=== PATIENT | female | born 1945 | race Caucasian/White ===

== ENCOUNTER 2021-02-16 11:55 | Inpatient (IN) | payer MEDICARE, BC, SELFPAY ==
[2021-02-16] VITALS (27 sets, daily range): BP systolic 100–178; BP diastolic 55–104; PULSE 55–97; RESP 12–24; TEMP 36.4–37.1; O2SAT 92–100; BMI 32.9; BMI 33.3
--- NOTE | ~2021-02-16 | CT_ITS ---
EXAMINATION: CT cervical spine wo con DATE: 02/16/2021 12:52 INDICATION: Fall with head injury TECHNIQUE: Computed tomography (CT) of the cervical spine was performed without intravenous contrast. Automated exposure control and iterative reconstruction technique were employed. The dose-length pro duct was 470.49 mGy-cm. COMPARISON: Cervical spine radiographs dated 03/01/2016 FINDINGS: Alignment is normal. Vertebral body heights are normal. No fracture. Severe disc height loss with deg enerative endplate changes at C5-C6 and C6-C7, moderate disc height loss at C4-C5 and mild disc heigh t loss at the remaining cervical levels. These (apices of lungs are clear. Small amount of atheroscle rotic calcification is at the bilateral carotid bulbs. Cervical soft tissues are otherwise unremarkab le. The following disc levels are specifically discussed: C2-C3: Disc is mildly bulging. There is moderate right and severe left uncovertebral joint osteoarthr itis. There is severe bilateral facet joint osteoarthritis. There is altered left and mild to moderat e right neural foraminal stenosis. There is no central canal stenosis. C3-C4: Disc is mildly bulging. There is right and moderate to severe left uncovertebral joint osteoar thritis. There is moderate right and severe left facet joint osteoarthritis. There is minimal right a nd moderate left neural foraminal stenosis. There is no central canal stenosis. C4-C5: Posterior disc osteophyte complex. There is severe bilateral uncovertebral joint osteoarthriti s. There is moderate right and moderate to severe left facet joint osteoarthritis. There is mild left and mild to moderate right neural foraminal stenosis. There is mild central canal stenosis. C5-C6: Posterior disc osteophyte complex. There is severe bilateral uncovertebral joint osteoarthriti s. There is mild right and mild to moderate left facet joint osteoarthritis. There is mild to moderat e bilateral neural foraminal stenosis. There is mild central canal stenosis. C6-C7: Posterior disc osteophyte complex. There is severe bilateral uncovertebral joint osteoarthriti s. There is mild right and moderate left facet joint osteoarthritis. There is mild bilateral neural f oraminal stenosis. There is mild central canal stenosis. C7-T1: The disc does not extend beyond the endplate margin. There is minimal bilateral uncovertebral joint osteoarthritis. There is mild right and mild to moderate left facet joint osteoarthritis. There is no neural foraminal stenosis. There is no central canal stenosis. IMPRESSION: 1. Severe cervical spondylosis. No acute osseous abnormality. Reviewed, dictated and finalized at location A.
--- NOTE | ~2021-02-16 | CT_ITS ---
EXAMINATION: CT pelvis wo con EXAM DATE: 02/16/2021 14:38 INDICATION: Abnormal x-ray demonstrating possible acetabular fracture. TECHNIQUE: Spiral CT pelvis wo con was performed without contrast. Axial, coronal and sagittal imag es were reviewed. The dose-length product (DLP) for this examination was 460.01 mGy-cm. The exposur e was tailored according to patient size (auto mA exposure control), and iterative reconstruction ( IR) was used as additional dose reduction technique. There is no prior study for comparison. FINDINGS: There is advanced lower lumbar facet arthropathy. There are no acute sacral, pelvic or hip fractures or dislocations identified. There is moderate bilateral hip primary osteoarthritis. There is no subcutaneous gas. The soft tissue is unremarkable. There are no radiopaque foreign bodies. N o pelvic lymphadenopathy. Hysterectomy. Moderate lumbar levoscoliosis. IMPRESSION: Moderate bilateral hip osteoarthritis. No acute fracture. Reviewed, dictated and finalized at location B.
--- NOTE | ~2021-02-16 | XR_ITS ---
EXAMINATION: XR surgery orthopedic DATE: 02/17/2021 15:26 INDICATION: ORIF left ankle fracture TECHNIQUE: 5 fluoroscopic images of the left ankle were obtained during procedure performed by Dr. Faisal egan. Radiologist was not present for the imaging or procedure. The amount of fluoroscopy time used during this procedure was 2.9 minutes. COMPARISON: 02/16/2021 FINDINGS: Interval open reduction internal fixation of the previously noted trimalleolar fracture of the left a nkle which is now in near-anatomic alignment. The medial malleolar fractures fixed with a pair of can nulated lag screws. The distal fibular fracture is fixed with a retrograde intramedullary hanane with a pair of distal interlocking screws. There is also an associated tibiofibular syndesmotic fixation wit h bunions on both the medial and lateral aspect of a pair of lucent tunnels extending through the met aphyseal regions of the distal left tibia and fibula. Syndesmotic fixation also extends through the i ntramedullary hanane. Again seen are changes of prior attempted midfoot arthrodesis which is fixed with multiple screws. Th ere are lucencies surrounding the threads of several of the screws. One of the screws extending from proximal medial to distal lateral between the medial cuneiform and the base of the second metatarsal and its associated washer which had backed out as seen on the initial images but which has been remov ed on the final image. Residual lucencies are seen at the tarsal metatarsal joint spaces suggesting p ossible failure of the prior attempted arthrodesis. IMPRESSION: 1. Trimalleolar fracture at the left ankle which appears in near-anatomic alignment post internal fix ation of the medial malleolar and distal fibular fractures as detailed above. The posterior patellar fracture remains unfixed. 2. Removal of a screw as part of internal fixation for a prior midfoot arthrodesis which had backed o ut. There are increased lucency surrounding some of the remaining screws and residual lucency along t he tarsal metatarsal joints suggesting this may remain ununited. Reviewed, dictated and finalized at location A. IMPRESSION: 1. Trimalleolar fracture at the left ankle which appears in near-anatomic align ment post internal fixation of the medial malleolar and distal fibular fracture s as detailed above. The posterior patellar fracture remains unfixed. 2. Removal of a screw as part of internal fixation for a prior midfoot arthrode sis which had backed out. There are increased lucency surrounding some of the r emaining screws and residual lucency along the tarsal metatarsal joints suggest ing this may remain ununited.
--- NOTE | ~2021-02-16 | CT_ITS ---
EXAMINATION: CTA chest PE protocol EXAM DATE: 02/16/2021 14:38 INDICATION: Pulmonary embolism. TECHNIQUE: Spiral CTA of the chest (pulmonary arteries) was performed with 100 cc Omnipaque 350 intr avenous contrast injection. Images were acquired during the pulmonary arterial phase. Coronal maxi mum intensity projection 3D-reconstructions were created by the technologist on dedicated workstation . Axial, coronal and sagittal reformatted images were reviewed. The dose-length product (DLP) for t his examination was 464.97 mGy-cm. The exposure was tailored according to patient size (auto mA exp osure control), and iterative reconstruction (ASIR) was used as additional dose reduction technique. Comparison is made to prior examination from 09/12/2017. FINDINGS: Pulmonary arteries are well opacified and without intraluminal filling defects. No thora cic aortic dissection. The lungs are clear. There are no pleural or pericardial effusions. Small amount of left lower lobe endobronchial debris. There is no mediastinal, hilar or axillary lymphade nopathy. There is no pneumothorax. There is mild cardiomegaly. There is mild coronary arterial c alcification, arterial sclerosis. Upper abdomen is unremarkable. There is moderate thoracic spondy losis without osteoblastic or osteolytic lesions identified. There are no acute fractures identified. IMPRESSION: 1. No pulmonary emboli or acute findings. 2. Mild cardiomegaly. Reviewed, dictated and finalized at location B.
--- NOTE | ~2021-02-16 | CT_ITS ---
EXAMINATION: CT brain wo con DATE: 02/16/2021 12:52 INDICATION: Head injury post fall TECHNIQUE: Computed tomography (CT) of the head was performed without intravenous contrast. Sagittal and coronal reconstructions were performed. The mA was adjusted according to patient size. Iterative reconstruction technique was employed. The dose-length product was 605.33 mGy-cm. COMPARISON: head CT dated 03/08/2015 FINDINGS: No fracture. No acute intracranial hemorrhage, acute infarction or abnormal extra axial fluid collect ion. Ventricles are normal and symmetric. Unchanged tiny falcine lipoma. Also unchanged is a chronic 4 mm cluster of dystrophic calcification in the periventricular white matter lateral to the frontal h orn of the left lateral ventricle. A prior left high parietal scalp nodule with calcification likely representing a true intraluminal cyst is no longer Olive stenosis likely been resected. Changes of ankita ateral intraocular lens replacement. The orbits and mastoid air cells are normal. Mild mucoperiosteal thickening the bilateral ethmoid sinuses. Intracranial calcified cerebral atherosclerosis is noted. Severe osteoarthritis at the bilateral temporomandibular joints. IMPRESSION: 1. No fracture or acute intracranial process. Reviewed, dictated and finalized at location A.
--- NOTE | ~2021-02-16 | XR_ITS ---
XR ankle LT min 3V, XR tibia fibula LT 2V 02/16/2021 12:30 Indication: Left ankle pain after fall Procedure: 3 views of the left ankle and 2 views left tibia/fibula Comparison: 10/29/2019 Findings: There is a trimalleolar fracture with mildly displaced oblique distal fibular diaphyseal fr acture being laterally displaced. Moderate diffuse soft tissue swelling. There is mild dorsal angulat ion of the fibular fracture. There surgical fusion of the midfoot with multiple screws. Osteopenia. Impression: 1: Trimalleolar fracture with displaced distal fibular fracture. Reviewed, dictated and finalized at location A. Impression: 1: Trimalleolar fracture with displaced distal fibular fracture. Impression: 1: Trimalleolar fracture with displaced distal fibular fracture.
--- NOTE | ~2021-02-16 | XR_ITS ---
XR femur LT min 2V 02/16/2021 12:30 Indication: Left leg pain after fall Procedure: 2 views left femur Comparison: No prior studies for comparison. Findings: There is osteoarthritis of the left hip. There is curvilinear lucency along the acetabulum. Cannot exclude nondisplaced acetabular fracture. No other fracture. No significant soft tissue abnor mality. No foreign bodies. Impression: 1: Possible acetabular fracture. Recommend correlation with CT. Reviewed, dictated and finalized at location A. Impression: 1: Possible acetabular fracture. Recommend correlation with CT.
--- NOTE | 2021-02-16 12:00 | PC.NURSE ---
Pt taken to CT and xray at this time
[2021-02-16 12:02] LABS: Glucose Point of Care 99 mg/dl (65-105)
--- NOTE | 2021-02-16 12:04 | ECG_ITS ---
Measurements Intervals [place] Rate: 63 P: 84 MA: 155 QRS: 84 QRSD: 97 T: 79 QT: 423 QTc: 433 Interpretive Statements SINUS RHYTHM BORDERLINE ST ABNORMALITY- INFERIOR LEADS BASELINE WANDER- AVL BORDERLINE ECG Electronically Signed On 02-16-2021 12:19:49 CDT by Anthony Castellano D.O.
[2021-02-16 12:22] LABS: Basophils Percent Auto 0.4 % (0.2-1.2); Eosinophils Absolute Auto 0.1 K/mm3 (0-0.3); Eosinophils Percent Auto 0.9 % (0-4.4); Hematocrit 44.6 % (37.0-47.0); Immature Granulocyte Absolute 0.04 K/mm3 (0.00-0.031); Immature Granulocyte Percent A 0.4 % (0-0.5); Lymphocytes Absolute Auto 1.17 K/mm3 (0.9-3.2); Lymphocytes Percent Auto 10.3 % (18.3-44.2); Mean Corpuscular HGB Conc 31.4 g/dl (32-36); Mean Corpuscular Hemoglobin 32.4 pg (26-34); Mean Corpuscular Volume 103.2 fl (80-100); Monocytes Absolute Auto 0.6 K/mm3 (0.1-0.6); Monocytes Percent Auto 5.1 % (2.6-8.5); Neutrophils Absolute Auto 9.5 K/mm3 (1.3-6.7); Neutrophils Percent Auto 82.9 % (45.5-73.1); Platelet Count Result 221 k/mm3 (150-375); Red Blood Count 4.32 M/mm3 (4.2-5.4); White Blood Count 11.4 K/mm3 (4.5-10.0)
[2021-02-16 12:28] LABS: Add Urine Microscopic? YES; Appearance Urine Clear (Clear); Bacteria Urine Trace /hpf; Bilirubin Urine Negative (Negative); Blood Urine Negative (Negative); Color Urine Yellow (Yellow); Glucose Urine UA Negative (Negative); Ketones Urine Negative (Negative); Leukocyte Esterase Ur Trace LEU/UL (Negative); Mucus Urine Rare /lpf; Nitrate Urine Negative (Negative); Protein Urine 1+ mg/dL (Negative); Squamous Epithelial Cell Urine Rare /hpf (Few); WBC Urine 0-3 /hpf
[2021-02-16 12:32] LABS: Anion Gap 11 mmol/L (8-16); Blood Urea Nitrogen 19 mg/dL (7-17); Calcium 9.9 mg/dL (8.4-10.2); Carbon Dioxide 27 mmol/L (22-30); Chloride 111 mmol/L (98-107); Creatine Kinase 150 U/L (30-135); Estimated Glomerular Filt Rate 54; Glucose 93 mg/dL (65-105); Potassium 3.6 mmol/L (3.4-5.0); Sodium 149 mmol/L (137-145)
[2021-02-16 12:38] LABS: INR 1.2; Prothrombin Time 16.2 Seconds (11.1-14.7)
--- NOTE | 2021-02-16 12:44 | PCRCNOTE ---
Arrived to draw the abg and pt. was in Xray and CT.
[2021-02-16] MEDS: ONDANSETRON INJ 4 MG/2 ML VIAL IV PUSH ×2 (12:58→13:38)
[2021-02-16] MEDS: MORPHINE SULFATE (*CRX) 4 MG/ML INJ IV PUSH ×4 (12:58→23:09)
[2021-02-16 13:07] LABS: Alveolar/Arterial O2 Gradient 37.8 mmHg; Base Excess ABG -0.2 mEq/l (+/-2.0); Fractional Inspired Oxygen 21 %; HCO3 ABG 25.2 mEq/l (22.0-26.0); Modified Allen's Test Pass; Oxygen Content ABG 17.4 %vol (16.0-22.0); Oxyhemoglobin 90.2 % THb (90.0-100.0); PO2 ABG 59.2 mmHg (80.0-100.0); PO2 FiO2 Ratio Arterial Blood 2.82 %; Site Drawn LEFT RADIAL; Total Hemoglobin 13.7 g/dL (12.0-18.0); pH ABG 7.376 (7.350-7.450)
[2021-02-16 13:08] LABS: Device ROOM AIR
--- NOTE | 2021-02-16 13:11 | ED.GENADULT ---
HPI - General Adult General Chief complaint: Fall Stated complaint: FALL WITH ANKLE INJURY Source: patient, EMS and RN notes reviewed Mode of arrival: EMS History of Present Illness HPI narrative: Patient 75 years old white female woke up sometime earlier today, found herself on the floor, crawled to the house door and called some people walking in the street for help, EMT arrived and brought patient to the emergency room. Patient is telling me that she was confused probably in the last 24 hours, does not recall what made her fall patient or when the fall happened. Currently complaining of headache, left leg pain below the knee. Patient on Coumadin patient. Currently patient is awake, alert and oriented x4. Related Data Allergies Allergy/AdvReac Type Severity Reaction Status Date / Time adhesive tape Allergy Intermediate REDNESS Verified 02/16/21 11:59 PMFSH Past Medical History Medical History Afib Chronic low back pain with sciatica Coagulopathy COPD (chronic obstructive pulmonary disease) Depression Diabetes Encounter for orthopedic follow-up care Ex-smoker for less than 1 year Hx of blood clots Hypothyroidism Migraine Mixed hyperlipidemia Pulmonary embolism Vitamin D deficiency Surgical History Surgical History H/O breast biopsy H/O hysterectomy with oophorectomy H/O lumpectomy Family History Family History Father Family history of chronic obstructive pulmonary disease Mother Family history of chronic obstructive pulmonary disease Family history of heart disease in male family member before age 55 Other Carcinoma of colon Cerebrovascular accident Diabetes mellitus Family history of alcoholism Family history of arthritis Family history of emphysema Family history of malignant neoplasm Family history of malignant neoplasm of breast in first degree relative Hypertension Social History Social History Smoking status: Never smoker Second hand tobacco smoke exposure: No Smoking end date: 09/03/15 Alcohol intake: never Substance use: unknown Exam Narrative: Exam Narrative: General appearance: Well-developed, well-nourished Skin: Normal color, left lower leg bruises mainly at the left ankle Head: Normocephalic, nontraumatic Eyes: Clear conjunctiva ENT: Oropharynx normal, ears normal, nose normal Neck: Supple, nontender Chest and respiratory: Airway patent, no respiratory distress, no accessory muscle use Heart: Regular rate/rhythm Abdomen: Soft, nontender, no organomegaly, quiet bowel sounds Vascular: Normal peripheral pulses, normal capillary refill. Musculoskeletal: Left ankle deformity, bruises, severely tender, severe limited range of motion Neurologic: Alert and oriented ?3, [employer] is normal as tested, no gross motor deficit Course Course Emergency Course: Stable, improving Reevaluation(s) Reevaluation #1: Patient had foot surgery by Dr. Lofton 1 year ago Consultations Consultation #1: Dr. Davis Admit to hospitalist, n.p.o. after midnight Date: 02/16/21 Time: 16:44 Vital Signs Vital signs: Vital Signs Pulse Rate 67 02/16/21 11:44 Respiratory Rate 24 H 02/16/21 11:44 Blood Pressure 159/104 H 02/16/21 11:44 Pulse Oximetry 93 02/16/21 11:44 Pulse Rate 97 02/16/21 15:21 Respiratory Rate 13 02/16/21 15:21 Blood Pressure 125/77 02/16/21 15:21 Pulse Oximetry 96 02/16/21 15:21 Medical Decision Making MDM Narrative Medical decision making narrative: Patient wor
[2021-02-16 13:34] LABS: Alanine Aminotransferase 24 U/L (4-35); Albumin Level 4.4 g/dL (3.5-5.1); Alkaline Phosphatase 61 U/L (38-126); Aspartate Amino Transferase 39 U/L (14-36); Bilirubin,Total 0.7 mg/dL (0.2-1.3)
--- NOTE | 2021-02-16 14:58 | PC.NURSE ---
Pt son called for an update. Son states that pt has had memory issues lately and has been forgetful
--- NOTE | 2021-02-16 16:21 | PC.NURSE ---
Pt apprears drowsy and holding strap of mattress pad and saying im trying to call my son This RN told her that wasn't her phone and gave her cell phone. Pt grabs the O2 monitor and attempts to pull at cord stating Im trying to unplug my phone This RN asked pt her name, where she was and why she was here.Pt responded caron Moore at the hospital because i broke my leg . This RN made Dr. Hwang aware. No new orders at this time.
[2021-02-16 16:27] LABS: Amphetamine Screen Urine Negative (Negative); Barbiturate Screen Urine Negative (Negative); Benzodiazepines Screen Urine Negative (Negative); Cannabinoid Screen Urine Negative (Negative); Cocaine Screen Urine Negative (Negative); Methadone Screen Urine Negative (Negative); Opiate Screen Urine Positive (Negative); Phencyclidine Screen Urine Negative (Negative)
--- NOTE | 2021-02-16 17:43 | ADMGEN ---
This patient, Lili Sanchez, was admitted to IMU Room 205-02. Patient/family oriented to hospital policies and general routines including ID bracelet, bed and alarms, visiting hours, pain management, procedures, bathroom and other care routines, personal items, smoking policy, room service/diet, and visiting hours. Information on how to activate the Rapid Response Team has been discussed. Patient/Family are encouraged to report perceived risks to care and to ask questions if they do not understand what they are told or what they should do.
[2021-02-16 21:57] LABS: Glucose Point of Care 135 mg/dl (65-105)
[2021-02-17] VITALS (23 sets, daily range): BP systolic 108–153; BP diastolic 43–76; PULSE 53–73; RESP 10–22; TEMP 36.2–37.7; O2SAT 91–100
--- NOTE | 2021-02-17 01:06 | PM.IMHP ---
H&P: HPI History of Present Illness Date/Time: 02/17/21 01:06 Chief Complaint: Fall Narrative: 75-year-old female with past medical history of COPD, obstructive sleep apnea, prior pulmonary embolism on chronic anticoagulation and fainting spells who presented to the ER after having a fall. In the ER the patient was noted to have some mild altered mental status. The patient initially stated that she did not know why she got up to go to the bathroom because she did not need to go. She then later stated that she did not know if she would have any urine in her bladder because she had been up peeing all night. Reviewing past medical records the there is mention of possible evidence of early cognitive impairment. The patient was alert oriented x3 at the time of my evaluation. She was adamant that she had dropped her cellphone but had to redirect her several times in tell her that she had dropped the remote for her bed. Nursing staff reported that the patient was answering orientation questions correctly but was insistent that she had called [place] on her slip cover sewer. The patient had an ABG performed in the ER which demonstrated mild hypoxemia but this did not correlate with her pulse ox. Her pulse ox was within normal limits. She did not have any evidence of hypercarbia. She has been having some mild increased shortness of breath from baseline ever since she smoked a couple of cigarettes this past weekend. She reports that her cough is productive of yellow sputum. She has not been having any fevers or chills. She has not had a COVID vaccine. She has noticed some increased wheezing from baseline. She did and denies any loss of sense of smell. She has had mild decreased sense of taste. She does not have any evidence of pneumonia on x-ray. She has not been having any fevers or chills. She has chronic urinary frequency and stress incontinence. She wears pads at home. She denies any dysuria or hematuria. She has not been having any changes in her bowel habits. She reports severe pain in her leg since the fall. The pain extends up into her knee. She had not noticed any lower extremity edema prior to her fall. She reports an abrasion to her left knee as she had to crawl from her bedroom to the front door to weight down a neighbor to receive help. She lives with her nephew but her nephew was gone to work when she fell. Review of Systems Review of Systems: Narrative: 12 systems were reviewed with pertinent positives and negatives per HPI. Except as documented in the HPI, all other systems were reviewed and are negative. [facility] Past Medical History Medical History (Updated 02/17/21 @ 08:34 by Geovanna Pop DO) Afib Anxiety Chronic anticoagulation Chronic low back pain with sciatica COPD (chronic obstructive pulmonary disease) Depression Diabetes Hx of blood clots Hypothyroidism Irritable bowel syndrome Migraine Mixed hyperlipidemia Obstructive sleep apnea Pulmonary embolism (~2006) Saddle PE Vitamin D deficiency Surgical History Surgical History H/O breast biopsy H/O hysterectomy with oophorectomy H/O lumpectomy History of appendectomy History of lumbar surgery Family History Family History Father COPD (chronic obstructive pulmonary disease) Hypertension Mother Acute myocardial infarction COPD (chronic obstructive pulmonary disease) Hypertension Sibling CHF (congestive heart failure) Brother DVT (deep venous thrombosis) 1 Sister Cerebrovascular accident Sister Asthma 1 Brother and 3 sisters Lung cancer 1 Sister Diabetes mellitus 1 Sister Breast cancer 2 sisters Hypertension Other Carcinoma of colon Family history of alcoholism Social History Social History Social History: She is
[2021-02-17] MEDS: PREGABALIN (*CRX) 50 MG CAPSULE PO ×2 (02:32→20:06)
[2021-02-17] MEDS: oxyCODONE/ACETAMINOPHEN (*CRX) 5-325 MG TABLET 1 TABLET PO (02:32)
[2021-02-17] MEDS: MORPHINE SULFATE (*CRX) 4 MG/ML INJ IV PUSH ×2 (04:19→09:20)
[2021-02-17] MEDS: LEVOTHYROXINE SODIUM 25 MCG TABLET PO (05:19)
--- NOTE | 2021-02-17 07:27 | PM.CNOR ---
Assessment and Plan Assessment and plan (1) Trimalleolar fracture of ankle, closed: Qualifiers: Encounter type: initial encounter Laterality: left Qualified Code(s): S82.852A - Displaced trimalleolar fracture of left lower leg, initial encounter for closed fracture Code(s): S82.853A - Displaced trimalleolar fracture of unspecified lower leg, initial encounter for closed fracture Status: Acute Assessment and Plan: Updated history, physical exam and radiographs reviewed with the patient. Interval changes reviewed. Discussed the condition, nature, etiology and course of natural history with the patient. Treatment options including surgical and nonoperative treatment were reviewed. Risks and benefits of each as well as alternatives reviewed. The patient's questions were answered. Conservative treatment ice, compression and elevation. Currently in splint for immobilization. Nonweightbearing left leg. Patient desires operative treatment. We discussed her syncope and mental status changes. Further workup pending per hospitalist group. She is on Coumadin for previous pulmonary embolism however has been noncompliant with regimen. Her INR is 1.2. Plan for surgery left ankle when medically stable. Operative treatment timing may also depend on the amount swelling. Discussed nonoperative and operative treatment options with the patient. Risks and benefits of each as well as alternatives were reviewed. All of the patient's questions were answered. The risks of surgery reviewed including but not limited to: Neurovascular damage, wound complication, infection, blood clot, pulmonary embolus, stroke, myocardial infarction, and anesthetic risks up to and including . Continued pain and possible dysfunction were explained. Specific risks of the procedure including later recurrence of deformity. No guarantees were offered. If hardware used, discussed risk of failure/ breakage and possible need for removal. If complications occur, the patient understands the need for further treatment, possible further surgery. Patient verbalizes understanding and wishes to proceed. PLAN:Open reduction internal fixation left ankle fracture when medically stable/ cleared for anesthesia History of Present Illness HPI Consult date: 02/17/21 Requesting physician: Fadia Hwang MD Chief complaint: syncope,left trimalleolar fracture,hypoxicrespirat Narrative: 75-year-old woman no previous to me for Lisfranc fracture dislocation left foot which was treated with open reduction internal fixation. Patient states she got up home to go to the bathroom. She tripped over the bathroom rug and fell twisting the left ankle. She was unable to bear weight. Emergency room radiographs show left ankle trimalleolar fracture. She has been admitted for care as well as evaluation and treatment for mental status changes and syncope. Review of Systems Constitutional: Constitutional: Denies fever(s) Eyes: Eyes: Denies blurry vision ENT: Reports Normal hearing present Cardiovascular: Cardiovascular: Denies chest pain and Denies dyspnea Respiratory: Respiratory: Denies dyspnea and Denies wheezing Gastrointestinal: Gastrointestinal: Denies abdominal pain Genitourinary: Genitourinary: Denies urinary urgency Musculoskeletal: Musculoskeletal: Reports as per HPI and Denies numbness Integumentary/Breasts: Skin/Breast: Denies changing lesions and Denies sores Neurologic: Reports Normal hearing present, Denies behavioral changes, Denies confusion, Denies numbness and Denies convulsions Psychiatric: Psychiatric: Denies behavioral changes, Denies confusion and Denies hallucinations Endocrine: Endocrine: Denies heat intolerance Hematologic/Lymphatic: Hematologic/Lymphatic: Denies easy bleeding Allergic/Immunologic: Allergic/Immunologic: Denies wheezing [facility] Past Medical History Medical History Afib
[2021-02-17 07:52] LABS: Glucose Point of Care 80 mg/dl (65-105)
[2021-02-17 09:05] LABS: Glucose Point of Care 90 mg/dl (65-105)
[2021-02-17] MEDS: predniSONE 20 MG TABLET 40 MG PO (09:23)
[2021-02-17] MEDS: ROSUVASTATIN 10 MG TABLET PO (09:24)
[2021-02-17] MEDS: TOPIRAMATE 25 MG TABLET PO ×2 (09:24→20:06)
[2021-02-17] MEDS: MONTELUKAST SODIUM 10 MG TABLET PO (09:24)
[2021-02-17 09:40] LABS: Hematocrit 37.5 % (37.0-47.0); Hemoglobin 11.9 g/dL (12.0-15.0); Mean Corpuscular HGB Conc 31.7 g/dl (32-36); Mean Corpuscular Hemoglobin 32.2 pg (26-34); Mean Corpuscular Volume 101.6 fl (80-100); Mean Platelet Volume 9.8 fl (7.4-10.4); Platelet Count Result 172 k/mm3 (150-375); Red Blood Count 3.69 M/mm3 (4.2-5.4); Red Cell Distribution Width 13.8 % (11.5-14.5); White Blood Count 7.3 K/mm3 (4.5-10.0)
[2021-02-17 10:02] LABS: Anion Gap 6 mmol/L (8-16); Blood Urea Nitrogen 16 mg/dL (7-17); Calcium 8.6 mg/dL (8.4-10.2); Carbon Dioxide 29 mmol/L (22-30); Chloride 106 mmol/L (98-107); Estimated CRCL calculation 46 ml/min; Estimated Glomerular Filt Rate 54; Glucose 83 mg/dL (65-105); Potassium 3.7 mmol/L (3.4-5.0); Sodium 141 mmol/L (137-145)
[2021-02-17] MEDS: DEXTROSE 5%/0.45% SOD CHL 1,000 ML 75 ML IV CONT (10:03)
--- NOTE | 2021-02-17 12:08 | WPDANESEPPF ---
Anes - Initial Pre Proc Eval Procedure: Operation Date: 02/17/21 15:00 Proposed Procedures p Open Reduction and Internal Fixation Left Ankle Fracture(Left) - Ariel Lofton MD Date/Time: 02/17/21 12:08 Surgeon: Eduar Soriano MD Pre Op Diagnosis: syncope,left trimalleolar fracture,hypoxicrespirat Patient Data Age: 75 Gender: F Height: 1.63 m Weight: 88.4 kg Last Vital Signs Temp 36.7 C 02/17/21 08:00 Pulse 65 02/17/21 10:00 Resp 18 02/17/21 08:00 BP 130/57 L 02/17/21 08:00 Pulse Ox 92 02/17/21 09:11 Allergies Allergy/AdvReac Type Severity Reaction Status Date / Time adhesive tape Allergy Intermediate REDNESS Verified 02/16/21 11:59 Home Medications Medication Instructions Recorded Confirmed Type montelukast 10 mg tablet 10 mg PO DAILY #90 tablet 12/08/20 02/16/21 Rx sertraline 100 mg tablet 100 mg PO DAILY #30 tablet 12/15/20 02/16/21 Rx oxycodone-acetaminophen 10 mg-325 1 tablet PO Q6H PRN #55 tablet 01/28/21 02/16/21 Rx mg tablet budesonide-formoterol HFA 160 2 puff INHALATION Q12H #10.2 g 02/01/21 02/16/21 Rx mcg-4.5 mcg/actuation aerosol inhaler rosuvastatin 10 mg tablet 10 mg PO DAILY #30 tablet 02/02/21 02/16/21 Rx albuterol sulfate 2 inh INHALATION BID PRN 02/16/21 02/16/21 History glimepiride 1 mg PO DAILY 02/16/21 02/16/21 History levothyroxine 25 mcg PO DAILY 02/16/21 02/16/21 History pregabalin 50 mg PO HS 02/16/21 02/16/21 History topiramate 25 mg PO BID 02/16/21 02/16/21 History warfarin 1 mg PO DAILY 02/16/21 02/16/21 History Laboratory Tests 02/16/21 02/16/21 02/16/21 12:11 12:12 12:12 WBC 11.4 K/mm3 H K/mm3 (4.5-10.0) RBC 4.32 M/mm3 M/mm3 (4.2-5.4) Hgb 14.0 g/dL g/dL (12.0-15.0) Hct 44.6 % % (37.0-47.0) MCV 103.2 fl H fl (80-100) MCH 32.4 pg pg (26-34) MCHC 31.4 g/dl L g/dl (32-36) RDW 14.0 % % (11.5-14.5) Plt Count 221 k/mm3 k/mm3 (150-375) MPV 10.0 fl fl (7.4-10.4) Immature Gran % (Auto) 0.4 % % (0-0.5) Neut % (Auto) 82.9 % H % (45.5-73.1) Lymph % (Auto) 10.3 % L % (18.3-44.2) Gibson % (Auto) 5.1 % % (2.6-8.5) Eos % (Auto) 0.9 % % (0-4.4) Baso % (Auto) 0.4 % % (0.2-1.2) Lymph # (Auto) 1.17 K/mm3 K/mm3 (0.9-3.2) Gibson # (Auto) 0.6 K/mm3 K/mm3 (0.1-0.6) Eos # (Auto) 0.1 K/mm3 K/mm3 (0-0.3) Baso # (Auto) 0.0 K/mm3 K/mm3 (0.0-0.1) Abs Immat Gran (auto) 0.04 K/mm3 H K/mm3 (0.00-0.031) Absolute Neuts (auto) 9.5 K/mm3 H K/mm3 (1.3-6.7) Absolute Nucleated RBC 0.0 K/mm3 K/mm3 (0.0-0.012) Nucleated RBC % 0.0 % % (0.0-0.2) PT INR Puncture Site ABG pH ABG pCO2 ABG pO2 ABG PO2/FiO2 Ratio ABG HCO3 ABG O2 Saturation ABG O2 Content ABG Base Excess A-a Gradient Oxyhemoglobin Total Hemoglobin O2 Delivery Device O2 Liters/Min FiO2 Sodium Cancelled Potassium Cancelled Chloride Cancelled Carbon Dioxide Cancelled Anion Gap Cancelled BUN Cancelled Creatinine Cancelled Estim Creat Clear Calc Cancelled Estimated GFR Cancelled Glucose Cancelled POC Capillary Glucose Calcium Cancelled Total Bilirubin 0.7 mg/dL mg/dL (0.2-1.3) Direct Bilirubin 0.0 mg/dL mg/dL (0-0.3) AST 39 U/L H U/L (14-36) ALT 24 U/L U/L (4-35) Alkaline Phosphatase 61 U/L U/L (38-126) Total Creatine Kinase Total Protein 8.0 g/dL g/dL (6.3-8.2) Albumin 4.4 g/dL g/dL (3.5-5.1) Ur
[2021-02-17 12:27] LABS: Glucose Point of Care 106 mg/dl (65-105)
[2021-02-17] MEDS: LACTATED RINGERS 1,000 ML 30 ML IV CONT ×2 (12:47→15:31)
--- NOTE | 2021-02-17 13:30 | WPDHPUPDATE1 ---
History and Physical Update Update Date/Time: 02/17/21 13:30 History and Physical has been reviewed, including an updated exam of the patient. There are NO changes in the patient's condition. Risks, benefits, and alternatives have been discussed and questions answered. Patient agrees to proceed with procedure.
[2021-02-17] MEDS: ceFAZolin 2 GM/D5W 50 ML 2 GM/50 ML BAG IVPB (13:34)
--- NOTE | 2021-02-17 14:17 | PM.IMPN ---
Progress Note: A&P Assessment and Plan (1) Fall: Qualifiers: Encounter type: subsequent encounter Qualified Code(s): W19.XXXD - Unspecified fall, subsequent encounter Code(s): W19.XXXA - Unspecified fall, initial encounter Status: Acute Assessment and Plan: See below (2) Acute alteration in mental status: Code(s): R41.82 - Altered mental status, unspecified Status: Acute (3) Trimalleolar fracture of ankle, closed: Qualifiers: Encounter type: initial encounter Laterality: left Qualified Code(s): S82.852A - Displaced trimalleolar fracture of left lower leg, initial encounter for closed fracture Code(s): S82.853A - Displaced trimalleolar fracture of unspecified lower leg, initial encounter for closed fracture Status: Acute (4) Patient noncompliant with anticoagulant medication: Code(s): Z91.14 - Patient's other noncompliance with medication regimen Status: Acute (5) COPD (chronic obstructive pulmonary disease): Qualifiers: COPD type: chronic bronchitis Chronic bronchitis type: unspecified Qualified Code(s): J42 - Unspecified chronic bronchitis Code(s): J44.9 - Chronic obstructive pulmonary disease, unspecified Status: Acute Additional Plan Interval history as before on admission note : Patient had a trip and fall resulting in a left trimalleolar fracture. The patient adamantly denies having syncopal event. She has no evidence of cardiac arrhythmia on telemetry or EKG. Orthopedic surgery has been consulted. The patient is requesting to be seen by Dr. Quiroga as he previously foot with prior fracture. The patient is having some active wheezing and increased shortness of breath from baseline. The patient will be placed on scheduled nebulizer treatments with albuterol and Atrovent. Will continue her home inhaled corticosteroid. She does not have an oxygen requirement. By nature of her COPD she is at moderate risk for complications in the postoperative interval. Will provide good pulmonary toilet and incentive spirometry. As the patient is afebrile on antibiotic therapy. Given her increased wheezing will provide oral prednisone for 5 days. The patient's confusion is likely due to early cognitive impairment/mild dementia. As mentioned above there was concern for cognitive decline mention and prior past medical records. The patient's confusion did seem to be worse at night fitting with likely sundowning. CT of brain was negative for any acute process. The patient's confusion could also be compounded by fact that she is on chronic narcotic pain medications. The patient's confusion would not delay surgical intervention from in my opinion. The patient's Coumadin is on hold in anticipation of surgical procedure. Will resume the anticoagulation prior to discharge. Subjective Date/time seen: 02/17/21 14:17 Interval history: 75-year-old female with past medical history of COPD, obstructive sleep apnea, prior pulmonary embolism on chronic anticoagulation and fainting spells who presented to the ER after having a fall. Some Gi upset not been eating for 3 days had a fall sustained Trimalleolar fracture of ankle. Pt describes some blurred vision no focal weakness ? due to no food hypoglycemia, stroke appears unlikely cthead is negative. PT is stable for Orthopedics surgery continue D51/2 NS Review of Systems Review of Systems: All systems reviewed & are unremarkable except as noted in HPI and below Objective Data Vital Signs Vital Signs: Vital Signs - 24 hr 02/16/21 14:39 02/16/21 14:45 02/16/21 15:07 Temperature Pulse Rate 64 63 58 L Respiratory Rate 15 14 14 Blood Pressure Pulse Oximetry 95 95 97 02/16/21 15:15 02/16/21 15:21 02/16/21 15:33 Temperature Pulse Rate 66 60 62 Respiratory Rate 19 17 16 Blood Pressure 125/77 Pulse Oximetry 95 92 02/16/21 15:45 02/16/21 15:46 02/16/21 16:00 Temperatu
[2021-02-17] MEDS: BUPIVACAINE/EPINEPHRINE 0.5% 10 ML VIAL 20 ML INFILTRATE (14:20)
[2021-02-17 15:41] LABS: Glucose Point of Care 145 mg/dl (65-105)
--- NOTE | 2021-02-17 15:44 | W.PM.PROC2 ---
Procedure Note - Detailed Date of Procedure 02/17/21 Pre-op Diagnosis syncope,left trimalleolar fracture,hypoxicrespirat Post-op Diagnosis same Procedure Performed Open reduction internal fixation left ankle trimalleolar fracture without fixation of posterior lip. Open reduction internal fixation syndesmosis disruption. Removal of hardware from left foot. Surgeon Ariel Lofton MD [employer] school psychologist assistant Anesthesia general Indications 75-year-old woman fell and sustained a left ankle trimalleolar fracture. She desires operative treatment. She sustained a Lisfranc fracture dislocation on the left foot 2 years ago. She has prominence of the hardware now with pain and desires removal of that as well. Description of Procedure What was done: After informed consent, the operative extremity was marked in the preoperative holding area. Patient received intravenous antibiotics. Patient was then taken to the operating room and underwent general anesthesia by the anesthesia team. Positioned supine on the operating room table with a soft bump under the ipsilateral hip. A time-out was performed confirming the patient, site of the surgery, operative plan. Left Lower extremity then prepped and draped in the usual sterile surgical fashion using ChloraPrep skin solution. Foot and ankle exsanguinated and a thigh tourniquet inflated to 250 mmHg. Distal fibular fracture noted to be Ragland C with disruption of the syndesmosis. Close reduction of the ankle in fractures performed. Image intensification then used to guide intramedullary pin for the distal fibula starting at the distal most aspect. Fifteen blade knife used to make skin incision. Blunt dissection to the distal tip of the fibula. A guide pin was then placed into the fibula and across the fracture site and verified with image intensification. Reaming and over drilling of the pin was performed. Pin was then removed and the fibular intramedullary nail was placed and confirmed with image intensification. Distal locking done with the locking guide using the tissue protectors. To 2.7 mm screws placed from the lateral aspect. The nail had been locked in place with the proximal deployment device. Wounds thoroughly irrigated antibiotic solution and closed with 4 nylon interrupted suture. Syndesmosis then addressed. Incision made over the posterior aspect of the distal fibula with 15 blade knife. Dissection carried down to the fibula. Drill was used to drill across the fibula cortices and into the tibia. This was verified with image intensification. The tight rope device was then placed through the fibula and tibia and tightened into position with the ankle mortise reduced. Second tight rope was placed just proximal to the 1st 1 with same technique. Good fixation of the distal fibula and the syndesmosis noted. Impression toes occasion confirm placement of the hardware. Medial side then addressed. Longitudinal incision made with a 15 blade knife over the medial malleolus fracture. Hemostasis controlled with electrocautery. Fascia incised in line with skin incision. Periosteum cleared from the medial malleolus fracture. Medial side of the joint inspected and noted to have mild amount of trauma to the chondral surface. Thorough irrigation of the ankle joint and suctioned out. Fracture reduced and provisionally pinned. Fixation achieved with 4.0 mm partially threaded cancellous screws x2 placed in cannulated screw fashion. Image intensification confirmed reduction of the fracture and placement of the hardware. Stress of the ankle performed with good stability of the ankle mortise in all directions. Posterior malleolus noted to be reduced and stable. Wounds thoroughly irrigated with antibiotic solution. Skin closed with 4 nylon interrupted suture. The previous hardware placed for the Lisfranc fracture was palpable at the dorsomedial aspect of the midfoot. Incision made with 15 blade knife and dissectio
[2021-02-17] MEDS: fentaNYL CITRATE INJ (*CRX) 100 MCG/2 ML VIAL 25 MCG IV PUSH ×2 (16:11→16:15)
--- NOTE | 2021-02-17 17:13 | SUR.PHASEI ---
[address] valdovinos that hsopitalist was ok for pt transfer to 3 med/surg, dr valdovinos also is ok with the transfer
--- NOTE | 2021-02-17 17:17 | PC.NURSE ---
This patient, Lili Sanchez, was transferred to [Sarah ] on 02/17/21 at 1522. Personal belongings sent with patient. Report given to [Siri ]. Appropriate documentation sent with patient.
[2021-02-17] MEDS: DOCUSATE SODIUM 100 MG CAPSULE PO (18:01)
[2021-02-17] MEDS: KCL 20 MEQ/D5/0.45% SOD CHL 1,000 ML 80 ML IV CONT (18:02)
--- NOTE | 2021-02-17 18:38 | PC.NURSE ---
This pt arrived to the floor, transferring from IMU 205/PACU. Pt acclimated to room 331. Pt belongings in room and in safe.
[2021-02-17] MEDS: oxyCODONE HCL (*CRX) 5 MG TAB IR PO (20:05)
[2021-02-17] MEDS: FAMOTIDINE 20 MG TABLET PO (20:06)
[2021-02-17] MEDS: SERTRALINE HCL 50 MG TABLET 100 MG PO (20:06)
[2021-02-17] MEDS: BUDESONIDE/FORMOTEROL (*SP) 160-4.5 MCG 6 GM INH 2 PUFF INHALATION (20:07)
[2021-02-17 22:21] LABS: Glucose Point of Care 329 mg/dl (65-105)
[2021-02-18] MEDS: oxyCODONE HCL (*CRX) 5 MG TAB IR PO ×4 (01:22→23:12)
[2021-02-18] MEDS: LEVOTHYROXINE SODIUM 25 MCG TABLET PO (05:16)
[2021-02-18 06:37] LABS: Basophils Percent Auto 0.2 % (0.2-1.2); Hematocrit 34.8 % (37.0-47.0); Hemoglobin 11.1 g/dL (12.0-15.0); Immature Granulocyte Absolute 0.04 K/mm3 (0.00-0.031); Immature Granulocyte Percent A 0.4 % (0-0.5); Lymphocytes Absolute Auto 0.85 K/mm3 (0.9-3.2); Lymphocytes Percent Auto 7.9 % (18.3-44.2); Mean Corpuscular HGB Conc 31.9 g/dl (32-36); Mean Corpuscular Hemoglobin 32.5 pg (26-34); Mean Corpuscular Volume 101.8 fl (80-100); Mean Platelet Volume 10.1 fl (7.4-10.4); Monocytes Percent Auto 9.2 % (2.6-8.5); Neutrophils Absolute Auto 8.9 K/mm3 (1.3-6.7); Neutrophils Percent Auto 82.3 % (45.5-73.1); Platelet Count Result 159 k/mm3 (150-375); Red Blood Count 3.42 M/mm3 (4.2-5.4); Red Cell Distribution Width 13.4 % (11.5-14.5); White Blood Count 10.8 K/mm3 (4.5-10.0)
[2021-02-18 06:54] LABS: Anion Gap 6 mmol/L (8-16); Blood Urea Nitrogen 19 mg/dL (7-17); Calcium 8.5 mg/dL (8.4-10.2); Carbon Dioxide 24 mmol/L (22-30); Chloride 108 mmol/L (98-107); Estimated CRCL calculation 42 ml/min; Estimated Glomerular Filt Rate 48; Glucose 152 mg/dL (65-105); Potassium 3.9 mmol/L (3.4-5.0); Sodium 138 mmol/L (137-145)
[2021-02-18 06:55] VITALS: BP 127/50; PULSE 65; RESP 18; TEMP 36.6; O2SAT 97
[2021-02-18 08:00] VITALS: BP 129/52; PULSE 60; RESP 16; TEMP 36.4; O2SAT 98
[2021-02-18 08:12] LABS: Glucose Point of Care 144 mg/dl (65-105)
[2021-02-18] MEDS: MONTELUKAST SODIUM 10 MG TABLET PO (08:37)
[2021-02-18] MEDS: predniSONE 20 MG TABLET 40 MG PO (08:37)
[2021-02-18] MEDS: DOCUSATE SODIUM 100 MG CAPSULE PO ×2 (08:37→17:10)
[2021-02-18] MEDS: FAMOTIDINE 20 MG TABLET PO ×2 (08:38→20:56)
[2021-02-18] MEDS: TOPIRAMATE 25 MG TABLET PO ×2 (08:38→20:56)
[2021-02-18] MEDS: BUDESONIDE/FORMOTEROL (*SP) 160-4.5 MCG 6 GM INH 2 PUFF INHALATION ×2 (08:38→20:55)
[2021-02-18] MEDS: ROSUVASTATIN 10 MG TABLET PO (08:38)
[2021-02-18] MEDS: MORPHINE SULFATE (*CRX) 4 MG/ML INJ IV PUSH ×2 (10:34→13:16)
[2021-02-18 11:08] VITALS: PULSE 64; O2SAT 96
--- NOTE | 2021-02-18 12:18 | PM.PNORT ---
Progress Note: A&P Assessment and Plan (1) Trimalleolar fracture of ankle, closed: Qualifiers: Encounter type: initial encounter Laterality: left Qualified Code(s): S82.852A - Displaced trimalleolar fracture of left lower leg, initial encounter for closed fracture Code(s): S82.853A - Displaced trimalleolar fracture of unspecified lower leg, initial encounter for closed fracture Status: Acute Assessment and Plan: POD #1: Open reduction internal fixation left ankle trimalleolar fracture without fixation of posterior lip. Open reduction internal fixation syndesmosis disruption. Removal of hardware from left foot. Patient hopeful for discharge home however, having difficulty with pain control today. Reviewed pain medication regimen with nursing staff. Also reviewed elevating extremity above level of heart. Patient with concerns about the splint feeling too tight. Good capillary refill, sensation intact. Moves toes. Warm to touch. No drainage through dressing. Reassured of need for some compression with splint for soft tissue swelling. Encouraged elevation and ice. Patient agrees with plan of care. Continue PT/OT. NWB LLE. Out of bed to chair. Continue pain control. Ice. Elevate. Incentive spirometry. SCD to the RLE. Keep splint in place. Dispo: Home pending medical clearance, PT/OT clearance and improvement in pain control. Subjective Subjective Date/Time Seen: 02/18/21 12:18 Post Op day: 1 Interval history: POD #1: Open reduction internal fixation left ankle trimalleolar fracture without fixation of posterior lip. Open reduction internal fixation syndesmosis disruption. Removal of hardware from left foot. Difficultly with pain control today. Feels the splint is tight. Tolerating PO intake well. No other concerns. Review of Systems Review of Systems: All systems reviewed & are unremarkable except as noted in HPI and below Constitutional: Constitutional: Denies chills, Denies fatigue and Denies fever(s) Cardiovascular: Cardiovascular: Denies chest pain, Reports leg edema and Denies lightheadedness Respiratory: Respiratory: Reports no additional respiratory complaints Comments: using NC O2 which she has at home as well. Gastrointestinal: Gastrointestinal: Denies nausea and Denies vomiting Genitourinary: Genitourinary: Denies dysuria Musculoskeletal: Musculoskeletal: Reports as per HPI Exam Const: General: comfortable and no acute distress Resp: Effort & Inspection: normal respiratory effort Cardio: Rate: regular rate Rhythm: regular rhythm GI: Inspection: non-distended GI Palp: Yes Soft to palpation and No Tenderness to palpation present (GI) Skin: Wounds: wounds noted (unable to assess- splint in place ) Neuro: General: No gait normal Cognition (Neuro): normal cognition Speech: normal speech Motor exam (neuro): Abnormal motor strength present (limited LLE ) Extrem: Left lower extremity: knee Details: normal to inspection; no tenderness, no swelling, no ecchymosis, no deformity and no unusual warmth, lower leg (splint in place- c/d/i ), ankle (splint in place, c/d/i ) and foot (moves toes, good capillary refill, sensation intact, warm to touch. ) Details: normal capillary refill and motor-sensory exam light-touch normal; no ecchymosis Objective Data Vital Signs Vital Signs: Vital Signs - 24 hr 02/17/21 12:44 02/17/21 12:57 02/17/21 15:35 Temperature 36.2 C L 37.1 C 37.4 C Pulse Rate 61 64 63 Respiratory Rate 18 12 Blood Pressure 153/60 H 147/44 H 136/71 Pulse Oximetry 96 91 100 02/17/21 15:50 02/17/21 16:05 02/17/21 16:20 Temperature Pulse Rate 58 L 62 59 L Respiratory Rate 11 L 10 L 10 L Blood Pressure 127/63 132/61 125/67 Pulse Oximetry 100 100 96 02/17/21 16:35 02/17/21 16:50 02/17/21 17:45 Temperature 36.4 C Pulse Rate 55 L 58 L 72 Respiratory Rate 10 L 12 16 Blood Pressure 125/62 118/54 L 142/67 H Pulse Oximetry 98 98 95 02/17/21 18:00 06
[2021-02-18 12:45] LABS: Glucose Point of Care 147 mg/dl (65-105)
--- NOTE | 2021-02-18 14:30 | PM.IMPN ---
Progress Note: A&P Assessment and Plan (1) Fall: Qualifiers: Encounter type: subsequent encounter Qualified Code(s): W19.XXXD - Unspecified fall, subsequent encounter Code(s): W19.XXXA - Unspecified fall, initial encounter Status: Acute Assessment and Plan: See below Interval history as before on admission note : Patient had a trip and fall resulting in a left trimalleolar fracture. The patient adamantly denies having syncopal event. She has no evidence of cardiac arrhythmia on telemetry or EKG. Orthopedic surgery has been consulted. The patient is requesting to be seen by Dr. Quiroga as he previously foot with prior fracture. The patient is having some active wheezing and increased shortness of breath from baseline. The patient will be placed on scheduled nebulizer treatments with albuterol and Atrovent. Will continue her home inhaled corticosteroid. She does not have an oxygen requirement. By nature of her COPD she is at moderate risk for complications in the postoperative interval. Will provide good pulmonary toilet and incentive spirometry. As the patient is afebrile on antibiotic therapy. Given her increased wheezing will provide oral prednisone for 5 days. The patient's confusion is likely due to early cognitive impairment/mild dementia. As mentioned above there was concern for cognitive decline mention and prior past medical records. The patient's confusion did seem to be worse at night fitting with likely sundowning. CT of brain was negative for any acute process. The patient's confusion could also be compounded by fact that she is on chronic narcotic pain medications. The patient's confusion would not delay surgical intervention from in my opinion. The patient's Coumadin is on hold in anticipation of surgical procedure. Will resume the anticoagulation prior to discharge. Pt started on gabapentin for left leg pain POD #1: Open reduction internal fixation left ankle trimalleolar fracture without fixation of posterior lip. Dc tomorrow. (2) Acute alteration in mental status: Code(s): R41.82 - Altered mental status, unspecified Status: Acute (3) Trimalleolar fracture of ankle, closed: Qualifiers: Encounter type: initial encounter Laterality: left Qualified Code(s): S82.852A - Displaced trimalleolar fracture of left lower leg, initial encounter for closed fracture Code(s): S82.853A - Displaced trimalleolar fracture of unspecified lower leg, initial encounter for closed fracture Status: Acute (4) Patient noncompliant with anticoagulant medication: Code(s): Z91.14 - Patient's other noncompliance with medication regimen Status: Acute (5) COPD (chronic obstructive pulmonary disease): Qualifiers: COPD type: chronic bronchitis Chronic bronchitis type: unspecified Qualified Code(s): J42 - Unspecified chronic bronchitis Code(s): J44.9 - Chronic obstructive pulmonary disease, unspecified Status: Acute Subjective Date/time seen: 02/18/21 14:30 Interval history: 75-year-old female with past medical history of COPD, obstructive sleep apnea, prior pulmonary embolism on chronic anticoagulation and fainting spells who presented to the ER after having a fall. Some Gi upset not been eating for 3 days had a fall sustained Trimalleolar fracture of ankle. POD #1: Open reduction internal fixation left ankle trimalleolar fracture without fixation of posterior lip. Pt having some pain issues in her left thigh. Continue to watch today and dc tomorrow. Review of Systems Review of Systems: All systems reviewed & are unremarkable except as noted in HPI and below Exam Narrative: Exam Narrative: Const: General: cooperative and healthy appearing; No in distress Nutritional Appearance: overweight Orientation/consciousness: oriented to person HENMT: Head: normal to inspection Resp: Effort & Inspection: no respiratory distress A
[2021-02-18 16:00] VITALS: BP 135/64; PULSE 62; RESP 18; TEMP 36.3; O2SAT 96
[2021-02-18] MEDS: GABAPENTIN 100 MG CAPSULE PO (17:10)
[2021-02-18] MEDS: oxyCODONE/ACETAMINOPHEN (*CRX) 5-325 MG TABLET 1 TABLET PO ×2 (17:12→23:12)
[2021-02-18 20:00] VITALS: O2SAT 96
[2021-02-18] MEDS: TOLNAFTATE 1% POWDER 45 GM BTL 1 APPLIC TOPICAL (20:55)
[2021-02-18] MEDS: PREGABALIN (*CRX) 50 MG CAPSULE PO (20:56)
[2021-02-18] MEDS: SERTRALINE HCL 50 MG TABLET 100 MG PO (20:56)
[2021-02-18 21:07] LABS: Glucose Point of Care 238 mg/dl (65-105)
[2021-02-18 22:00] VITALS: BP 143/52; PULSE 59; RESP 20; TEMP 37.7; O2SAT 96
[2021-02-19 05:48] VITALS: BP 152/64; PULSE 52; RESP 20; TEMP 36.6; O2SAT 97
[2021-02-19] MEDS: oxyCODONE HCL (*CRX) 5 MG TAB IR PO ×2 (06:23→20:08)
[2021-02-19] MEDS: LEVOTHYROXINE SODIUM 25 MCG TABLET PO (06:23)
[2021-02-19] MEDS: oxyCODONE/ACETAMINOPHEN (*CRX) 5-325 MG TABLET 1 TABLET PO ×2 (06:24→20:07)
[2021-02-19 07:09] LABS: Hematocrit 35.5 % (37.0-47.0); Hemoglobin 11.3 g/dL (12.0-15.0); Mean Corpuscular HGB Conc 31.8 g/dl (32-36); Mean Corpuscular Hemoglobin 32.5 pg (26-34); Mean Platelet Volume 10.4 fl (7.4-10.4); Platelet Count Result 189 k/mm3 (150-375); Red Blood Count 3.48 M/mm3 (4.2-5.4); Red Cell Distribution Width 13.5 % (11.5-14.5); White Blood Count 11.8 K/mm3 (4.5-10.0)
[2021-02-19 07:28] LABS: Anion Gap 6 mmol/L (8-16); Blood Urea Nitrogen 21 mg/dL (7-17); Carbon Dioxide 30 mmol/L (22-30); Chloride 106 mmol/L (98-107); Estimated CRCL calculation 47 ml/min; Estimated Glomerular Filt Rate 54; Glucose 109 mg/dL (65-105); Potassium 4.7 mmol/L (3.4-5.0); Sodium 142 mmol/L (137-145)
[2021-02-19 07:46] VITALS: PULSE 62; O2SAT 96
[2021-02-19] MEDS: BUDESONIDE/FORMOTEROL (*SP) 160-4.5 MCG 6 GM INH 2 PUFF INHALATION ×2 (08:34→20:07)
[2021-02-19] MEDS: DOCUSATE SODIUM 100 MG CAPSULE PO ×2 (08:35→16:47)
[2021-02-19] MEDS: MONTELUKAST SODIUM 10 MG TABLET PO (08:35)
[2021-02-19] MEDS: FAMOTIDINE 20 MG TABLET PO ×2 (08:35→20:07)
[2021-02-19] MEDS: TOPIRAMATE 25 MG TABLET PO ×2 (08:36→20:13)
[2021-02-19] MEDS: ROSUVASTATIN 10 MG TABLET PO (08:36)
[2021-02-19] MEDS: TOLNAFTATE 1% POWDER 45 GM BTL 1 APPLIC TOPICAL ×2 (08:36→20:09)
[2021-02-19] MEDS: predniSONE 20 MG TABLET 40 MG PO (08:36)
[2021-02-19] MEDS: GABAPENTIN 100 MG CAPSULE PO ×3 (08:36→16:47)
[2021-02-19 14:00] VITALS: BP 138/51; PULSE 58; RESP 16; TEMP 36.3; O2SAT 99
--- NOTE | 2021-02-19 15:29 | PM.IMPN ---
Progress Note: A&P Assessment and Plan (1) Fall: Qualifiers: Encounter type: subsequent encounter Qualified Code(s): W19.XXXD - Unspecified fall, subsequent encounter Code(s): W19.XXXA - Unspecified fall, initial encounter Status: Acute Assessment and Plan: See below Interval history as before on admission note : Patient had a trip and fall resulting in a left trimalleolar fracture. The patient adamantly denies having syncopal event. She has no evidence of cardiac arrhythmia on telemetry or EKG. Orthopedic surgery has been consulted. The patient is requesting to be seen by Dr. Quiroga as he previously foot with prior fracture. The patient is having some active wheezing and increased shortness of breath from baseline. The patient will be placed on scheduled nebulizer treatments with albuterol and Atrovent. Will continue her home inhaled corticosteroid. She does not have an oxygen requirement. By nature of her COPD she is at moderate risk for complications in the postoperative interval. Will provide good pulmonary toilet and incentive spirometry. As the patient is afebrile on antibiotic therapy. Given her increased wheezing will provide oral prednisone for 5 days. The patient's confusion is likely due to early cognitive impairment/mild dementia. As mentioned above there was concern for cognitive decline mention and prior past medical records. The patient's confusion did seem to be worse at night fitting with likely sundowning. CT of brain was negative for any acute process. The patient's confusion could also be compounded by fact that she is on chronic narcotic pain medications. The patient's confusion would not delay surgical intervention from in my opinion. The patient's Coumadin is on hold in anticipation of surgical procedure. Will resume the anticoagulation prior to discharge. Pt started on gabapentin for left leg pain POD #2: Open reduction internal fixation left ankle trimalleolar fracture without fixation of posterior lip. Ajith tommocatalina (2) Acute alteration in mental status: Code(s): R41.82 - Altered mental status, unspecified Status: Acute (3) Trimalleolar fracture of ankle, closed: Qualifiers: Encounter type: initial encounter Laterality: left Qualified Code(s): S82.852A - Displaced trimalleolar fracture of left lower leg, initial encounter for closed fracture Code(s): S82.853A - Displaced trimalleolar fracture of unspecified lower leg, initial encounter for closed fracture Status: Acute (4) Patient noncompliant with anticoagulant medication: Code(s): Z91.14 - Patient's other noncompliance with medication regimen Status: Acute (5) COPD (chronic obstructive pulmonary disease): Qualifiers: COPD type: chronic bronchitis Chronic bronchitis type: unspecified Qualified Code(s): J42 - Unspecified chronic bronchitis Code(s): J44.9 - Chronic obstructive pulmonary disease, unspecified Status: Acute Subjective Date/time seen: 02/19/21 15:30 Interval history: 75-year-old female with past medical history of COPD, obstructive sleep apnea, prior pulmonary embolism on chronic anticoagulation and fainting spells who presented to the ER after having a fall. Some Gi upset not been eating for 3 days had a fall sustained Trimalleolar fracture of ankle. POD #2: Open reduction internal fixation left ankle trimalleolar fracture without fixation of posterior lip. Pt having some pain issues in her left thigh. Continue to watch today and dc tomorrow. ? Is the splint too tight Review of Systems Review of Systems: All systems reviewed & are unremarkable except as noted in HPI and below Exam Const: General: cooperative and healthy appearing; No in distress Nutritional Appearance: overweight Orientation/consciousness: oriented to person HENMT: Head: normal to inspection Resp: Effort & Inspection: no respiratory distress Auscultati
[2021-02-19 20:00] VITALS: O2SAT 96
[2021-02-19] MEDS: PREGABALIN (*CRX) 50 MG CAPSULE PO (20:07)
[2021-02-19] MEDS: SERTRALINE HCL 50 MG TABLET 100 MG PO (20:07)
[2021-02-19 21:38] VITALS: BP 144/60; PULSE 59; RESP 18; TEMP 37.2; O2SAT 96
[2021-02-20] MEDS: oxyCODONE HCL (*CRX) 5 MG TAB IR PO (05:55)
[2021-02-20] MEDS: LEVOTHYROXINE SODIUM 25 MCG TABLET PO (05:55)
[2021-02-20] MEDS: oxyCODONE/ACETAMINOPHEN (*CRX) 5-325 MG TABLET 1 TABLET PO ×2 (05:55→11:25)
[2021-02-20 05:57] VITALS: BP 143/54; PULSE 48; RESP 20; TEMP 36.4; O2SAT 99
[2021-02-20] MEDS: BUDESONIDE/FORMOTEROL (*SP) 160-4.5 MCG 6 GM INH 2 PUFF INHALATION (08:23)
[2021-02-20] MEDS: MONTELUKAST SODIUM 10 MG TABLET PO (08:24)
[2021-02-20] MEDS: predniSONE 20 MG TABLET 40 MG PO (08:24)
[2021-02-20] MEDS: DOCUSATE SODIUM 100 MG CAPSULE PO (08:25)
[2021-02-20] MEDS: GABAPENTIN 100 MG CAPSULE PO ×2 (08:25→12:19)
[2021-02-20] MEDS: TOPIRAMATE 25 MG TABLET PO (08:25)
[2021-02-20] MEDS: ROSUVASTATIN 10 MG TABLET PO (08:25)
[2021-02-20] MEDS: FAMOTIDINE 20 MG TABLET PO (08:25)
[2021-02-20] MEDS: TOLNAFTATE 1% POWDER 45 GM BTL 1 APPLIC TOPICAL (08:25)
[2021-02-20 14:00] VITALS: BP 138/52; PULSE 62; RESP 20; TEMP 36.6; O2SAT 97
--- NOTE | 2021-02-20 14:09 | PCPTNOTE ---
Approached patient for second therapy session. Patient is half way dressed stating she is waiting for her papers to get up here. Educated patient her discharge orders are not in the system yet and we should try to get another session in before leaving. She stated that she cannot do much as they took her underwear at admission and she is naked. She also states she is in so much pain and received a pain pill about 15 min prior. Education on how therapy is going to help get her stronger. RN made aware of patient refusal.
[2021-02-20 15:54] LABS: Prothrombin Time 14.1 Seconds (11.1-14.7)
--- NOTE | 2021-02-20 16:04 | PM.DS ---
DS: Admitting Diagnosis Admitting Diagnosis Admitting Diagnosis: Fall DS: Discharge Diagnosis Discharge Diagnosis (1) Fall: Qualifiers: Encounter type: subsequent encounter Qualified Code(s): W19.XXXD - Unspecified fall, subsequent encounter Code(s): W19.XXXA - Unspecified fall, initial encounter Status: Acute Assessment and Plan: Interval history as before on admission note : Patient had a trip and fall resulting in a left trimalleolar fracture. The patient adamantly denies having syncopal event. She has no evidence of cardiac arrhythmia on telemetry or EKG. The patient's confusion is likely due to early cognitive impairment/mild dementia. As mentioned above there was concern for cognitive decline mention and prior past medical records. The patient's confusion did seem to be worse at night fitting with likely sundowning. CT of brain was negative for any acute process. The patient's confusion could also be compounded by fact that she is on chronic narcotic pain medications. Pt started on gabapentin for left leg pain POD #3: Open reduction internal fixation left ankle trimalleolar fracture without fixation of posterior lip. Dc today, restart Coumadin on discharge. (2) Acute alteration in mental status: Code(s): R41.82 - Altered mental status, unspecified Status: Resolved (3) Trimalleolar fracture of ankle, closed: Qualifiers: Encounter type: initial encounter Laterality: left Qualified Code(s): S82.852A - Displaced trimalleolar fracture of left lower leg, initial encounter for closed fracture Code(s): S82.853A - Displaced trimalleolar fracture of unspecified lower leg, initial encounter for closed fracture Status: Acute Assessment and Plan: sp surgery (4) Patient noncompliant with anticoagulant medication: Code(s): Z91.14 - Patient's other noncompliance with medication regimen Status: Acute Assessment and Plan: Advised compliance (5) COPD (chronic obstructive pulmonary disease): Qualifiers: COPD type: chronic bronchitis Chronic bronchitis type: unspecified Qualified Code(s): J42 - Unspecified chronic bronchitis Code(s): J44.9 - Chronic obstructive pulmonary disease, unspecified Status: Chronic Assessment and Plan: Chronic stable DS: Summary Hospital Course Hospital Course: Interval history as before on admission note : Patient had a trip and fall resulting in a left trimalleolar fracture. The patient adamantly denies having syncopal event. She has no evidence of cardiac arrhythmia on telemetry or EKG. The patient's confusion is likely due to early cognitive impairment/mild dementia. As mentioned above there was concern for cognitive decline mention and prior past medical records. The patient's confusion did seem to be worse at night fitting with likely sundowning. CT of brain was negative for any acute process. The patient's confusion could also be compounded by fact that she is on chronic narcotic pain medications. Pt started on gabapentin for left leg pain POD #3: Open reduction internal fixation left ankle trimalleolar fracture without fixation of posterior lip. Dc today, restart Coumadin on discharge. Time Spent with Patient Time attestation: Total time spent providing and/or coordinating discharge services:40 minutes on day of discharge Exam Narrative: Exam Narrative: Const: General: cooperative and healthy appearing; No in distress Nutritional Appearance: overweight Orientation/consciousness: oriented to person HENMT: Head: normal to inspection Resp: Effort & Inspection: no respiratory distress Auscultation: no rhonchi and no wheezes Cardio: Rate: regular rate Rhythm: regular rhythm GI: Inspection: normal to inspection Auscultation: normal bowel sounds Neuro: General: oriented to person Extrem: General: no calf tenderness (with gloria wrap and splint ) and othe
== END 2021-02-20 15:54 | disposition home health service (06) | DRG 494 ==
LOC: ANHED 15:42 → ANHIMU 17:08 → ANH3MEDSUR 02-17 17:23
PROVIDERS: Internal Medicine; Orthopaedic Surgery; Admitting Provider Internal Medicine; Emergency Provider Emergency Medicine; PCP Family Medicine; Visit Provider Family Medicine
PROC: 0QSH04Z Reposition Left Tibia with Internal Fixation Device, Open Approach (ICD-10-PCS; principal; 2021-02-17 15:00)
DX: S82.852A Displaced trimalleolar fracture of left lower leg, initial encounter for closed fracture (principal); J44.9 Chronic obstructive pulmonary disease, unspecified; E78.5 Hyperlipidemia, unspecified; Z86.711 Personal history of pulmonary embolism; W19.XXXA Unspecified fall, initial encounter; Z91.14 Patient's other noncompliance with medication regimen; E11.9 Type 2 diabetes mellitus without complications; F03.90 Unspecified dementia, unspecified severity, without behavioral disturbance, psychotic disturbance, mood disturbance, and anxiety; Z87.81 Personal history of (healed) traumatic fracture
CPT/HCPCS: 36415; 36600; 51701; 70450; 71275; 72125; 72192; 73552; 73590; 73610; 80048; 80076; 80307; 81001; 82550; 82805; 82948; 85025; 85027; 85610; 93005; 94640; 96361; 96365; 96367; 96374; 96375; 96376; 97110; 97116; 97161; 97165; 97530; 97535; 99285; A9270; C1713; C1769; G0378; J0690; J1100; J2270; J2405; J2704; J3010; J3480; J7120; J7512; Q9967

== ENCOUNTER 2021-06-15 22:40 | Inpatient (IN) | payer MEDICARE, BC, SELFPAY ==
--- NOTE | ~2021-06-15 | US_ITS ---
EXAMINATION: US venous doppler [facility] EXAM DATE: 06/16/2021 14:04 INDICATION: pain,edema, hx PE Leg Pain, Edema. Hx Pe. Recent Sx Lt Lower Leg. TECHNIQUE: Multiple grayscale, color flow and Doppler images of the lower extremity deep venous syste ms bilaterally were obtained and reviewed. Comparison is made to prior examination from 10/11/17. FINDINGS: RIGHT SIDE Common femoral: -------- Normal. Profunda femoral: ------- Normal. Femoral: Normal. Popliteal: Normal. Posterior tibial: --------- Normal. Peroneal: Normal. Gastrocnemius: Not visualized. Soleus: Not visualized. Greater saphenous: ----- Normal. Lesser saphenous: ------ Not visualized. LEFT SIDE Common femoral: -------- Normal. Profunda femoral: ------- Normal. Femoral: Normal. Popliteal: Normal. Posterior tibial: --------- Normal. Peroneal: Normal. Gastrocnemius: Not visualized. Soleus: Not visualized. Greater saphenous: ----- Normal. Lesser saphenous: ------Nonocclusive thrombus versus echogenic web from prior thrombus.. IMPRESSION: 1. No evidence of lower extremity deep venous thrombosis bilaterally. 2. Left lesser saphenous thrombus or chronic web, scarring. Reviewed, dictated and finalized at location A.
--- NOTE | ~2021-06-15 | XR_ITS ---
EXAMINATION: XR chest 2V DATE: 06/15/2021 23:17 INDICATION: Chronic obstructive pulmonary disease. TECHNIQUE: Frontal and lateral views of the chest were obtained. COMPARISON: Chest 2 views 09/11/2017, chest CT 02/16/2021 FINDINGS: There is mild scarring at the lung apices. No pleural effusion or pneumothorax. The heart s ize is normal. IMPRESSION: 1. Mild scarring at the lung apices. Reviewed, dictated and finalized at location A.
--- NOTE | ~2021-06-15 | CT_ITS ---
EXAMINATION: CT brain [facility] EXAM DATE: 06/16/2021 11:48 INDICATION: Altered mental status. TECHNIQUE: Spiral CT of the head was performed without contrast. Axial, coronal and sagittal images were reviewed. The dose-length product (DLP) for this examination was 605.33 mGy-cm. The exposure w as tailored according to patient size, and iterative reconstruction (ASIR) was used as additional dos e reduction technique. Comparison is made to prior examination from 02/16/2021. FINDINGS: There is no acute intraparenchymal hemorrhage. No evidence of intraparenchymal brain mass lesion. No evidence of acute infarction. Please note that initial head CT has limited sensitivity f or small or acute infarctions. There is mild periventricular and subcortical hypodensity, nonspecifi c but probably related to small vessel ischemic disease. There is mild prominence of the sulci and ventricles related to cerebral atrophy. There is intracranial carotid arteriosclerosis. There are no extra-axial collections. There is no mass effect or midline shift. The orbits are unremarkable. Soft tissue is unremarkable. The visualized sinuses and mastoid air cells are well aerated. IMPRESSION: 1. No acute intracranial findings. 2. Chronic age related findings. Reviewed, dictated and finalized at location A.
--- NOTE | ~2021-06-15 | XR_ITS ---
XR chest 1V portable DATE: 06/17/2021 09:24 INDICATION: Cough. Covid. TECHNIQUE: Portable upright AP chest on 06/22/2021 at 0916 hours COMPARISON: 06/15/2021 2 view chest FINDINGS: Normal heart size. No hilar or mediastinal enlargement. No pulmonary infiltrate or consolid ation, pleural effusion or pulmonary vascular congestion or pneumothorax. Diffuse osteopenia. There is dextroscoliosis and degenerative change of the thoracic spine. IMPRESSION: No active cardiopulmonary disease Reviewed, dictated and finalized at location A.
[2021-06-15 22:47] VITALS: BP 133/73; PULSE 82; RESP 16; TEMP 37.1; O2SAT 93
[2021-06-16] VITALS (19 sets, daily range): BP systolic 129–158; BP diastolic 50–93; PULSE 62–91; RESP 16–25; TEMP 35.8–36.4; O2SAT 91–95; BMI 30.9
--- NOTE | 2021-06-16 00:08 | ECG_ITS ---
Measurements Intervals [place] Rate: 78 P: 79 MA: 151 QRS: 80 QRSD: 95 T: 59 QT: 374 QTc: 427 Interpretive Statements SINUS RHYTHM BORDERLINE ST-T WAVE ABNORMALITY- INFERIOR LEADS BASELINE ARTIFACT- I, II, III, AVR, AVL, AVF BORDERLINE ECG Electronically Signed On 06-16-2021 8:32:06 CDT by Anthony Castellano D.O.
[2021-06-16] MEDS: ALBUTEROL SULFATE NEB 2.5 MG/0.5 ML INH 5 MG INHALATION ×3 (02:06→21:13)
[2021-06-16] MEDS: IPRATROPIUM BR 0.02% INH SOLN 0.5 MG/2.5 ML VIAL INHALATION ×3 (02:06→21:14)
[2021-06-16 02:23] LABS: Alveolar/Arterial O2 Gradient 28.7 mmHg; Fractional Inspired Oxygen 21 %; HCO3 ABG 23.6 mEq/l (22.0-26.0); Modified Allen's Test Pass; Oxygen Content ABG 23.3 %vol (16.0-22.0); Oxygen Saturation ABG 94.9 % (95.0-100.0); Oxyhemoglobin 93.4 % THb (90.0-100.0); PCO2 ABG 39.3 mmHg (35.0-45.0); PO2 FiO2 Ratio Arterial Blood 3.52 %; Site Drawn LEFT RADIAL; Total Hemoglobin 17.8 g/dL (12.0-18.0); pH ABG 7.397 (7.350-7.450)
[2021-06-16 02:27] LABS: Basophils Absolute Auto 0.1 K/mm3 (0.0-0.1); Basophils Percent Auto 0.4 % (0.2-1.2); Eosinophils Absolute Auto 0.2 K/mm3 (0-0.3); Eosinophils Percent Auto 1.5 % (0-4.4); Hematocrit 40.6 % (37.0-47.0); Hemoglobin 12.9 g/dL (12.0-15.0); Immature Granulocyte Absolute 0.07 K/mm3 (0.00-0.031); Immature Granulocyte Percent A 0.6 % (0-0.5); Lymphocytes Absolute Auto 1.54 K/mm3 (0.9-3.2); Lymphocytes Percent Auto 12.5 % (18.3-44.2); Mean Corpuscular HGB Conc 31.8 g/dl (32-36); Mean Corpuscular Hemoglobin 31.5 pg (26-34); Mean Platelet Volume 9.5 fl (7.4-10.4); Monocytes Absolute Auto 0.8 K/mm3 (0.1-0.6); Monocytes Percent Auto 6.2 % (2.6-8.5); Neutrophils Absolute Auto 9.7 K/mm3 (1.3-6.7); Neutrophils Percent Auto 78.8 % (45.5-73.1); Platelet Count Result 221 k/mm3 (150-375); Red Cell Distribution Width 14.9 % (11.5-14.5); White Blood Count 12.3 K/mm3 (4.5-10.0)
--- NOTE | 2021-06-16 02:36 | ED.GENADULT ---
HPI - General Adult General Chief complaint: Shortness of Breath/Dyspnea Stated complaint: SOB Time Seen by Provider: 06/16/21 01:43 History of Present Illness HPI narrative: Patient 75-year-old female presents the emergency department with chief complaint of shortness of breath. Patient reports that she has history of COPD and reports that over the last several days she has been having some increasing shortness of breath and has had episodes whenever she went to [place] to hop picker her medicines that she got short of breath and fell asleep in her vehicle. The patient states that she has been wheezing more also reports she has been coughing and having a yellowish-white sputum. Patient reports she has not been vaccinated for COVID-19 reports that she does not want to be intubated and does not want to be placed on BiPAP. Related Data Home Medications Medication Instructions Recorded Confirmed pregabalin 50 mg PO HS 02/16/21 05/24/21 Adult Probiotic 1 cap PO DAILY PRN 05/17/21 05/24/21 tolnaftate 1 applic TOPICAL Q12HR PRN 05/17/21 05/24/21 zinc gluconate [Zinc-50] 50 mg PO DAILY 05/17/21 05/24/21 Allergies Allergy/AdvReac Type Severity Reaction Status Date / Time adhesive tape Allergy Intermediate REDNESS Verified 05/24/21 11:01 Review of Systems Review of Systems: A 10 system review of systems was completed on the patient and is negative except for what is stated in the HPI. Nursing and ancillary documentation was reviewed. PMFSH Past Medical History Medical History Afib Anxiety Chronic anticoagulation Chronic low back pain with sciatica COPD (chronic obstructive pulmonary disease) Depression Diabetes Hx of blood clots Hypothyroidism Irritable bowel syndrome Migraine Mixed hyperlipidemia Obstructive sleep apnea Pulmonary embolism (~2006) [place]addle PE Vitamin D deficiency Surgical History Surgical History H/O breast biopsy H/O hysterectomy with oophorectomy H/O lumpectomy History of appendectomy History of lumbar surgery Family History Family History Father COPD (chronic obstructive pulmonary disease) Hypertension Mother Acute myocardial infarction COPD (chronic obstructive pulmonary disease) Hypertension Sibling CHF (congestive heart failure) Brother DVT (deep venous thrombosis) 1 Sister Cerebrovascular accident Sister Asthma 1 Brother and 3 sisters Lung cancer 1 Sister Diabetes mellitus 1 Sister Breast cancer 2 sisters Hypertension Other Carcinoma of colon Family history of alcoholism Social History Social History Social History: She is and lives alone. She has 2 children. Her nephew lives with her. She has a small dog. 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 she smoked 2 packs of cigarettes per day for 60 years but quit smoking in 2019. She denies any alcohol or illicit substance use. Smoking packs per day: 1 Smoking cigarettes per day: 20.0 Years smoked: 55 Smoking pack-years: 55.00 Tobacco type: cigarettes Second hand tobacco smoke exposure: No Smoking end date: 09/03/15 Alcohol intake: never Substance use: never Substance use type: does not use Gender identity (if verbalized by the patient): Female Spiritual care concerns: No Exam Narrative: GENERAL: Well-appearing, well-nourished, and in no acute distress. HEAD: Normocephalic, atraumatic. EYES: PERRLA and EOMI. ENT: Nares clear, no rhinorrhea or epistaxis. Mucous membranes moist. NECK: Supple. CHEST: Scattered wheezes bilaterally. No respiratory distress. HEART: Regular rate and rhythm. No murmur heard. Normal peripheral pulses. ABDOMEN: Soft, nontender, nondistended, normal active bowel maisha
[2021-06-16 02:39] LABS: Alanine Aminotransferase 120 U/L (4-35); Albumin Level 4.1 g/dL (3.5-5.1); Alkaline Phosphatase 95 U/L (38-126); Anion Gap 10 mmol/L (8-16); Aspartate Amino Transferase 182 U/L (14-36); Bilirubin,Total 0.7 mg/dL (0.2-1.3); Blood Urea Nitrogen 20 mg/dL (7-17); Calcium 9.3 mg/dL (8.4-10.2); Carbon Dioxide 28 mmol/L (22-30); Chloride 104 mmol/L (98-107); Estimated CRCL calculation 40 ml/min; Estimated Glomerular Filt Rate 48; Glucose 78 mg/dL (65-110); Potassium 3.5 mmol/L (3.4-5.0); Sodium 142 mmol/L (137-145)
[2021-06-16] MEDS: methylPREDNISolone SOD SUCC 125 MG VIAL IV PUSH (02:45)
[2021-06-16 02:47] LABS: NT Pro B Type Natriuretic Pept 99 pg/mL (5-100)
[2021-06-16 02:51] LABS: Troponin I < 0.012 ng/mL (0.000-0.034)
--- NOTE | 2021-06-16 03:56 | ECG_ITS ---
Measurements Intervals [place] Rate: 75 P: 70 ID: 158 QRS: 73 QRSD: 111 T: 65 QT: 408 QTc: 456 Interpretive Statements SINUS RHYTHM ATRIAL PREMATURE COMPLEX POSSIBLE LEFT ATRIAL ENLARGEMENT BASELINE ARTIFACT- II, V1, V3-V6 BORDERLINE ECG Electronically Signed On 06-16-2021 6:35:38 CDT by Anthony Castellano D.O.
--- NOTE | 2021-06-16 04:11 | PC.NURSE ---
Ambulated pt per ERP VRBO. O2 saturation dropped to 84% before exiting room, ERP aware.
[2021-06-16 06:25] LABS: Troponin I < 0.012 ng/mL (0.000-0.034)
--- NOTE | 2021-06-16 06:53 | PC.NURSE ---
This patient, Lili Sanchez, was admitted to 3 [facility] Surg Room [id number]. Patient/family oriented to hospital policies and general routines including ID bracelet, bed and alarms, visiting hours, pain management, procedures, bathroom and other care routines, personal items, smoking policy, room service/diet, and visiting hours. Information on how to activate the Rapid Response Team has been discussed. Patient/Family are encouraged to report perceived risks to care and to ask questions if they do not understand what they are told or what they should do.
--- NOTE | 2021-06-16 09:00 | PM.IMHP ---
H&P: HPI History of Present Illness Date/Time: 06/16/21 09:00 Pt is a 75 yo female w/ extensive medical history including HTN, HLD, paroxysmal Afib, PE on warfarin, DM II, hypothyroid, anxiety, depression, chronic back pain, and neuropathy, who presented to the ED with cheif complaint of increasing sob x 1 week. Pt states over the past 1 week she has had increasingly worse sob with associated productive cough with yellow/green sputum and spec of blood. She has home oxygen and wears 2L prn, but states she only uses it sometimes and further states I should use it more. She is prescribed symbicort BID and an albuterol rescue inhaler, but also reports non compliance with her symbicort because she doesn't like the taste. She does however admit she has been using both inhalers more often over the past week. Pt has not seen a pressure washer since 2006. She also notes nasal congestion, rhinorrhea, body aches, extreme fatigue, sore throat, and headaches. She is not vaccinated for COVID 19. Pt further notes that she has had several episodes over the past week that she has fallen asleep in her car and her motorized wheel chair unexpectedly. She does not think she passed out but does not know for sure. She did not fall during any of these episodes and denies any preceding symptoms including dizziness, cp, sob, diaphoresis. She does reports numbness/tingling in bilateral lower extremities, but states this is baseline secondary to her neuropathy. She denies focal motor weakness. Does also notes intermittent BLE, worse on the R over the past week with associated pain. Also reports blurry vision and occasional diplopia, but also reports this has been constant x3 months and thinks she needs a new prescription for her eyeglasses. Pt states while in the ED last night she developed two episodes of chest pain both lasting several minutes at a time. She describes the pain as an achey feeling that got progressively worse and prevented her from taking a deep breath. She states the first episode in the ED someone gave her a shot which resolved the pain, however on chart review I do not see any medications given other than a breathing treatment and solumedrol. She reports that the second episode of pain resolved on it's own. She has no chest pain today. Pt also reports feeling more confused over the past week. Reports a hx of dementia but states it is very mild and she only has slight forgetfulness at baseline. She is A/Ox4 currently and does not feel confused. She states she has been having memory problems and notes that her neighbors came over one time to check on her and she was unable to answer their questions. She denies hx of prior episodes. ED note states patient does not want to be put on Bipap or intubated. On my interview patient would like to remain a full code at this time. <Suzanna Stringer PA-C - Last Filed: 06/16/21 13:20> Chief Complaint: SOB <Suzanna Stringer PA-C - Last Filed: 06/16/21 13:20> Review of Systems Review of Systems: General: Denies fevers or chills, + bodyaches and fatigue Eyes: + vision changes ENT: + nasal congestion, + sore throat Respiratory: + cough, +shortness of breath Cardiovascular: + chest pain, no palpitations, + lower extremity edema Gastrointestinal: Denies abdominal pain, nausea, vomiting, or diarrhea Genitourinary: Denies dysuria, +urinary frequency Musculoskeletal: + back pain Neurological: + headache, + paraesthesias, no motor weakness Integumentary: Denies rash or other skin lesions Endocrine: +polydipsia Psychiatric: Denies SI/HI <Suzanna Stringer PA-C - Last Filed: 06/16/21 13:20> [facility] Past Medical History Medical History: Medical History (Updated 06/16/21 @ 13:09 by Suzanna Stringer PA-C) Afib Anxiety Chronic anticoagulation Chronic low back pain with sciatica COPD (chronic obstructive pulmonary disease) Depression Diabetes History of pulmonary
[2021-06-16] MEDS: methylPREDNISolone SOD SUCC 125 MG VIAL 60 MG IV PUSH ×2 (11:08→20:37)
[2021-06-16 11:15] LABS: INR 2.3; Partial Thromboplastin Time 39.6 SECONDS (22.3-36.8); Prothrombin Time 25.1 Seconds (11.1-14.7)
[2021-06-16 11:17] LABS: Hemoglobin A1C 5.4 % (<5.7)
[2021-06-16 12:05] LABS: Glucose Point of Care 350 mg/dl (65-105)
[2021-06-16] MEDS: INSULIN ASPART (*BKC) 100 UNITS/ML SUB-Q ×2 (12:05→17:17)
[2021-06-16 12:45] LABS: Hepatitis B Surface Antigen Negative (Negative)
[2021-06-16 12:51] LABS: HAV RESULT Negative (Negative); Hepatitis B Core IgM Result Negative (Negative)
[2021-06-16 13:03] LABS: Hepatitis C Virus Antibody Negative (Negative)
[2021-06-16] MEDS: GLIMEPIRIDE 1 MG TABLET PO (14:13)
[2021-06-16] MEDS: ZINC SULFATE 220 MG CAPSULE PO (14:13)
[2021-06-16] MEDS: MONTELUKAST SODIUM 10 MG TABLET PO (14:13)
[2021-06-16] MEDS: OXYBUTYNIN CHLORIDE 5 MG TABLET PO (14:14)
[2021-06-16] MEDS: DULoxetine HCL 30 MG CAPSULE.DR PO (14:14)
[2021-06-16 14:33] LABS: Hematocrit 39.1 % (37.0-47.0); Hemoglobin 12.7 g/dL (12.0-15.0); Mean Corpuscular HGB Conc 32.5 g/dl (32-36); Mean Corpuscular Hemoglobin 31.8 pg (26-34); Mean Platelet Volume 10.2 fl (7.4-10.4); Platelet Count Result 233 k/mm3 (150-375); Red Blood Count 3.99 M/mm3 (4.2-5.4); Red Cell Distribution Width 14.7 % (11.5-14.5); White Blood Count 10.8 K/mm3 (4.5-10.0)
[2021-06-16 15:07] LABS: Alanine Aminotransferase 95 U/L (4-35); Albumin Level 3.5 g/dL (3.5-5.1); Alkaline Phosphatase 104 U/L (38-126); Anion Gap 13 mmol/L (8-16); Aspartate Amino Transferase 125 U/L (14-36); Bilirubin,Total 0.6 mg/dL (0.2-1.3); Blood Urea Nitrogen 21 mg/dL (7-17); Calcium 9.5 mg/dL (8.4-10.2); Carbon Dioxide 20 mmol/L (22-30); Chloride 107 mmol/L (98-107); Estimated CRCL calculation 57 ml/min; Estimated Glomerular Filt Rate > 60; Glucose 334 mg/dL (65-110); Potassium 4.9 mmol/L (3.4-5.0); Sodium 140 mmol/L (137-145)
[2021-06-16 15:37] LABS: Thyroid Stimulating Hormone Reflex 0.305 uIU/mL (0.465-4.68)
[2021-06-16 15:43] LABS: Band Neutrophils Percent 4 % (0-6); Lymphocytes Absolute Manual 0.54 K/mm3 (1.1-4.5); Monocytes Percent Manual 1 % (3-9); Neutrophils Absolute Manual 10.15 K/mm3 (1.7-7.2); Neutrophils Percent Manual 90 % (46-73); Platelet Estimate Adequate (Adequate); Total Cells Counted 100
[2021-06-16 15:44] LABS: Anisocytosis 1+ (NORMAL)
[2021-06-16 16:15] LABS: Glucose Point of Care 218 mg/dl (65-105)
[2021-06-16] MEDS: TOPIRAMATE 25 MG TABLET PO (17:18)
[2021-06-16] MEDS: WARFARIN (*PBKC) 1 MG TABLET PO (17:19)
[2021-06-16 17:58] LABS: Add Urine Microscopic? YES; Appearance Urine Clear (Clear); Bacteria Urine Trace /hpf; Bilirubin Urine Negative (Negative); Blood Urine Negative (Negative); Color Urine Yellow (Yellow); Glucose Urine UA 3+ mg/dL (Negative); Ketones Urine 1+ mg/dL (Negative); Leukocyte Esterase Ur Negative LEU/UL (Negative); Nitrate Urine Negative (Negative); Protein Urine Negative (Negative); RBC Urine 0-2 /hpf (0-2); Specific Grav Ur 1.017 (1.001-1.035); Squamous Epithelial Cell Urine Rare /hpf (Few); Urobilinogen Urine Negative mg/dL (<2.0); WBC Urine 0-3 /hpf
[2021-06-16 18:09] LABS: SARS-CoV-2 RNA PCR Positive
[2021-06-16] MEDS: SERTRALINE HCL 50 MG TABLET 100 MG PO (20:37)
[2021-06-16] MEDS: ARIPiprazole 5 MG TABLET PO (20:37)
[2021-06-16 21:25] LABS: Glucose Point of Care 294 mg/dl (65-105)
[2021-06-17] VITALS (11 sets, daily range): BP systolic 123–147; BP diastolic 55–65; PULSE 57–79; RESP 16–20; TEMP 36.1–36.2; O2SAT 93–98
[2021-06-17] MEDS: LEVOTHYROXINE SODIUM 25 MCG TABLET PO (06:19)
[2021-06-17 07:13] LABS: Basophils Percent Auto 0.2 % (0.2-1.2); Eosinophils Percent Auto 0.2 % (0-4.4); Hematocrit 38.5 % (37.0-47.0); Hemoglobin 12.8 g/dL (12.0-15.0); Immature Granulocyte Absolute 0.19 K/mm3 (0.00-0.031); Immature Granulocyte Percent A 1.1 % (0-0.5); Lymphocytes Absolute Auto 1.21 K/mm3 (0.9-3.2); Lymphocytes Percent Auto 7.1 % (18.3-44.2); Mean Corpuscular HGB Conc 33.2 g/dl (32-36); Mean Corpuscular Hemoglobin 31.8 pg (26-34); Mean Corpuscular Volume 95.8 fl (80-100); Monocytes Absolute Auto 0.5 K/mm3 (0.1-0.6); Monocytes Percent Auto 2.6 % (2.6-8.5); Neutrophils Absolute Auto 15.1 K/mm3 (1.3-6.7); Neutrophils Percent Auto 88.8 % (45.5-73.1); Platelet Count Result 247 k/mm3 (150-375); Red Blood Count 4.02 M/mm3 (4.2-5.4); Red Cell Distribution Width 14.2 % (11.5-14.5)
[2021-06-17 07:37] LABS: Alanine Aminotransferase 89 U/L (4-35); Albumin Level 3.6 g/dL (3.5-5.1); Alkaline Phosphatase 96 U/L (38-126); Anion Gap 11 mmol/L (8-16); Aspartate Amino Transferase 85 U/L (14-36); Bilirubin,Total 0.4 mg/dL (0.2-1.3); Blood Urea Nitrogen 20 mg/dL (7-17); Calcium 9.1 mg/dL (8.4-10.2); Carbon Dioxide 24 mmol/L (22-30); Chloride 106 mmol/L (98-107); Estimated CRCL calculation 51 ml/min; Estimated Glomerular Filt Rate > 60; Glucose 179 mg/dL (65-110); INR 2.1; Potassium 3.6 mmol/L (3.4-5.0); Prothrombin Time 23.1 Seconds (11.1-14.7); Sodium 141 mmol/L (137-145)
[2021-06-17 08:26] LABS: Glucose Point of Care 150 mg/dl (65-105)
[2021-06-17] MEDS: TOPIRAMATE 25 MG TABLET PO (08:43)
[2021-06-17] MEDS: MONTELUKAST SODIUM 10 MG TABLET PO (08:43)
[2021-06-17] MEDS: GLIMEPIRIDE 1 MG TABLET PO (08:43)
[2021-06-17] MEDS: DULoxetine HCL 30 MG CAPSULE.DR PO (08:43)
[2021-06-17] MEDS: ZINC SULFATE 220 MG CAPSULE PO (08:43)
[2021-06-17] MEDS: OXYBUTYNIN CHLORIDE 5 MG TABLET PO (08:43)
[2021-06-17] MEDS: methylPREDNISolone SOD SUCC 125 MG VIAL 60 MG IV PUSH (08:44)
[2021-06-17] MEDS: ALBUTEROL SULFATE NEB 2.5 MG/0.5 ML INH 5 MG INHALATION ×2 (08:52→15:26)
[2021-06-17] MEDS: IPRATROPIUM BR 0.02% INH SOLN 0.5 MG/2.5 ML VIAL INHALATION ×2 (08:52→15:26)
[2021-06-17] MEDS: DOXYCYCLINE HYCLATE 100 MG TABLET PO (12:12)
[2021-06-17 12:24] LABS: Glucose Point of Care 281 mg/dl (65-105)
[2021-06-17] MEDS: INSULIN ASPART (*BKC) 100 UNITS/ML SUB-Q (12:26)
--- NOTE | 2021-06-17 14:17 | PM.DS ---
DS: Admitting Diagnosis Discharge Date 06/17/21 Admitting Diagnosis Shortness of breath DS: Discharge Diagnosis Discharge Diagnosis (1) Acute exacerbation of chronic obstructive pulmonary disease: Code(s): J44.1 - Chronic obstructive pulmonary disease with (acute) exacerbation Status: Acute Assessment and Plan: Presents for evaluation of increasing SOB and productive cough x 1 week. Admitted for COPD exacerbation. ABG 7.40/39/74 on RA. Has home oxygen and wears 2L prn with exertion and continuous at night. Sounds like she is non compliant with this and she was encouraged to continue O2 as prescribed. We started Solu-Medrol and neb treatments. We continued her symbicort. She did have elevated WBC to 12K but improved before cliimbing to 17K but felt related to the steroids. CXR clear but had productive cough so she was treated for bronchitis. She does have COVID so suspect viral trigger for the COPD exacerbation. She is up ambulating in the room. She feels ready for discharge. Still some SOB with exertion but SpO2 91% with exertion. Okay for discharge. Discussed at length with the patient's son. All questions were answered. No answer at sister's phone so left message with sister. (2) COVID: Code(s): U07.1 - COVID-19 Status: Acute Assessment and Plan: Ana is unvaccinated. She is COVID positive. CXR on admission (06/15) was clear. Repeat CXR (06/17) remains clear. Due to her shifting story, it is unclear when she became symptomatic. Symptoms may have started 2-3 weeks ago. She remained on room air here. She was 91% with ambulation but we are treating her for COPD exacerbation. She was advised to get a pulse oximeter to measure SpO2. She has O2 at home and uses O2 at night. Encouraged her to continue to use O2 at night as prescribed (3) Confusion: Code(s): R41.0 - Disorientation, unspecified Status: Acute Assessment and Plan: Patient initially reports intermittent confusion over the past week with episodes of extreme fatigue. She reports memory problems over the past 1 week but later states that she was diagnosed with 'dementia' 1 year ago. She is on zinc which can cause copper deficincy and memory problems. She is also on Topamax which is known to cause cognitive dysfunction. Lastly, she has a normal A1c and is on Amaryl. She could be having hypoglycemic episodes as well. She now has COVID which also can cause confusion. She is more awake, alert and oriented. Suspect patient has acute on chronic confusion with Acute metabolic encephalopathy and chronic confusion from possibly dementia. Will stop zinc. Stop Amaryl after steroids completed. She also has narcotics listed and would stop these since she is having significant fatigue. She may not be using the O2 at night which may be contributing to her confusion. (4) Chest pain: Code(s): R07.9 - Chest pain, unspecified Status: Acute Assessment and Plan: Patient had 2 episodes of chest pain while in ED lasting several minutes at a time. Paiin was atypical. Serial troponin negative. EKG showing no ischemia changes. BNP WNL. CXR showing no vascular congestion. Suspect pain secondary to COPD exacerbation. No recurrence. No ASA since not felt to be cardiac in nature and she is on Coumadin already. (5) Elevated LFTs: Code(s): R79.89 - Other specified abnormal findings of blood chemistry Status: Acute Assessment and Plan: LFTs normal in the past. AST 182 and ALT 120 on admission. [place] related to COVID. Statin held. Repeat LFTs improving. Repeat levels as outpatient (6) Diabetes: Code(s): E11.9 - Type 2 diabetes mellitus without complications Status: Chronic Assessment and Plan: A1c 5.6 in April The patient's blood glucose was monitored with AccuCheks covering with sliding scale. Hypoglycemia protocol was available as needed. We continued her Amaryl due to the elevat
== END 2021-06-17 16:18 | disposition home health service (06) | DRG 178 ==
LOC: ANHED 06-16 04:50 → ANH3MEDSUR 06-16 06:49
PROVIDERS: Emergency Medicine; Internal Medicine; Admitting Provider Internal Medicine; Emergency Provider Emergency Medicine; PCP Family Medicine; Visit Provider Physician Assistant
DX: U07.1 COVID-19 (principal); J44.1 Chronic obstructive pulmonary disease with (acute) exacerbation; J96.10 Chronic respiratory failure, unspecified whether with hypoxia or hypercapnia; Z99.81 Dependence on supplemental oxygen; R41.0 Disorientation, unspecified; R07.9 Chest pain, unspecified; R79.89 Other specified abnormal findings of blood chemistry; I48.0 Paroxysmal atrial fibrillation; E11.40 Type 2 diabetes mellitus with diabetic neuropathy, unspecified; E78.2 Mixed hyperlipidemia; E03.9 Hypothyroidism, unspecified; F41.8 Other specified anxiety disorders; M79.604 Pain in right leg; M54.40 Lumbago with sciatica, unspecified side; G89.29 Other chronic pain; Z23 Encounter for immunization; Z79.01 Long term (current) use of anticoagulants; Z79.899 Other long term (current) drug therapy; Z86.711 Personal history of pulmonary embolism; Z87.891 Personal history of nicotine dependence
CPT/HCPCS: 36415; 36600; 70450; 71045; 71046; 80053; 80074; 81001; 82805; 82948; 83036; 83735; 83880; 84100; 84439; 84443; 84480; 84484; 85025; 85610; 85730; 90471; 90653; 93005; 93970; 94640; 96374; 99285; A9270; C9803; G0008; J1815; J2930; U0003; U0005

== ENCOUNTER 2021-11-22 07:57 | Observation (INO) | payer BC, SELFPAY ==
[2021-11-22] VITALS (29 sets, daily range): BP systolic 127–178; BP diastolic 55–133; PULSE 59–81; RESP 13–20; TEMP 36.2–36.4; O2SAT 96–100; BMI 37.7
--- NOTE | ~2021-11-22 | US_ITS ---
EXAMINATION: US renal BI DATE: 11/22/2021 16:30 INDICATION: Acute kidney injury TECHNIQUE: Multiple grayscale and Doppler ultrasound images of the kidneys were obtained. COMPARISON: None. FINDINGS: The right kidney measures 8.8 x 4.3 x 3.8 cm. The left kidney measures 9.3 x 4.2 x 3.8 cm. The kidneys demonstrate normal parenchymal echogenicity. There is no hydronephrosis. The bladder is d ecompressed by Kirby catheter. IMPRESSION: 1. Normal kidneys without hydronephrosis. Reviewed, dictated and finalized at location B.
--- NOTE | ~2021-11-22 | CT_ITS ---
EXAMINATION: CT cervical spine wo con DATE: 11/22/2021 09:09 INDICATION: Status post fall. Neck pain. TECHNIQUE: Computed tomography (CT) of the cervical spine was performed without intravenous contrast. The dose-length product was 450 mGy-cm. Automated exposure control and iterative reconstruction tech nique were employed. COMPARISON: None FINDINGS: Straightening of cervical lordosis. There is advanced degenerative disc disease and endplat e hypertrophy at C2-3 to C6-7. There is multilevel uncinate and facet degenerative change. Lung apice s are normal. There is carotid atherosclerosis. There is no acute fracture or traumatic malalignment. The craniovertebral junction is normal. No evidence for perched facet. IMPRESSION: 1. No acute abnormality of the cervical spine. 2: Severe cervical spondylosis. Reviewed, dictated and finalized at location A.
--- NOTE | ~2021-11-22 | MR_ITS ---
EXAMINATION: MR brain/brain stem wo con DATE: 11/22/2021 14:23 INDICATION: Altered mental status TECHNIQUE: Magnetic resonance imaging (MRI) of the brain and brainstem was performed without intraven ous contrast. Sequences included sagittal and axial T1-weighted SE, axial diffusion-weighted FS SE, a xial T2*-weighted GRE, axial T2-weighted FLAIR, and axial T2-weighted FSE. Apparent diffusion coeffic ient (ADC) maps were created. COMPARISON: Head CT dated 11/22/2021 and brain MR dated 04/09/2013 FINDINGS: Small midline anterior frontal scalp contusion. There are no areas of restricted diffusion to suggest acute infarction. No intracranial hemorrhage or abnormal intracranial mass lesion. There are scatter ed areas of nonspecific increased T2-weighted signal intensity in the cerebral white matter, predomin antly involving the deep and periventricular white matter which is within normal limits for age and l ikely sequela of chronic small vessel ischemic disease. Chronic tiny T1 hyperintense posterior falcin e lipoma. There are no intraparenchymal signal abnormalities seen on the other pulse sequences. The v entricles are symmetric and normal in size. There are no abnormal extra-axial fluid collections. Flow voids are seen in the cerebral arteries on the T2-weighted sequences consistent with their expected patency. Changes of bilateral intraocular lens replacement. Visualized orbits and soft tissues are u nremarkable. IMPRESSION: 1. Normal aging brain. No acute intracranial process. Reviewed, dictated and finalized at location A.
--- NOTE | ~2021-11-22 | XR_ITS ---
XR chest 1V portable 11/22/2021 09:24 Indication: Hypoxia Procedure: AP portable chest Comparison: Comparison to multiple prior studies sequentially, with oldest reviewed study dated 02/2015. Findings: Heart size is normal. There is mild interstitial edema. No focal pneumonia, pleural effusio n or pneumothorax. No acute osseous abnormality. Impression: 1: Mild interstitial edema. Reviewed, dictated and finalized at location A. Impression: 1: Mild interstitial edema.
--- NOTE | ~2021-11-22 | CT_ITS ---
EXAMINATION: CT brain wo con DATE: 11/22/2021 09:09 INDICATION: Hematoma to forehead post fall. Altered mental status. TECHNIQUE: Computed tomography (CT) of the head was performed without intravenous contrast. Sagittal and coronal reconstructions were performed. The mA was adjusted according to patient size. Iterative reconstruction technique was employed. The dose-length product was 681.00 mGy-cm. COMPARISON: head CT dated 06/16/2021 FINDINGS: Small scalp contusion at the midline of the forehead. No fracture. No acute intracranial hemorrhage, acute infarction or abnormal extra axial fluid collection. Ventricles are normal and symmetric.Unchan ged tiny falcine lipoma. Also unchanged is a chronic 4 mm cluster of dystrophic calcification in the periventricular white matter lateral to the f rontal horn of the left lateral ventricle. No other mass/mass effect. Changes of bilateral intraocula r lens replacement. The orbits, paranasal sinuses and mastoid air cells are normal. IMPRESSION: 1. No fracture or acute intracranial process. Reviewed, dictated and finalized at location A.
--- NOTE | 2021-11-22 08:01 | ECG_ITS ---
Measurements Intervals [place] Rate: 81 P: 82 ND: 150 QRS: 88 QRSD: 101 T: 72 QT: 395 QTc: 461 Interpretive Statements SINUS RHYTHM POSSIBLE LEFT ATRIAL ENLARGEMENT [-0.1mV P WAVE IN V1/V2] NONSPECIFIC ST ABNORMALITY ABNORMAL ECG COMPARED TO ECG 06/16/2021 04:01:39 NO SIGNIFICANT CHANGES Electronically Signed On 11-22-2021 11:20:16 CDT by Andrew Wood M.D.
[2021-11-22 08:13] LABS: Glucose Point of Care 110 mg/dl (65-105)
--- NOTE | 2021-11-22 08:15 | ED.AMS ---
HPI - Altered Mental Status General Chief Complaint: Altered Mental Status Stated Complaint: Altered after fall Time Seen by Provider: 11/22/21 08:01 Source: EMS History of Present Illness HPI narrative: Patient presents with altered mental status. Family found the patient next to her bed holding her dog baseline hematoma on her forehead she was confused oriented only to herself and she is normally oriented x4. Family called EMS. EMS transfer the patient to the ER. Patient is able to verbalize to EMS that she went up to get a drink in the middle the night is unsure as to what happened next. Patient verbalizes to me that her legs hurt the range of her communication is unintelligible Related Data Home Medications Medication Instructions Recorded Confirmed albuterol sulfate 2 inh INHALATION QID PRN 06/16/21 11/22/21 budesonide-formoterol 2 inh INHALATION BID 11/22/21 11/22/21 duloxetine 60 mg PO DAILY 11/22/21 11/22/21 topiramate 25 mg PO BID 11/22/21 11/22/21 Allergies Allergy/AdvReac Type Severity Reaction Status Date / Time adhesive tape Allergy Intermediate REDNESS Verified 11/22/21 11:18 Review of Systems Review of Systems: ROS unobtainable: Yes unobtainable due to mental status PMFSH Past Medical History Medical History (Updated 11/22/21 @ 13:36 by Justa Ruiz PA-C) Anxiety Chronic anticoagulation Chronic low back pain with sciatica Chronic obstructive pulmonary disease Chronic respiratory failure with hypoxia, on home oxygen therapy Depression Fibromyalgia History of pulmonary embolism (2006) Hypothyroidism Migraine Mixed hyperlipidemia Paroxysmal atrial fibrillation Type 2 diabetes mellitus Vitamin D deficiency Surgical History Surgical History (Updated 11/22/21 @ 13:36 by Justa Ruiz PA-C) History of appendectomy History of benign breast biopsy History of hysterectomy with oophorectomy History of lumbar surgery History of open reduction and internal fixation (ORIF) procedure (02/2021) Left ankle trimalleolar fracture. Family History Family History Father COPD (chronic obstructive pulmonary disease) Mother Acute myocardial infarction COPD (chronic obstructive pulmonary disease) Hypertension Sibling CHF (congestive heart failure) Brother DVT (deep venous thrombosis) 1 Sister Diabetes mellitus 1 Sister Breast cancer 2 sisters Hypertension Other Carcinoma of colon Family history of alcoholism Social History Social History (Updated 11/22/21 @ 13:25 by Justa Ruiz PA-C) Social History: She is and lives alone. She has 2 children. Her nephew lives with her. She has a small dog. 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 She smoked 1-2 packs of cigarettes per day for 60 years, has quit intermittently, resumed smoking approximately 1 year ago but stopped 1 week ago when she got sick. She denies any alcohol or illicit substance use. Smoking status: Former smoker Tobacco type: cigarettes Second hand tobacco smoke exposure: No Spiritual care concerns: No Exam Narrative: General: well-nourished, and in no acute distress. HEAD: Normocephalic, atraumatic. EYES: PERRLA ENT: Nares clear, no rhinorrhea or epistaxis. Mucous membranes moist. NECK: Supple. No masses. No JVD CHEST: Clear to auscultation. No respiratory distress. No wheezes rales or rhonchi HEART: Regular rate and rhythm. No murmur heard. Normal peripheral pulses. ABDOMEN: Soft, nontender, nondistended, normal active bowel sounds. EXTREMITIES: Normal range of motion. No edema. SKIN: Warm, dry, no rash. NEURO: Patient has all body intermittent twitching appears to slightly move all extremities to external stimuli but not to verbal command. There is no facial asymmetry patient appears somnolent Course Reevaluation(s) Reevaluation #1: Patient no significant change in her mental status labs and im
[2021-11-22 08:26] LABS: Basophils Percent Auto 0.4 % (0.2-1.2); Eosinophils Absolute Auto 0.1 K/mm3 (0-0.3); Eosinophils Percent Auto 0.7 % (0-4.4); Hematocrit 46.4 % (37.0-47.0); Hemoglobin 14.9 g/dL (12.0-15.0); Immature Granulocyte Absolute 0.07 K/mm3 (0.00-0.031); Immature Granulocyte Percent A 0.7 % (0-0.5); Lymphocytes Absolute Auto 1.11 K/mm3 (0.9-3.2); Lymphocytes Percent Auto 11.6 % (18.3-44.2); Mean Corpuscular HGB Conc 32.1 g/dl (32-36); Mean Corpuscular Volume 99.8 fl (80-100); Mean Platelet Volume 9.4 fl (7.4-10.4); Monocytes Absolute Auto 0.5 K/mm3 (0.1-0.6); Monocytes Percent Auto 4.8 % (2.6-8.5); Neutrophils Absolute Auto 7.8 K/mm3 (1.3-6.7); Neutrophils Percent Auto 81.8 % (45.5-73.1); Platelet Count Result 221 k/mm3 (150-375); Red Blood Count 4.65 M/mm3 (4.2-5.4); Red Cell Distribution Width 14.2 % (11.5-14.5); White Blood Count 9.6 K/mm3 (4.5-10.0)
[2021-11-22] MEDS: SODIUM CHLORIDE 0.9% IV 500 ML 999 ML IV CONT (08:33)
[2021-11-22 08:38] LABS: Base Excess ABG -0.9 mEq/l (+/-2.0); Fractional Inspired Oxygen 28 %; HCO3 ABG 24.7 mEq/l (22.0-26.0); Oxygen Content ABG 21.5 %vol (16.0-22.0); Oxygen Saturation ABG 99.2 % (95.0-100.0); Oxyhemoglobin 98.3 % THb (90.0-100.0); PCO2 ABG 44.4 mmHg (35.0-45.0); PO2 ABG 179.5 mmHg (80.0-100.0); PO2 FiO2 Ratio Arterial Blood 6.41 %; Total Hemoglobin 15.3 g/dL (12.0-18.0); pH ABG 7.364 (7.350-7.450)
[2021-11-22 08:40] LABS: Acetaminophen < 10 ug/mL (10-30); Ammonia < 9 umol/L (9-30); Ethanol < 10 mg/dL (<10); Salicylate < 1.0 mg/dL (2-20)
[2021-11-22 08:40] LABS: Device NASAL CANNULA; Modified Allen's Test Pass; Site Drawn RIGHT RADIAL
[2021-11-22 08:41] LABS: Alanine Aminotransferase 25 U/L (4-35); Albumin Level 4.2 g/dL (3.5-5.1); Alkaline Phosphatase 80 U/L (38-126); Anion Gap 6 mmol/L (8-16); Aspartate Amino Transferase 34 U/L (14-36); Bilirubin,Total 0.5 mg/dL (0.2-1.3); Blood Urea Nitrogen 24 mg/dL (7-17); Calcium 9.4 mg/dL (8.4-10.2); Carbon Dioxide 27 mmol/L (22-30); Chloride 109 mmol/L (98-107); Creatine Kinase 108 U/L (30-135); Estimated Glomerular Filt Rate 26; Glucose 130 mg/dL (65-110); Lactic Acid Reflex 1.4 mmol/L (0.7-2.1); Potassium 4.2 mmol/L (3.4-5.0); Sodium 142 mmol/L (137-145)
[2021-11-22 08:51] LABS: Troponin I < 0.012 ng/mL (0.000-0.034)
[2021-11-22 09:01] LABS: INR 1.1; Prothrombin Time 13.3 Seconds (11.1-14.7)
[2021-11-22 09:15] LABS: Partial Thromboplastin Time < 20.0 SECONDS (22.3-36.8)
[2021-11-22 09:55] LABS: Add Urine Microscopic? YES; Appearance Urine Cloudy (Clear); Bilirubin Urine Negative (Negative); Blood Urine Negative (Negative); Color Urine Yellow (Yellow); Glucose Urine UA Negative (Negative); Ketones Urine Negative (Negative); Leukocyte Esterase Ur Negative LEU/UL (Negative); Mucus Urine Rare /lpf; Nitrate Urine Negative (Negative); Protein Urine Negative (Negative); RBC Urine 0-2 /hpf (0-2); Specific Grav Ur 1.012 (1.001-1.035); Squamous Epithelial Cell Urine Rare /hpf (Few); Urobilinogen Urine Negative mg/dL (<2.0); WBC Urine 0-3 /hpf
[2021-11-22 10:06] LABS: Amphetamine Screen Urine Negative (Negative); Barbiturate Screen Urine Negative (Negative); Benzodiazepines Screen Urine Negative (Negative); Cannabinoid Screen Urine Negative (Negative); Cocaine Screen Urine Negative (Negative); Methadone Screen Urine Negative (Negative); Opiate Screen Urine Negative (Negative); Phencyclidine Screen Urine Negative (Negative)
--- NOTE | 2021-11-22 12:19 | WPDNEURCNPN ---
Assessment and Plan Additional Plan found unresponsive with negative CT scan of the head for the bleed and severe cervical spondylosis on the CT scan the cervical spine in addition to the history of diabetes mellitus and paroxysmal atrial fibrillation but her EEG this morning is extremely abnormal suggestive of postictal state raising the possibility of unwitnessed seizure though considering the history of atrial fibrillation TIA was also likely but the EEG diffusely abnormal , will start her on anticonvulsants along with the continuation of other medications particularly anticoagulation therapy for the history of paroxysmal atrial fibrillation Consult date: 11/23/21 HPI: Lili Sanchez is a 76 year old female is being admitted to the hospital through the emergency room with the complaint of change in the mental status subsequent to a fall patient was found next to her bed with hematoma on her forehead ,confusion, oriented only to herself, in the emergency room patient was able to verbalize to EMS that she went up to get a drink in the middle of the night and was not sure what happened next she was complaining of pain in her lower extremities and her speech was not intelligible, she has been taking baclofen 10 mg 3 times a day with duloxetine 60 mg daily, she does have ongoing history of anxiety, atrial fibrillation and has been on chronic anticoagulation therapy in addition to underlying COPD, chronic low back pain, diabetes mellitus, and recurrent migraines, his smoking cigarettes per day. When T with years smoked 60 and smoking pack years of 60 but not alcohol drinker, initial evaluation revealed stable vital signs, normal CBC and BMP except blood sugar of 130, negative CT of the head with no bleed or major stroke cervical spine CT scan with cervical severe spondylosis but no acute fracture or dislocation, EKG normal, patient is on Eliquis 2.5 mg twice a day for the ongoing history of atrial fibrillation other medications also reviewed Review of Systems Review of Systems: All systems reviewed & are unremarkable except as noted in HPI and below PMFSH Past Medical History Medical History Anxiety Chronic anticoagulation Chronic low back pain with sciatica Chronic obstructive pulmonary disease Chronic respiratory failure with hypoxia, on home oxygen therapy Depression Fibromyalgia History of pulmonary embolism (2006) Hypothyroidism Migraine Mixed hyperlipidemia Paroxysmal atrial fibrillation Type 2 diabetes mellitus Vitamin D deficiency Surgical History Surgical History History of appendectomy History of benign breast biopsy History of hysterectomy with oophorectomy History of lumbar surgery History of open reduction and internal fixation (ORIF) procedure (02/2021) Left ankle trimalleolar fracture. Family History Family History Father COPD (chronic obstructive pulmonary disease) Mother Acute myocardial infarction COPD (chronic obstructive pulmonary disease) Hypertension Sibling CHF (congestive heart failure) Brother DVT (deep venous thrombosis) 1 Sister Diabetes mellitus 1 Sister Breast cancer 2 sisters Hypertension Other Carcinoma of colon Family history of alcoholism Social History Social History Social History: She is and lives alone. She has 2 children. Her nephew lives with her. She has a small dog. 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 She smoked 1-2 packs of cigarettes per day for 60 years, has quit intermittently, resumed smoking approximately 1 year ago but stopped 1 week ago when she got sick. She denies any alcohol or illicit substance use. Smoking status: Former smoker Tobacco type: cigarettes Second hand tobacco smoke exposure: No Spiritual care concerns: No Meds
--- NOTE | 2021-11-22 12:24 | ADMGEN ---
This patient, Lili Sanchez, was admitted to IMU Room 203-01 at 1222 on 11/22/2021. Patient/family oriented to hospital policies and general routines including ID bracelet, bed and alarms, visiting hours, pain management, procedures, bathroom and other care routines, personal items, smoking policy, room service/diet, and visiting hours. Information on how to activate the Rapid Response Team has been discussed. Patient/Family are encouraged to report perceived risks to care and to ask questions if they do not understand what they are told or what they should do.
--- NOTE | 2021-11-22 13:53 | ECHO_ITS ---
Patient Info Name: Lili Sanchez Age: 76 years : 1945 Gender: Female Ht: 61 in Wt: 199 lbs BSA: 2.02 m2 HR: 63 bpm BP: 158 / 64 mmHg Heart Rhythm: Sinus Rhythm Technical Quality: Fair Exam Date: 11/22/2021 1:39 PM Exam Location: [facility] Patient Status: Inpatient Admit Date: 11/22/2021 Staff Ordering Physician: Justa Ruiz PA-C Three Dimensional Art Instructor: Charlene Jennings RDCS Attending Provider: Mikayla Frazier MD Referring Physician: Joseph MITTAL; Exam Type: CA echo doppler w bubble study Study Info Indications - PAFIB, AMS Complete two-dimensional, color flow and Doppler transthoracic echocardiogram is performed. Summary 1. Complete two-dimensional, color flow and Doppler transthoracic echocardiogram is performed. 2. Left ventricular chamber dimension is normal. 3. Left ventricular systolic function is normal, estimated at 65-70%. 4. There is mildly increased left ventricular wall thickness. 5. The left ventricular diastolic function is grade I diastolic dysfunction. 6. Possible myocardial diverticulum noted in the basal inferior wall. Unfortunately, color-flow Doppler was not used for further investigation. 7. Left atrial chamber dimension is mildly enlarged. 8. Intact interatrial septum visualized by color flow and agitated saline imaging. 9. There is mild pulmonic regurgitation. Left Ventricle Left ventricular chamber dimension is normal. Left ventricular systolic function is normal, estimated at 65-70%. There is mildly increased left ventricular wall thickness. The left ventricular diastolic function is grade I diastolic dysfunction. Possible myocardial diverticulum noted in the basal inferior wall. Unfortunately, color-flow Doppler was not used for further investigation. Right Ventricle Right ventricular chamber dimension is normal. Right ventricular systolic function is normal. Left Atria Left atrial chamber dimension is mildly enlarged. Right Atria Right atrial chamber dimension is normal. Atrial Septum Intact interatrial septum visualized by color flow and agitated saline imaging. Aortic Valve The aortic valve is trileaflet. There is mild aortic valve sclerosis. There is no aortic valve stenosis. There is trace aortic valve regurgitation. Pulmonic Valve The pulmonic valve is not well visualized. There is no pulmonic valve stenosis. There is mild pulmonic regurgitation. Mitral Valve The mitral valve has thickened leaflets. There is no mitral valve stenosis. There is trace mitral valve regurgitation. Tricuspid Valve The tricuspid valve leaflets are normal. There is no significant tricuspid valve stenosis. There is trace tricuspid valve regurgitation. Pericardium/Pleural The pericardium appears normal. There is no pericardial effusion. Inferior Vena Cava Normal inferior vena cava with >50% collapse upon inspiration consistent with normal right atrial pressure, 5 mmHg. Aorta The aortic root size at the sinus of Valsalva is normal. Left Ventricular Outflow Tract Name Value Normal LVOT 2D LVOT Diameter 2.0 cm LVOT Doppler L
--- NOTE | 2021-11-22 14:45 | PM.IMHP ---
H&P: HPI History of Present Illness Date/Time: 11/22/21 14:45 Chief Complaint: Altered mental status. Narrative: This is a 76-year old female with history of chronic obstructive pulmonary disease, pulmonary embolism, obstructive sleep apnea, chronic respiratory failure on p.r.n. oxygen, paroxysmal atrial fibrillation, type 2 diabetes mellitus, and fibromyalgia who presented to the emergency department via EMS from for evaluation of altered mental status. She is unable to provide any meaningful history and as such a majority of the following is obtained via a review of her electronic medical records as well as discussions with her son. Run able to get a hold of her daughter who is her healthcare power of workers compensation attorney. According to ER documentation, the patient was last seen and her usual state of health just prior to going to bed last night. This morning she was found confused and lying next to her bed with a hematoma on her scalp. According to EMS she had told them that she had gotten up to get a drink of water in the middle of the night and she did not recall what happened thereafter. Aside from elevated BUN and creatinine from baseline, her labs, imaging, ABG, and drug screen have been relatively unremarkable.At the time of my evaluation the patient appears to be sleeping. She does not respond to voice but does withdrawal to stimuli. There is some documentation that she has been taking baclofen however I do not see that as 1 of her prescribed medications on review of her external medication history. It is noted that she was recently seen by her primary care provider on 11/01/21 with complaints of sinus drainage and worsening shortness of breath to the point where she started wearing her oxygen again. She was prescribed a prednisone taper and doxycycline for acute sinusitis. She was seen once again on 11/14/2021 in follow-up with ongoing sinus issues and and worsening of her chronic back and muscle pain. Duloxetine was increased to 60 mg a day and she was given a prescription for cefadroxil due to continued sinus symptoms. Reported at that time she was only taking Eliquis 2.5 mg daily due to the cost. Review of Systems Review of Systems: Unable to assess given current clinical condition [facility] Past Medical History Medical History (Updated 11/22/21 @ 13:36 by Justa Ruiz PA-C) Anxiety Chronic anticoagulation Chronic low back pain with sciatica Chronic obstructive pulmonary disease Chronic respiratory failure with hypoxia, on home oxygen therapy Depression Fibromyalgia History of pulmonary embolism (2006) Hypothyroidism Migraine Mixed hyperlipidemia Paroxysmal atrial fibrillation Type 2 diabetes mellitus Vitamin D deficiency Surgical History Surgical History (Updated 11/22/21 @ 13:36 by Justa Ruiz PA-C) History of appendectomy History of benign breast biopsy History of hysterectomy with oophorectomy History of lumbar surgery History of open reduction and internal fixation (ORIF) procedure (02/2021) Left ankle trimalleolar fracture. Family History Family History Father COPD (chronic obstructive pulmonary disease) Mother Acute myocardial infarction COPD (chronic obstructive pulmonary disease) Hypertension Sibling CHF (congestive heart failure) Brother DVT (deep venous thrombosis) 1 Sister Diabetes mellitus 1 Sister Breast cancer 2 sisters Hypertension Other Carcinoma of colon Family history of alcoholism Social History Social History (Updated 11/22/21 @ 13:25 by Justa Ruiz PA-C) Social History: She is and lives alone. She has 2 children. Her nephew lives with her. She has a small dog. 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 She smoked 1-2 packs of cigarettes per day for 60 years, has quit intermittently, resumed smoking approximately 1 year ago but stopped 1 week ago when she got sick. She denies any alcohol or ill
[2021-11-22 15:47] LABS: Hemoglobin A1C 6.5 % (<5.7)
[2021-11-22 17:42] LABS: Glucose Point of Care 100 mg/dl (65-105)
[2021-11-22] MEDS: SODIUM CHLORIDE 0.9% IV 1,000 ML 125 ML IV CONT (18:14)
[2021-11-22 20:10] LABS: Erythrocyte Sedimentation Rate 23 mm/hr (0-20)
--- NOTE | 2021-11-22 20:50 | PCRCNOTE ---
Pt unable to do Advair inhaler. Would not follow commands. Nurse notified.
[2021-11-23] VITALS (16 sets, daily range): BP systolic 108–154; BP diastolic 47–67; PULSE 53–68; RESP 12–20; TEMP 35.9–36.6; O2SAT 96–100
[2021-11-23 00:02] LABS: Glucose Point of Care 101 mg/dl (65-105)
[2021-11-23 05:22] LABS: Hematocrit 43.2 % (37.0-47.0); Hemoglobin 13.7 g/dL (12.0-15.0); Mean Corpuscular HGB Conc 31.7 g/dl (32-36); Mean Corpuscular Hemoglobin 31.9 pg (26-34); Mean Corpuscular Volume 100.5 fl (80-100); Mean Platelet Volume 9.6 fl (7.4-10.4); Platelet Count Result 203 k/mm3 (150-375); Red Cell Distribution Width 14.4 % (11.5-14.5); White Blood Count 8.2 K/mm3 (4.5-10.0)
[2021-11-23 05:34] LABS: Alanine Aminotransferase 22 U/L (4-35); Albumin Level 3.5 g/dL (3.5-5.1); Alkaline Phosphatase 64 U/L (38-126); Anion Gap 4 mmol/L (8-16); Aspartate Amino Transferase 41 U/L (14-36); Bilirubin,Total 0.6 mg/dL (0.2-1.3); Blood Urea Nitrogen 21 mg/dL (7-17); Calcium 8.6 mg/dL (8.4-10.2); Carbon Dioxide 26 mmol/L (22-30); Chloride 115 mmol/L (98-107); Estimated CRCL calculation 39 ml/min; Estimated Glomerular Filt Rate 48; Glucose 88 mg/dL (65-110); Magnesium 2.1 mg/dL (1.6-2.3); Potassium 4.4 mmol/L (3.4-5.0); Sodium 145 mmol/L (137-145)
[2021-11-23] MEDS: FLUTICASONE/SALMETEROL 115-21 MCG INHALER 1 PUFF 2 PUFF INHALATION ×2 (09:29→19:45)
--- NOTE | 2021-11-23 10:06 | WPDNEUROLOGY ---
Neurology EEG Report General Information Date of Study: 11/23/21 TEST eeg DIAGNOSIS Altered mental status CONDITION OF RECORDING awake drowsy and sleep EEG NUMBER [id number] CLINICAL HISTORY patient was found on the floor and confused EEG DESCRIPTION background rhythm consists of medium to high voltage 2 to 3 hertz per 2nd delta activity with periods of 1 to 1 1/2nd decrement of the voltage. Bilateral symmetrical sleep activity seen. Bihemispheric delta activity seen intermittently during sleep as well. Hyperventilation not done. Photic stimulation not done. Non paroxysmal. Nonfocal. Nonlateralizing. IMPRESSION Abnormal record due to the 1. Absence of the normal background rhythm 2. Bihemispheric delta activity with pea years of decrement in the activity 3. Slow sharp wave interval intermittently.These abnormalities are consistent with possibility of postictal state but focal structural lesion needs to be ruled out signed.
[2021-11-23 12:19] LABS: Glucose Point of Care 78 mg/dl (65-105)
[2021-11-23] MEDS: levETIRAcetam 500 MG TABLET 1000 MG PO (14:14)
--- NOTE | 2021-11-23 16:22 | PM.IMPN ---
Progress Note: A&P Additional Plan 76-year old female with history of chronic obstructive pulmonary disease, pulmonary embolism, obstructive sleep apnea, chronic respiratory failure on p.r.n. oxygen, paroxysmal atrial fibrillation, type 2 diabetes mellitus, and fibromyalgia who presented to the emergency department via EMS from for evaluation of altered mental status. 1) Encephalopathy: Has improved a little Appreciate Neurology help As per Neurolgy, EEG this morning is extremely abnormal suggestive of postictal state raising the possibility of unwitnessed seizure though considering the history of atrial fibrillation TIA was also likely but the EEG diffusely abnormal Has been started on Keppra (2) Scalp hematoma: Continue neurologic checks and fall precautions. (3) Acute kidney injury: improving D/c IV fluids now Avoid nephrotoxins Recheck BMP in AM (4) Type 2 diabetes mellitus: c/w low dose SS insulin for now HBA1C 6.5 (5) Paroxysmal atrial fibrillation: Currently in a sinus rhythm. Apixaban is on hold given scalp hematoma. (6) Hypothyroidism: Continue levothyroxine TSH WNL (7) Fibromyalgia Duloxetine was recently doubled to 60 mg daily due to worsening in pains. 8)DVT ppx: SCD 9)Code:DNR 10)Dispo:pending improvement Time Spent With Patient Time with patient: 15 - 25 minutes Subjective Date/time seen: 11/23/21 16:22 feeling better, Mental status better as compared to what she came in Review of Systems Review of Systems: ROS unobtainable: Yes unobtainable due to mental status Exam Const: General: no acute distress HENMT: Mouth: Yes moist mucous membranes Eyes: Sclera: sclerae normal Pupils: Equal, round and reactive pupils present Neck: Neck: supple Resp: Auscultation: clear to auscultation bilaterally Cardio: Rate: regular rate Rhythm: regular rhythm GI: GI Palp: Yes Soft to palpation Auscultation: normal bowel sounds Skin: General skin exam: normal color Objective Data Vital Signs Vital Signs: Vital Signs - 24 hr 11/22/21 17:10 11/22/21 18:00 11/22/21 19:45 Temperature 97.2 F L 97.2 F L Pulse Rate 59 L 60 62 Respiratory Rate 20 20 Blood Pressure 127/56 L 140/55 L Pulse Oximetry 100 100 11/22/21 20:00 11/22/21 20:47 11/22/21 22:00 Temperature Pulse Rate 68 Respiratory Rate Blood Pressure Pulse Oximetry 96 100 11/23/21 00:00 11/23/21 01:52 11/23/21 04:00 Temperature 97.4 F L 97.5 F L Pulse Rate 68 65 53 L Respiratory Rate 20 20 Blood Pressure 133/57 L 108/67 Pulse Oximetry 99 99 11/23/21 06:00 11/23/21 07:39 11/23/21 08:00 Temperature 97.4 F L Pulse Rate 58 L 56 L 59 L Respiratory Rate 12 12 Blood Pressure 154/65 H Pulse Oximetry 100 99 11/23/21 09:29 11/23/21 10:00 11/23/21 12:00 Temperature 97.8 F Pulse Rate 60 56 L Respiratory Rate 12 Blood Pressure 149/47 H Pulse Oximetry 96 99 11/23/21 14:00 Temperature Pulse Rate 61 Respiratory Rate Blood Pressure Pulse Oximetry Intake/Output Intake/Output: Intake & Output 11/20/21 11/21/21 11/22/21 11/23/21 23:59 23:59 23:59 23:59 Intake Total 500 Output Total 425 400 Balance 75 -400 Meds/Results Medications: Active Medications Generic Name Dose Route Start Last Admin Trade Name Freq PRN Reason Stop Dose Admin Albuterol 2 puff 11/22/21 14:06 Albuterol Sulfate (*Sp) Aerosol 1 Puff INHALATION QID PRN Shortness Of Breath Dextrose 12.5 gm 11/22/21 13:54 Dextrose 50% 25 Gm/50 Ml Syringe IV PUSH PRN PRN Hypoglycemia Protocol Glucagon 1 mg 11/22/21 13:54 Glucagon For Inj 1 Mg Vial IM PRN PRN Hypoglycemia Protocol Glucose 15 gm 11/22/21 13:54 Glucose Oral Gel 15 Gm Of Glucse In 37.5 Gm Tube PO PRN PRN Hypoglycemia Protocol Dextrose 1,000 mls @ 100 mls/hr 11/22/21 13:54 Dextrose 5% 1,000 Ml IVPB PRN PRN Hypoglycemia
[2021-11-23 18:30] LABS: Glucose Point of Care 129 mg/dl (65-105)
[2021-11-23] MEDS: MICONAZOLE NITRATE 2% CREAM 30 GM TUBE 1 APPLIC TOPICAL (18:43)
--- NOTE | 2021-11-23 18:44 | PC.NURSE ---
Called Dr. Hoff at 1600, spoke to physician regarding home medications. Physician notified home medications have not been ordered.
[2021-11-23] MEDS: levETIRAcetam 500 MG TABLET PO (20:32)
[2021-11-23] MEDS: APIXABAN 2.5 MG TABLET PO (20:32)
[2021-11-23] MEDS: ACETAMINOPHEN 325 MG TABLET 650 MG PO (20:36)
[2021-11-23 21:18] LABS: Glucose Point of Care 127 mg/dl (65-105)
[2021-11-24] VITALS (15 sets, daily range): BP systolic 129–148; BP diastolic 48–61; PULSE 46–91; RESP 18–20; TEMP 36.2–36.4; O2SAT 96–100
[2021-11-24 05:36] LABS: Basophils Percent Auto 0.5 % (0.2-1.2); Eosinophils Absolute Auto 0.2 K/mm3 (0-0.3); Eosinophils Percent Auto 2.5 % (0-4.4); Hematocrit 40.7 % (37.0-47.0); Hemoglobin 12.8 g/dL (12.0-15.0); Immature Granulocyte Absolute 0.03 K/mm3 (0.00-0.031); Immature Granulocyte Percent A 0.5 % (0-0.5); Lymphocytes Absolute Auto 1.64 K/mm3 (0.9-3.2); Lymphocytes Percent Auto 25.7 % (18.3-44.2); Mean Corpuscular HGB Conc 31.4 g/dl (32-36); Mean Corpuscular Hemoglobin 31.8 pg (26-34); Mean Platelet Volume 9.7 fl (7.4-10.4); Monocytes Absolute Auto 0.5 K/mm3 (0.1-0.6); Monocytes Percent Auto 7.2 % (2.6-8.5); Neutrophils Absolute Auto 4.1 K/mm3 (1.3-6.7); Neutrophils Percent Auto 63.6 % (45.5-73.1); Platelet Count Result 185 k/mm3 (150-375); Red Blood Count 4.03 M/mm3 (4.2-5.4); Red Cell Distribution Width 14.4 % (11.5-14.5); White Blood Count 6.4 K/mm3 (4.5-10.0)
[2021-11-24 05:52] LABS: Anion Gap 3 mmol/L (8-16); Blood Urea Nitrogen 19 mg/dL (7-17); Calcium 8.3 mg/dL (8.4-10.2); Carbon Dioxide 28 mmol/L (22-30); Chloride 110 mmol/L (98-107); Estimated CRCL calculation 39 ml/min; Estimated Glomerular Filt Rate 48; Glucose 95 mg/dL (65-110); Potassium 3.9 mmol/L (3.4-5.0); Sodium 141 mmol/L (137-145)
[2021-11-24] MEDS: FLUTICASONE/SALMETEROL 115-21 MCG INHALER 1 PUFF 2 PUFF INHALATION ×2 (08:08→20:53)
[2021-11-24 08:53] LABS: Glucose Point of Care 98 mg/dl (65-105)
[2021-11-24] MEDS: levETIRAcetam 500 MG TABLET PO ×2 (10:18→20:21)
[2021-11-24] MEDS: APIXABAN 2.5 MG TABLET PO ×2 (10:19→20:21)
[2021-11-24] MEDS: MICONAZOLE NITRATE 2% CREAM 30 GM TUBE 1 APPLIC TOPICAL ×2 (10:19→17:27)
[2021-11-24 12:43] LABS: Glucose Point of Care 138 mg/dl (65-105)
--- NOTE | 2021-11-24 13:59 | PM.IMPN ---
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 Admitted to IMU Fall and seizure precautions ABG without hypercarbia Noted JEFFERSON which could relate to ongoing confusion CK level was normal likely not serotonin syndrome Ammonia level less than 9 Troponin was negative Thyroid function is normal Vitamin B12 is normal Lactic acid on admission was normal Head CT with no fracture acute intracranial process Cervical spine with severe cervical spondylosis with no acute abnormality Brain MRI with normal aging brain with no acute intracranial process EEG 11/23/2021 with background rhythm consisting of medium to high voltage 2-3 hertz bihemispheric delta activity with periods of decreased [place] the activity and slow sharp wave interval intermittently findings consistent with possibility of postictal state but local structure lesion needs to be ruled out Urology consulted. She has been started on Keppra. She is noted to be on topiramate in her home medication along with sertraline, Abilify and duloxetine which has been on hold at this time. Echo 11/22/2021 EF 65-70% grade 1 diastolic dysfunction possible myocardial diverticulum noted in the basal inferior wall (2) Scalp hematoma: Code(s): S00.03XA - Contusion of scalp, initial encounter Status: Acute Assessment and Plan: Related to the fall most likely has no recollection of the event CT head with no intracranial injury noted Continue fall precautions and neuro checks (3) Acute kidney injury: Code(s): N17.9 - Acute kidney failure, unspecified Status: Acute Assessment and Plan: Creatinine at 1.9 on admission. Etiology not entirely clear. Likely prerenal. Renal ultrasound negative for hydronephrosis Continue IV fluid rehydration, avoid nephrotoxic agents Kirby catheter has been placed in the ED UA negative for infection (4) Type 2 diabetes mellitus: Code(s): E11.9 - Type 2 diabetes mellitus without complications Status: Acute Assessment and Plan: Could she have had an episode of hypoglycemia causing her fall last night? Hold glimepiride and initiate sliding scale insulin hemoglobin A1c at 6.5. (5) Paroxysmal atrial fibrillation: Code(s): I48.0 - Paroxysmal atrial fibrillation Status: Acute Assessment and Plan: Currently in a sinus rhythm. Apixaban is on hold given scalp hematoma. 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 According to a recent office note, the patient admitted that she was only taking 2.5 mg of Eliquis once a day due to the cost of the drug. (7) Chronic obstructive pulmonary disease: Code(s): J44.9 - Chronic obstructive pulmonary disease, unspecified Status: Acute Assessment and Plan: Recent exacerbation at the beginning of the month for which she completed a prednisone taper. No acute bronchospasm. (8) Hypothyroidism: Code(s): E03.9 - Hypothyroidism, unspecified Status: Chronic Assessment and Plan: Continue levothyroxine and check TSH. (9) Fibromyalgia: Code(s): M79.7 - Fibromyalgia Status: Acute Assessment and Plan: Duloxetine was recently doubled to 60 mg daily due to worsening in pains. (10) Abel
--- NOTE | 2021-11-24 15:17 | PCCCNOTE ---
On 11/24/21, the student, [Aviva Hernandez], provided care and completed [facility] documentation on this patient. I have reviewed the student's documentation and agree with the findings.
[2021-11-24 16:04] LABS: Glucose Point of Care 102 mg/dl (65-105)
--- NOTE | 2021-11-24 18:27 | PC.NURSE ---
This patient, Lili Sanchez, was transferred to [ [id number]] on 11/24/21 at 1827. Personal belongings sent with patient. Report given to Rea PATTERSON[ ]. Appropriate documentation sent with patient.
--- NOTE | 2021-11-24 18:30 | PC.NURSE ---
This patient, Lili Sanchez, was received from IMU on 11/24/21 at 1820. Patient/family oriented to unit policies and routines
[2021-11-24] MEDS: ACETAMINOPHEN 325 MG TABLET 650 MG PO (19:00)
[2021-11-24] MEDS: TOPIRAMATE 25 MG TABLET PO (20:21)
[2021-11-24 22:09] LABS: Glucose Point of Care 148 mg/dl (65-105)
[2021-11-25] VITALS (7 sets, daily range): BP systolic 136–183; BP diastolic 46–59; PULSE 59–64; RESP 16–18; TEMP 36–36.4; O2SAT 90–100
[2021-11-25 00:08] LABS: Glucose Point of Care 133 mg/dl (65-105)
[2021-11-25 06:01] LABS: Basophils Percent Auto 0.6 % (0.2-1.2); Eosinophils Absolute Auto 0.2 K/mm3 (0-0.3); Eosinophils Percent Auto 3.1 % (0-4.4); Hematocrit 41.5 % (37.0-47.0); Hemoglobin 12.9 g/dL (12.0-15.0); Immature Granulocyte Absolute 0.02 K/mm3 (0.00-0.031); Immature Granulocyte Percent A 0.4 % (0-0.5); Lymphocytes Absolute Auto 1.55 K/mm3 (0.9-3.2); Lymphocytes Percent Auto 28.5 % (18.3-44.2); Mean Corpuscular HGB Conc 31.1 g/dl (32-36); Mean Corpuscular Hemoglobin 32.1 pg (26-34); Mean Corpuscular Volume 103.2 fl (80-100); Mean Platelet Volume 9.7 fl (7.4-10.4); Monocytes Absolute Auto 0.4 K/mm3 (0.1-0.6); Monocytes Percent Auto 7.7 % (2.6-8.5); Neutrophils Absolute Auto 3.2 K/mm3 (1.3-6.7); Neutrophils Percent Auto 59.7 % (45.5-73.1); Platelet Count Result 158 k/mm3 (150-375); Red Blood Count 4.02 M/mm3 (4.2-5.4); White Blood Count 5.4 K/mm3 (4.5-10.0)
[2021-11-25 06:04] LABS: Glucose Point of Care 92 mg/dl (65-105)
[2021-11-25 06:15] LABS: Alanine Aminotransferase 20 U/L (4-35); Albumin Level 3.2 g/dL (3.5-5.1); Alkaline Phosphatase 57 U/L (38-126); Anion Gap 4 mmol/L (8-16); Aspartate Amino Transferase 32 U/L (14-36); Bilirubin,Total 0.6 mg/dL (0.2-1.3); Blood Urea Nitrogen 17 mg/dL (7-17); Calcium 8.4 mg/dL (8.4-10.2); Carbon Dioxide 27 mmol/L (22-30); Chloride 109 mmol/L (98-107); Estimated CRCL calculation 48 ml/min; Estimated Glomerular Filt Rate > 60; Glucose 91 mg/dL (65-110); Magnesium 1.9 mg/dL (1.6-2.3); Sodium 140 mmol/L (137-145)
[2021-11-25] MEDS: FLUTICASONE/SALMETEROL 115-21 MCG INHALER 1 PUFF 2 PUFF INHALATION (07:35)
[2021-11-25 07:48] LABS: Glucose Point of Care 96 mg/dl (65-105)
[2021-11-25] MEDS: levETIRAcetam 500 MG TABLET PO (08:46)
[2021-11-25] MEDS: APIXABAN 2.5 MG TABLET PO (08:46)
[2021-11-25] MEDS: TOPIRAMATE 25 MG TABLET PO (08:47)
[2021-11-25] MEDS: MICONAZOLE NITRATE 2% CREAM 30 GM TUBE 1 APPLIC TOPICAL (08:48)
--- NOTE | 2021-11-25 11:16 | PM.DS ---
DS: Admitting Diagnosis Discharge Date 11/25/2021 Admitting Diagnosis altered mental status DS: Discharge Diagnosis Discharge Diagnosis (1) Encephalopathy: Code(s): G93.40 - Encephalopathy, unspecified Status: Acute Assessment and Plan: Etiology is not entirely clear differential diagnosis includes metabolic encephalopathy related to acute kidney injury, severe concussion given the presence of a scalp hematoma, cerebrovascular accident, postictal state, drug related (her duloxetine dose was recently increased to 60 mg daily and in combination with aripiprazole this can increase aripiprazole levels with 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 Admitted to IMU Fall and seizure precautions ABG without hypercarbia Noted JEFFERSON which could relate to ongoing confusion CK level was normal likely not serotonin syndrome Ammonia level less than 9 Troponin was negative Thyroid function is normal Vitamin B12 is normal Lactic acid on admission was normal Head CT with no fracture acute intracranial process Cervical spine with severe cervical spondylosis with no acute abnormality Brain MRI with normal aging brain with no acute intracranial process EEG 11/23/2021 with background rhythm consisting of medium to high voltage 2-3 hertz bihemispheric delta activity with periods of decreased [place] the activity and slow sharp wave interval intermittently findings consistent with possibility of postictal state but local structure lesion needs to be ruled out neurology consulted. She has been started on Keppra. She is noted to be on topiramate in her home medication along with sertraline, Abilify and duloxetine which has been on hold at this time. she had Abilify and duloxetine increased recently. Due to new Seizure back down to her usual dose Echo 11/22/2021 EF 65-70% grade 1 diastolic dysfunction possible myocardial diverticulum noted in the basal inferior wall (2) Scalp hematoma: Code(s): S00.03XA - Contusion of scalp, initial encounter Status: Acute Assessment and Plan: Related to the fall most likely has no recollection of the event CT head with no intracranial injury noted Continue fall precautions and neuro checks (3) Acute kidney injury: Code(s): N17.9 - Acute kidney failure, unspecified Status: Acute Assessment and Plan: Creatinine at 1.9 on admission. Etiology not entirely clear. Likely prerenal. Renal ultrasound negative for hydronephrosis Continue IV fluid rehydration, avoid nephrotoxic agents Kirby catheter has been placed in the ED Kirby catheter removed by the time of discharge UA negative for infection (4) Type 2 diabetes mellitus: Code(s): E11.9 - Type 2 diabetes mellitus without complications Status: Acute Assessment and Plan: Could she have had an episode of hypoglycemia causing her fall last night? Hold glimepiride and initiate sliding scale insulin hemoglobin A1c at 6.5. (5) Paroxysmal atrial fibrillation: Code(s): I48.0 - Paroxysmal atrial fibrillation Status: Acute Assessment and Plan: Currently in a sinus rhythm. Apixaban is on hold given scalp hematoma. 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 According to a recent office note, the patient admitted that she was only taking 2.5 mg of Eliquis once a day due to the cost of the drug. (7) Chronic obstructive pulmonary disease: Code(s): J44.9 - Chronic obstructive pulmonary disease, unspecified Status: Acute Assessment and Plan: Recent exacerbation at the beginning of the month for which she completed a prednisone taper. No acute bronchospasm. (8) Hypothyroidism: Code(s): E03.9 - Hypothyroidism, unspecified Status: Chronic Asse
[2021-11-25 11:30] LABS: Glucose Point of Care 115 mg/dl (65-105)
--- NOTE | 2021-11-25 14:03 | PC.NURSE ---
On 11/25/21, the student, [Jay Sesay & Klaudia Beard], provided care and completed [facility] documentation on this patient. I have reviewed the student's documentation and agree with the findings.
== END 2021-11-25 16:37 | disposition home or self-care (01) ==
LOC: ANHED 10:54 → ANHIMU 16:01 → ANH2MED 11-25 11:15 → ANHIMU 09-11 06:08
PROVIDERS: Internal Medicine; Physician Assistant; Admitting Provider Family Medicine; Emergency Provider Emergency Medicine; PCP Family Medicine; Visit Provider Internal Medicine
DX: G93.40 Encephalopathy, unspecified (principal); N17.9 Acute kidney failure, unspecified; M47.812 Spondylosis without myelopathy or radiculopathy, cervical region; S00.03XA Contusion of scalp, initial encounter; W19.XXXA Unspecified fall, initial encounter; E11.9 Type 2 diabetes mellitus without complications; E03.9 Hypothyroidism, unspecified; E78.2 Mixed hyperlipidemia; E55.9 Vitamin D deficiency, unspecified; F32.9 Major depressive disorder, single episode, unspecified; G43.909 Migraine, unspecified, not intractable, without status migrainosus; G47.33 Obstructive sleep apnea (adult) (pediatric); I48.0 Paroxysmal atrial fibrillation; J44.9 Chronic obstructive pulmonary disease, unspecified; J96.11 Chronic respiratory failure with hypoxia; M54.40 Lumbago with sciatica, unspecified side; M79.7 Fibromyalgia; Z79.01 Long term (current) use of anticoagulants; Z99.81 Dependence on supplemental oxygen; Z90.710 Acquired absence of both cervix and uterus; Z90.49 Acquired absence of other specified parts of digestive tract; Z87.891 Personal history of nicotine dependence; Z86.711 Personal history of pulmonary embolism; Z79.84 Long term (current) use of oral hypoglycemic drugs
CPT/HCPCS: 36415; 36600; 51702; 70450; 70551; 71045; 72125; 76775; 80048; 80053; 80307; 81001; 82140; 82550; 82607; 82805; 82948; 83036; 83605; 83735; 84443; 84484; 85025; 85027; 85610; 85652; 85730; 86140; 93005; 93306; 94640; 95816; 96360; 96375; 97161; 97165; 97535; 99285; A9270; G0378; J7030; J7040

== ENCOUNTER 2022-05-30 00:47 | Day surgery (SDC) | payer BC, SELFPAY ==
[2022-05-23 15:07] VITALS: BMI 34.1
[2022-05-30 09:35] VITALS: BP 155/56; PULSE 50; RESP 22; TEMP 36.6; O2SAT 94
[2022-05-30] MEDS: LACTATED RINGERS 1,000 ML 150 ML IV CONT (09:51)
[2022-05-30 09:55] LABS: Glucose Point of Care 90 mg/dl (65-105)
--- NOTE | 2022-05-30 10:02 | PM.HPGS ---
History of Present Illness History of Present Illness Consent: Risks, benefits, and alternatives have been discussed and questions answered. Patient agrees to proceed with procedure. Chief complaint: neoplasm screening Narrative: Lili Sanchez is a 76 year old female Presents for screening colonoscopy. Patient reports that her current weight appetite and bowel movements are normal. Patient denies abdominal pain. She has had no bleeding. Family history significant her sister may have had colon cancer in the past. Patient states that her current weight appetite bowel movements are normal. She denies abdominal pain. Patient has had no bleeding. Patient reports she is now being treated for COPD. She has a history of a pulmonary embolus for which she chronically is on Eliquis. Eliquis to be held for screening colonoscopy. [facility] Past Medical History Medical History Anxiety Chronic anticoagulation Chronic low back pain with sciatica Chronic obstructive pulmonary disease Chronic renal insufficiency, stage III (moderate) Chronic respiratory failure with hypoxia, on home oxygen therapy Depression Fibromyalgia History of pulmonary embolism (2006) Hypothyroidism Migraine Mixed hyperlipidemia Paroxysmal atrial fibrillation Type 2 diabetes mellitus Vitamin D deficiency Surgical History Surgical History History of appendectomy History of benign breast biopsy History of hysterectomy with oophorectomy History of lumbar surgery History of open reduction and internal fixation (ORIF) procedure (02/2021) Left ankle trimalleolar fracture. Family History Family History (Updated 05/30/22 @ 10:04 by Nhan Blount MD) Father COPD (chronic obstructive pulmonary disease) Mother Acute myocardial infarction COPD (chronic obstructive pulmonary disease) Hypertension Sibling CHF (congestive heart failure) Brother DVT (deep venous thrombosis) 1 Sister Diabetes mellitus 1 Sister Breast cancer 2 sisters Hypertension Other Carcinoma of colon Family history of alcoholism Social History Social History Social History: She is and lives alone. She has 2 children. Her nephew lives with her. She has a small dog. 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 She smoked 1-2 packs of cigarettes per day for 60 years, has quit intermittently, resumed smoking approximately 1 year ago but stopped 1 week ago when she got sick. She denies any alcohol or illicit substance use. Smoking status: Former smoker Tobacco type: cigarettes Second hand tobacco smoke exposure: No Alcohol intake: never Substance use: never Substance use type: does not use Living arrangements: with family Gender identity (if verbalized by the patient): Female Sexual Orientation (if Verbalized by the Patient): Straight or Heterosexual Spiritual care concerns: No Agree to blood products: Yes Meds Home Medications and Allergies Home Medications Medication Instructions Recorded Confirmed Type apixaban 2.5 mg tablet (Eliquis) 2.5 mg PO BID #60 tabs 07/05/21 05/24/22 Rx nystatin 100,000 unit/gram topical 1 applic topical BID #30 grams 11/01/21 05/24/22 Rx cream sertraline 100 mg tablet 100 mg PO HS #30 tabs 01/03/22 05/24/22 Rx albuterol sulfate 90 mcg/actuation 2 inh inhalation QID PRN Shortness 01/25/22 05/24/22 Rx aerosol inhaler Of Breath #25.5 grams glimepiride 1 mg tablet 1 mg PO DAILY #90 tabs 02/11/22 05/24/22 Rx budesonide-formoterol HFA 160 2 inh inhalation BID #10.2 grams 02/24/22 05/24/22 Rx mcg-4.5 mcg/actuation aerosol inhaler lidocaine 5 % topical cream 1 applic topical TID PRN pain #30 03/20/22 05/24/22 Rx grams topiramate 25 mg tablet See Rx Instructions .Route 04/03/22 05/24/22 Rx .COMPLEX #60 tabs ergocalciferol (vi
--- NOTE | 2022-05-30 10:12 | WPDANESEPPF ---
Anes - Initial Pre Proc Eval Procedure: Operation Date: 05/30/22 11:00 Proposed Procedures p Screening Colonoscopy - Nhan Blount MD Date/Time: 05/30/22 10:12 Surgeon: Nhan Blount MD Pre Op Diagnosis: neoplasm screening Patient Data Age: 76 Gender: F Height: 1.65 m Weight: 95.2 kg Last Vital Signs Temp 97.8 F 05/30/22 09:35 Pulse 50 L 05/30/22 09:35 Resp 22 H 05/30/22 09:35 BP 155/56 H 05/30/22 09:35 Pulse Ox 94 05/30/22 09:35 O2 Del Method Room Air 05/30/22 09:35 Allergies Allergy/AdvReac Type Severity Reaction Status Date / Time adhesive tape Allergy Intermediate REDNESS Verified 05/30/22 09:32 Home Medications Medication Instructions Recorded Confirmed Type apixaban 2.5 mg tablet (Eliquis) 2.5 mg PO BID #60 tabs 07/05/21 05/24/22 Rx nystatin 100,000 unit/gram topical 1 applic topical BID #30 grams 11/01/21 05/24/22 Rx cream sertraline 100 mg tablet 100 mg PO HS #30 tabs 01/03/22 05/24/22 Rx albuterol sulfate 90 mcg/actuation 2 inh inhalation QID PRN Shortness 01/25/22 05/24/22 Rx aerosol inhaler Of Breath #25.5 grams glimepiride 1 mg tablet 1 mg PO DAILY #90 tabs 02/11/22 05/24/22 Rx budesonide-formoterol HFA 160 2 inh inhalation BID #10.2 grams 02/24/22 05/24/22 Rx mcg-4.5 mcg/actuation aerosol inhaler lidocaine 5 % topical cream 1 applic topical TID PRN pain #30 03/20/22 05/24/22 Rx grams topiramate 25 mg tablet See Rx Instructions .Route 04/03/22 05/24/22 Rx .COMPLEX #60 tabs ergocalciferol (vitamin D2) 1,250 1,250 mcg PO WEEKLY #4 caps 04/12/22 05/24/22 Rx mcg (50,000 unit) capsule tizanidine 2 mg tablet 2 mg PO QHS PRN muscle spasticity 04/16/22 05/24/22 Rx #30 tabs levothyroxine 25 mcg tablet 25 mcg PO DAILY #90 tabs 05/13/22 05/24/22 Rx aripiprazole 10 mg tablet 10 mg PO HS 05/23/22 05/24/22 History duloxetine 60 mg capsule,delayed 60 mg PO DAILY 05/23/22 05/24/22 History release Laboratory Tests 05/30/22 09:50 POC Capillary Glucose 90 mg/dl mg/dl (65-105) Patient hx anesthesia problems: none Family hx anesthesia problems: none Results Review: All pre-operative results and documents have been reviewed as part of the pre-operative evaluation. [facility] Past Medical History Medical History Anxiety Chronic anticoagulation Chronic low back pain with sciatica Chronic obstructive pulmonary disease Chronic renal insufficiency, stage III (moderate) Chronic respiratory failure with hypoxia, on home oxygen therapy Depression Fibromyalgia History of pulmonary embolism (2006) Hypothyroidism Migraine Mixed hyperlipidemia Paroxysmal atrial fibrillation Type 2 diabetes mellitus Vitamin D deficiency Surgical History Surgical History History of appendectomy History of benign breast biopsy History of hysterectomy with oophorectomy History of lumbar surgery History of open reduction and internal fixation (ORIF) procedure (02/2021) Left ankle trimalleolar fracture. Family History Family History (Updated 05/30/22 @ 10:04 by Nhan Blount MD) Father COPD (chronic obstructive pulmonary disease) Mother Acute myocardial infarction COPD (chronic obstructive pulmonary disease) Hypertension Sibling CHF (congestive heart failure) Brother DVT (deep venous thrombosis) 1 Sister Diabetes mellitus 1 Sister Breast cancer 2 sisters Hypertension Other Carcinoma of colon Family history of alcoholism Social History Social History Social History: She is and lives alone. She has 2 children. Her nephew lives with her. She has a small dog. 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 She smoked 1-2 packs of cigarettes per day for 60 years, has quit intermittently, resumed smoking approximately 1 year ago but stopped 1 week ago wh
[2022-05-30 10:32] VITALS: BP 131/81; PULSE 58; RESP 18; O2SAT 100
[2022-05-30 10:46] VITALS: BP 138/67; PULSE 50; RESP 20; O2SAT 100
[2022-05-30 11:02] VITALS: BP 151/72; PULSE 56; RESP 22; O2SAT 100
--- NOTE | 2022-05-30 11:26 | SUR.PHASEII ---
Patient waiting on trash collector truck driver to arrive to be discharged.
== END 2022-05-30 11:40 | disposition home or self-care (01) ==
PROVIDERS: PCP Family Medicine; Visit Provider Internal Medicine Gastroenterology
PROC: 0DJD8ZZ Inspection of Lower Intestinal Tract, Via Natural or Artificial Opening Endoscopic (ICD-10-PCS; CPT 45378; principal; 2022-05-30 11:00)
DX: Z12.11 Encounter for screening for malignant neoplasm of colon (principal); D12.2 Benign neoplasm of ascending colon; D12.3 Benign neoplasm of transverse colon; D12.5 Benign neoplasm of sigmoid colon; Z80.0 Family history of malignant neoplasm of digestive organs; K64.8 Other hemorrhoids; Z79.01 Long term (current) use of anticoagulants; Z79.51 Long term (current) use of inhaled steroids; E03.9 Hypothyroidism, unspecified; F41.9 Anxiety disorder, unspecified; J44.9 Chronic obstructive pulmonary disease, unspecified; E11.22 Type 2 diabetes mellitus with diabetic chronic kidney disease; E55.9 Vitamin D deficiency, unspecified; Z86.711 Personal history of pulmonary embolism; I48.0 Paroxysmal atrial fibrillation; E78.2 Mixed hyperlipidemia; M79.7 Fibromyalgia; I12.9 Hypertensive chronic kidney disease with stage 1 through stage 4 chronic kidney disease, or unspecified chronic kidney disease; N18.30 Chronic kidney disease, stage 3 unspecified; J96.11 Chronic respiratory failure with hypoxia; F32.A Depression, unspecified; Z87.891 Personal history of nicotine dependence
CPT/HCPCS: 45385; 82948; 88305; J7120

== ENCOUNTER 2022-08-13 12:46 | Outpatient (CLI) | payer BC, SELFPAY ==
--- NOTE | ~2022-08-13 | MR_ITS ---
EXAMINATION: MR lumbar spine wo con DATE: 08/13/2022 13:35 INDICATION: Lumbar radiculopathy. TECHNIQUE: Magnetic resonance imaging (MRI) of the lumbar spine was performed without intravenous con trast. Sequences included sagittal T2-weighted FSE, sagittal T2-weighted FS FSE, sagittal T1-weighted FSE, and axial T2-weighted FSE. COMPARISON: Lumbar spine MRI 06/09/2016 FINDINGS: There is 22 degrees levoscoliosis of lumbar spine. There is 3 mm retrolisthesis of L1 on L2 and L2 on L3 and 3 mm anterolisthesis of L4 on L5. Vertebral body heights are normal. There is sever hussein decreased disc height at L1-L2 and L2-L3, mildly decreased disc height at L3-L4, moderately decre ased disc height at L4-L5, and severely decreased disc height at L5-S1 with endplate remodeling. The distal spinal cord signal intensity is normal. The conus medullaris is at L1. The following disc leve ls are specifically discussed: L1-L2: The disc is bulging and has an annular fissure. There is severe bilateral facet joint osteoart hritis. There is moderate right and mild left neural foraminal stenosis. There is mild central canal stenosis. L2-L3: The disc is bulging and has an annular fissure. There is severe bilateral facet joint osteoart hritis. There is moderate right and mild left neural foraminal stenosis. There is mild central canal stenosis. L3-L4: The disc is bulging. There is severe bilateral facet joint osteoarthritis. There is mild bilat eral neural foraminal stenosis. There is mild central canal stenosis. L4-L5: The disc is bulging and has an annular fissure. There is severe bilateral facet joint osteoart hritis. There is mild right and moderate left neural foraminal stenosis. There is mild central canal stenosis with posterior decompression. L5-S1: The disc is bulging and has an annular fissure. There is severe bilateral facet joint osteoart hritis. There is mild bilateral neural foraminal stenosis. There is mild central canal stenosis. IMPRESSION: 1. Severe lumbar spondylosis, stable from 06/09/2016. 2. Lumbar levoscoliosis. Reviewed, dictated and finalized at location A. WELL PUMPER
== END 2022-08-13 12:47 | disposition home or self-care (01) ==
LOC: ANHIMG 12:47
PROVIDERS: PCP Family Medicine; Visit Provider Nurse Practitioner Family
DX: M47.26 Other spondylosis with radiculopathy, lumbar region (principal)
CPT/HCPCS: 72148

== ENCOUNTER 2022-08-16 16:44 | Outpatient (CLI) | payer BC, SELFPAY ==
[2022-08-16 18:05] LABS: Influenza A QL RT-PCR Negative (Negative); Influenza B QL RT-PCR Negative (Negative); RSV RNA, RT-PCR Negative (Negative); SARS-CoV-2 RNA PCR Negative
== END 2022-08-16 16:45 | disposition home or self-care (01) ==
LOC: ANHLAB 16:44
PROVIDERS: PCP Family Medicine; Visit Provider Physician Assistant Medical
DX: J11.1 Influenza due to unidentified influenza virus with other respiratory manifestations (principal); Z20.822 Contact with and (suspected) exposure to COVID-19
CPT/HCPCS: 87637

== ENCOUNTER 2022-08-16 17:12 | Inpatient (IN) | payer MEDICARE, BC, SELFPAY ==
[2022-08-16] VITALS (36 sets, daily range): BP systolic 126–192; BP diastolic 45–90; PULSE 65–81; RESP 18–37; TEMP 36.9; O2SAT 87–100
--- NOTE | ~2022-08-16 | XR_ITS ---
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 RESULT: Lines, tubes, and devices: None. Lungs and pleura: Diffusely increased reticular opacities. No focal consolidation, effusion, or pneu mothorax. Cardiomediastinal silhouette: Stable. Other: No acute osseous or upper abdominal finding. IMPRESSION: Pulmonary opacities may represent mild interstitial edema or bronchiolitis depending on the clinical context. Reviewed, dictated and finalized at location K. LIGHT MECHANIC IMPRESSION: Pulmonary opacities may represent mild interstitial edema or bronchiolitis depe nding on the clinical context.
--- NOTE | ~2022-08-16 | CT_ITS ---
EXAMINATION: CTA chest PE protocol DATE: 08/16/2022 20:22 INDICATION: Dyspnea TECHNIQUE: Computed tomography angiography (CTA) of the chest was performed with 100 mL Omnipaque-350 intravenous contrast timed to evaluate the pulmonary arteries. Coronal maximum intensity projection 3D-reconstructions were created by the technologist. The dose-length product (DLP) was 663.10 mGy-cm. Automated exposure control and iterative reconstruction technique were employed. COMPARISON: None. FINDINGS: Lung parenchyma and airways: Diffuse tree-in-bud opacities. Pleura: Unremarkable. Thoracic inlet, axillae and chest wall: Unremarkable. Thoracic aorta: Moderate arch calcification. Mediastinum: Mediastinal lymphadenopathy prominent right hilar lymph nodes. Heart and pericardium: Normal. Coronary artery calcifications: Mild. Upper abdomen: No significant finding. Bones: No acute osseous finding. Pulmonary arteries: Study quality: Mildly motion limited but overall diagnostic. No pulmonary emboli detected. IMPRESSION: No CT evidence of acute pulmonary embolus. Tree-in-bud opacities as can be seen with atypical infecti on (MAC, TB, fungal), ABPA, airways disease (CF, bronchiectasis), and aspiration. Reviewed, dictated and finalized at location K. PAPER STUFFER IMPRESSION: No CT evidence of acute pulmonary embolus. Tree-in-bud opacities as can be seen with atypical infection (MAC, TB, fungal), ABPA, airways disease (CF, bronchie ctasis), and aspiration.
--- NOTE | 2022-08-16 17:19 | ECG_ITS ---
Measurements Intervals [place] Rate: 78 P: NC: 0 QRS: 65 QRSD: 100 T: 61 QT: 362 QTc: 414 Interpretive Statements INDETERMINATE RHYTHM; OCCASIONAL SINUS BEATS SEEN BUT CANNOT RULE OUT SOME JUNCTIONAL BEATS VERSES BRIEF ATRIAL FIBRILLATION ARTIFACT PRESENT ONE PVC COMPARED TO ECG 11/22/2021 08:01:17 THE RHYTHM HAS CHANGED Electronically Signed On 08-17-2022 11:41:52 BRANCH CREDIT COUNSELOR by Shellie Hawkins M.D.
[2022-08-16] MEDS: ALBUTEROL SULFATE NEB 2.5 MG/3 ML INH 5 MG INHALATION ×3 (19:24→23:05)
[2022-08-16] MEDS: IPRATROPIUM BR 0.02% INH SOLN 0.5 MG/2.5 ML VIAL INHALATION (19:25)
[2022-08-16] MEDS: MAGNESIUM SULF 2 GM/WATER 50ML 2 GM/50 ML BAG IVPB (19:27)
[2022-08-16] MEDS: methylPREDNISolone SOD SUCC 125 MG VIAL IV PUSH (19:28)
--- NOTE | 2022-08-16 19:28 | ED.SOB ---
HPI - SOB/Dyspnea General Chief Complaint: Shortness of Breath/Dyspnea Stated Complaint: sob, vomiting blood Time Seen by Provider: 08/16/22 18:58 History of Present Illness HPI Narrative: This is a 77-year-old female with past medical history of PE, COPD (on 2L O2 at baseline), hypothyroidism, presenting to the emergency department complaining of diffuse myalgias and shortness of breath for the past week, worsened in the past day. She states she has had cough productive of sputum without blood, complains of diffuse myalgias but denies diarrhea or vomiting. She states she is vaccinated for flu but not COVID. She states she has missed doses of her anticoagulants. Related Data Home Medications Medication Instructions Recorded Confirmed duloxetine 60 mg capsule,delayed 60 mg PO DAILY 05/23/22 05/24/22 release Allergies Allergy/AdvReac Type Severity Reaction Status Date / Time adhesive tape Allergy Intermediate REDNESS Verified 08/16/22 17:27 Review of Systems Review of Systems: CONSTITUTIONAL: Subjective fevers and chills denies or sweats. EYES: Denies visual changes, redness, or discharge. ENT: Rhinorrhea, congestion, sore throat denies otalgia. CARDIOVASCULAR: Denies chest pain, palpitations, or edema. RESPIRATORY: Productive non-bloody cough and dyspnea GASTROINTESTINAL: Denies abdominal pain, nausea, vomiting, or diarrhea. GENITOURINARY: Denies dysuria or hematuria. SKIN: Denies rash or itching. MUSCULOSKELETAL: Diffuse myalgias denies back pain, joint pain NEUROLOGIC: Denies headache, numbness, dizziness, or weakness. PSYCHIATRIC: Denies anxiety or depression. [facility] Past Medical History Medical History Anxiety Chronic anticoagulation Chronic low back pain with sciatica Chronic obstructive pulmonary disease Chronic renal insufficiency, stage III (moderate) Chronic respiratory failure with hypoxia, on home oxygen therapy Depression Fibromyalgia History of pulmonary embolism (2006) Hypothyroidism Migraine Mixed hyperlipidemia Paroxysmal atrial fibrillation Type 2 diabetes mellitus Vitamin D deficiency Surgical History Surgical History History of appendectomy History of benign breast biopsy History of hysterectomy with oophorectomy History of lumbar surgery History of open reduction and internal fixation (ORIF) procedure (02/2021) Left ankle trimalleolar fracture. Family History Family History Father COPD (chronic obstructive pulmonary disease) Mother Acute myocardial infarction COPD (chronic obstructive pulmonary disease) Hypertension Sibling CHF (congestive heart failure) Brother DVT (deep venous thrombosis) 1 Sister Diabetes mellitus 1 Sister Breast cancer 2 sisters Hypertension Other Carcinoma of colon Family history of alcoholism Social History Social History Social History: She is and lives alone. She has 2 children. Her nephew lives with her. She has a small dog. 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 She smoked 1-2 packs of cigarettes per day for 60 years, has quit intermittently, resumed smoking approximately 1 year ago but stopped 1 week ago when she got sick. She denies any alcohol or illicit substance use. Smoking status: Former smoker Tobacco type: cigarettes Second hand tobacco smoke exposure: No Alcohol intake: never Substance use: never Substance use type: does not use Lack of Transportation: No Lack of Food: Never True Current Housing: I Have Housing Concerned About Future Housing: No Difficulty Paying Gas/Electric Bills: No Difficulty Paying for Meds: No Currently Unemployed: No Education: High School Diploma/GED Difficulty w/ Childcare or Family Care: No Gender identity (if verbalized
[2022-08-16 19:31] LABS: Hematocrit 43.6 % (37.0-47.0); Hemoglobin 13.6 g/dL (12.0-15.0); Mean Corpuscular HGB Conc 31.2 g/dl (32-36); Mean Corpuscular Hemoglobin 31.7 pg (26-34); Mean Corpuscular Volume 101.6 fl (80-100); Platelet Count Result 271 k/mm3 (150-375); Red Blood Count 4.29 M/mm3 (4.2-5.4); Red Cell Distribution Width 13.5 % (11.5-14.5)
[2022-08-16 19:43] LABS: Alanine Aminotransferase 39 U/L (6-35); Albumin Level 4.1 g/dL (3.5-5.1); Alkaline Phosphatase 104 U/L (38-126); Anion Gap 6 mmol/L (8-16); Aspartate Amino Transferase 51 U/L (14-36); Bilirubin,Total 0.8 mg/dL (0.2-1.3); Blood Urea Nitrogen 17 mg/dL (7-17); Carbon Dioxide 33 mmol/L (22-30); Chloride 101 mmol/L (98-107); Estimated CRCL calculation 46 ml/min; Estimated Glomerular Filt Rate 54; Glucose 199 mg/dL (65-110); Potassium 3.6 mmol/L (3.4-5.0); Sodium 140 mmol/L (137-145)
[2022-08-16 20:03] LABS: Band Neutrophils Percent 16 % (0-6); Monocytes Percent Manual 14 % (3-9); Neutrophils Percent Manual 60 % (46-73); Platelet Estimate Adequate (Adequate); Schistocytes None Seen (NORMAL); Total Cells Counted 100
[2022-08-16 20:04] LABS: Hypochromasia 1+ (NORMAL)
--- NOTE | 2022-08-16 20:07 | PC.NURSE ---
Patient off unit to CT.
[2022-08-16 20:11] LABS: D Dimer 0.77 ug/mL (<0.48)
--- NOTE | 2022-08-16 20:51 | PC.NURSE ---
RT notified of ordered breathing tx.
--- NOTE | 2022-08-16 21:02 | PC.NURSE ---
RT at bedside to administer second breathing treatment.
[2022-08-16 22:59] LABS: Fractional Inspired Oxygen 36 %; HCO3 VBG 28.7 mEq/l (24.0-30.0); PCO2 VBG 60.4 mmHg (42.0-48.0); PO2 VBG 59.1 mmHg (35.0-45.0); pH VBG 7.294 (7.300-7.400)
[2022-08-16 23:00] LABS: Device NASAL CANNULA
--- NOTE | 2022-08-16 23:08 | PC.NURSE ---
Patient report given to YESENIA Lux. All questions answered and care of patient transferred.
--- NOTE | 2022-08-16 23:09 | PM.IMHP ---
H&P: HPI History of Present Illness Date/Time: 08/16/22 23:09 Chief Complaint: shortness of breath Narrative: This is a 77-year-old female with past medical history significant for chronic respiratory failure on 2 L of supplemental oxygen by nasal cannula at home, COPD, CKD, fibromyalgia, history of pulmonary embolism, paroxysmal atrial fibrillation, type 2 diabetes mellitus, migraine headaches. presents to the emergency room due to worsening shortness of breath at the time of my visit patient is on BiPAP therefore history taking is somehow limited. preliminary workup was significant for VBG pH is 7.2 pCO2 is [address] of the chest was reported as: FINDINGS:? Lung parenchyma and airways: Diffuse tree-in-bud opacities. Pleura: Unremarkable. Thoracic inlet, axillae and chest wall: Unremarkable. Thoracic aorta: Moderate arch calcification. Mediastinum: Mediastinal lymphadenopathy prominent right hilar lymph nodes. Heart and pericardium: Normal. Coronary artery calcifications: Mild. Upper abdomen: No significant finding. Bones: No acute osseous finding. Pulmonary arteries: Study quality: Mildly motion limited but overall diagnostic. No pulmonary emboli detected. IMPRESSION: No CT evidence of acute pulmonary embolus. Tree-in-bud opacities as can be seen with atypical infection (MAC, TB, fungal), ABPA, airways disease (CF, bronchiectasis), and aspiration. Review of Systems Review of Systems: ROS unobtainable: Yes unobtainable due to medical condition ( respiratory failure on BiPAP) PMFSH Past Medical History Medical History Anxiety Chronic anticoagulation Chronic low back pain with sciatica Chronic obstructive pulmonary disease Chronic renal insufficiency, stage III (moderate) Chronic respiratory failure with hypoxia, on home oxygen therapy Depression Fibromyalgia History of pulmonary embolism (2006) Hypothyroidism Migraine Mixed hyperlipidemia Paroxysmal atrial fibrillation Type 2 diabetes mellitus Vitamin D deficiency Surgical History Surgical History History of appendectomy History of benign breast biopsy History of hysterectomy with oophorectomy History of lumbar surgery History of open reduction and internal fixation (ORIF) procedure (02/2021) Left ankle trimalleolar fracture. Family History Family History Father COPD (chronic obstructive pulmonary disease) Mother Acute myocardial infarction COPD (chronic obstructive pulmonary disease) Hypertension Sibling CHF (congestive heart failure) Brother DVT (deep venous thrombosis) 1 Sister Diabetes mellitus 1 Sister Breast cancer 2 sisters Hypertension Other Carcinoma of colon Family history of alcoholism Social History Social History Social History: She is and lives alone. She has 2 children. Her nephew lives with her. She has a small dog. 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 She smoked 1-2 packs of cigarettes per day for 60 years, has quit intermittently, resumed smoking approximately 1 year ago but stopped 1 week ago when she got sick. She denies any alcohol or illicit substance use. Smoking status: Former smoker Tobacco type: cigarettes Second hand tobacco smoke exposure: No Alcohol intake: never Substance use: never Substance use type: does not use Lack of Transportation: No Lack of Food: Never True Current Housing: I Have Housing Concerned About Future Housing: No Difficulty Paying Gas/Electric Bills: No Difficulty Paying for Meds: No Currently Unemployed: No Education: High School Diploma/GED Difficulty w/ Childcare or Family Care: No Gender identity (if verbalized by the patient): Female Sexual Orientation (if Verbalized by the Patie
[2022-08-17] VITALS (37 sets, daily range): BP systolic 106–164; BP diastolic 55–112; PULSE 69–96; RESP 18–35; TEMP 36.3–36.9; O2SAT 93–99; BMI 34.3
[2022-08-17] MEDS: ALBUTEROL SULFATE NEB 2.5 MG/3 ML INH 5 MG INHALATION ×4 (00:20→08:12)
--- NOTE | 2022-08-17 00:32 | PC.NURSE ---
Pt requested a phone so she can call her daughter. Informed her there are no available phones for her to use, but this RN can call daughter with updates. Pt declines at this time.
[2022-08-17] MEDS: cefTRIAXone 2 GM in SODIUM CHLORIDE 0.9% IV 100 ML 200 ML IVPB (02:51)
--- NOTE | 2022-08-17 06:33 | PC.NURSE ---
Waiting for respiratory therapist to help transport pt upstairs.
--- NOTE | 2022-08-17 06:56 | ADMGEN ---
This patient, Lili Sanchez, was admitted to IMU Room 210-01 at 0653. Patient/family oriented to hospital policies and general routines including ID bracelet, bed and alarms, visiting hours, pain management, procedures, bathroom and other care routines, personal items, smoking policy, room service/diet, and visiting hours. Information on how to activate the Rapid Response Team has been discussed. Patient/Family are encouraged to report perceived risks to care and to ask questions if they do not understand what they are told or what they should do.
--- NOTE | 2022-08-17 07:42 | PM.IMPN ---
Progress Note: A&P Assessment and Plan (1) Asthma-COPD overlap syndrome: Code(s): J44.9 - Chronic obstructive pulmonary disease, unspecified Status: Acute Assessment and Plan: Patient presented to the ED with c/o worsening SOB, cough with yellow sputum and weakness for approximately 1 week. Her daughter had similar symptoms approximately 10 days ago. Acute exacerbation likely secondary to viral infection. Chest x-ray shows pulmonary opacities suggestive of bronchiolitis CTA chest was negative for PE, but doses show tree-in-bud opacities suggestive of atypical infection versus bronchiectasis She was started on BiPAP in the ED for VBG pH 7.29, pCO2 60 at 12/6/50% with improvement. Pulmonary consulted and appreciate recommendations. Continue scheduled duonebs Q4 hours Continue empiric steroids- prednisone 40 mg PO Q24 hours Mucinex added BID Continue empiric antibiotics- Rocephin 1 gram Q24 hours and Azithromycin 500 mg Q24 hours. (2) Chronic respiratory failure with hypoxia, on home oxygen therapy: Code(s): J96.11 - Chronic respiratory failure with hypoxia; Z99.81 - Dependence on supplemental oxygen Status: Chronic Assessment and Plan: Acute exacerbation of chronic disease. She is on 2 liters O2 NC at home. Secondary to viral infection and COPD acute exacerbation. Wean O2 as tolerated to keep spO2>90% PRN bipap for respiratory distress (3) Acute dyspnea: Code(s): R06.00 - Dyspnea, unspecified Status: Acute Assessment and Plan: as above. (4) Migraines: Qualifiers: Migraine type: without aura Status migrainosus presence: without status migrainosus Intractability: not intractable Qualified Code(s): G43.009 - Migraine without aura, not intractable, without status migrainosus Code(s): G43.909 - Migraine, unspecified, not intractable, without status migrainosus Status: Chronic Assessment and Plan: stable, continue topiramate (5) Chronic renal insufficiency, stage III (moderate): Qualifiers: Chronic kidney disease stage 3 subtype: stage 3a (GFR 45-59) Qualified Code(s): N18.31 - Chronic kidney disease, stage 3a Code(s): N18.30 - Chronic kidney disease, stage 3 unspecified Status: Chronic Assessment and Plan: stable, monitor renal function. Avoid nephrotoxic agents. (6) Type 2 diabetes mellitus: Qualifiers: Diabetes mellitus rat exterminator insulin use: without care home use Diabetes mellitus complication status: without complication Qualified Code(s): E11.9 - Type 2 diabetes mellitus without complications Code(s): E11.9 - Type 2 diabetes mellitus without complications Status: Chronic Assessment and Plan: Stable, hold glimepiride Check A1c Accu-Cheks AC and HS Start aspart low dose insulin sliding scale TID with meals Start basal lantus 10 units at HS d/t addition of prednisone (7) Fibromyalgia: Code(s): M79.7 - Fibromyalgia Status: Chronic Assessment and Plan: chronic, continue home duloxetine (8) Tobacco abuse: Code(s): Z72.0 - Tobacco use Status: Chronic Assessment and Plan: Patient reports she smokes 1-2 cigarettes per day since May. Prior smoking 1-2 packs since age 15, 93 pack-year history. Counseled to quit smoking. nicotine patch as needed (9) Pulmonary embolism on long-term anticoagulation therapy: Code(s): I26.99 - Other pulmonary embolism without acute cor pulmonale; Z79.01 - nursing home (current) use of anticoagulants Status: Chronic Assessment and Plan: H/O saddle PE in 2006. currently on Eliquis 2.5 mg BID per medication reconciliation, however, she has been taking 1 tablet daily to stretch out her medication due to cost. Patient age <80 yo, creatinine<1.5, weight>60 kg and needs the 5 mg BID dose. Continue Eliquis 5 mg PO BID Plan Code status: full code Disposition: I
[2022-08-17] MEDS: IPRATROPIUM BR 0.02% INH SOLN 0.5 MG/2.5 ML VIAL INHALATION ×3 (08:12→19:52)
[2022-08-17 08:37] LABS: Alveolar/Arterial O2 Gradient 124.9 mmHg; Base Excess ABG 3.6 mEq/l (+/-2.0); Carboxyhemoglobin 0.3 % THb (0-2.0); Fractional Inspired Oxygen 50 %; HCO3 ABG 29.9 mEq/l (22.0-26.0); Methemoglobin ABG 0.5 %THb (0-1.5); Oxygen Content ABG 19.9 %vol (16.0-22.0); Oxygen Saturation ABG 99.1 % (95.0-100.0); PCO2 ABG 52.1 mmHg (35.0-45.0); PO2 FiO2 Ratio Arterial Blood 3.46 %; Reduced Hemoglobin 1.2 %THb (0-5.0); Total Hemoglobin 14.2 g/dL (12.0-18.0); pH ABG 7.377 (7.350-7.450)
[2022-08-17 08:38] LABS: Device NON-INVASIVE VENT; Modified Allen's Test Pass; Site Drawn LEFT RADIAL
[2022-08-17 08:39] LABS: Non-Invasive Expiratory Pressure 6 CMH2O; Non-Invasive Inspiratory Pressure 12 CMH2O; Non-Invasive Vent Rate 20 /MIN
[2022-08-17] MEDS: APIXABAN 5 MG TABLET PO ×2 (10:11→20:42)
[2022-08-17 10:31] LABS: Glucose Point of Care 165 mg/dl (65-105)
[2022-08-17] MEDS: predniSONE 20 MG TABLET 40 MG PO (10:32)
[2022-08-17 11:01] LABS: Add Urine Microscopic? YES; Appearance Urine Clear (Clear); Bilirubin Urine Negative (Negative); Blood Urine Negative (Negative); Color Urine Yellow (Yellow); Glucose Urine UA Negative (Negative); Ketones Urine 1+ mg/dL (Negative); Leukocyte Esterase Ur Negative LEU/UL (Negative); Nitrate Urine Negative (Negative); Protein Urine 1+ mg/dL (Negative); Specific Grav Ur 1.025 (1.001-1.035); Urobilinogen Urine 0.2 mg/dL (<2.0); pH Urine 6.5 (5.0-9.0)
[2022-08-17 11:07] LABS: Bacteria Urine Trace /hpf; Mucus Urine Rare /lpf; Squamous Epithelial Cell Urine Occasional /hpf (Few)
[2022-08-17 11:48] LABS: Basophils Absolute Auto 0.1 K/mm3 (0.0-0.1); Basophils Percent Auto 0.9 % (0.2-1.2); Hematocrit 40.9 % (37.0-47.0); Immature Granulocyte Absolute 0.13 K/mm3 (0.00-0.031); Immature Granulocyte Percent A 1.3 % (0-0.5); Lymphocytes Absolute Auto 0.86 K/mm3 (0.9-3.2); Lymphocytes Percent Auto 8.4 % (18.3-44.2); Mean Corpuscular HGB Conc 31.8 g/dl (32-36); Mean Corpuscular Hemoglobin 32.1 pg (26-34); Mean Platelet Volume 9.4 fl (7.4-10.4); Monocytes Absolute Auto 0.2 K/mm3 (0.1-0.6); Monocytes Percent Auto 2.4 % (2.6-8.5); Neutrophils Absolute Auto 8.9 K/mm3 (1.3-6.7); Platelet Count Result 247 k/mm3 (150-375); Red Blood Count 4.05 M/mm3 (4.2-5.4); Red Cell Distribution Width 13.4 % (11.5-14.5); White Blood Count 10.2 K/mm3 (4.5-10.0)
[2022-08-17 11:57] LABS: Anion Gap 5 mmol/L (8-16); Blood Urea Nitrogen 19 mg/dL (7-17); Calcium 8.8 mg/dL (8.4-10.2); Carbon Dioxide 33 mmol/L (22-30); Chloride 99 mmol/L (98-107); Estimated CRCL calculation 51 ml/min; Estimated Glomerular Filt Rate > 60; Glucose 218 mg/dL (65-110); Potassium 4.2 mmol/L (3.4-5.0); Sodium 137 mmol/L (137-145)
--- NOTE | 2022-08-17 12:00 | PM.CNPUL ---
Assessment and Plan Assessment and plan (1) Asthma-COPD overlap syndrome: Code(s): J44.9 - Chronic obstructive pulmonary disease, unspecified Status: Acute Assessment and Plan: Patient with a 93 pack year history of tobacco use, currently smoking 1 cigarette a day, carries a diagnosis of COPD with chronic hypoxemic respiratory failure requiring 2 L nasal cannula at rest, with activity and with sleep. patient had no asthma as a child but was told by her previous licensing officer that she has asthma as well. CT scan of the chest on 08/16/2022 shows no bullous emphysematous changes with new tree-in-bud infiltrates compared to 02/16/2021. I will able her as asthma COPD overlap syndrome for now. Patient tells me she is well controlled on Symbicort 160-4.5 b.i.d. although she is using her albuterol 2 puffs daily. currently the patient has 7 days worsening cough, sinus congestion, phlegm production with a change of color from clear to yellow, shortness of breath and wheezing. The patient has the an exacerbation and this is likely precipitated by a viral infection given her diffuse tree-in-bud infiltrates on the CT scan. I will continue treatment with steroids, prednisone 40 mg p.o. q.day, Albuterol and ipratropium nebulizers q.4 hours, ceftriaxone and azithromycin. Patient is COVID, RSV and influenza RT PCR studies are negative. I will send a nasal swab for a multiplex respiratory pathogen panel. I will send a mycoplasma IgM level. Currently the patient is on 2 L nasal cannula which is her baseline. The patient has some evidence of hypercarbic respiratory failure with a venous PaCO2 of 60 and a repeat blood gas on BiPAP of 7.30/52/173. Her serum bicarbonate was 33 on presentation. of note her serum bicarbonate ranged from 20 to 29 on multiple blood tests in 2020 and has ranged from 24 to 27 on multiple blood tests in 2021. At this time I will treat patient for her COPD exacerbation and reassess for chronic hypercarbic respiratory failure after she has responded clinically. The patient states the BiPAP was uncomfortable on her face and at this time she can use the BiPAP on a p.r.n. basis. Discussed with Acacia Waller, will follow with you. (2) Pulmonary embolism on long-term anticoagulation therapy: Code(s): I26.99 - Other pulmonary embolism without acute cor pulmonale; Z79.01 - buttermaker (current) use of anticoagulants Status: Acute Assessment and Plan: Saddle pulmonary embolism on 08/13/2007 with RV strain and hypoxemic respiratory failure requiring tPA and lifelong anticoagulation. History of Present Illness History of Present Illness Consult date: 08/17/22 Chief complaint: COPD Exacerbation Narrative: 08/17/2022: This is a new pulmonary consult for COPD exacerbation. 77-year-old with a history of COPD on 2 L VT 26/03, told she has asthma by her licensing officer 3 years ago, saddle pulmonary embolism on 08/13/2007 RV strain and hypoxemic respiratory failure requiring tPA and lifelong anticoagulation, asthma, atrial fibrillation, diabetes, hypothyroidism and current tobacco use (93 PY, now at 1 cig/day) presented to the [place] [facility] on 08/16 with shortness of breath. The patient lives with her daughter who developed cold symptoms approximately 10 days prior to admission. For the last 7 days the patient has had increasing cough, sinus congestion, wheezing, phlegm production which has changed from clear to yellow, shortness of breath. Patient attempted to increase her Symbicort and albuterol inhalers without benefit. Patient denied fever, chills, leg swelling, chest pain. In the emergency department department the patient was in no respiratory distress, room air saturations were 87, 2 L nasal sagittal nasal cannula saturations were 93%. She had expiratory wheezing and was treated with bronchodilators and steroids. Her white blood cell count was 10.0, eosinophils are 0%, creati
[2022-08-17 12:46] LABS: Glucose Point of Care 198 mg/dl (65-105)
[2022-08-17 12:59] LABS: NT Pro B Type Natriuretic Pept 486 pg/mL (5-100)
[2022-08-17 13:12] LABS: Hemoglobin A1C 5.6 % (<5.7)
[2022-08-17] MEDS: DULoxetine HCL 60 MG CAPSULE.DR PO (13:38)
[2022-08-17] MEDS: ALBUTEROL SULFATE NEB 2.5 MG/3 ML INH INHALATION ×2 (14:12→19:52)
[2022-08-17 16:45] LABS: Glucose Point of Care 211 mg/dl (65-105)
[2022-08-17] MEDS: INSULIN ASPART (*BKC) 100 UNITS/ML SUB-Q (17:27)
[2022-08-17] MEDS: TOPIRAMATE 25 MG TABLET PO (17:28)
[2022-08-17 20:02] LABS: Glucose Point of Care 231 mg/dl (65-105)
[2022-08-17] MEDS: SERTRALINE HCL 50 MG TABLET 100 MG PO (20:41)
[2022-08-17] MEDS: ARIPiprazole 10 MG TABLET PO (20:42)
[2022-08-17] MEDS: guaiFENesin 12 HR 600 MG TABCR PO (20:42)
[2022-08-17] MEDS: INSULIN GLARGINE (*BKC) 100 UNITS/ML 10 UNITS SUB-Q (20:43)
[2022-08-18] VITALS (23 sets, daily range): BP systolic 136–140; BP diastolic 64–71; PULSE 64–95; RESP 16–25; TEMP 36.1–37.1; O2SAT 86–100
[2022-08-18] MEDS: IPRATROPIUM BR 0.02% INH SOLN 0.5 MG/2.5 ML VIAL INHALATION ×4 (00:22→12:01)
[2022-08-18] MEDS: ALBUTEROL SULFATE NEB 2.5 MG/3 ML INH INHALATION ×4 (00:22→12:01)
[2022-08-18] MEDS: cefTRIAXone 2 GM in SODIUM CHLORIDE 0.9% IV 100 ML 200 ML IVPB (02:00)
[2022-08-18] MEDS: LEVOTHYROXINE SODIUM 25 MCG TABLET PO (05:32)
[2022-08-18 08:13] LABS: Basophils Absolute Auto 0.1 K/mm3 (0.0-0.1); Basophils Percent Auto 0.7 % (0.2-1.2); Hematocrit 40.7 % (37.0-47.0); Hemoglobin 12.4 g/dL (12.0-15.0); Immature Granulocyte Percent A 1.3 % (0-0.5); Lymphocytes Absolute Auto 1.48 K/mm3 (0.9-3.2); Lymphocytes Percent Auto 9.7 % (18.3-44.2); Mean Corpuscular HGB Conc 30.5 g/dl (32-36); Mean Corpuscular Hemoglobin 31.5 pg (26-34); Mean Corpuscular Volume 103.3 fl (80-100); Mean Platelet Volume 10.1 fl (7.4-10.4); Monocytes Percent Auto 6.5 % (2.6-8.5); Neutrophils Absolute Auto 12.5 K/mm3 (1.3-6.7); Neutrophils Percent Auto 81.8 % (45.5-73.1); Platelet Count Result 250 k/mm3 (150-375); Red Blood Count 3.94 M/mm3 (4.2-5.4); Red Cell Distribution Width 13.7 % (11.5-14.5); White Blood Count 15.3 K/mm3 (4.5-10.0)
[2022-08-18 08:20] LABS: Glucose Point of Care 78 mg/dl (65-105)
[2022-08-18 08:24] LABS: Alanine Aminotransferase 43 U/L (6-35); Albumin Level 3.1 g/dL (3.5-5.1); Alkaline Phosphatase 94 U/L (38-126); Anion Gap 5 mmol/L (8-16); Aspartate Amino Transferase 44 U/L (14-36); Bilirubin,Total 0.3 mg/dL (0.2-1.3); Blood Urea Nitrogen 27 mg/dL (7-17); Calcium 8.9 mg/dL (8.4-10.2); Carbon Dioxide 29 mmol/L (22-30); Chloride 108 mmol/L (98-107); Estimated CRCL calculation 52 ml/min; Estimated Glomerular Filt Rate > 60; Glucose 82 mg/dL (65-110); Sodium 142 mmol/L (137-145)
[2022-08-18] MEDS: predniSONE 20 MG TABLET 40 MG PO (09:20)
[2022-08-18] MEDS: APIXABAN 5 MG TABLET PO (09:20)
[2022-08-18] MEDS: guaiFENesin 12 HR 600 MG TABCR PO (09:20)
[2022-08-18] MEDS: TOPIRAMATE 25 MG TABLET PO (09:21)
[2022-08-18] MEDS: DULoxetine HCL 60 MG CAPSULE.DR PO (09:21)
--- NOTE | 2022-08-18 10:09 | PM.DS ---
DS: Admitting Diagnosis Discharge Date 08/18/2022 1012 Admitting Diagnosis COPD exacerbation Acute dyspnea Migraines Chronic renal insufficiency, stage III (moderate) Type 2 diabetes mellitus Fibromyalgia Acute on chronic respiratory failure with hypoxia, on home oxygen therapy Tobacco abuse DS: Discharge Diagnosis Discharge Diagnosis (1) Asthma-COPD overlap syndrome: Code(s): J44.9 - Chronic obstructive pulmonary disease, unspecified Status: Acute Assessment and Plan: Patient presented to the ED with c/o worsening SOB, cough with yellow sputum and weakness for approximately 1 week. Her daughter had similar symptoms approximately 10 days ago. Presumed acute exacerbation likely secondary to viral infection. Chest x-ray shows pulmonary opacities suggestive of bronchiolitis CTA chest was negative for PE, but doses show tree-in-bud opacities suggestive of atypical infection versus bronchiectasis She was started on BiPAP in the ED for VBG pH 7.29, pCO2 60 at 12/6/50% with improvement in subjective symptoms. Pulmonary consulted and appreciate recommendations. Treated with scheduled duonebs Q4 hours Treated wtih systemic steroids- prednisone 40 mg PO Q24 hours Mucinex BID Treated with empiric antibiotics- Rocephin 1 gram Q24 hours and Azithromycin 500 mg Q24 hours upon admission. (2) Chronic respiratory failure with hypoxia, on home oxygen therapy: Code(s): J96.11 - Chronic respiratory failure with hypoxia; Z99.81 - Dependence on supplemental oxygen Status: Chronic Assessment and Plan: Acute exacerbation of chronic disease. She is on 2 liters O2 NC at home and requiring bipap therapy upon admission. Secondary to viral infection and COPD acute exacerbation. Wean O2 as tolerated to keep spO2>90% PRN bipap for respiratory distress (3) Acute dyspnea: Code(s): R06.00 - Dyspnea, unspecified Status: Acute Assessment and Plan: as above. (4) Migraines: Qualifiers: Intractability: not intractable Migraine type: without aura Status migrainosus presence: without status migrainosus Qualified Code(s): G43.009 - Migraine without aura, not intractable, without status migrainosus Code(s): G43.909 - Migraine, unspecified, not intractable, without status migrainosus Status: Chronic Assessment and Plan: stable, continued topiramate (5) Chronic renal insufficiency, stage III (moderate): Qualifiers: Chronic kidney disease stage 3 subtype: stage 3a (GFR 45-59) Qualified Code(s): N18.31 - Chronic kidney disease, stage 3a Code(s): N18.30 - Chronic kidney disease, stage 3 unspecified Status: Chronic Assessment and Plan: stable, monitored renal function. Avoid nephrotoxic agents. (6) Type 2 diabetes mellitus: Qualifiers: Diabetes mellitus complication status: without complication Diabetes mellitus rn long term care insulin use: without long-term use Qualified Code(s): E11.9 - Type 2 diabetes mellitus without complications Code(s): E11.9 - Type 2 diabetes mellitus without complications Status: Chronic Assessment and Plan: Stable, held glimepiride inpatient and resumed upon discharge A1c 5.6% Accu-Cheks AC and HS Treated with lantus 10 units at HS for basal insulin while on prednisone and aspart low dose insulin sliding scale TID with meals Stable (7) Fibromyalgia: Code(s): M79.7 - Fibromyalgia Status: Chronic Assessment and Plan: chronic, continued home duloxetine (8) Tobacco abuse: Code(s): Z72.0 - Tobacco use Status: Chronic Assessment and Plan: Patient reports she smokes 1-2 cigarettes per day since May. Prior smoking 1-2 packs since age 15, 93 pack-year history. Counseled to quit smoking. nicotine patch as needed (9) Pulmonary embolism on long-term anticoagulation therapy: Code(s): I26.99 - Other pulmonary embolism w
--- NOTE | 2022-08-18 10:45 | PM.PNPUL ---
Progress Note: A&P Assessment and Plan (1) Asthma-COPD overlap syndrome: Code(s): J44.9 - Chronic obstructive pulmonary disease, unspecified Status: Acute Assessment and Plan: Patient with a 93 pack year history of tobacco use, currently smoking 1 cigarette a day, carries a diagnosis of COPD with chronic hypoxemic respiratory failure requiring 2 L nasal cannula at rest, with activity and with sleep. 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 CT scan of the chest on 08/16/2022 shows no bullous emphysematous changes with new tree-in-bud infiltrates compared to 02/16/2021. I will able her as asthma COPD overlap syndrome for now. Patient tells me she is well controlled on Symbicort 160-4.5 b.i.d. although she is using her albuterol 2 puffs daily. currently the patient has 7 days worsening cough, sinus congestion, phlegm production with a change of color from clear to yellow, shortness of breath and wheezing. The patient has the an exacerbation and this is likely precipitated by a viral infection given her diffuse tree-in-bud infiltrates on the CT scan. I will continue treatment with steroids, prednisone 40 mg p.o. q.day, Albuterol and ipratropium nebulizers q.4 hours, ceftriaxone and azithromycin. Patient is COVID, RSV and influenza RT PCR studies are negative. I will send a nasal swab for a multiplex respiratory pathogen panel. I will send a mycoplasma IgM level. Currently the patient is on 2 L nasal cannula which is her baseline. The patient has some evidence of hypercarbic respiratory failure with a venous PaCO2 of 60 and a repeat blood gas on BiPAP of 7.30/52/173. Her serum bicarbonate was 33 on presentation. of note her serum bicarbonate ranged from 20 to 29 on multiple blood tests in 2020 and has ranged from 24 to 27 on multiple blood tests in 2021. At this time I will treat patient for her COPD exacerbation and reassess for chronic hypercarbic respiratory failure after she has responded clinically. The patient states the BiPAP was uncomfortable on her face and at this time she can use the BiPAP on a p.r.n. basis. 08/18 Patient tells me she is much better. She states she is back to her normal. Cough persists but is much less and her phlegm now is light yellow color. Currently she is on 2 L with saturations 97%. Patient was instructed by the staff to wear the hospital BiPAP last night but says she that she really did not feel like she needed it. Her white blood cell count is 15.3, creatinine 0.9. The patient is ready to be discharged home from a pulmonary perspective on these pulmonary medications: Prednisone 40 mg p.o. q.day x3 days Levaquin 750 mg p.o. q.day x5 days Symbicort 160-4.5 at 2 puffs b.i.d. Spiriva Respimat 2.5 mcg at 1 puff b.i.d. Rescue albuterol 2 puffs q.4 hours p.r.n. shortness of breath or wheezing Home O2 per formal home O2 assessment which has been ordered. Oxygen at night at the same concentration as required with ambulation. Apixaban 5 mg p.o. b.i.d. Patient to follow up in the Pulmonary Clinic in 3-4 weeks. Once the patient is back to her baseline she will need outpatient PFTs, ABG, overnight oximetry, and repeat imaging to follow her tree-in-bud infiltrates. Discussed with Acacia Waller, will sign off, call with questions. 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 b.i.d. Subjective Date/time seen: 08/18/22 10:45 Interval history: 08/17/2022:? This is a new pulmonary consult for COPD exacerbation.? 77-year-old with a history of COPD on 2 L TN 26/03,? told s
--- NOTE | 2022-08-18 10:55 | HOMEO2EVAL ---
Evaluation was performed at [facility] Home Oxygen Evaluation RC: Home Oxygen (O2) Evaluation Start: 08/18/22 09:54 Freq: ONCE Status: Active Protocol: RPE Activity Type Activity Date Activity User E-sign Co-sign Detail Recorded Client Recorded Date Recorded By Document 08/18/22 10:10 DJO [email or web address] 08/18/22 10:55 DJO Document 08/18/22 10:15 [email or web address] [email or web address] 08/18/22 10:55 DJO Document 08/18/22 10:20 [email or web address] [email or web address] 08/18/22 10:55 DJO Document 08/18/22 10:25 [email or web address] [email or web address] 08/18/22 10:55 DJO Document 08/18/22 10:30 [email or web address] [email or web address] 08/18/22 10:55 DJO Document 08/18/22 10:45 [email or web address] [email or web address] 08/18/22 10:55 DJO 08/18/22 08/18/22 08/18/22 10:10 10:15 10:20 Home O2 Evaluation [Oxygen] -Test Phase Resting Resting Resting -Oxygen Delivery Room Air Nasal Cannula Nasal Cannula -Oxygen Flow Rate (L/min) 1 2 [Pulse Oximetry] -Pulse Oximetry (90-100 %) 86 L 88 L 91 [Pulse Rate] -Pulse Rate (60-100 beats/min) 74 72 73 [Evaluation] -Activity Tolerance [Charges] -Treatment Charges O2 Evaluation - Inpatient 08/18/22 08/18/22 08/18/22 10:25 10:30 10:45 Home O2 Evaluation [Oxygen] -Test Phase Exercise Exercise Resting -Oxygen Delivery Nasal Cannula Nasal Cannula Nasal Cannula -Oxygen Flow Rate (L/min) 2 3 2 [Pulse Oximetry] -Pulse Oximetry (90-100 %) 88 L 91 91 [Pulse Rate] -Pulse Rate (60-100 beats/min) 94 95 74 [Evaluation] -Activity Tolerance Fair [Charges] -Treatment Charges
[2022-08-18] MEDS: AZITHROMYCIN 250 MG TABLET 500 MG PO (11:39)
[2022-08-18 12:50] LABS: Glucose Point of Care 69 mg/dl (65-105)
[2022-08-22 19:18] LABS: Mycoplasma IgM Antibody Titer 166 U/mL (<770)
[2022-08-23 13:53] LABS: Reference Lab Test Result Not Detected
[2022-08-25 07:53] LABS: Legionella pneumophila Ag Ur Not Detected
== END 2022-08-18 14:25 | disposition home or self-care (01) | DRG 190 ==
LOC: ANHED 08-17 02:41 → ANHIMU 08-17 04:51
PROVIDERS: Emergency Medicine; Internal Medicine Pulmonary Disease; Admitting Provider Internal Medicine; Emergency Provider Preventive Medicine Aerospace Medicine; PCP Family Medicine; Visit Provider Nurse Practitioner Family
DX: J44.1 Chronic obstructive pulmonary disease with (acute) exacerbation (principal); J96.21 Acute and chronic respiratory failure with hypoxia; E87.29 Other acidosis; E11.22 Type 2 diabetes mellitus with diabetic chronic kidney disease; N18.30 Chronic kidney disease, stage 3 unspecified; E03.9 Hypothyroidism, unspecified; E78.2 Mixed hyperlipidemia; I48.0 Paroxysmal atrial fibrillation; E55.9 Vitamin D deficiency, unspecified; M79.7 Fibromyalgia; G43.909 Migraine, unspecified, not intractable, without status migrainosus; F17.210 Nicotine dependence, cigarettes, uncomplicated; Z99.81 Dependence on supplemental oxygen; Z86.711 Personal history of pulmonary embolism; Z79.01 Long term (current) use of anticoagulants; Z90.49 Acquired absence of other specified parts of digestive tract; Z90.710 Acquired absence of both cervix and uterus
CPT/HCPCS: 36415; 36600; 71046; 71275; 80048; 80053; 81001; 82375; 82803; 82805; 82948; 83036; 83050; 83880; 85025; 85380; 86738; 87040; 87070; 87086; 87205; 87449; 87486; 87581; 87633; 93005; 94002; 94003; 94618; 94640; 94667; 96365; 96367; 96375; 99285; A9270; G0378; J0456; J0696; J1815; J2930; J3475; J7512; Q9967; U0003

== ENCOUNTER 2022-08-31 14:38 | Outpatient (CLI) | payer BC, SELFPAY ==
--- NOTE | ~2022-08-31 | MM_ITS ---
EXAMINATION: MM screening kamron BI w robbie HISTORY: Screening mammogram TECHNIQUE: Craniocaudal and mediolateral oblique 3-D tomosynthesis images were obtained and synthetic 2-D images were generated. CAD analysis was submitted and interpreted. COMPARISON: 09/05/2019 diagnostic left mammogram and limited left breast ultrasound 10/11/2017, 01/28/2016 bilateral screening mammogram examinations BREAST PARENCHYMAL COMPOSITION: The breasts are almost entirely fatty. FINDINGS: Scattered bilateral benign calcifications are again noted. There is no evidence of suspicio us mass, calcification, or architectural distortion to suggest malignancy in either breast. There has been no suspicious interval change. IMPRESSION: 1. No mammographic evidence of malignancy. 2. Recommend routine screening mammography in one year. BI-RADS Category 2: Benign finding(s). Reviewed, dictated and finalized at location A. TH SERVICES COORDINATOR
== END 2022-08-31 14:39 | disposition home or self-care (01) ==
PROVIDERS: PCP Family Medicine; Visit Provider Family Medicine
DX: Z12.31 Encounter for screening mammogram for malignant neoplasm of breast (principal)
CPT/HCPCS: 77063; 77067

== ENCOUNTER 2022-12-15 13:00 | Outpatient (CLI) | payer BC, SELFPAY ==
--- NOTE | ~2022-12-15 | CT_ITS ---
EXAMINATION: CT diagnostic chest wo con DATE: 12/15/2022 13:29 INDICATION: Tree-in-bud infiltrates TECHNIQUE: Computed tomography (CT) of the chest was performed without intravenous contrast. The dose -length product (DLP) was 249.25 mGy-cm. Automated exposure control and iterative reconstruction tech Level were employed. COMPARISON: 08/16/2022 FINDINGS: There has been interval resolution of the previously described tree-in-bud nodules througho ut the lungs. The lungs are free of focal airspace opacities. There is mild dependent atelectasis of the lower lobes. No pleural effusion or pneumothorax. No pathologically enlarged thoracic lymph nodes are identified. The heart size is normal. There is calcified coronary artery atherosclerosis. There is moderate thoracic spondylosis. IMPRESSION: 1. Interval resolution of the previously described tree-in-bud nodules of the lungs. No acute cardiop ulmonary abnormality. Reviewed, dictated and finalized at location F. IMPRESSION: 1. Interval resolution of the previously described tree-in-bud nodules of the l ungs. No acute cardiopulmonary abnormality.
[2022-12-15 14:32] LABS: Base Excess ABG 1.2 mEq/l (+/-2.0); Carboxyhemoglobin 1.4 % THb (0-2.0); Fractional Inspired Oxygen 21 %; HCO3 ABG 26.8 mEq/l (22.0-26.0); Methemoglobin ABG 0.4 %THb (0-1.5); Oxygen Content ABG 19.4 %vol (16.0-22.0); Oxygen Saturation ABG 94.5 % (95.0-100.0); Oxyhemoglobin 92.6 % THb (90.0-100.0); PCO2 ABG 46.1 mmHg (35.0-45.0); PO2 ABG 73.5 mmHg (80.0-100.0); Reduced Hemoglobin 5.6 %THb (0-5.0); Total Hemoglobin 14.9 g/dL (12.0-18.0); pH ABG 7.382 (7.350-7.450)
[2022-12-15 14:34] LABS: Device ROOM AIR; Modified Allen's Test Pass; Site Drawn LEFT RADIAL
--- NOTE | 2022-12-17 12:17 | WPDPFTINT ---
PFT Procedure Performed PFT Procedure Performed Spirometry with Pre/Post Bronchodilator Plethysmography (Lung Vol) Diffusing Cap (DLCO) Flow Vol Loop PFT Interpretation DOS: 12/15/2022 REQUESTING: dyspnea REASON FOR TESTING: Hari Vallejo MD PULMONARY FUNCTION TESTS Results are reliable and reproducible. Spirometry: pre bronchodilator FEV1 1.30 L, 64%, reduced. Pre bronchodilator FVC 2.23 L, 84%, normal. FEV1/FVC ratio is 58%, reduced, consistent with airflow obstruction. After bronchodilator administration there is a 2% increase in the FEV1 and a 7% increase in the FVC, both are statistically insignificant. Lung volumes: Total lung capacity 3.84 L, below normal, 76% predicted, mild restriction. Residual volume 1.61 L, 69%, lower limit normal. RV/ TLC 42%, normal. Airway resistance 2.68 cm H2O/ L/sec, 156%. Diffusion: DLCO is 10.6, 54%, reduced. DLCO/ VA is 4.14 L, 99%, normal. Flow volume loop: There is coving of the expiratory limb consistent with airflow obstruction. IMPRESSION: There is a moderate ventilatory impairment, mild restrictive impairment, mild diffusion impairment which corrects for alveolar volume. No significant response to bronchodilator. No prior studies for comparison. Lack of response to bronchodilator should not preclude use if clinically indicated. Darling Crockett MD
== END 2022-12-15 13:01 | disposition home or self-care (01) ==
PROVIDERS: PCP Family Medicine; Visit Provider Internal Medicine Pulmonary Disease
DX: R93.89 Abnormal findings on diagnostic imaging of other specified body structures (principal); R94.2 Abnormal results of pulmonary function studies; R91.8 Other nonspecific abnormal finding of lung field
CPT/HCPCS: 36600; 71250; 82375; 82805; 83050; 94060; 94726; 94729

== ENCOUNTER 2023-03-07 15:36 | Inpatient (IN) | payer MEDICARE, BC, SELFPAY ==
[2023-03-07] VITALS (7 sets, daily range): BP systolic 103–107; BP diastolic 58–67; PULSE 61–138; RESP 16–20; TEMP 36.5–37.1; O2SAT 96–99; BMI 34.9; BMI 34.6
--- NOTE | ~2023-03-07 | XR_ITS ---
EXAMINATION: XR chest 1V portable DATE: 03/10/2023 06:14 INDICATION: Temporary transvenous pacemaker. TECHNIQUE: A single frontal view of the chest was obtained. COMPARISON: Chest single view 03/09/2023 FINDINGS: There is a diffuse interstitial pattern in the lungs, consistent with mild pulmonary edema. No pleural effusion or pneumothorax. The heart size is normal. There is a right internal jugular pac er with lead in right ventricle. IMPRESSION: 1. Mild pulmonary edema. Reviewed, dictated and finalized at location A. IMPRESSION: 1. Mild pulmonary edema.
--- NOTE | ~2023-03-07 | XR_ITS ---
Portable chest x-ray Comparison: 03/12/2023 Clinical History: Pacemaker placement Findings: Possible COPD. No acute consolidation or definite pleural effusion. No pneumothorax. Card iomediastinal silhouette is stable, with pacemaker in place. Bones and soft tissues are unremarkable. Impression: Pacemaker in place. Possible COPD. Reviewed, dictated and finalized at [facility]. Impression: Pacemaker in place. Possible COPD.
--- NOTE | ~2023-03-07 | XR_ITS ---
EXAMINATION: XR chest 1V portable INDICATION: Pacemaker insertion TECHNIQUE: Portable AP chest at 1505 hours COMPARISON: 0538 hours FINDINGS: The lungs are free of acute opacities. No pleural effusion or pneumothorax. A dual-lead pac emaker of the left chest wall has been inserted with leads in expected positions. IMPRESSION: 1. Pacemaker insertion. No acute cardiopulmonary abnormality. Reviewed, dictated and finalized at location B.
--- NOTE | ~2023-03-07 | XR_ITS ---
Portable chest x-ray Comparison: 03/08/2023 Clinical History: Wheezing Findings: Right IJ line is unchanged. Possible minimal haziness in the right upper lobe. Left lung c lear. Cardiomediastinal silhouette is stable. Bones and soft tissues are unremarkable. Impression: Minimal haziness right upper lobe, nonspecific. Consider pneumonia. Stable right IJ line. Reviewed, dictated and finalized at location . Impression: Minimal haziness right upper lobe, nonspecific. Consider pneumonia. Stable right IJ line.
--- NOTE | ~2023-03-07 | XR_ITS ---
Portable chest x-ray Comparison: 03/11/2023 Clinical History: Transvenous temporary pacemaker Findings: Transvenous pacing wire is unchanged. Questionable minimal pleural effusions. Lungs are ot herwise clear Cardiomediastinal silhouette is stable. Bones and soft tissues are unremarkable. Impression: Stable transvenous pacing wire. Possible minimal bilateral pleural effusions. Reviewed, dictated and finalized at location . Impression: Stable transvenous pacing wire. Possible minimal bilateral pleural effusions.
--- NOTE | ~2023-03-07 | US_ITS ---
EXAMINATION: US renal BI DATE: 03/08/2023 09:23 INDICATION: Acute kidney injury. TECHNIQUE: Multiple ultrasound grayscale images of the kidneys were obtained. COMPARISON: Ultrasound 11/22/2021, CT abdomen and pelvis 04/25/2017 FINDINGS: The right kidney measures 10.0 x 4.5 x 3.8 cm. The left kidney measures 9.1 x 4.9 x 4.6 cm. The kidne ys demonstrate normal parenchymal echogenicity. There is no hydronephrosis. The bladder is decompress ed by a Kirby catheter. IMPRESSION: 1. Normal kidney sizes. No hydronephrosis. Reviewed, dictated and finalized at location A.
--- NOTE | ~2023-03-07 | XR_ITS ---
EXAMINATION: XR chest 1V portable DATE: 03/11/2023 05:35 INDICATION: Transvenous temporary pacemaker. TECHNIQUE: A single frontal view of the chest was obtained. COMPARISON: Chest single view 03/10/2023 FINDINGS: There is mild atelectasis at the lung bases. No pleural effusion or pneumothorax. The heart size is normal. There is a right internal jugular pacer with lead in right ventricle. IMPRESSION: 1. Mild atelectasis at the lung bases. Reviewed, dictated and finalized at location A.
--- NOTE | ~2023-03-07 | XR_ITS ---
Portable chest x-ray Comparison: 08/16/2022 Clinical History: Central line placement Findings: Right IJ line is in satisfactory position, tip in the SVC. There is mild diffuse interstit ial prominence. No pneumothorax. Cardiomediastinal silhouette is stable. Bones and soft tissues are unremarkable. Impression: Support line in place, as above. Mild diffuse interstitial prominence. Correlate for COPD or other chronic interstitial disease. Reviewed, dictated and finalized at location . Impression: Support line in place, as above. Mild diffuse interstitial prominence. Correlate for COPD or other chronic inter stitial disease.
[2023-03-07 15:45] LABS: Glucose Point of Care 122 mg/dl (65-105)
--- NOTE | 2023-03-07 15:57 | ADMGEN ---
This patient, Lili Sanchez, was admitted to IMU Room 205-01 @ 1530 via w/c.. Pt direct admit from Dr. Castellano office Home O2 at 3l/nc. monitor on Atrial flutter 130's.Patient/family oriented to hospital policies and general routines including ID bracelet, bed and alarms, visiting hours, pain management, procedures, bathroom and other care routines, personal items, smoking policy, room service/diet, and visiting hours. Information on how to activate the Rapid Response Team has been discussed. Patient/Family are encouraged to report perceived risks to care and to ask questions if they do not understand what they are told or what they should do.
--- NOTE | 2023-03-07 17:50 | ECG_ITS ---
Measurements Intervals [place] Rate: 74 P: 87 TN: 213 QRS: 114 QRSD: 146 T: 92 QT: 369 QTc: 410 Interpretive Statements ATRIAL FLUTTER/TACHYCARDIA WITH NORMAL VENTRICULAR RESPONSE INTRAVENTRICULAR CONDUCTION DELAY DELAYED PRECORDIAL R/S TRANSITION ABNORMAL ECG COMPARED TO ECG 08/16/2022 18:53:33 ATRIAL FLUTTER/TACHYCARDIA NOW PRESENT Electronically Signed On 03-08-2023 8:09:34 CDT by Anthony Castellano D.O.
[2023-03-07] MEDS: ARIPiprazole 10 MG TABLET PO (20:32)
[2023-03-07] MEDS: TOPIRAMATE 25 MG TABLET PO (20:32)
[2023-03-07] MEDS: SERTRALINE HCL 50 MG TABLET 100 MG PO (20:32)
[2023-03-07] MEDS: METOPROLOL TARTRATE 25 MG TABLET PO (20:33)
[2023-03-07] MEDS: APIXABAN 2.5 MG TABLET PO (20:33)
[2023-03-07] MEDS: FLECAINIDE ACETATE 100 MG TABLET PO (20:33)
[2023-03-07] MEDS: MORPHINE SULFATE (*CRX) 15 MG TABCR PO (23:03)
[2023-03-08] VITALS (18 sets, daily range): BP systolic 78–152; BP diastolic 45–83; PULSE 38–67; RESP 15–25; TEMP 36.5–38.3; O2SAT 91–98
--- NOTE | 2023-03-08 | ECHO_ITS ---
Patient Info Name: Lili Sanchez Age: 77 years : 1945 Gender: Female Ht: 64 in Wt: 202 lbs BSA: 2.07 m2 HR: 40 bpm BP: 128 / 57 mmHg Technical Quality: Fair Exam Date: 03/08/2023 11:06 AM Exam Location: [facility] Pulmonary Exam Room: ICU8 Patient Status: Inpatient Admit Date: 03/07/2023 Staff Ordering Physician: Justin Pavon MD Staff Technologist: Rosalind Sanz RDCS Attending Provider: Anthony Castellano DO Exam Type: CA echo dop color flow w con Study Info Indications - bradycardia Complete two-dimensional, color flow and Doppler transthoracic echocardiogram is performed with contrast to opacify the left ventricle and to improve the deliniation of the left ventricle endocardial borders. Contrast/Agitated Saline Contrast/Ag. Saline: Agitated Saline Amount: 20.00 ml Administered By: Rosalind Sanz [facility] Existing IV Access: Yes IV Access Condition: patent with no signs of infiltration Summary 1. Definity contrast administered improved wall motion interpretation. 2. Left ventricular chamber dimension is normal. 3. Mild basal inferior wall aneurysm. 4. Left ventricular systolic function is normal, estimated at 60-65%. 5. The left ventricular diastolic function is abnormal. 6. E/e' 12 is mildly elevated. 7. Left atrial chamber dimension is moderately enlarged. 8. Right atrial chamber dimension is moderately enlarged. 9. There is mild tricuspid valve regurgitation. 10. No pulmonary hypertension, estimated pulmonary arterial systolic pressure is 36 mmHg. Left Ventricle Mild basal inferior wall aneurysm. Definity contrast administered improved wall motion interpretation. E/e' 12 is mildly elevated. Left ventricular chamber dimension is normal. Left ventricular systolic function is normal, estimated at 60-65%. The left ventricular diastolic function is abnormal. Right Ventricle Right ventricular chamber dimension is normal. Right ventricular systolic function is normal. Left Atria Left atrial chamber dimension is moderately enlarged. Right Atria Right atrial chamber dimension is moderately enlarged. Aortic Valve The aortic valve is trileaflet. There is no aortic valve stenosis. There is no aortic valve regurgitation. Pulmonic Valve There is no pulmonic regurgitation. Mitral Valve There is no mitral valve stenosis. There is trace mitral valve regurgitation. Tricuspid Valve There is mild tricuspid valve regurgitation. No pulmonary hypertension, estimated pulmonary arterial systolic pressure is 36 mmHg. Pericardium/Pleural There is no pericardial effusion. Inferior Vena Cava Normal inferior vena cava with >50% collapse upon inspiration consistent with normal right atrial pressure, 5 mmHg. Aorta The aortic root size at the sinus of Valsalva is normal. Left Ventricular Outflow Tract Name Value Normal LVOT 2D LVOT Diameter 1.96 cm LVOT Doppler LVOT Peak Gradient 5 mmHg LVOT Mean Gradient 3 mmHg LVOT VTI 22.96 cm LVOT VTI/AV VTI Ratio 0.78 LVOT Stroke Volume 69.20 ml LVOT CO
[2023-03-08] MEDS: ATROPINE SULFATE 1 MG/10 ML SYRINGE IV PUSH (00:42)
--- NOTE | 2023-03-08 00:45 | PC.NURSE ---
Spoke with Dr. Castellano regarding patient having symptomatic bradycardia and pauses. Patient is also hypotensive. Give 1 dose of atropine, give 500ml Bolus LR. Start Dobutamine 3mcg/kg/min. External pace with rate of 60. Insert burdick cathter. Consult ICU.
[2023-03-08] MEDS: LACTATED RINGERS 500 ML 999 ML IV CONT ×2 (00:55→03:09)
[2023-03-08] MEDS: DOBUTamine 250 MG/D5W 250 ML 250 MG/250 ML BAG 16.47 MG IV CONT (01:00)
--- NOTE | 2023-03-08 02:26 | ED.PROCEDURE ---
Procedures Central Line Placement Right IJ: Central Line Date: 03/08/23 Central Line Time: 02:15 Discussed w/ the patient/family/POA,the placement of a central venous catheter, including its clinical necessity/indication & associated potential risks, benifits and alternatives.: Yes The patient/family/POA understand(s) and acknowledge(s) the need to proceed with central venous catheter insertion as an important element of the patient's clinical management.: Yes Consent: I have discussed with the patient and/or surrogate, the non-emergent placement of a central venous catheter, including its clinical necessity/indication and associated potential risks and complications. The patient and/or surrogate understand(s) and acknowledge(s) the need to proceed with central venous catheter insertion as an important element of the patient's clinical management. Time Out Performed: Yes Patient Position: trendelenburg Patient placed on monitor/pulse ox: Yes Provider Prep: mask, sterile gown, sterile gloves, Max. sterile barrier precautions, cap and hand hygiene with conventional soap/water or alcohol based hand rub Central line prep: Povidone-Iodine 1% Local anesthesia used: lidocaine 1% Amount of anesthesia used (ml): 5 Sterile US Technique with sterile gel/sterile probe covers: Yes Central line lumen inserted: triple Post Procedure: sutured in place, good blood return, all ports aspirated, flushed, capped, transparent dressing, hemostatic product, antimicrobial product and aseptic technique maintained throughout procedure Post procedure x-ray: tip of catheter in good position and no pneumothorax seen Patient tolerated procedure: well Complications: none
[2023-03-08] MEDS: DOPamine 400 MG/D5W 250 ML 400 MG/250 ML BAG 34.31 MG IV CONT ×3 (03:00→18:36)
[2023-03-08] MEDS: LACTATED RINGERS 500 ML 50 ML IV CONT (05:27)
--- NOTE | 2023-03-08 06:00 | ECG_ITS ---
Measurements Intervals [place] Rate: 55 P: [place]: 0 QRS: 120 QRSD: 128 T: 136 QT: 551 QTc: 530 Interpretive Statements ECTOPIC ATRIAL BRADYCARDIA ATRIAL PREMATURE COMPLEXES INTRAVENTRICULAR CONDUCTION DELAY DELAYED PRECORDIAL R/S TRANSITION BORDERLINE ST-T WAVE ABNORMALITY- ANTEROLAT/HIGH LAT LEADS BASELINE ARTIFACT- I, II, III, AVR, AVL, AVF ABNORMAL ECG COMPARED TO ECG 03/07/2023 18:50:58 ECTOPIC ATRIAL BRADYCARDIA NOW PRESENT Electronically Signed On 03-08-2023 8:11:31 CDT by Anthony Castellano D.O.
[2023-03-08 06:12] LABS: Basophils Absolute Auto 0.1 K/mm3 (0.0-0.1); Basophils Percent Auto 0.6 % (0.2-1.2); Eosinophils Absolute Auto 0.3 K/mm3 (0-0.3); Eosinophils Percent Auto 3.3 % (0-4.4); Hematocrit 40.7 % (37.0-47.0); Hemoglobin 12.8 g/dL (12.0-15.0); Immature Granulocyte Absolute 0.04 K/mm3 (0.00-0.031); Immature Granulocyte Percent A 0.5 % (0-0.5); Lymphocytes Absolute Auto 0.93 K/mm3 (0.9-3.2); Lymphocytes Percent Auto 10.9 % (18.3-44.2); Mean Corpuscular HGB Conc 31.4 g/dl (32-36); Mean Corpuscular Hemoglobin 31.3 pg (26-34); Mean Corpuscular Volume 99.5 fl (80-100); Mean Platelet Volume 9.3 fl (7.4-10.4); Monocytes Absolute Auto 0.5 K/mm3 (0.1-0.6); Monocytes Percent Auto 5.7 % (2.6-8.5); Neutrophils Absolute Auto 6.8 K/mm3 (1.3-6.7); Platelet Count Result 257 k/mm3 (150-375); Red Blood Count 4.09 M/mm3 (4.2-5.4); Red Cell Distribution Width 13.2 % (11.5-14.5); White Blood Count 8.5 K/mm3 (4.5-10.0)
[2023-03-08 06:23] LABS: INR 1.5; Prothrombin Time 18.6 Seconds (11.1-14.7)
[2023-03-08 06:24] LABS: Lactic Acid Reflex 0.8 mmol/L (0.7-2.0); Partial Thromboplastin Time 34.2 SECONDS (22.3-36.8)
[2023-03-08 06:25] LABS: Alanine Aminotransferase 23 U/L (6-35); Albumin Level 3.5 g/dL (3.5-5.1); Alkaline Phosphatase 79 U/L (38-126); Anion Gap 4 mmol/L (8-16); Aspartate Amino Transferase 24 U/L (14-36); Bilirubin,Total 0.9 mg/dL (0.2-1.3); Blood Urea Nitrogen 16 mg/dL (7-17); Calcium 8.9 mg/dL (8.4-10.2); Carbon Dioxide 31 mmol/L (22-30); Chloride 101 mmol/L (98-107); Estimated CRCL calculation 31 ml/min; Estimated Glomerular Filt Rate 34; Glucose 188 mg/dL (65-110); Magnesium 1.9 mg/dL (1.6-2.3); Potassium 4.2 mmol/L (3.4-5.0); Sodium 136 mmol/L (137-145)
--- NOTE | 2023-03-08 07:55 | PM.PNCARD ---
Progress Note: A&P Assessment and Plan (1) Paroxysmal atrial flutter: Code(s): I48.92 - Unspecified atrial flutter Status: Acute Assessment and Plan: [id number] 4. On Eliquis. On Flecainide and was on Diltiazem. Was direct admit for symptomatic atrial flutter to be scheduled for ESTRELLA/DC cardioversion today. However, late last night after receiving Metoprolol Tartate 25 mg and home morphine her HR dropped to 30's bpm and SBP 65 mmHg. Transferred to ICU for Dopamine drip at 7 mcg/kg/min currently. HR in 40's bpm. BP improved to 110/60 mmHg. Stopped Flecainide and Diltiazem and Metoprolol due to bradycardia. Hold Eliquis and her last dose was 03/07/23 in evening. Start Heparin drip for now. Check EKG to confirm if still in atypical flutter or sinus. Cancel ESTRELLA/Cardioversion for today. Appreciate Dr. Pavon, the switch foreman's input. Consult HCG for pacemaker, consider temporary pacer as she had Eliquis last evening. (2) Asthma-COPD overlap syndrome: Code(s): J44.9 - Chronic obstructive pulmonary disease, unspecified Status: Acute (3) Type 2 diabetes mellitus: Qualifiers: Diabetes mellitus terminal gauger insulin use: without terminal gauger use Diabetes mellitus complication status: without complication Qualified Code(s): E11.9 - Type 2 diabetes mellitus without complications Code(s): E11.9 - Type 2 diabetes mellitus without complications Status: Chronic Assessment and Plan: Monitor BS. (4) Tachy-[place]anaco syndrome: Code(s): I49.5 - Sick sinus syndrome Status: Acute Subjective Date/time seen: 03/08/23 07:55 Interval history: Patient is asleep, woke her up, and is alert. No chest pain or sob. Exam Const: General: cooperative, healthy appearing, comfortable and obese Resp: Auscultation: no crackles, no rales, no rhonchi, wheezes and diminished lung sounds Cardio: Rate: bradycardic Rhythm: regular rhythm Heart sounds: no murmurs Peripheral pulses: dorsalis pedis present GI: GI Palp: No abdominal tenderness and Yes Soft to palpation Extrem: Right lower extremity: no edema Left lower extremity: no edema Objective Data Vital Signs Vital Signs: Vital Signs - 24 hr 03/07/23 16:00 03/07/23 16:00 03/07/23 16:00 Temperature 98.8 F Pulse Rate 138 H 95 Respiratory Rate 16 Blood Pressure 107/67 Pulse Oximetry 99 99 Oxygen Delivery Nasal Cannula Oxygen Flow Rate 3 03/07/23 18:00 03/07/23 19:50 03/07/23 20:00 Temperature 97.7 F Pulse Rate 70 65 66 Respiratory Rate 20 Blood Pressure 103/58 L Pulse Oximetry 97 96 Oxygen Delivery Nasal Cannula Oxygen Flow Rate 2 03/07/23 20:33 03/07/23 20:33 03/07/23 20:00 Temperature Pulse Rate 73 72 61 Respiratory Rate Blood Pressure Pulse Oximetry Oxygen Delivery Oxygen Flow Rate 03/07/23 22:00 03/07/23 23:17 03/08/23 00:04 Temperature 97.7 F Pulse Rate 67 65 Respiratory Rate 20 Blood Pressure 103/57 L Pulse Oximetry 96 97 Oxygen Delivery Nasal Cannula Oxygen Flow Rate 3 03/08/23 01:14 03/08/23 01:14 03/08/23 01:00 Temperature 98.2 F Pulse Rate 53 L 51 L 45 L Respiratory Rate 16 Blood Pressure 95/55 L 103/57 L Pulse Oximetry 98 Oxygen Delivery Oxygen Flow Rate 03/08/23 03:00 03/08/23 00:57 03/08/23 02:00 Temperature 98.2 F Pulse Rate 53 L 51 L 50 L Respiratory Rate 15 18 Blood Pressure 81/70 L 95/55 L 103/52 L Pulse Oximetry 98 96 Oxygen Delivery Oxygen Flow Rate 03/08/23 02:15 03/08/23 02:45 03/08/23 03:00 Temperature Pulse Rate 50 L 48 L 67 Respiratory Rate 21 H 20 18 Blood Pressure 87/57 L 78/48 L 102/83 Pulse Oximetry 96 96 92 Oxygen Delivery Oxygen Flow Rate 03/08/23 03:30 03/08/23 03:30 03/08/23 02:00 Temperature Pulse Rate 54 L 59 L 59 L Respiratory Rate 18 Blood Pressure 152/49 H 152/49 H Pulse Oximetry 91 Oxygen Delivery Oxygen Flow Rate 03/08/23 04
[2023-03-08] MEDS: HEPARIN SOD/D5W 100 UNITS/ML 25,000 UNITS/250 ML BAG 12 UNITS IV CONT (08:35)
[2023-03-08 08:39] LABS: Creatine Kinase 45 U/L (30-135)
--- NOTE | 2023-03-08 08:45 | ECG_ITS ---
Measurements Intervals [place] Rate: 39 P: AR: 0 QRS: 145 QRSD: 129 T: 134 QT: 588 QTc: 479 Interpretive Statements SLOW JUNCTIONAL RHYTHM INTRAVENTRICULAR CONDUCTION DELAY DELAYED PRECORDIAL R/S TRANSITION T WAVE ABNORMALITY IN ANTEROLAT/HIGH LAT LEADS- CONSIDER ISCHEMIA ABNORMAL ECG COMPARED TO ECG 03/08/2023 07:54:16 JUNCTIONAL RHYTHM NOW PRESENT Electronically Signed On 03-08-2023 20:26:17 CDT by Anthony Castellano D.O.
[2023-03-08] MEDS: FLUTICASONE/UMECLIDIN/VILANTER 200-62.5-25 MCG ELLIPTA 1 PUFF INHALATION (08:53)
--- NOTE | 2023-03-08 08:56 | WPDCNINT ---
Assessment and Plan Assessment and plan (1) Bradycardia: Code(s): R00.1 - Bradycardia, unspecified Status: Acute Assessment and Plan: Patient has history of paroxysmal atrial flutter presented with RVR and was given dose of flecainide and p.o. metoprolol which led to bradycardia and hypotension EKG done this morning shows Slow AFib with heart rate in 40s while on dopamine infusion Continue dopamine at this time to maintain heart rate and mean arterial pressure Discussed with Cardiology and Dr. Zaragoza will consult Dr. Gray for evaluation for pacemaker I will discontinue Eliquis and start patient on heparin infusion in anticipation of invasive procedure Check echocardiogram (2) Paroxysmal atrial flutter: Code(s): I48.92 - Unspecified atrial flutter Status: Acute Assessment and Plan: See above (3) Congestive heart failure: Code(s): I50.9 - Heart failure, unspecified Status: Acute Assessment and Plan: Patient has bibasilar crackles and mild edema on exam Check echocardiogram Cautious IV fluids in light of her hypertension (4) Shock: Code(s): R57.9 - Shock, unspecified Status: Acute Assessment and Plan: Shock likely secondary to bradycardia and medication Beta-daxa is on hold Continue dopamine contain heart rate above 40 and mean arterial pressure above 65 Wean dopamine as possible (5) Type 2 diabetes mellitus: Qualifiers: Diabetes mellitus care home insulin use: without buttermaker continuous churn use Diabetes mellitus complication status: without complication Qualified Code(s): E11.9 - Type 2 diabetes mellitus without complications Code(s): E11.9 - Type 2 diabetes mellitus without complications Status: Chronic Assessment and Plan: Sliding scale insulin (6) Acute kidney injury: Code(s): N17.9 - Acute kidney failure, unspecified Status: Resolved Assessment and Plan: Patient's creatinine this morning was 1.5. Last recorded creatinine from last year was 0.9 Patient does have history of chronic kidney disease but episode of hypotension and bradycardia could lead to JEFFERSON She is not a candidate for liberal IV fluids hence will continue gentle hydration Check urine electrolytes CK level and renal ultrasound Monitor urine output electrolytes and creatinine Plan DVT prophylaxis -heparin infusion Nutrition -diabetic diet Code Status - Full Code Total Critical Care Time - 35 minutes Due to a high probability of clinically significant, life threatening deterioration, the patient required my highest level of preparedness to intervene emergently and I personally spent this critical care time directly and personally managing the patient. This critical care time included obtaining a history; examining the patient; pulse oximetry; ordering and review of studies; arranging urgent treatment with development of a management plan; evaluation of patient's response to treatment; frequent reassessment; and discussions with other providers. It was exclusive of separately billable procedures and treating other patients and teaching time. Please see Assessment and Plan section and the rest of the note for further information on patient assessment and treatment [employer] Consult Note Consult date: 03/08/23 Reason for consult: Bradycardia, shock HPI: Lili Sanchez is a 77 year old female with past medical history of atrial flutter on anticoagulation, DM, dyslipidemia, COPD/asthma, bilateral pulm embolism in 2007, history of smoking was admitted to IMU floor yesterday directly from my office with a flutter with RVR by patient's tank worker. Patient presented with chief complaint of shortness of breath on exertion and palpitations and was found to be in atrial flutter with RVR. She is a poor historian but states that she was having dyspnea on exertion but no chest pain. She denies orthopnea or PND. She denies any fever cough. He is on oxyg
[2023-03-08] MEDS: LEVOTHYROXINE SODIUM 25 MCG TABLET PO (09:13)
[2023-03-08] MEDS: LACTATED RINGERS 1,000 ML 50 ML (09:13)
[2023-03-08] MEDS: CENTRAL LINE FLUSH 10 ML IV PUSH ×4 (09:14→20:30)
[2023-03-08 09:21] LABS: Hemoglobin A1C 5.7 % (<5.7)
[2023-03-08 09:32] LABS: Thyroid Stimulating Hormone Reflex 0.996 uIU/mL (0.465-4.68)
--- NOTE | 2023-03-08 10:12 | PM.CNCAR ---
Assessment and Plan Assessment and plan (1) Tachy-guanaco syndrome: Code(s): I49.5 - Sick sinus syndrome Status: Acute (2) Paroxysmal atrial flutter: Code(s): I48.92 - Unspecified atrial flutter Status: Acute (3) Bradycardia: Code(s): R00.1 - Bradycardia, unspecified Status: Acute Plan Patient with prior rapid atrial flutter and now bradycardia, concerning for tachy guanaco syndrome. At this time, no indication for an urgent/emergent temporary pacer. Continue Dopamine drip and close tele monitoring. Avoid all AV lenin blocking agents. Patient likely will need permanent pacemaker, however last dose of Eliquis was on evening of 03/07 (need at least a 48 hour washout period with NOAC) and we do not have any physician who can do permanent pacemakers until March. An echocardiogram is pending. Prior echocardiogram from 11/2021 with preserved LVEF. If her LVEF is reduced on today's echocardiogram, then she will need consideration for ICD, which is not available at this institution, and she would need to be transferred to another institution. Recommendations/plan discussed with Computer Technician, Dr. Pavon. History of Present Illness History of Present Illness Consult date/time: 03/08/23 10:12 Requesting physician: Anthony Castellano DO Consult reason: Other (Pacemaker Consideration. ) Reason For Visit: aflutter Narrative: We are consulted for consideration of pacemaker placement by Dr. Castellano. This is a 77-year-old female who follows with Dr. Castellano. Patient was directly admitted 03/07 from his office for shortness of breath due to rapid atrial flutter. Patient with history of atrial flutter, diabetes, dyslipidemia, COPD/asthma, bilateral pulmonary embolism in 2007 on Eliquis, history of smoking. Patient started on Cardizem drip on admission. Home Flecainide was continued. Plans for ESTRELLA/DCCV 03/08. However, late last night after receiving Metoprolol 25mg and Morphine, patient's heart rate dropped to 30s and SBP to the 60s. Patient transferred to the ICU and started on Dopamine drip with improvement in heart rate to the 40s. Her Flecainide, Diltiazem, and Metoprolol were held. Last dose of Eliquis 03/07 in the evening. EKG 03/08 shows likely ectopic atrial bradycardia. On telemetry, patient currently with sinus bradycardia with heart rates in the 40s to 50s. Review of telemetry shows some episodes of what appears to be junctional bradycardia with regular QRS complexes, some irregularity with possible slow atrial fibrillation. No evidence of high-degree AVB or complete heart block. Patient states she feels okay this morning. No lightheadedness/dizziness. Review of Systems Review of Systems: All systems reviewed & are unremarkable except as noted in HPI and below (HPI) [facility] Past Medical History Medical History Anxiety Asthma-COPD overlap syndrome Chest pain Chronic anticoagulation Chronic low back pain with sciatica Chronic renal insufficiency, stage III (moderate) Chronic respiratory failure with hypoxia, on home oxygen therapy Depression Fibromyalgia History of pulmonary embolism (2006) Hypothyroidism Migraine Mixed hyperlipidemia Paroxysmal atrial fibrillation Type 2 diabetes mellitus Vitamin D deficiency Surgical History Surgical History History of appendectomy History of benign breast biopsy History of hysterectomy with oophorectomy History of lumbar surgery History of open reduction and internal fixation (ORIF) procedure (02/2021) Left ankle trimalleolar fracture. Family History Family History Father COPD (chronic obstructive pulmonary disease) Mother Acute myocardial infarction COPD (chronic obstructive pulmonary disease) Hypertension Sibling CHF (congestive heart failure) Brother DVT (deep venous thrombosis) 1 Sister Diabetes
[2023-03-08 10:18] LABS: Sodium Urine Random 16 meq/L
[2023-03-08 10:26] LABS: Creatinine Urine 273.5 mg/dL
[2023-03-08] MEDS: PERFLUTREN LIPID MICROSPHERES 1.5 ML VIAL DILUTED TO 10 ML TOTAL VOLUME IV PUSH (11:40)
[2023-03-08 11:53] LABS: Glucose Point of Care 204 mg/dl (65-105)
[2023-03-08] MEDS: INSULIN ASPART (*BKC) 100 UNITS/ML SUB-Q ×2 (13:07→20:30)
[2023-03-08 15:44] LABS: Partial Thromboplastin Time 107.8 SECONDS (22.3-36.8)
[2023-03-08 16:42] LABS: Glucose Point of Care 133 mg/dl (65-105)
[2023-03-08] MEDS: ARIPiprazole 10 MG TABLET PO (20:29)
[2023-03-08] MEDS: TOPIRAMATE 25 MG TABLET PO (20:29)
[2023-03-08] MEDS: SERTRALINE HCL 50 MG TABLET 100 MG PO (20:29)
[2023-03-08 20:39] LABS: Glucose Point of Care 233 mg/dl (65-105)
[2023-03-08 22:00] LABS: Anion Gap 5 mmol/L (8-16); Blood Urea Nitrogen 19 mg/dL (7-17); Calcium 8.7 mg/dL (8.4-10.2); Carbon Dioxide 33 mmol/L (22-30); Chloride 99 mmol/L (98-107); Estimated CRCL calculation 33 ml/min; Estimated Glomerular Filt Rate 36; Glucose 245 mg/dL (65-110); Magnesium 1.9 mg/dL (1.6-2.3); Potassium 3.9 mmol/L (3.4-5.0); Sodium 137 mmol/L (137-145)
[2023-03-08 22:05] LABS: Partial Thromboplastin Time 96.1 SECONDS (22.3-36.8)
[2023-03-09] VITALS (16 sets, daily range): BP systolic 92–150; BP diastolic 46–93; PULSE 38–63; RESP 15–25; TEMP 37.4–38.1; O2SAT 93–100
--- NOTE | 2023-03-09 01:17 | PC.NURSE ---
Patient having runs of vtach. MD Pavon called at [phone], [phone] and 2124. MD Cody called per Nadia Mora instructions orders for labs received. Labs results reported to MD Pavon.
[2023-03-09] MEDS: DOPamine 400 MG/D5W 250 ML 400 MG/250 ML BAG 34.31 MG IV CONT (02:20)
[2023-03-09 04:25] LABS: Basophils Absolute Auto 0.1 K/mm3 (0.0-0.1); Basophils Percent Auto 0.6 % (0.2-1.2); Eosinophils Absolute Auto 0.2 K/mm3 (0-0.3); Hematocrit 42.1 % (37.0-47.0); Hemoglobin 13.4 g/dL (12.0-15.0); Immature Granulocyte Absolute 0.03 K/mm3 (0.00-0.031); Immature Granulocyte Percent A 0.3 % (0-0.5); Lymphocytes Absolute Auto 1.36 K/mm3 (0.9-3.2); Lymphocytes Percent Auto 15.3 % (18.3-44.2); Mean Corpuscular HGB Conc 31.8 g/dl (32-36); Mean Corpuscular Hemoglobin 31.2 pg (26-34); Mean Corpuscular Volume 98.1 fl (80-100); Mean Platelet Volume 9.3 fl (7.4-10.4); Monocytes Absolute Auto 0.6 K/mm3 (0.1-0.6); Monocytes Percent Auto 6.8 % (2.6-8.5); Neutrophils Absolute Auto 6.7 K/mm3 (1.3-6.7); Platelet Count Result 242 k/mm3 (150-375); Red Blood Count 4.29 M/mm3 (4.2-5.4); Red Cell Distribution Width 13.1 % (11.5-14.5); White Blood Count 8.9 K/mm3 (4.5-10.0)
[2023-03-09 04:36] LABS: Alanine Aminotransferase 34 U/L (6-35); Albumin Level 3.5 g/dL (3.5-5.1); Alkaline Phosphatase 84 U/L (38-126); Anion Gap 4 mmol/L (8-16); Aspartate Amino Transferase 44 U/L (14-36); Blood Urea Nitrogen 18 mg/dL (7-17); Calcium 8.8 mg/dL (8.4-10.2); Carbon Dioxide 32 mmol/L (22-30); Chloride 101 mmol/L (98-107); Estimated CRCL calculation 36 ml/min; Estimated Glomerular Filt Rate 40; Glucose 155 mg/dL (65-110); Magnesium 1.8 mg/dL (1.6-2.3); Potassium 3.9 mmol/L (3.4-5.0); Sodium 137 mmol/L (137-145)
[2023-03-09 04:38] LABS: Partial Thromboplastin Time 130.3 SECONDS (22.3-36.8)
[2023-03-09] MEDS: MAGNESIUM SULF 1 GM/D5W 100 ML 1 GM/100 ML BAG IVPB ×2 (04:41→06:02)
--- NOTE | 2023-03-09 05:06 | PC.NURSE ---
0424: 54 beat sustained VTACH. MD Pop called to bedside. Orders obtained. 0458: MD Castellano notified. Orders obtained.
--- NOTE | 2023-03-09 05:20 | PDCODEBLUE ---
Code Blue Note Code Blue Note Time Arrived at Code Blue: 0424 Initial Rhythm on Arrival: Torsade set transition to monomorphic V-tach Airway Management: No airway on arrival Chest Compressions: No compressions given Result of Code Blue: Pt regained consciousness Cardiac Rhythm Post Code: Sinus bradycardia Code Blue Summary: I was up in the ICU evaluating another patient. When I look at the monitor the patient was noted to be in torsades the transition of monomorphic V-tach. I arrived to the patient's room shortly thereafter and the patient was diaphoretic and in acute distress. The patient had garbled speech and was having difficulty with communicating. The patient remained an monomorphic V-tach. External defibrillator pads were applied. Before defibrillator pads could analyzed the patient's rhythm she had already converted back to normal sinus rhythm. Her symptoms lasted approximately 60 beats and proximally 18 seconds in duration. The patient's job putter up and ticket preparer was contacted and updated as to the patient's change in condition. Patient would benefit from temporary pacemaker is the patient is had multiple episodes of V-tach throughout the evening. This was the 1st episode of prolonged V-tach. However the patient has been having multiple episodes of V-tach throughout the evening. The patient has had numerous episodes of V-tach throughout the evening and magnetic tape composer operator hours. The patient denies any current chest pain. She has not been having any nausea or vomiting. The patient is febrile with temperature 100.2?. The patient's T-max was 100.9? around 16:00 yesterday. Nursing staff tells me the patient's room had the thermostat turned up to 90?. This could be the reason for the patient's elevated temperature but the patient has also developed new wheezing a. He had x-ray yesterday it demonstrated chronic lung findings. Will repeat chest x-ray today. Will check influenza and COVID PCR. Will also check blood cultures and urine culture. As the patient is likely going to need a pacemaker I would like to rule out any active source of an infection especially bacteremia. 35 minutes spent in critical care activities. Due to a high probability of clinically significant, life threatening deterioration, the patient required my highest level of preparedness to intervene emergently and I personally spent this critical care time directly and personally managing the patient. This critical care time included obtaining a history; examining the patient; pulse oximetry; ordering and review of studies; arranging urgent treatment with development of a management plan; evaluation of patient's response to treatment; frequent reassessment; and discussions with other providers. It was exclusive of separately billable procedures and treating other patients and teaching time. Please see Assessment and Plan section and the rest of the note for further information on patient assessment and treatment.
[2023-03-09] MEDS: LEVOTHYROXINE SODIUM 25 MCG TABLET PO (06:02)
[2023-03-09] MEDS: HEPARIN SOD/D5W 100 UNITS/ML 25,000 UNITS/250 ML BAG 10 UNITS IV CONT (06:48)
[2023-03-09 06:50] LABS: Appearance Urine Cloudy (Clear); Bacteria Urine None Seen /hpf; Bilirubin Urine Negative (Negative); Blood Urine 2+ (Negative); Color Urine Yellow (Yellow); Glucose Urine UA Negative (Negative); Ketones Urine Negative (Negative); Leukocyte Esterase Ur Trace LEU/UL (Negative); Need Manual Microscopic Reviewed; Nitrate Urine Negative (Negative); Non Pathogenic Casts 0-2; Protein Urine Negative (Negative); RBC Urine 21-50 /hpf (0-2); Squamous Epithelial Cell Urine None seen /hpf (Few); WBC Urine 0-5 /hpf; pH Urine 5.5 (5.0-9.0)
[2023-03-09 06:51] LABS: Add Urine Microscopic? YES
[2023-03-09 06:56] LABS: Influenza A QL RT-PCR Negative (Negative); Influenza B QL RT-PCR Negative (Negative); RSV RNA, RT-PCR Negative (Negative); SARS-CoV-2 RNA PCR Negative (Negative)
[2023-03-09 07:54] LABS: Glucose Point of Care 220 mg/dl (65-105)
--- NOTE | 2023-03-09 07:54 | PM.PNCARD ---
Progress Note: A&P Assessment and Plan (1) Paroxysmal atrial flutter: Code(s): I48.92 - Unspecified atrial flutter Status: Acute Assessment and Plan: [id number]. On Eliquis. On Flecainide and was on Diltiazem. Was direct admit for symptomatic atrial flutter to be scheduled for ESTRELLA/DC cardioversion today. However, late last night after receiving Metoprolol Tartate 25 mg and home morphine her HR dropped to 30's bpm and SBP 65 mmHg. Transferred to ICU for Dopamine drip at 7 mcg/kg/min currently. HR in 40's bpm. BP is stable. Stopped Flecainide and Diltiazem and Metoprolol due to bradycardia. Hold Eliquis and her last dose was 03/07/23 in evening. On Heparin drip for now. 03/08/23 Echo: 60-65%, diastolic dysfunction with E/e' 12, mod biatrial enlargement, mild TR. She is in slow junctional rhythm or ectopic atrial rhythm, and had frequent NSVT last night. Appreciate Dr. Cody, the typewriter repairer's input. Consult [facility] [place] pacemaker. In light of probable bradycardia induced VT and persistent bradycardia, will see if [facility] can place temporary pacer wire. (2) Asthma-COPD overlap syndrome: Code(s): J44.9 - Chronic obstructive pulmonary disease, unspecified Status: Acute (3) Type 2 diabetes mellitus: Qualifiers: Diabetes mellitus longterm insulin use: without ocean transportation intermediary use Diabetes mellitus complication status: without complication Qualified Code(s): E11.9 - Type 2 diabetes mellitus without complications Code(s): E11.9 - Type 2 diabetes mellitus without complications Status: Chronic Assessment and Plan: Monitor BS. (4) Tachy-guanaco syndrome: Code(s): I49.5 - Sick sinus syndrome Status: Acute Subjective Date/time seen: 03/09/23 07:54 Interval history: She could not sleep well last night feeling dizzy when having frequent NSVT and a couple of long VT episodes. No chest pain or sob. Exam Const: General: cooperative, healthy appearing, comfortable and obese Nutritional Appearance: obese Resp: Auscultation: no crackles, no rales, no rhonchi, no wheezes and diminished lung sounds Cardio: Rate: bradycardic Rhythm: regular rhythm Heart sounds: no murmurs Peripheral pulses: dorsalis pedis present Extrem: Right lower extremity: no edema Left lower extremity: no edema Objective Data Vital Signs Vital Signs: Vital Signs - 24 hr 03/08/23 08:00 03/08/23 08:00 03/08/23 08:00 Temperature 99.9 F H Pulse Rate 48 L 48 L 48 L Respiratory Rate 20 20 Blood Pressure 126/58 L Pulse Oximetry 95 95 Oxygen Delivery Nasal Cannula Oxygen Flow Rate 3 03/08/23 10:00 03/08/23 12:00 03/08/23 12:00 Temperature 100.7 F H Pulse Rate 54 L 42 L 42 L Respiratory Rate 25 H Blood Pressure 110/56 L Pulse Oximetry 96 Oxygen Delivery Oxygen Flow Rate 03/08/23 12:00 03/08/23 14:00 03/08/23 16:00 Temperature Pulse Rate 42 L 52 L 39 L Respiratory Rate 25 H Blood Pressure Pulse Oximetry 96 Oxygen Delivery Nasal Cannula Oxygen Flow Rate 3 03/08/23 16:00 03/08/23 16:00 03/08/23 20:00 Temperature 100.9 F H Pulse Rate 39 L 39 L Respiratory Rate 20 20 Blood Pressure 139/51 L Pulse Oximetry 97 97 96 Oxygen Delivery Nasal Cannula Nasal Cannula Oxygen Flow Rate 3 3 03/08/23 20:00 03/09/23 00:00 03/08/23 22:00 Temperature Pulse Rate 38 L 50 L 38 L Respiratory Rate Blood Pressure Pulse Oximetry Oxygen Delivery Oxygen Flow Rate 03/08/23 20:00 03/09/23 00:00 03/08/23 22:00 Temperature 100.5 F H 100.5 F H Pulse Rate 41 L 39 L 38 L Respiratory Rate 19 15 23 H Blood Pressure 130/55 L 115/93 H 110/45 L Pulse Oximetry 96 99 97 Oxygen Delivery Oxygen Flow Rate 03/09/23 00:00 03/09/23 02:00 03/09/23 04:00 Temperature Pulse Rate 40 L 41 L Respiratory Rate Blood Pressure Pulse Oximetry 99 Oxygen Delivery Nasal Cannula Oxygen Flow Rate 3 03/09/23 02:00 03/09/23 04
--- NOTE | 2023-03-09 11:12 | WPDMODSED ---
Moderate Sedation Note-Pt Data Patient Data Diagnosis: Bradycardia Present Complaint: Bradycardia Procedure to be performed/Plan: Placement of temporary transvenous pacer Allergies Allergy/AdvReac Type Severity Reaction Status Date / Time adhesive tape Allergy Intermediate REDNESS Verified 02/06/23 13:04 Home Medications Medication Instructions Recorded Confirmed Type albuterol sulfate 90 mcg/actuation 2 inh inhalation QID PRN Shortness 01/25/22 03/07/23 Rx aerosol inhaler Of Breath #25.5 grams duloxetine 60 mg capsule,delayed 60 mg PO DAILY 05/23/22 03/07/23 History release sertraline 100 mg tablet 100 mg PO HS #30 tabs 08/01/22 03/07/23 Rx glimepiride 1 mg tablet 1 mg PO DAILY #90 tabs 08/07/22 03/07/23 Rx aripiprazole 10 mg tablet 10 mg PO HS #30 tabs 12/18/22 03/07/23 Rx fluticasone fur. 200 mcg-umeclid 1 inh inhalation DAILY #60 ea 01/03/23 03/07/23 Rx 62.5 mcg-vilant 25 mcg inhalat.powder levothyroxine 25 mcg tablet 25 mcg PO 0600 #90 tabs 01/23/23 03/07/23 Rx cholecalciferol (vitamin D3) 50 50 mcg PO DAILY #30 caps 02/06/23 03/07/23 Rx mcg (2,000 unit) capsule diltiazem HCl 240 mg capsule,24 240 mg PO DAILY #30 caps 03/01/23 03/07/23 Rx hr,extended release apixaban 2.5 mg tablet (Eliquis) 2.5 mg PO Q12H 03/07/23 03/07/23 History flecainide 150 mg tablet 150 mg PO Q12H 03/07/23 03/07/23 History morphine 15 mg tablet,extended 15 mg PO Q12H 03/07/23 03/07/23 History release topiramate 25 mg tablet 25 mg PO Q12H 03/07/23 03/07/23 History Current Medications: Active Medications Albuterol (Albuterol Sulfate (*Sp) Aerosol 1 Puff) 2 puff INHALATION QID PRN PRN Reason: Shortness Of Breath Aripiprazole (Aripiprazole 10 Mg Tablet) 10 mg PO HS FARRUKH Last Admin: 03/08/23 20:29 Dose: 10 mg Dextrose (Dextrose 50% 25 Gm/50 Ml Syringe) 12.5 gm IV PUSH PRN PRN; Protocol PRN Reason: Hypoglycemia Fluticasone/Umeclidinium/Vilanterol (Fluticasone/Umeclidin/Vilanter 200-62.5-25 Mcg Ellipta) 1 puff INHALATION DAILY [facility] Last Admin: 03/08/23 08:53 Dose: 1 puff Glucagon (Glucagon For Inj 1 Mg Vial) 1 mg IM PRN PRN; Protocol PRN Reason: Hypoglycemia Glucose (Glucose Oral Gel 15 Gm Of Glucse In 37.5 Gm Tube) 15 gm PO PRN PRN; Protocol PRN Reason: Hypoglycemia Heparin Sodium (Porcine) (Heparin Sodium 5,000 Units/Ml Vial) 3,000 units IV PUSH PRN PRN PRN Reason: aPTT 55 - 70 seconds Heparin Sodium (Porcine) (Heparin Sodium 5,000 Units/Ml Vial) 5,500 units IV PUSH PRN PRN PRN Reason: aPTT less than 55 seconds Lactated Ringer's (Lactated Ringers) 500 mls @ 50 mls/hr IV CONT .Q10H FARRUKH Last Admin: 03/09/23 00:00 Dose: 50 mls/hr Heparin Sodium/Dextrose (Heparin Sodium/D5w 100 Units/Ml) 25,000 units in 250 mls @ 10 mls/hr IV CONT .Q24H FARRUKH; Protocol Last Admin: 03/09/23 06:48 Dose: 1,000 units/hr, 10 mls/hr Dextrose (Dextrose 5% 1,000 Ml) 1,000 mls @ 100 mls/hr IVPB PRN PRN; Protocol PRN Reason: Hypoglycemia Insulin Aspart (Insulin Aspart (*Bkc) 100 Units/Ml) 3 - 6 units SUB-Q TIDWM FARRUKH; Protocol Last Admin: 03/09/23 09:29 Dose: Not Given Insulin Aspart (Insulin Aspart (*Bkc) 100 Units/Ml) 1 - 3 units SUB-Q HS FARRUKH; Protocol Last Admin: 03/08/23 20:30 Dose: 1 units Levothyroxine Sodium (Levothyroxine Sodium 25 Mcg Tablet) 25 mcg PO 0600 FARRUKH Last Admin: 03/09/23 06:02 Dose: 25 mcg Morphine Sulfate (Morphine Sulfate (*Crx) 15 Mg Tabcr) 15 mg PO Q12H [facility] Last Admin: 03/07/23 23:03 Dose: 15 mg Oxycodone HCl (Oxycodone Hcl (*Crx) 5 Mg Tab Ir) 5 mg PO Q4H PRN PRN Reason: Pain Rated 7-10 Sertraline HCl (Sertraline Hcl 50 Mg Tablet) 100 mg PO HS [facility] Last Admin: 03/08/23 20:29 Dose: 100 mg Sodium Chloride (Central Line Flush) 20 ml IV PUSH PRN PRN PRN Reason: after blood draws Sodium Chloride (Central Line Flush) 10 ml IV PUSH DAILY@1800 [facility] Last Admin: 03/08/23 17:14 Dose: 10 ml Sodium Chloride (Central Line Flush) 10 ml IV PUSH Q8HR [facility] Last Admin: 03/08/23 20:3
--- NOTE | 2023-03-09 11:13 | P.PCNCC_ITS ---
Cardiac Cath Procedure Note Date of procedure:: 03/09/23 Performing physician:: CATHETERIZATION LABORATORY REPORT Procedure Date: 03/09/2023 Electrician Constructor Supervisor: Jose Toledo M.D., [facility]? Referring Physician: Dr. Castellano ? Anesthesia: No IV sedation was administered for this procedure. Procedure start time: 09:06 Procedure end time: 09:52 Pre-op Diagnosis: Bradycardia Post-op Diagnosis: Successful placement of temporary transvenous pacer via RIJ Procedure(s): 1. Ultrasound guided access of the right femoral vein 2. RIJ central line removal, placement of new venous sheath 3. Placement of temporary transvenous pacer via RIJ Access Site: Right femoral vein Right internal jugular vein Brief History and Clinical Indications: Patient is a 77-year-old female with paroxysmal atrial fibrillation, now with significant bradycardia, tachy-guanaco syndrome. Patient is referred for placement of temporary transvenous pacer. All risks, benefits and alternatives to pacer placement was discussed at length with the patient and patient's family (Written informed consent obtained from the family). Risk of complications including but not limited to bleeding, infection, arrhythmia, blood loss, groin hematoma, emergency surgery, and even were discussed with the patient and all questions were answered. The patient understood and wished to proceed. Time out called, patient name, date of , medical record number, allergies, procedure performed, identify Electrician Constructor Supervisor, patient and staff member concurred with accurate data, procedure carried on. Description of Procedure: Informed consent signed and placed in the chart. Patient transferred to laboratory sampler room. Prepped and draped in usual sterile fashion. 2% lidocaine injected subcutaneously in right groin area. Right femoral vein was accessed using micropuncture technique under ultrasound guidance. 6-FR sheath placed. Attempted to place pacer catheter into RV, but despite multiple attempts, unable to advance into the RV. Therefore, we pursued RIJ access. The existing triple lumen catheter in the RIJ was exchanged out for a 6F sheath over J-wire under sterile conditions. The pacer wire was advanced into the RV. Once appropriate position was confirmed, pacer settings were checked and had appropriate capture. The pacer lost capture at 1mA. Pacer set at 3mA. RIJ and right femoral vein sheaths were both sutured in place. ? Assessment: Successful placement of temporary transvenous pacer via RIJ. The pacer loses capture at 1mA. Pacer set at 3mA. Rate set at 60BPM. Post Operative Condition: Stable No significant blood loss Disposition: ICU Plan: Transfer back to the ICU. Obtain daily CXRs to confirm position of pacer. The above findings were discussed with the referring physician. Continue aggressive medical therapy and risk factor modification. ? Jose Toledo M.D. Interventional Cardiology
[2023-03-09] MEDS: FLUTICASONE/UMECLIDIN/VILANTER 200-62.5-25 MCG ELLIPTA 1 PUFF INHALATION (11:31)
[2023-03-09 11:36] LABS: Glucose Point of Care 114 mg/dl (65-105)
--- NOTE | 2023-03-09 13:03 | WPDINTPN ---
Progress Note: A&P Assessment and Plan (1) Bradycardia: Code(s): R00.1 - Bradycardia, unspecified Status: Acute Assessment and Plan: Patient has history of paroxysmal atrial flutter presented with RVR and was given dose of flecainide and p.o. metoprolol which led to bradycardia and hypotension -03/09: Patient seen in the V-tach/torsades. -patient remains bradycardic, -cardiology evaluated the patient this morning and placed a temporary pacemaker via the right IJ, setting 60 beats per minute -dopamine was turned off -permanent pacemaker likely on 03/12/2023 -Continue heparin infusion -03/08/2023 echocardiogram: Showed normal LV chamber dimension, EF 60-65%, LV diastolic function is abnormal, left atrial chamber is moderately enlarged, right atrial chamber is moderately enlarged, mild tricuspid valve regurg, no pulmonary hypertension (2) Paroxysmal atrial flutter: Code(s): I48.92 - Unspecified atrial flutter Status: Acute Assessment and Plan: See above (3) Congestive heart failure: Code(s): I50.9 - Heart failure, unspecified Status: Acute Assessment and Plan: Patient has bibasilar crackles and mild edema on exam Echocardiogram as above Cautious IV fluids in light of her hypertension (4) Shock: Code(s): R57.9 - Shock, unspecified Status: Acute Assessment and Plan: Shock likely secondary to bradycardia and medication Beta-daxa is on hold Off dopamine since temporary pacemaker was inserted (5) Type 2 diabetes mellitus: Qualifiers: Diabetes mellitus roasterman insulin use: without usp use Diabetes mellitus complication status: without complication Qualified Code(s): E11.9 - Type 2 diabetes mellitus without complications Code(s): E11.9 - Type 2 diabetes mellitus without complications Status: Chronic Assessment and Plan: Sliding scale insulin (6) Acute kidney injury: Code(s): N17.9 - Acute kidney failure, unspecified Status: Resolved Assessment and Plan: Patient's creatinine on admission was 1.5. Last recorded creatinine from last year was 0.9 Patient does have history of chronic kidney disease but episode of hypotension and bradycardia could lead to JEFFERSON -creatinine trending down Continue to monitor urine output, electrolytes and renal function -03/08/2023 renal ultrasound showed normal kidney size, no hydronephrosis -CK levels within normal live -urine electrolytes support representative of prerenal picture -continue maintenance IV fluids Plan DVT prophylaxis -heparin infusion Nutrition -diabetic diet Code Status - Full Code Total Critical Care Time - 34 minutes Due to a high probability of clinically significant, life threatening deterioration, the patient required my highest level of preparedness to intervene emergently and I personally spent this critical care time directly and personally managing the patient. This critical care time included obtaining a history; examining the patient; pulse oximetry; ordering and review of studies; arranging urgent treatment with development of a management plan; evaluation of patient's response to treatment; frequent reassessment; and discussions with other providers. It was exclusive of separately billable procedures and treating other patients and teaching time. Please see Assessment and Plan section and the rest of the note for further information on patient assessment and treatment Subjective Date/time seen: 03/09/23 13:03 Interval history: Reason for consult: Bradycardia, hypotension/shock, acute kidney injury, possible CHF 03/09/2023: Patient seen and examined the ICU this morning, is awake, alert, sometimes confused because of her new onset Alzheimer's. Patient did have some monomorphic V-tach/torsades overnight requiring external defibrillator pads to be applied. She also had some difficulty with communicating along with diaphoresis and shor
[2023-03-09] MEDS: ALBUTEROL SULFATE NEB 2.5 MG/3 ML INH INHALATION (13:50)
[2023-03-09] MEDS: IPRATROPIUM BR 0.02% INH SOLN 0.5 MG/2.5 ML VIAL INHALATION (13:50)
[2023-03-09] MEDS: ONDANSETRON INJ 4 MG/2 ML VIAL IV PUSH ×2 (13:59→21:31)
[2023-03-09] MEDS: LACTATED RINGERS 500 ML 50 ML IV CONT ×2 (15:02)
[2023-03-09] MEDS: CENTRAL LINE FLUSH 10 ML IV PUSH ×2 (15:03→21:42)
[2023-03-09 16:58] LABS: Glucose Point of Care 102 mg/dl (65-105)
[2023-03-09 21:20] LABS: Glucose Point of Care 106 mg/dl (65-105)
[2023-03-09] MEDS: TOPIRAMATE 25 MG TABLET PO (21:30)
[2023-03-09] MEDS: ARIPiprazole 10 MG TABLET PO (21:30)
[2023-03-09] MEDS: SERTRALINE HCL 50 MG TABLET 100 MG PO (21:30)
[2023-03-09 22:22] LABS: Partial Thromboplastin Time 46.6 SECONDS (22.3-36.8)
[2023-03-09] MEDS: HEPARIN SODIUM 5,000 UNITS/ML VIAL 5500 UNITS IV PUSH (22:32)
--- NOTE | 2023-03-09 22:32 | PC.NURSE ---
1900: Heparin gtt found at 11ml/hr
[2023-03-09] MEDS: oxyCODONE HCL (*CRX) 5 MG TAB IR PO (23:18)
[2023-03-10] VITALS (30 sets, daily range): BP systolic 99–143; BP diastolic 49–83; PULSE 59–61; RESP 14–23; TEMP 37.1–37.9; O2SAT 95–100
[2023-03-10] MEDS: ALBUTEROL SULFATE NEB 2.5 MG/3 ML INH INHALATION ×4 (01:36→20:00)
[2023-03-10] MEDS: IPRATROPIUM BR 0.02% INH SOLN 0.5 MG/2.5 ML VIAL INHALATION ×4 (01:36→20:00)
[2023-03-10] MEDS: ONDANSETRON INJ 4 MG/2 ML VIAL IV PUSH (03:23)
[2023-03-10 04:31] LABS: Basophils Percent Auto 0.2 % (0.2-1.2); Eosinophils Absolute Auto 0.1 K/mm3 (0-0.3); Eosinophils Percent Auto 0.9 % (0-4.4); Hematocrit 41.3 % (37.0-47.0); Hemoglobin 12.9 g/dL (12.0-15.0); Immature Granulocyte Absolute 0.03 K/mm3 (0.00-0.031); Immature Granulocyte Percent A 0.3 % (0-0.5); Lymphocytes Absolute Auto 0.71 K/mm3 (0.9-3.2); Lymphocytes Percent Auto 7.7 % (18.3-44.2); Mean Corpuscular HGB Conc 31.2 g/dl (32-36); Mean Corpuscular Hemoglobin 30.9 pg (26-34); Mean Platelet Volume 9.5 fl (7.4-10.4); Monocytes Absolute Auto 0.5 K/mm3 (0.1-0.6); Monocytes Percent Auto 5.4 % (2.6-8.5); Neutrophils Absolute Auto 7.9 K/mm3 (1.3-6.7); Neutrophils Percent Auto 85.5 % (45.5-73.1); Platelet Count Result 231 k/mm3 (150-375); Red Blood Count 4.17 M/mm3 (4.2-5.4); Red Cell Distribution Width 13.1 % (11.5-14.5); White Blood Count 9.2 K/mm3 (4.5-10.0)
[2023-03-10 04:41] LABS: Alanine Aminotransferase 29 U/L (6-35); Albumin Level 3.2 g/dL (3.5-5.1); Alkaline Phosphatase 78 U/L (38-126); Anion Gap 6 mmol/L (8-16); Aspartate Amino Transferase 31 U/L (14-36); Bilirubin,Total 1.1 mg/dL (0.2-1.3); Blood Urea Nitrogen 16 mg/dL (7-17); Calcium 8.6 mg/dL (8.4-10.2); Carbon Dioxide 34 mmol/L (22-30); Chloride 103 mmol/L (98-107); Estimated CRCL calculation 42 ml/min; Estimated Glomerular Filt Rate 48; Glucose 112 mg/dL (65-110); Magnesium 2.1 mg/dL (1.6-2.3); Phosphorus 3.5 mg/dL (2.5-4.5); Potassium 3.7 mmol/L (3.4-5.0); Sodium 143 mmol/L (137-145)
[2023-03-10 04:42] LABS: INR 1.3
[2023-03-10 04:43] LABS: Partial Thromboplastin Time 42.3 SECONDS (22.3-36.8)
[2023-03-10] MEDS: HEPARIN SODIUM 5,000 UNITS/ML VIAL 5500 UNITS IV PUSH (05:22)
[2023-03-10] MEDS: LACTATED RINGERS 500 ML 75 ML IV CONT (05:42)
[2023-03-10] MEDS: LEVOTHYROXINE SODIUM 25 MCG TABLET PO (05:44)
[2023-03-10] MEDS: CENTRAL LINE FLUSH 10 ML IV PUSH (05:52)
--- NOTE | 2023-03-10 06:38 | PC.NURSE ---
0605: MD Hawkins contacted d/t venous sheath not working properly. RN instructed to pull sheath.
[2023-03-10] MEDS: CHOLECALCIFEROL 1,000 UNITS TABLET 2000 UNITS PO (08:02)
[2023-03-10 08:05] LABS: Glucose Point of Care 115 mg/dl (65-105)
[2023-03-10] MEDS: TOPIRAMATE 25 MG TABLET PO ×2 (08:05→20:54)
--- NOTE | 2023-03-10 08:08 | PM.PNCARD ---
Progress Note: A&P Assessment and Plan (1) Paroxysmal atrial flutter: Code(s): I48.92 - Unspecified atrial flutter Status: Acute Assessment and Plan: [id number] 4. On Eliquis. On Flecainide and was on Diltiazem. Was direct admit for symptomatic atrial flutter to be scheduled for ESTRELLA/DC cardioversion today. However, late last night after receiving Metoprolol Tartate 25 mg and home morphine her HR dropped to 30's bpm and SBP 65 mmHg. Transferred to ICU for Dopamine drip at 7 mcg/kg/min currently. HR in 40's bpm. BP is stable. Stopped Flecainide and Diltiazem and Metoprolol due to bradycardia. Hold Eliquis and her last dose was 03/07/23 in evening. On Heparin drip for now. 03/08/23 Echo: 60-65%, diastolic dysfunction with E/e' 12, mod biatrial enlargement, mild TR. She is in slow junctional rhythm or ectopic atrial rhythm, and had frequent NSVT last night. Appreciate Dr. Cody, the erecting crane operator's input. Consult [facility] for pacemaker. Transvenous pacer placed on 03/09/[address] Toledo and working well, paced at 60 bpm. No longer having PMVT/VT. Plan for PPM on Sunday. (2) Asthma-COPD overlap syndrome: Code(s): J44.9 - Chronic obstructive pulmonary disease, unspecified Status: Acute (3) Type 2 diabetes mellitus: Qualifiers: Diabetes mellitus supervisor intermediates insulin use: without supervisor intermediates use Diabetes mellitus complication status: without complication Qualified Code(s): E11.9 - Type 2 diabetes mellitus without complications Code(s): E11.9 - Type 2 diabetes mellitus without complications Status: Chronic Assessment and Plan: Monitor BS. (4) Tachy-guanaco syndrome: Code(s): I49.5 - Sick sinus syndrome Status: Acute Subjective Date/time seen: 03/10/23 08:08 Interval history: She slept better last night and feels better after temporary pacemaker placed. No chest pain or sob. Exam Const: General: cooperative, healthy appearing, comfortable and obese Nutritional Appearance: obese Resp: Auscultation: no crackles, no rales, no rhonchi, no wheezes and diminished lung sounds Cardio: Rate: bradycardic Rhythm: regular rhythm Heart sounds: no murmurs Peripheral pulses: dorsalis pedis present Extrem: Right lower extremity: no edema Left lower extremity: no edema Objective Data Vital Signs Vital Signs: Vital Signs - 24 hr 03/09/23 10:32 03/09/23 10:33 03/09/23 12:00 Temperature 99.5 F Pulse Rate 63 63 60 Pulse Rate [Pedal (Dorsalis Pedis)] Respiratory Rate 17 Blood Pressure 92/54 L Pulse Oximetry 99 Oxygen Delivery Oxygen Flow Rate 03/09/23 12:00 03/09/23 12:00 03/09/23 13:50 Temperature 99.4 F Pulse Rate 60 60 60 Pulse Rate [Pedal (Dorsalis Pedis)] Respiratory Rate 21 H 21 H 18 Blood Pressure 96/60 L Pulse Oximetry 98 98 Oxygen Delivery Nasal Cannula Oxygen Flow Rate 2 03/09/23 14:00 03/09/23 14:00 03/09/23 16:00 Temperature 99.9 F H Pulse Rate 60 60 60 Pulse Rate [Pedal (Dorsalis Pedis)] Respiratory Rate 20 Blood Pressure 121/78 Pulse Oximetry 98 Oxygen Delivery Oxygen Flow Rate 03/09/23 16:00 03/09/23 16:00 03/09/23 17:35 Temperature 100 F H Pulse Rate 60 60 60 Pulse Rate [Pedal (Dorsalis Pedis)] Respiratory Rate 15 15 Blood Pressure 120/61 Pulse Oximetry 100 100 Oxygen Delivery Nasal Cannula Oxygen Flow Rate 2 03/09/23 17:36 03/09/23 20:00 03/09/23 20:00 Temperature Pulse Rate 60 60 Pulse Rate [Pedal (Dorsalis Pedis)] Respiratory Rate 22 H Blood Pressure 123/68 Pulse Oximetry 100 98 Oxygen Delivery Nasal Cannula Oxygen Flow Rate 2 03/09/23 20:00 03/09/23 22:00 03/09/23 22:00 Temperature 100.3 F H 100.1 F H Pulse Rate 60 60 60 Pulse Rate [Pedal (Dorsalis Pedis)] Respiratory Rate 19 17 Blood Pressure 137/78 130/50 L Pulse Oximetry 98 98 Oxygen Delivery Oxygen Flow Rate 03/09/23 23:59 03/10/23 00:00 03/10/23 00:00 [place]
[2023-03-10] MEDS: FLUTICASONE/UMECLIDIN/VILANTER 200-62.5-25 MCG ELLIPTA 1 PUFF INHALATION (08:26)
[2023-03-10] MEDS: HEPARIN SOD/D5W 100 UNITS/ML 25,000 UNITS/250 ML BAG 17 UNITS IV CONT (09:46)
[2023-03-10] MEDS: LACTATED RINGERS 1,000 ML 75 ML IV CONT ×2 (09:48→23:39)
[2023-03-10 11:42] LABS: Glucose Point of Care 125 mg/dl (65-105)
--- NOTE | 2023-03-10 12:35 | WPDINTPN ---
Progress Note: A&P Assessment and Plan (1) Bradycardia: Code(s): R00.1 - Bradycardia, unspecified Status: Acute Assessment and Plan: Patient has history of paroxysmal atrial flutter presented with RVR and was given dose of flecainide and p.o. metoprolol which led to bradycardia and hypotension -03/09: Patient seen in the V-tach/torsades. -patient remains bradycardic, -03/09: cardiology evaluated the patient and placed a temporary pacemaker via the right IJ, setting 60 beats per minute -dopamine was turned off -permanent pacemaker likely on 03/12/2023 -Continue heparin infusion -03/08/2023 echocardiogram: Showed normal LV chamber dimension, EF 60-65%, LV diastolic function is abnormal, left atrial chamber is moderately enlarged, right atrial chamber is moderately enlarged, mild tricuspid valve regurg, no pulmonary hypertension (2) Paroxysmal atrial flutter: Code(s): I48.92 - Unspecified atrial flutter Status: Acute Assessment and Plan: See above (3) Congestive heart failure: Code(s): I50.9 - Heart failure, unspecified Status: Acute Assessment and Plan: Patient has bibasilar crackles and mild edema on exam Echocardiogram as above Cautious IV fluids in light of her hypertension (4) Shock: Code(s): R57.9 - Shock, unspecified Status: Acute Assessment and Plan: Shock likely secondary to bradycardia and medication Beta-daxa is on hold Off dopamine since temporary pacemaker was inserted (5) Type 2 diabetes mellitus: Qualifiers: Diabetes mellitus complication status: without complication Diabetes mellitus buttermaker continuous churn insulin use: without snf use Qualified Code(s): E11.9 - Type 2 diabetes mellitus without complications Code(s): E11.9 - Type 2 diabetes mellitus without complications Status: Chronic Assessment and Plan: Sliding scale insulin (6) Acute kidney injury: Code(s): N17.9 - Acute kidney failure, unspecified Status: Resolved Assessment and Plan: Patient's creatinine on admission was 1.5. Last recorded creatinine from last year was 0.9 Patient does have history of chronic kidney disease but episode of hypotension and bradycardia could lead to JEFFERSON -creatinine trending down Continue to monitor urine output, electrolytes and renal function -03/08/2023 renal ultrasound showed normal kidney size, no hydronephrosis -CK levels within normal live -urine electrolytes sales training representative of prerenal picture -continue maintenance IV fluids Plan DVT prophylaxis -heparin infusion Nutrition -diabetic diet Code Status - Full Code Total Critical Care Time - 33 minutes Due to a high probability of clinically significant, life threatening deterioration, the patient required my highest level of preparedness to intervene emergently and I personally spent this critical care time directly and personally managing the patient. This critical care time included obtaining a history; examining the patient; pulse oximetry; ordering and review of studies; arranging urgent treatment with development of a management plan; evaluation of patient's response to treatment; frequent reassessment; and discussions with other providers. It was exclusive of separately billable procedures and treating other patients and teaching time. Please see Assessment and Plan section and the rest of the note for further information on patient assessment and treatment Subjective Date/time seen: 03/10/23 12:35 Interval history: Reason for consult: Bradycardia, hypotension/shock, acute kidney injury, possible CHF 03/09/2023: Transvenous temporary pacemaker inserted via the right IJ 7023: Patient seen and examined the ICU, is awake, alert, answers to questions appropriately, gets confused confused at times. Patient is sleepy as she said she has slept well at night. Urine output has been adequate. Patient is being 100% paced. Patient is
[2023-03-10 12:49] LABS: Partial Thromboplastin Time > 200.0 SECONDS (22.3-36.8)
--- NOTE | 2023-03-10 13:53 | PM.EVENT ---
Event Note Event Note Event Note: Pt doing well, cont to V-pace rate 60. Threshold checked; looses capture at 0.4 mV. Set output at 3 mV. Permanent pacer planned for Sunday.
--- NOTE | 2023-03-10 14:42 | PC.NURSE ---
Patient very agitated wanting to go AMA. Dr. Cody explained to patient that she is on suicide precautions and she can't leave. Patient took off her telemetry and is refusing to put back on. Dr. Cody notified and is ok at this time. Patient is sitting on the couch in the room without telemetry. Dr. Cody ok discontinuing IVF. Patient notified that she would be medically cleared possibly tomorrow and crisis would be called. Code heydi called and security in room talking with patient. Patient refusing to get back in bed and get hooked back up but is a little calmer. Security outside room to watch behavior. Sitter in room.
[2023-03-10 17:13] LABS: Glucose Point of Care 118 mg/dl (65-105)
[2023-03-10] MEDS: SERTRALINE HCL 50 MG TABLET 100 MG PO (20:53)
[2023-03-10 21:10] LABS: Partial Thromboplastin Time > 200.0 SECONDS (22.3-36.8)
[2023-03-10 21:10] LABS: Glucose Point of Care 139 mg/dl (65-105)
[2023-03-10] MEDS: ARIPiprazole 10 MG TABLET PO (21:33)
[2023-03-11] VITALS (19 sets, daily range): BP systolic 107–166; BP diastolic 49–88; PULSE 60–73; RESP 15–24; TEMP 37.3–37.7; O2SAT 96–100
[2023-03-11] MEDS: oxyCODONE HCL (*CRX) 5 MG TAB IR PO ×2 (02:59→22:12)
[2023-03-11] MEDS: IPRATROPIUM BR 0.02% INH SOLN 0.5 MG/2.5 ML VIAL INHALATION ×3 (03:45→13:49)
[2023-03-11] MEDS: ALBUTEROL SULFATE NEB 2.5 MG/3 ML INH INHALATION ×3 (03:45→13:49)
[2023-03-11 04:35] LABS: Hematocrit 38.3 % (37.0-47.0); Mean Corpuscular HGB Conc 31.3 g/dl (32-36); Mean Corpuscular Hemoglobin 31.4 pg (26-34); Mean Corpuscular Volume 100.3 fl (80-100); Mean Platelet Volume 9.5 fl (7.4-10.4); Platelet Count Result 207 k/mm3 (150-375); Red Blood Count 3.82 M/mm3 (4.2-5.4); Red Cell Distribution Width 13.4 % (11.5-14.5); White Blood Count 8.3 K/mm3 (4.5-10.0)
--- NOTE | 2023-03-11 04:35 | PCRCNOTE ---
Patient did not want to be awakened for her 0200 updraft treatment. RN called RT approx 0330 stating pt was wheezy. RT administered treatment at 0345.
[2023-03-11 04:53] LABS: Alanine Aminotransferase 24 U/L (6-35); Alkaline Phosphatase 68 U/L (38-126); Anion Gap 3 mmol/L (8-16); Aspartate Amino Transferase 26 U/L (14-36); Bilirubin,Total 0.7 mg/dL (0.2-1.3); Blood Urea Nitrogen 15 mg/dL (7-17); Calcium 8.4 mg/dL (8.4-10.2); Carbon Dioxide 31 mmol/L (22-30); Chloride 105 mmol/L (98-107); Estimated CRCL calculation 47 ml/min; Estimated Glomerular Filt Rate 54; Glucose 98 mg/dL (65-110); Magnesium 1.9 mg/dL (1.6-2.3); Potassium 3.5 mmol/L (3.4-5.0); Sodium 139 mmol/L (137-145)
[2023-03-11] MEDS: LEVOTHYROXINE SODIUM 25 MCG TABLET PO (05:13)
[2023-03-11 05:41] LABS: Partial Thromboplastin Time > 200.0 SECONDS (22.3-36.8)
--- NOTE | 2023-03-11 07:16 | ECG_ITS ---
Measurements Intervals [place] Rate: 59 P: OK: 0 QRS: -75 QRSD: 192 T: 98 QT: 558 QTc: 556 Interpretive Statements ELECTRONIC VENTRICULAR PACEMAKER NO FURTHER INTERPRETATION IS POSSIBLE ATYPICAL ECG COMPARED TO ECG 03/08/2023 20:04:15 VENTRICULAR PACEMAKER NOW PRESENT Electronically Signed On 03-11-2023 18:34:00 CDT by Anthony Castellano D.O.
[2023-03-11 07:27] LABS: Glucose Point of Care 90 mg/dl (65-105)
--- NOTE | 2023-03-11 08:17 | PM.PNCARD ---
Progress Note: A&P Assessment and Plan (1) Paroxysmal atrial flutter: Code(s): I48.92 - Unspecified atrial flutter Status: Acute Assessment and Plan: [id number] 4. On Eliquis. On Flecainide and was on Diltiazem. Was direct admit for symptomatic atrial flutter to be scheduled for ESTRELLA/DC cardioversion today. However, late last night after receiving Metoprolol Tartate 25 mg and home morphine her HR dropped to 30's bpm and SBP 65 mmHg. Transferred to ICU for Dopamine drip, off Dopamine. Stopped Flecainide and Diltiazem and Metoprolol due to bradycardia. Hold Eliquis and her last dose was 03/07/23 in evening. On Heparin drip for now. 03/08/23 Echo: 60-65%, diastolic dysfunction with E/e' 12, mod biatrial enlargement, mild TR. She is in sinus rhythm now, but was in slow junctional rhythm or ectopic atrial rhythm, and had frequent NSVT. Appreciate Dr. Cody, the racing car driver's input. HCG following for pacemaker. Transvenous pacer placed on 03/09/[address] Toledo and working well, paced at 60 bpm. No longer having PMVT/VT. Plan for PPM on Sunday for sinus node dysfunction with tachy-guanaco syndrome. (2) Asthma-COPD overlap syndrome: Code(s): J44.9 - Chronic obstructive pulmonary disease, unspecified Status: Acute (3) Type 2 diabetes mellitus: Qualifiers: Diabetes mellitus truck terminal manager insulin use: without fpc use Diabetes mellitus complication status: without complication Qualified Code(s): E11.9 - Type 2 diabetes mellitus without complications Code(s): E11.9 - Type 2 diabetes mellitus without complications Status: Chronic Assessment and Plan: Monitor BS. (4) Tachy-guanaco syndrome: Code(s): I49.5 - Sick sinus syndrome Status: Acute Subjective Date/time seen: 03/11/23 08:17 Interval history: No chest pain or sob. Exam Const: General: cooperative, healthy appearing, comfortable and obese Nutritional Appearance: obese Resp: Auscultation: no crackles, no rales, no rhonchi, no wheezes and diminished lung sounds Cardio: Rate: regular rate Rhythm: regular rhythm Heart sounds: no murmurs Peripheral pulses: dorsalis pedis present Extrem: Right lower extremity: no edema Left lower extremity: no edema Objective Data Vital Signs Vital Signs: Vital Signs - 24 hr 03/10/23 08:25 03/10/23 10:00 03/10/23 10:00 Temperature 98.8 F Pulse Rate 60 60 60 Pulse Rate [Pedal (Dorsalis Pedis)] Respiratory Rate 18 18 Blood Pressure 99/55 L Pulse Oximetry 99 Oxygen Delivery Oxygen Flow Rate Fraction of Inspired Oxygen 03/10/23 12:00 03/10/23 12:00 03/10/23 12:00 Temperature 98.9 F Pulse Rate 60 60 Pulse Rate [Pedal (Dorsalis Pedis)] 60 Respiratory Rate 17 Blood Pressure 120/58 L Pulse Oximetry 99 Oxygen Delivery Oxygen Flow Rate Fraction of Inspired Oxygen 03/10/23 12:00 03/10/23 13:39 03/10/23 13:39 Temperature Pulse Rate 60 60 Pulse Rate [Pedal (Dorsalis Pedis)] Respiratory Rate 14 14 Blood Pressure Pulse Oximetry 99 98 Oxygen Delivery Nasal Cannula Nasal Cannula Oxygen Flow Rate 2 3 Fraction of Inspired Oxygen 32 03/10/23 13:55 03/10/23 14:00 03/10/23 14:00 Temperature 99.6 F Pulse Rate 60 60 60 Pulse Rate [Pedal (Dorsalis Pedis)] Respiratory Rate 18 17 Blood Pressure 102/66 Pulse Oximetry 98 Oxygen Delivery Oxygen Flow Rate Fraction of Inspired Oxygen 03/10/23 16:00 03/10/23 16:00 03/10/23 16:00 Temperature Pulse Rate 60 Pulse Rate [Pedal (Dorsalis Pedis)] 60 Respiratory Rate Blood Pressure Pulse Oximetry 98 Oxygen Delivery Nasal Cannula Oxygen Flow Rate 2 Fraction of Inspired Oxygen 03/10/23 16:00 03/10/23 18:00 03/10/23 18:00 Temperature 99.5 F 99.5 F Pulse Rate 60 60 60 Pulse Rate [Pedal (Dorsalis Pedis)] Respiratory Rate 18 17 Blood Pressure 123/66 129/83 Pulse Oximetry 98 100 Oxygen Delivery Oxygen
[2023-03-11] MEDS: CHOLECALCIFEROL 1,000 UNITS TABLET 2000 UNITS PO (08:38)
[2023-03-11] MEDS: MAGNESIUM SULF 2 GM/WATER 50ML 2 GM/50 ML BAG IVPB (08:38)
[2023-03-11] MEDS: TOPIRAMATE 25 MG TABLET PO ×2 (08:39→20:41)
[2023-03-11] MEDS: POTASSIUM CHLORIDE 20 MEQ PACKET (FOR LIQUID) 40 MEQ PO (08:39)
[2023-03-11] MEDS: hydrALAZINE HCL 20 MG/ML VIAL 10 MG IV PUSH ×2 (08:39→20:43)
[2023-03-11] MEDS: HEPARIN SOD/D5W 100 UNITS/ML 25,000 UNITS/250 ML BAG 11 UNITS IV CONT (08:50)
[2023-03-11] MEDS: FLUTICASONE/UMECLIDIN/VILANTER 200-62.5-25 MCG ELLIPTA 1 PUFF INHALATION (09:00)
[2023-03-11 11:18] LABS: Partial Thromboplastin Time 76.9 SECONDS (22.3-36.8)
[2023-03-11 11:59] LABS: Glucose Point of Care 127 mg/dl (65-105)
--- NOTE | 2023-03-11 13:45 | WPDINTPN ---
Progress Note: A&P Assessment and Plan (1) Bradycardia: Code(s): R00.1 - Bradycardia, unspecified Status: Acute Assessment and Plan: Patient has history of paroxysmal atrial flutter presented with RVR and was given dose of flecainide and p.o. metoprolol which led to bradycardia and hypotension -03/09: Patient seen in the V-tach/torsades. -patient remains bradycardic, -03/09: cardiology evaluated the patient and placed a temporary pacemaker via the right IJ, setting 60 beats per minute -dopamine was turned off -permanent pacemaker likely on 03/12/2023 -Continue heparin infusion -03/08/2023 echocardiogram: Showed normal LV chamber dimension, EF 60-65%, LV diastolic function is abnormal, left atrial chamber is moderately enlarged, right atrial chamber is moderately enlarged, mild tricuspid valve regurg, no pulmonary hypertension (2) Paroxysmal atrial flutter: Code(s): I48.92 - Unspecified atrial flutter Status: Acute Assessment and Plan: See above (3) Congestive heart failure: Code(s): I50.9 - Heart failure, unspecified Status: Acute Assessment and Plan: Patient has bibasilar crackles and mild edema on exam Echocardiogram as above Off IV fluids (4) Shock: Code(s): R57.9 - Shock, unspecified Status: Acute Assessment and Plan: Shock likely secondary to bradycardia and medication Beta-daxa is on hold Off dopamine since temporary pacemaker was inserted (5) Type 2 diabetes mellitus: Qualifiers: Diabetes mellitus fci insulin use: without rodent exterminator use Diabetes mellitus complication status: without complication Qualified Code(s): E11.9 - Type 2 diabetes mellitus without complications Code(s): E11.9 - Type 2 diabetes mellitus without complications Status: Chronic Assessment and Plan: Sliding scale insulin (6) Acute kidney injury: Code(s): N17.9 - Acute kidney failure, unspecified Status: Resolved Assessment and Plan: Patient's creatinine on admission was 1.5. Last recorded creatinine from last year was 0.9 Patient does have history of chronic kidney disease but episode of hypotension and bradycardia could lead to JEFFERSON -creatinine has normal Continue to monitor urine output, electrolytes and renal function -03/08/2023 renal ultrasound showed normal kidney size, no hydronephrosis -CK levels within normal limits -urine electrolytes premium representative of prerenal picture -discontinue IV fluids Plan DVT prophylaxis -heparin infusion Nutrition -diabetic diet, supplements with Glucerna Code Status - Full Code Total Critical Care Time - 33 minutes Discussed with patient updated home with condition and plan of care. She is aware that she will be getting a permanent pacemaker on 03/12/2023 on Sunday. Due to a high probability of clinically significant, life threatening deterioration, the patient required my highest level of preparedness to intervene emergently and I personally spent this critical care time directly and personally managing the patient. This critical care time included obtaining a history; examining the patient; pulse oximetry; ordering and review of studies; arranging urgent treatment with development of a management plan; evaluation of patient's response to treatment; frequent reassessment; and discussions with other providers. It was exclusive of separately billable procedures and treating other patients and teaching time. Please see Assessment and Plan section and the rest of the note for further information on patient assessment and treatment Subjective Date/time seen: 03/11/23 13:45 Interval history: Reason for consult: Bradycardia, hypotension/shock, acute kidney injury, possible CHF 03/09/2023: Transvenous temporary pacemaker inserted via the right IJ 03/11/2023: Patient seen examined the ICU is more awake and less confused this morning, alert, answers questions appropriat
[2023-03-11 16:51] LABS: Glucose Point of Care 160 mg/dl (65-105)
--- NOTE | 2023-03-11 19:24 | PM.PNCARD ---
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 Has been off her Eliquis for several days and on heparin. Reviewed pacemaker implant procedure, which is scheduled to be done by Dr. Gray tomorrow. Reviewed risks of pacemaker implant with patient. These include breathing problems, allergic reactions, bleeding, infection, pneumothorax, cardiac puncture, need for unanticipated surgery, lead dislodgement among others. She desires to proceed. --hold heparin at 1:00 a.m. (2) Paroxysmal atrial flutter: Code(s): I48.92 - Unspecified atrial flutter Status: Acute Subjective Date/time seen: 03/11/23 19:24 Interval history: Invasive cardiology note: 77-year-old female referred by Dr. Castellano for tachy-guanaco syndrome, history of paroxysmal atrial fibrillation, status post temporary pacemaker last Sunday for severe bradycardia. On home O2, 2 L. remains on heparin drip. Date of service 03/11/2023: Patient has had a uneventful day., no shortness of breath or chest pain. Telemetry shows she is intermittently pacing and currently in sinus rhythm heart rate in the 60s. Chest x-ray on my personal review shows clear lungs and temporary pacemaker in the appropriate position. Review of Systems Review of Systems: No chest pain, shortness of breath, abdominal discomfort or bleeding. Apprehensive about tomorrow's procedure. Exam Const: General: cooperative, healthy appearing and comfortable; No confusion Orientation/consciousness: oriented to person, patient oriented x3 and No confusion HENMT: Mouth: Yes moist mucous membranes Eyes: General: appearance normal, both eyes and all related structures Neck: Neck: supple (Right internal jugular pacemaker in place) Resp: Effort & Inspection: normal respiratory effort Auscultation: clear to auscultation bilaterally Cardio: Rate: regular rate Rhythm: regular rhythm Heart sounds: no murmurs GI: Inspection: normal to inspection GI Palp: No abdominal tenderness Skin: General skin exam: normal color and no rashes or lesions noted Neuro: General: oriented to person, patient oriented x3 and No confusion Extrem: Right lower extremity: no edema Left lower extremity: no edema Psych: Appearance: grossly normal Mental Status: mental status grossly normal Objective Data Vital Signs Vital Signs: Vital Signs - 24 hr 03/10/23 19:44 03/10/23 19:54 03/10/23 20:01 Temperature Pulse Rate 60 Pulse Rate [Pedal (Dorsalis Pedis)] 60 Respiratory Rate 17 Blood Pressure Pulse Oximetry 100 Oxygen Delivery Nasal Cannula Oxygen Flow Rate 2 Fraction of Inspired Oxygen 03/10/23 20:19 03/10/23 20:10 03/10/23 20:00 Temperature Pulse Rate 60 60 60 Pulse Rate [Pedal (Dorsalis Pedis)] Respiratory Rate 17 17 Blood Pressure Pulse Oximetry 99 Oxygen Delivery Nasal Cannula Oxygen Flow Rate 2 Fraction of Inspired Oxygen 28 03/10/23 20:00 03/10/23 22:00 03/10/23 22:00 Temperature 99.6 F 99.2 F Pulse Rate 60 60 60 Pulse Rate [Pedal (Dorsalis Pedis)] Respiratory Rate 19 16 Blood Pressure 128/49 L 143/51 H Pulse Oximetry 99 99 Oxygen Delivery Oxygen Flow Rate Fraction of Inspired Oxygen 03/10/23 23:43 03/10/23 23:43 03/11/23 00:00 Temperature Pulse Rate 60 Pulse Rate [Pedal (Dorsalis Pedis)] 60 Respiratory Rate Blood Pressure Pulse Oximetry 95 Oxygen Delivery Nasal Cannula Oxygen Flow Rate 2 Fraction of Inspired Oxygen 03/11/23 02:00 03/11/23 00:00 03/11/23 02:00 Temperature 99.1 F 99.7 F H Pulse Rate 60 60 60 Pulse Rate [Pedal (Dorsalis Pedis)] Respiratory Rate 19 24 H Blood Pressure 165/58 H 129/56 L Pulse Oximetry 100 98 Oxygen Delivery Oxygen Flow Rate F
[2023-03-11] MEDS: SERTRALINE HCL 50 MG TABLET 100 MG PO (20:41)
[2023-03-11] MEDS: ARIPiprazole 10 MG TABLET PO (20:41)
[2023-03-11 20:52] LABS: Glucose Point of Care 138 mg/dl (65-105)
[2023-03-11 21:02] LABS: Partial Thromboplastin Time 75.4 SECONDS (22.3-36.8)
[2023-03-12] VITALS (19 sets, daily range): BP systolic 115–162; BP diastolic 49–79; PULSE 60–72; RESP 13–26; TEMP 37–37.8; O2SAT 93–100
[2023-03-12 03:37] LABS: Hematocrit 37.8 % (37.0-47.0); Hemoglobin 12.1 g/dL (12.0-15.0); Mean Corpuscular Hemoglobin 31.8 pg (26-34); Mean Corpuscular Volume 99.2 fl (80-100); Mean Platelet Volume 9.3 fl (7.4-10.4); Platelet Count Result 226 k/mm3 (150-375); Red Blood Count 3.81 M/mm3 (4.2-5.4); Red Cell Distribution Width 13.6 % (11.5-14.5); White Blood Count 8.3 K/mm3 (4.5-10.0)
[2023-03-12 03:48] LABS: Partial Thromboplastin Time 88.1 SECONDS (22.3-36.8)
[2023-03-12 03:50] LABS: Alanine Aminotransferase 22 U/L (6-35); Albumin Level 2.9 g/dL (3.5-5.1); Alkaline Phosphatase 65 U/L (38-126); Anion Gap -3 mmol/L (8-16); Aspartate Amino Transferase 27 U/L (14-36); Bilirubin,Total 0.6 mg/dL (0.2-1.3); Blood Urea Nitrogen 13 mg/dL (7-17); Calcium 8.3 mg/dL (8.4-10.2); Carbon Dioxide 33 mmol/L (22-30); Chloride 104 mmol/L (98-107); Estimated CRCL calculation 43 ml/min; Estimated Glomerular Filt Rate 48; Glucose 101 mg/dL (65-110); Magnesium 2.2 mg/dL (1.6-2.3); Potassium 4.1 mmol/L (3.4-5.0); Sodium 134 mmol/L (137-145)
[2023-03-12] MEDS: LEVOTHYROXINE SODIUM 25 MCG TABLET PO (05:30)
[2023-03-12] MEDS: IPRATROPIUM BR 0.02% INH SOLN 0.5 MG/2.5 ML VIAL INHALATION ×3 (07:17→21:11)
[2023-03-12] MEDS: ALBUTEROL SULFATE NEB 2.5 MG/3 ML INH INHALATION ×3 (07:18→21:12)
[2023-03-12] MEDS: FLUTICASONE/UMECLIDIN/VILANTER 200-62.5-25 MCG ELLIPTA 1 PUFF INHALATION (07:20)
--- NOTE | 2023-03-12 07:52 | PM.PNCARD ---
Progress Note: A&P Assessment and Plan (1) Paroxysmal atrial flutter: Code(s): I48.92 - Unspecified atrial flutter Status: Acute Assessment and Plan: [id number] 4. On Eliquis. On Flecainide and was on Diltiazem. Was direct admit for symptomatic atrial flutter to be scheduled for ESTRELLA/DC cardioversion today. However, late last night after receiving Metoprolol Tartate 25 mg and home morphine her HR dropped to 30's bpm and SBP 65 mmHg. Transferred to ICU for Dopamine drip, off Dopamine. Stopped Flecainide and Diltiazem and Metoprolol due to bradycardia. Hold Eliquis and her last dose was 03/07/23 in evening. On Heparin drip for now. 03/08/23 Echo: 60-65%, diastolic dysfunction with E/e' 12, mod biatrial enlargement, mild TR. She is in sinus rhythm now, but was in slow junctional rhythm or ectopic atrial rhythm, and had frequent NSVT. Appreciate Dr. Cody, the indian trader's input. HCG following for pacemaker. Transvenous pacer placed on 03/09/[address] Toledo and working well, paced at 60 bpm. No longer having PMVT/VT. Plan for PPM on today with Dr. Gray for sinus node dysfunction with tachy-guanaco syndrome. (2) Asthma-COPD overlap syndrome: Code(s): J44.9 - Chronic obstructive pulmonary disease, unspecified Status: Acute (3) Type 2 diabetes mellitus: Qualifiers: Diabetes mellitus nursing home insulin use: without buttermaker use Diabetes mellitus complication status: without complication Qualified Code(s): E11.9 - Type 2 diabetes mellitus without complications Code(s): E11.9 - Type 2 diabetes mellitus without complications Status: Chronic Assessment and Plan: Monitor BS. (4) Tachy-guanaco syndrome: Code(s): I49.5 - Sick sinus syndrome Status: Acute Subjective Date/time seen: 03/12/23 07:52 Interval history: No chest pain or sob. She had nausea last night. Exam Const: General: cooperative, healthy appearing, comfortable and obese Nutritional Appearance: obese Resp: Auscultation: no crackles, no rales, no rhonchi, no wheezes and diminished lung sounds Cardio: Rate: regular rate Rhythm: regular rhythm Heart sounds: no murmurs Peripheral pulses: dorsalis pedis present Extrem: Right lower extremity: no edema Left lower extremity: no edema Objective Data Vital Signs Vital Signs: Vital Signs - 24 hr 03/11/23 08:00 03/11/23 08:00 03/11/23 08:00 Temperature Pulse Rate 64 Pulse Rate [Pedal (Dorsalis Pedis)] 60 Respiratory Rate Blood Pressure Pulse Oximetry 98 Oxygen Delivery Nasal Cannula Oxygen Flow Rate 2 03/11/23 08:00 03/11/23 09:21 03/11/23 09:21 Temperature 99.2 F Pulse Rate 63 60 Pulse Rate [Pedal (Dorsalis Pedis)] Respiratory Rate 20 19 Blood Pressure 163/75 H Pulse Oximetry 98 98 Oxygen Delivery Nasal Cannula Oxygen Flow Rate 2 03/11/23 09:38 03/11/23 10:00 03/11/23 10:00 Temperature Pulse Rate 60 61 61 Pulse Rate [Pedal (Dorsalis Pedis)] Respiratory Rate 19 22 H Blood Pressure 107/56 L Pulse Oximetry 96 Oxygen Delivery Oxygen Flow Rate 03/11/23 12:00 03/11/23 12:00 03/11/23 12:00 Temperature 99.3 F Pulse Rate 60 Pulse Rate [Pedal (Dorsalis Pedis)] 60 Respiratory Rate 22 H Blood Pressure 110/84 Pulse Oximetry 98 98 Oxygen Delivery Nasal Cannula Oxygen Flow Rate 2 03/11/23 12:00 03/11/23 13:49 03/11/23 14:00 Temperature Pulse Rate 60 61 71 Pulse Rate [Pedal (Dorsalis Pedis)] Respiratory Rate 16 Blood Pressure Pulse Oximetry Oxygen Delivery Oxygen Flow Rate 03/11/23 14:00 03/11/23 14:19 03/11/23 16:00 Temperature 99.5 F 99.2 F Pulse Rate 69 73 62 Pulse Rate [Pedal (Dorsalis Pedis)] Respiratory Rate 16 20 20 Blood Pressure 151/50 H 129/51 L Pulse Oximetry 100 100 Oxygen Delivery Oxygen Flow Rate 03/11/23 16:00 03/11/23 16:00 03/11/23 16:00 Temperature Pulse Rate 63 Pulse Rate [Peda
[2023-03-12 08:17] LABS: Glucose Point of Care 92 mg/dl (65-105)
[2023-03-12] MEDS: CHOLECALCIFEROL 1,000 UNITS TABLET 2000 UNITS PO (08:18)
[2023-03-12] MEDS: TOPIRAMATE 25 MG TABLET PO ×2 (08:19→20:14)
--- NOTE | 2023-03-12 11:01 | WPDMODSED ---
Moderate Sedation Note-Pt Data Patient Data Diagnosis: Sick sinus syndrome with symptomatic pauses Present Complaint: Generalized fatigue and lack of energy Procedure to be performed/Plan: Implantation of permanent dual-chamber pacemaker Allergies Allergy/AdvReac Type Severity Reaction Status Date / Time adhesive tape Allergy Intermediate REDNESS Verified 02/06/23 13:04 Home Medications Medication Instructions Recorded Confirmed Type albuterol sulfate 90 mcg/actuation 2 inh inhalation QID PRN Shortness 01/25/22 03/07/23 Rx aerosol inhaler Of Breath #25.5 grams duloxetine 60 mg capsule,delayed 60 mg PO DAILY 05/23/22 03/07/23 History release sertraline 100 mg tablet 100 mg PO HS #30 tabs 08/01/22 03/07/23 Rx glimepiride 1 mg tablet 1 mg PO DAILY #90 tabs 08/07/22 03/07/23 Rx aripiprazole 10 mg tablet 10 mg PO HS #30 tabs 12/18/22 03/07/23 Rx fluticasone fur. 200 mcg-umeclid 1 inh inhalation DAILY #60 ea 01/03/23 03/07/23 Rx 62.5 mcg-vilant 25 mcg inhalat.powder levothyroxine 25 mcg tablet 25 mcg PO 0600 #90 tabs 01/23/23 03/07/23 Rx cholecalciferol (vitamin D3) 50 50 mcg PO DAILY #30 caps 02/06/23 03/07/23 Rx mcg (2,000 unit) capsule diltiazem HCl 240 mg capsule,24 240 mg PO DAILY #30 caps 03/01/23 03/07/23 Rx hr,extended release apixaban 2.5 mg tablet (Eliquis) 2.5 mg PO Q12H 03/07/23 03/07/23 History flecainide 150 mg tablet 150 mg PO Q12H 03/07/23 03/07/23 History morphine 15 mg tablet,extended 15 mg PO Q12H 03/07/23 03/07/23 History release topiramate 25 mg tablet 25 mg PO Q12H 03/07/23 03/07/23 History Current Medications: Active Medications Albuterol (Albuterol Sulfate Neb 2.5 Mg/3 Ml Inh) 2.5 mg INHALATION Q6HRT FARRUKH Last Admin: 03/12/23 07:18 Dose: 2.5 mg Aripiprazole (Aripiprazole 10 Mg Tablet) 10 mg PO HS [facility] Last Admin: 03/11/23 20:41 Dose: 10 mg Dextrose (Dextrose 50% 25 Gm/50 Ml Syringe) 12.5 gm IV PUSH PRN PRN; Protocol PRN Reason: Hypoglycemia Fluticasone/Umeclidinium/Vilanterol (Fluticasone/Umeclidin/Vilanter 200-62.5-25 Mcg Ellipta) 1 puff INHALATION DAILY [facility] Last Admin: 03/12/23 07:20 Dose: 1 puff Glucagon (Glucagon For Inj 1 Mg Vial) 1 mg IM PRN PRN; Protocol PRN Reason: Hypoglycemia Glucose (Glucose Oral Gel 15 Gm Of Glucse In 37.5 Gm Tube) 15 gm PO PRN PRN; Protocol PRN Reason: Hypoglycemia Hydralazine HCl (Hydralazine Hcl 20 Mg/Ml Vial) 10 mg IV PUSH Q4H PRN PRN Reason: Blood Pressure - High Last Admin: 03/11/23 20:43 Dose: 10 mg Dextrose (Dextrose 5% 1,000 Ml) 1,000 mls @ 100 mls/hr IVPB PRN PRN; Protocol PRN Reason: Hypoglycemia Insulin Aspart (Insulin Aspart (*Bkc) 100 Units/Ml) 3 - 6 units SUB-Q TIDWM [facility]; Protocol Last Admin: 03/12/23 08:17 Dose: Not Given Insulin Aspart (Insulin Aspart (*Bkc) 100 Units/Ml) 1 - 3 units SUB-Q HS [facility]; Protocol Last Admin: 03/11/23 20:41 Dose: Not Given Ipratropium Chapman (Ipratropium Br 0.02% Inh Soln 0.5 Mg/2.5 Ml Vial) 0.5 mg INHALATION Q6HRT [facility] Last Admin: 03/12/23 07:17 Dose: 0.5 mg Levothyroxine Sodium (Levothyroxine Sodium 25 Mcg Tablet) 25 mcg PO 0600 FARRUKH Last Admin: 03/12/23 05:30 Dose: 25 mcg Morphine Sulfate (Morphine Sulfate (*Crx) 15 Mg Tabcr) 15 mg PO Q12H [facility] Last Admin: 03/07/23 23:03 Dose: 15 mg Ondansetron HCl (Ondansetron Inj 4 Mg/2 Ml Vial) 4 mg IV PUSH Q4H PRN PRN Reason: Nausea And Vomiting Last Admin: 03/10/23 03:23 Dose: 4 mg Oxycodone HCl (Oxycodone Hcl (*Crx) 5 Mg Tab Ir) 5 mg PO Q4H PRN PRN Reason: Pain Rated 7-10 Last Admin: 03/11/23 22:12 Dose: 5 mg Sertraline HCl (Sertraline Hcl 50 Mg Tablet) 100 mg PO HS [facility] Last Admin: 03/11/23 20:41 Dose: 100 mg Topiramate (Topiramate 25 Mg Tablet) 25 mg PO Q12H [facility] Last Admin: 03/12/23 08:19 Dose: 25 mg Vitamin D (Cholecalciferol 1,000 Units Tablet) 2,000 units PO DAILY [facility] Last Admin: 03/12/23 08:18 Dose: 2,000 units Sedation/Anesthesia: No previous sedation/anesthesia problems (
--- NOTE | 2023-03-12 11:48 | WPDINTPN ---
Progress Note: A&P Assessment and Plan (1) Bradycardia: Code(s): R00.1 - Bradycardia, unspecified Status: Acute Assessment and Plan: Patient has history of paroxysmal atrial flutter presented with RVR and was given dose of flecainide and p.o. metoprolol which led to bradycardia and hypotension -03/09: Patient seen in the V-tach/torsades. -patient remains bradycardic, -03/09: cardiology evaluated the patient and placed a temporary pacemaker via the right IJ, setting 60 beats per minute -dopamine was turned off -permanent pacemaker today -heparin infusion is on hold for the procedure -03/08/2023 echocardiogram: Showed normal LV chamber dimension, EF 60-65%, LV diastolic function is abnormal, left atrial chamber is moderately enlarged, right atrial chamber is moderately enlarged, mild tricuspid valve regurg, no pulmonary hypertension (2) Paroxysmal atrial flutter: Code(s): I48.92 - Unspecified atrial flutter Status: Acute Assessment and Plan: See above (3) Congestive heart failure: Code(s): I50.9 - Heart failure, unspecified Status: Acute Assessment and Plan: Patient has bibasilar crackles and mild edema on exam Echocardiogram as above Off IV fluids (4) Shock: Code(s): R57.9 - Shock, unspecified Status: Acute Assessment and Plan: Shock likely secondary to bradycardia and medication Beta-daxa is on hold Off dopamine since temporary pacemaker was inserted (5) Type 2 diabetes mellitus: Qualifiers: Diabetes mellitus assisted insulin use: without assisted use Diabetes mellitus complication status: without complication Qualified Code(s): E11.9 - Type 2 diabetes mellitus without complications Code(s): E11.9 - Type 2 diabetes mellitus without complications Status: Chronic Assessment and Plan: Sliding scale insulin (6) Acute kidney injury: Code(s): N17.9 - Acute kidney failure, unspecified Status: Resolved Assessment and Plan: Patient's creatinine on admission was 1.5. Last recorded creatinine from last year was 0.9 Patient does have history of chronic kidney disease but episode of hypotension and bradycardia could lead to JEFFERSON -creatinine has normal Continue to monitor urine output, electrolytes and renal function -03/08/2023 renal ultrasound showed normal kidney size, no hydronephrosis -CK levels within normal limits -urine electrolytes merchandiser retail representative of prerenal picture Plan DVT prophylaxis -heparin infusion for the pacemaker procedure Nutrition -diabetic diet, supplements with Glucerna, currently NPO for pacemaker procedure Code Status - Full Code Total Critical Care Time - 32 minutes Discussed with patient updated home with condition and plan of care. She is aware that she will be getting a permanent pacemaker on 03/12/2023 on Sunday. Due to a high probability of clinically significant, life threatening deterioration, the patient required my highest level of preparedness to intervene emergently and I personally spent this critical care time directly and personally managing the patient. This critical care time included obtaining a history; examining the patient; pulse oximetry; ordering and review of studies; arranging urgent treatment with development of a management plan; evaluation of patient's response to treatment; frequent reassessment; and discussions with other providers. It was exclusive of separately billable procedures and treating other patients and teaching time. Please see Assessment and Plan section and the rest of the note for further information on patient assessment and treatment. This dictation may have been done utilizing a voice recognition system. Attempts have been made to correct errors. However, there may be uncorrected grammatical, spelling, and recognitions errors present. Subjective Date/time seen: 03/12/23 11:48 Interval history: Reason for consult: Bradyc
[2023-03-12 12:28] LABS: Glucose Point of Care 106 mg/dl (65-105)
[2023-03-12] MEDS: ONDANSETRON INJ 4 MG/2 ML VIAL IV PUSH (12:49)
--- NOTE | 2023-03-12 12:54 | PC.NURSE ---
Pt to medical lab technician for permanent pacemaker placement, and temporary pacemaker removal. Family at bedside
--- NOTE | 2023-03-12 14:39 | WPDCARDPROC ---
Cardiac Cath Procedure Note Date of procedure:: 03/12/23 Performing physician:: Hari Gray MD Indication:: symptomatic pauses with paroxysmal atrial fibrillation Brief clinical history:: this is a 77-year-old with paroxysmal atrial fib. She is being treated with medication to restore sinus rhythm. She is also having significant symptomatic asystolic pauses which mandated recommendation purpuric cardiac pacing. She also appears to have evidence of bradycardia induced ventricular arrhythmias. Procedure Procedure performed:: Implantation of permanent dual-chamber pacemaker removal of temporary transvenous wire Jocelyn Sedation/Medication given:: fentanyl 50 mg Versed 2 mg case start time 1:30 p.m. case end time 2:25 p.m. sedation provided by Jocelyn Michelle rn, trained observer Access site:: left subclavian vein Estimated blood loss:: 30 cc Procedure note:: patient was brought to the cardiac catheterization lab in postabsorptive state where the left anterior chest wall was prepped and draped in fashion. Anesthesia was provided with 1% lidocaine infiltrated locally inferior to the clavicle. Following this an incision about 1 in below the clavicle from the midclavicular line to the deltopectoral groove and using sharp and blunt dissection the subcutaneous fat was dissected down to the level of the prepectoral fascia. A electrocautery was used to provide cutaneous hemostasis. Using blunt dissection a pacemaker pocket was created inferior to the incision. After this attention was turned to venous access. Using the supplied 6 Italian pacemaker sheath SafeSheath kits the subclavian vein was punctured twice and 2 J tipped guidewires were placed into the venous circulation down under fluoroscopic visualization to the level of the right atrium. After this the 6 Italian safe sheaths were placed disease circulation and used to introduce the permanent pacemaker leads they were advanced under fluoroscopic visualization to the RA level. Attention was then turned to the ventricular lead. The stylet was withdrawn and a 3 cc syringe was used to fashion a J-tip stylet which was used to steer the lead through the right ventricle out to the pulmonary artery position. A straight stylette was used and the lead was then withdrawn into the RV apical position. Appropriate pacing threshold was not found in that location. The lead was then repositioned into the mid septal position. Good pacing and sensing performance was de found in this location. The fixation screw was then deployed and the lead stylet was withdrawn. The lead was tested using the analyzer with good pacing and sensing performance and a 10 pole similar showed no evidence of extracardiac stimulation. Attention was then turned to positioning the atrial lead. The straight stylet was withdrawn and a preformed atrial J was placed into the lead. It was maneuvered into the right atrial appendage position. At this point the fixation screw was deployed upon withdrawal of the stylet the lead was fixed into position. It was then tested using the analyzer with good pacing and sensing performance of being demonstrated. Again a 10 volt stimulus showed no evidence of extracardiac stimulation. Following this the leads were secured to the base of the pocket using the suture sleeves and 2-0 silk ties. The retained sponge was removed from the pocket pocket was irrigated with Ancef infused saline. The pacemaker generator was then connected to the leads using the torque wrench and the entire assembly was placed into the newly created pocket. This was then closed in layers using 3-0 Vicryl interrupted fashion with the subcutaneous tissue and then 4-0 Vicryl in a running subcuticular fashion for the skin. The dressed with an Aquacel dressing she was taken back to her room in the ICU post implant recovery. Following implantation of the device in the outside laborer the temporary pacemaker lead was withdrawn f
--- NOTE | 2023-03-12 15:05 | PC.NURSE ---
Pt returned from labor relations analyst post pacemaker insertion. No issues noted
[2023-03-12] MEDS: SODIUM CHLORIDE 0.9% IV 1,000 ML 50 ML IV CONT (15:26)
[2023-03-12 17:01] LABS: Glucose Point of Care 110 mg/dl (65-105)
[2023-03-12] MEDS: ceFAZolin 2 GM/D5W 50 ML 2 GM/50 ML BAG IVPB (20:13)
[2023-03-12] MEDS: SERTRALINE HCL 50 MG TABLET 100 MG PO (20:13)
[2023-03-12] MEDS: ARIPiprazole 10 MG TABLET PO (20:14)
[2023-03-12 20:26] LABS: Glucose Point of Care 129 mg/dl (65-105)
[2023-03-12 21:19] LABS: Appearance Urine Cloudy (Clear); Bilirubin Urine Negative (Negative); Blood Urine 2+ (Negative); Color Urine Yellow (Yellow); Glucose Urine UA Negative (Negative); Ketones Urine Negative (Negative); Leukocyte Esterase Ur 2+ LEU/UL (Negative); Nitrate Urine Positive (Negative); Protein Urine 1+ mg/dL (Negative); Specific Grav Ur 1.015 (1.001-1.035); pH Urine 8.5 (5.0-9.0)
[2023-03-12 21:29] LABS: Bacteria Urine 4+ /hpf; Need Manual Microscopic Reviewed; Non Pathogenic Casts >20; RBC Urine 51-100 /hpf (0-2); Squamous Epithelial Cell Urine Occasional /hpf (Few); WBC Urine >100 /hpf
[2023-03-12 21:32] LABS: Add Urine Microscopic? YES
[2023-03-13] VITALS (19 sets, daily range): BP systolic 107–142; BP diastolic 46–64; PULSE 60–71; RESP 13–21; TEMP 37.7–38.1; O2SAT 93–97
[2023-03-13] MEDS: oxyCODONE HCL (*CRX) 5 MG TAB IR PO ×2 (03:05→17:55)
[2023-03-13] MEDS: ceFAZolin 2 GM/D5W 50 ML 2 GM/50 ML BAG IVPB (03:07)
[2023-03-13 04:29] LABS: Basophils Percent Auto 0.5 % (0.2-1.2); Eosinophils Absolute Auto 0.3 K/mm3 (0-0.3); Eosinophils Percent Auto 3.6 % (0-4.4); Hematocrit 36.9 % (37.0-47.0); Hemoglobin 11.8 g/dL (12.0-15.0); Immature Granulocyte Absolute 0.05 K/mm3 (0.00-0.031); Immature Granulocyte Percent A 0.6 % (0-0.5); Lymphocytes Percent Auto 12.7 % (18.3-44.2); Mean Corpuscular Hemoglobin 31.7 pg (26-34); Mean Corpuscular Volume 99.2 fl (80-100); Mean Platelet Volume 9.3 fl (7.4-10.4); Monocytes Absolute Auto 0.5 K/mm3 (0.1-0.6); Monocytes Percent Auto 5.9 % (2.6-8.5); Neutrophils Absolute Auto 6.7 K/mm3 (1.3-6.7); Neutrophils Percent Auto 76.7 % (45.5-73.1); Platelet Count Result 221 k/mm3 (150-375); Red Blood Count 3.72 M/mm3 (4.2-5.4); Red Cell Distribution Width 13.5 % (11.5-14.5); White Blood Count 8.7 K/mm3 (4.5-10.0)
[2023-03-13 04:40] LABS: Alanine Aminotransferase 20 U/L (6-35); Alkaline Phosphatase 64 U/L (38-126); Anion Gap 2 mmol/L (8-16); Aspartate Amino Transferase 31 U/L (14-36); Bilirubin,Total 0.5 mg/dL (0.2-1.3); Blood Urea Nitrogen 13 mg/dL (7-17); Calcium 8.3 mg/dL (8.4-10.2); Carbon Dioxide 28 mmol/L (22-30); Chloride 104 mmol/L (98-107); Estimated CRCL calculation 47 ml/min; Estimated Glomerular Filt Rate 54; Glucose 105 mg/dL (65-110); Magnesium 1.8 mg/dL (1.6-2.3); Potassium 3.9 mmol/L (3.4-5.0); Sodium 134 mmol/L (137-145)
[2023-03-13] MEDS: LEVOTHYROXINE SODIUM 25 MCG TABLET PO (05:37)
[2023-03-13] MEDS: IPRATROPIUM BR 0.02% INH SOLN 0.5 MG/2.5 ML VIAL INHALATION ×3 (07:31→20:10)
[2023-03-13] MEDS: ALBUTEROL SULFATE NEB 2.5 MG/3 ML INH INHALATION ×3 (07:31→20:09)
[2023-03-13] MEDS: FLUTICASONE/UMECLIDIN/VILANTER 200-62.5-25 MCG ELLIPTA 1 PUFF INHALATION ×2 (07:31)
--- NOTE | 2023-03-13 08:06 | PM.PNCARD ---
Progress Note: A&P Assessment and Plan (1) Paroxysmal atrial flutter: Code(s): I48.92 - Unspecified atrial flutter Status: Acute Assessment and Plan: [id number] 4. On Eliquis. On Flecainide and was on Diltiazem. Was direct admit for symptomatic atrial flutter to be scheduled for ESTRELLA/DC cardioversion today. However, late last night after receiving Metoprolol Tartate 25 mg and home morphine her HR dropped to 30's bpm and SBP 65 mmHg. Transferred to ICU for Dopamine drip, off Dopamine. Stopped Flecainide and Diltiazem and Metoprolol due to bradycardia. Hold Eliquis and her last dose was 03/07/23 in evening. On Heparin drip for now. 03/08/23 Echo: 60-65%, diastolic dysfunction with E/e' 12, mod biatrial enlargement, mild TR. She is in sinus rhythm now, but was in slow junctional rhythm or ectopic atrial rhythm, and had frequent NSVT. Appreciate Dr. Cody, the household chores's input. HCG following for pacemaker. Transvenous pacer placed on 03/09/[address] Toledo and working well, paced at 60 bpm. No longer having PMVT/VT. Biotronik dual chamber pacemaker implanted on 03/12/[address] Gray for sinus node dysfunction with tachy-guanaco syndrome. Doing well. Hold off on restarting Eliquis unless OK by Dr. Gray to avoid oozing or hematoma in the pacemaker pocket. PT/OT evaluation. Upon discharge she will f/u with Dr. Gray in 1 week for wound check and f/u with me in 3 weeks. (2) Asthma-COPD overlap syndrome: Code(s): J44.9 - Chronic obstructive pulmonary disease, unspecified Status: Acute (3) Type 2 diabetes mellitus: Qualifiers: Diabetes mellitus residential insulin use: without exterminator use Diabetes mellitus complication status: without complication Qualified Code(s): E11.9 - Type 2 diabetes mellitus without complications Code(s): E11.9 - Type 2 diabetes mellitus without complications Status: Chronic Assessment and Plan: Monitor BS. (4) Tachy-guanaco syndrome: Code(s): I49.5 - Sick sinus syndrome Status: Acute (5) UTI (urinary tract infection): Code(s): N39.0 - Urinary tract infection, site not specified Status: Acute Assessment and Plan: Ceftriaxone 1 gm IV daily. Subjective Date/time seen: 03/13/23 08:06 Interval history: No chest pain or sob. Exam Const: General: cooperative, healthy appearing, comfortable and obese Nutritional Appearance: obese Resp: Auscultation: no crackles, no rales, no rhonchi, no wheezes and diminished lung sounds Cardio: Rate: regular rate Rhythm: regular rhythm Heart sounds: no murmurs Peripheral pulses: dorsalis pedis present Extrem: Right lower extremity: no edema Left lower extremity: no edema Objective Data Vital Signs Vital Signs: Vital Signs - 24 hr 03/12/23 10:00 03/12/23 10:00 03/12/23 12:00 Temperature 99.1 F 99.1 F Pulse Rate 61 61 61 Respiratory Rate 17 19 Blood Pressure 141/51 H 157/55 H Pulse Oximetry 97 98 Oxygen Delivery Oxygen Flow Rate 03/12/23 12:00 03/12/23 12:00 03/12/23 15:06 Temperature Pulse Rate 61 70 Respiratory Rate 17 Blood Pressure 162/72 H Pulse Oximetry 96 96 Oxygen Delivery Nasal Cannula Oxygen Flow Rate 2 03/12/23 15:19 03/12/23 16:00 03/12/23 16:20 Temperature 98.8 F 98.6 F 98.8 F Pulse Rate 63 60 62 Respiratory Rate 19 17 21 H Blood Pressure 138/54 L 146/57 H 132/55 L Pulse Oximetry 99 100 100 Oxygen Delivery Oxygen Flow Rate 03/12/23 16:00 03/12/23 16:00 03/12/23 18:00 Temperature Pulse Rate 60 70 Respiratory Rate Blood Pressure Pulse Oximetry 100 Oxygen Delivery Nasal Cannula Oxygen Flow Rate 2 03/12/23 18:00 03/12/23 21:13 03/12/23 21:16 Temperature 99.3 F Pulse Rate 70 62 61 Respiratory Rate 26 H 16 Blood Pressure 125/49 L Pulse Oximetry 97 97 Oxygen Delivery Nasal Cannula Oxygen Flow Rate 2 03/12/23 21:32 03/12/23 20:00 03/12/23 22:00 Purdin
--- NOTE | 2023-03-13 08:33 | PCOTNOTE ---
Pt. currently on Bedrest. Will see pt when appropriate.
[2023-03-13] MEDS: CHOLECALCIFEROL 1,000 UNITS TABLET 2000 UNITS PO (10:00)
[2023-03-13] MEDS: TOPIRAMATE 25 MG TABLET PO ×2 (10:00→20:18)
--- NOTE | 2023-03-13 11:51 | WPDINTPN ---
Progress Note: A&P Assessment and Plan (1) Bradycardia: Code(s): R00.1 - Bradycardia, unspecified Status: Acute Assessment and Plan: Patient has history of paroxysmal atrial flutter presented with RVR and was given dose of flecainide and p.o. metoprolol which led to bradycardia and hypotension -03/09: Patient seen in the V-tach/torsades. -patient remains bradycardic, -03/09: cardiology evaluated the patient and placed a temporary pacemaker via the right IJ, setting 60 beats per minute -dopamine was turned off -03/12: Dual-chamber permanent pacemaker placement -cardiology follow 03/13: CXR - Possible COPD. No acute consolidation or definite pleural effusion. No pneumothorax.? Cardiomediastinal silhouette is stable, with pacemaker in place. Bones and soft tissues are unremarkable. -03/08/2023 echocardiogram: Showed normal LV chamber dimension, EF 60-65%, LV diastolic function is abnormal, left atrial chamber is moderately enlarged, right atrial chamber is moderately enlarged, mild tricuspid valve regurg, no pulmonary hypertension (2) Paroxysmal atrial flutter: Code(s): I48.92 - Unspecified atrial flutter Status: Acute Assessment and Plan: See above (3) Congestive heart failure: Code(s): I50.9 - Heart failure, unspecified Status: Acute Assessment and Plan: Patient has bibasilar crackles and mild edema on exam Echocardiogram as above Off IV fluids (4) Shock: Code(s): R57.9 - Shock, unspecified Status: Acute Assessment and Plan: RESOLVED Shock likely secondary to bradycardia and medication Beta-daxa is on hold (5) Type 2 diabetes mellitus: Qualifiers: Diabetes mellitus assisted insulin use: without assisted use Diabetes mellitus complication status: without complication Qualified Code(s): E11.9 - Type 2 diabetes mellitus without complications Code(s): E11.9 - Type 2 diabetes mellitus without complications Status: Chronic Assessment and Plan: Sliding scale insulin (6) Acute kidney injury: Code(s): N17.9 - Acute kidney failure, unspecified Status: Resolved Assessment and Plan: Patient's creatinine on admission was 1.5. Last recorded creatinine from last year was 0.9 Patient does have history of chronic kidney disease but episode of hypotension and bradycardia could lead to JEFFERSON Continue to monitor urine output, electrolytes and renal function -03/08/2023 renal ultrasound showed normal kidney size, no hydronephrosis -CK levels within normal limits -creatinine has normalized Plan DVT prophylaxis -SCDs Nutrition -diabetic diet, supplements with Glucerna, currently NPO for pacemaker procedure Code Status - Full Code Total Critical Care Time - 31 minutes Discussed with krystal Matos to transfer out of the ICU Due to a high probability of clinically significant, life threatening deterioration, the patient required my highest level of preparedness to intervene emergently and I personally spent this critical care time directly and personally managing the patient. This critical care time included obtaining a history; examining the patient; pulse oximetry; ordering and review of studies; arranging urgent treatment with development of a management plan; evaluation of patient's response to treatment; frequent reassessment; and discussions with other providers. It was exclusive of separately billable procedures and treating other patients and teaching time. Please see Assessment and Plan section and the rest of the note for further information on patient assessment and treatment. This dictation may have been done utilizing a voice recognition system. Attempts have been made to correct errors. However, there may be uncorrected grammatical, spelling, and recognitions errors present. Subjective Date/time seen: 03/13/23 11:51 Interval history: Reason for consult: Bradycardia, hypotension/shock, a
[2023-03-13 11:55] LABS: Glucose Point of Care 124 mg/dl (65-105)
[2023-03-13] MEDS: SERTRALINE HCL 50 MG TABLET 100 MG PO (20:15)
[2023-03-13] MEDS: ARIPiprazole 10 MG TABLET PO (20:18)
[2023-03-13 20:32] LABS: Glucose Point of Care 143 mg/dl (65-105)
[2023-03-14] VITALS (18 sets, daily range): BP systolic 112–140; BP diastolic 47–60; PULSE 60–74; RESP 15–18; TEMP 36.1–37.8; O2SAT 94–98
[2023-03-14 01:48] LABS: Pneumococcal Antigen Urine Not Detected (Not Detected)
--- NOTE | 2023-03-14 02:45 | PC.NURSE ---
Transfered to room 309 from ICU8, belongings present. Tele applied per orders.
[2023-03-14] MEDS: oxyCODONE HCL (*CRX) 5 MG TAB IR PO (06:14)
[2023-03-14 06:43] LABS: Alanine Aminotransferase 20 U/L (6-35); Albumin Level 3.2 g/dL (3.5-5.1); Alkaline Phosphatase 64 U/L (38-126); Anion Gap 1 mmol/L (8-16); Aspartate Amino Transferase 32 U/L (14-36); Bilirubin,Total 0.6 mg/dL (0.2-1.3); Blood Urea Nitrogen 15 mg/dL (7-17); Calcium 8.7 mg/dL (8.4-10.2); Carbon Dioxide 29 mmol/L (22-30); Chloride 101 mmol/L (98-107); Estimated CRCL calculation 46 ml/min; Estimated Glomerular Filt Rate 54; Glucose 100 mg/dL (65-110); Magnesium 1.9 mg/dL (1.6-2.3); Phosphorus 3.9 mg/dL (2.5-4.5); Sodium 131 mmol/L (137-145)
[2023-03-14 06:52] LABS: Basophils Absolute Auto 0.1 K/mm3 (0.0-0.1); Basophils Percent Auto 0.6 % (0.2-1.2); Eosinophils Absolute Auto 0.3 K/mm3 (0-0.3); Eosinophils Percent Auto 3.7 % (0-4.4); Hematocrit 38.8 % (37.0-47.0); Hemoglobin 12.4 g/dL (12.0-15.0); Immature Granulocyte Absolute 0.07 K/mm3 (0.00-0.031); Immature Granulocyte Percent A 0.8 % (0-0.5); Lymphocytes Absolute Auto 1.19 K/mm3 (0.9-3.2); Lymphocytes Percent Auto 13.9 % (18.3-44.2); Mean Corpuscular Hemoglobin 31.3 pg (26-34); Mean Platelet Volume 9.6 fl (7.4-10.4); Monocytes Absolute Auto 0.5 K/mm3 (0.1-0.6); Monocytes Percent Auto 6.3 % (2.6-8.5); Neutrophils Absolute Auto 6.4 K/mm3 (1.3-6.7); Neutrophils Percent Auto 74.7 % (45.5-73.1); Platelet Count Result 218 k/mm3 (150-375); Red Blood Count 3.96 M/mm3 (4.2-5.4); Red Cell Distribution Width 13.4 % (11.5-14.5); White Blood Count 8.6 K/mm3 (4.5-10.0)
[2023-03-14 07:33] LABS: Glucose Point of Care 105 mg/dl (65-105)
--- NOTE | 2023-03-14 07:58 | PM.PNCARD ---
Progress Note: A&P Assessment and Plan (1) Paroxysmal atrial flutter: Code(s): I48.92 - Unspecified atrial flutter Status: Acute Assessment and Plan: [id number] 4. On Eliquis. On Flecainide and was on Diltiazem. Was direct admit for symptomatic atrial flutter to be scheduled for ESTRELLA/DC cardioversion today. However, late last night after receiving Metoprolol Tartate 25 mg and home morphine her HR dropped to 30's bpm and SBP 65 mmHg. Transferred to ICU for Dopamine drip, off Dopamine. Stopped Flecainide and Diltiazem and Metoprolol due to bradycardia. Hold Eliquis and her last dose was 03/07/23 in evening. On Heparin drip for now. 03/08/23 Echo: 60-65%, diastolic dysfunction with E/e' 12, mod biatrial enlargement, mild TR. She is in sinus rhythm now, but was in slow junctional rhythm or ectopic atrial rhythm, and had frequent NSVT. Appreciate Dr. Cody, the seam stay stitcher's input. HCG following for pacemaker. Transvenous pacer placed on 03/09/[address] Toledo and working well, paced at 60 bpm. No longer having PMVT/VT. Biotronik dual chamber pacemaker implanted on 03/12/[address] Gray for sinus node dysfunction with tachy-guanaco syndrome. Doing well. Hold off on restarting Eliquis unless OK by Dr. Gray to avoid oozing or hematoma in the pacemaker pocket. PT/OT evaluation. Obtain hospitalist consult for medical management of UTI/DM/COPD/etc as patient is transferred out of ICU and was managed by seam stay stitcher. Upon discharge she will f/u with Dr. Gray in 1 week for wound check and f/u with me in 3 weeks. (2) Asthma-COPD overlap syndrome: Code(s): J44.9 - Chronic obstructive pulmonary disease, unspecified Status: Acute (3) Type 2 diabetes mellitus: Qualifiers: Diabetes mellitus prison insulin use: without prison use Diabetes mellitus complication status: without complication Qualified Code(s): E11.9 - Type 2 diabetes mellitus without complications Code(s): E11.9 - Type 2 diabetes mellitus without complications Status: Chronic Assessment and Plan: Monitor BS. (4) Tachy-guanaco syndrome: Code(s): I49.5 - Sick sinus syndrome Status: Acute (5) UTI (urinary tract infection): Code(s): N39.0 - Urinary tract infection, site not specified Status: Acute Assessment and Plan: Ceftriaxone 1 gm IV daily. Subjective Date/time seen: 03/14/23 07:58 Interval history: No chest pain or sob. Exam Const: General: cooperative, healthy appearing, comfortable and obese Nutritional Appearance: obese Resp: Auscultation: no crackles, no rales, no rhonchi, wheezes and diminished lung sounds Cardio: Rate: regular rate Rhythm: regular rhythm Heart sounds: no murmurs Peripheral pulses: dorsalis pedis present Extrem: Right lower extremity: no edema Left lower extremity: no edema Objective Data Vital Signs Vital Signs: Vital Signs - 24 hr 03/13/23 08:00 03/13/23 08:00 03/13/23 08:00 Temperature 100 F H Pulse Rate 68 68 68 Respiratory Rate 15 15 Blood Pressure 137/53 L Pulse Oximetry 94 94 Oxygen Delivery Nasal Cannula Oxygen Flow Rate 1 Fraction of Inspired Oxygen 28 03/13/23 10:00 03/13/23 10:00 03/13/23 12:00 Temperature Pulse Rate 60 60 62 Respiratory Rate 19 Blood Pressure 114/46 L Pulse Oximetry 95 Oxygen Delivery Oxygen Flow Rate Fraction of Inspired Oxygen 03/13/23 12:00 03/13/23 13:15 03/13/23 13:25 Temperature 100.3 F H Pulse Rate 67 60 65 Respiratory Rate 18 16 18 Blood Pressure 118/53 L Pulse Oximetry 94 Oxygen Delivery Oxygen Flow Rate Fraction of Inspired Oxygen 03/13/23 14:00 03/13/23 15:27 03/13/23 16:00 Temperature Pulse Rate 66 71 Respiratory Rate Blood Pressure Pulse Oximetry Oxygen Delivery Nasal Cannula Oxygen Flow Rate 1 Fraction of Inspired Oxygen 03/13/23 16:00 03/13/23 18:00 03/13/23 20:10 Temperature
[2023-03-14] MEDS: IPRATROPIUM BR 0.02% INH SOLN 0.5 MG/2.5 ML VIAL INHALATION ×3 (08:06→20:49)
[2023-03-14] MEDS: ALBUTEROL SULFATE NEB 2.5 MG/3 ML INH INHALATION ×3 (08:06→20:49)
[2023-03-14] MEDS: LEVOTHYROXINE SODIUM 25 MCG TABLET PO (09:45)
[2023-03-14] MEDS: TOPIRAMATE 25 MG TABLET PO ×2 (09:45→20:23)
[2023-03-14] MEDS: CHOLECALCIFEROL 1,000 UNITS TABLET 2000 UNITS PO (09:46)
--- NOTE | 2023-03-14 09:47 | PCNWS ---
Weekly nutritional screen. Patient is tolerating current Heart Healthy, Diabetic COnsistent carb diet with adequate intake, 50-90%. No weight loss reported. No nutritional needs at this time.
[2023-03-14 11:54] LABS: Glucose Point of Care 133 mg/dl (65-105)
--- NOTE | 2023-03-14 13:09 | PM.IMCN ---
HPI Data of Consult Consult date: 03/14/23 Requesting Physician: Anthony Castellano DO Primary Care Provider: Day Henry MD Consult Narrative Narrative: Lili Sanchez is a 77 year old female [facility] Past Medical History Medical History Anxiety Asthma-COPD overlap syndrome Chest pain Chronic anticoagulation Chronic low back pain with sciatica Chronic renal insufficiency, stage III (moderate) Chronic respiratory failure with hypoxia, on home oxygen therapy Depression Fibromyalgia History of pulmonary embolism (2006) Hypothyroidism Migraine Mixed hyperlipidemia Paroxysmal atrial fibrillation Type 2 diabetes mellitus Vitamin D deficiency Surgical History Surgical History History of appendectomy History of benign breast biopsy History of hysterectomy with oophorectomy History of lumbar surgery History of open reduction and internal fixation (ORIF) procedure (02/2021) Left ankle trimalleolar fracture. Family History Family History Father COPD (chronic obstructive pulmonary disease) Mother Acute myocardial infarction COPD (chronic obstructive pulmonary disease) Hypertension Sibling CHF (congestive heart failure) Brother DVT (deep venous thrombosis) 1 Sister Diabetes mellitus 1 Sister Breast cancer 2 sisters Hypertension Other Carcinoma of colon Family history of alcoholism Social History Social History Social History: She is and lives alone. She has 2 children. Her nephew lives with her. She has a small dog. 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 She smoked 1-2 packs of cigarettes per day for 60 years, has quit intermittently, resumed smoking approximately 1 year ago but stopped 1 week ago when she got sick. She denies any alcohol or illicit substance use. Smoking packs per day: 1.5 Smoking cigarettes per day: 30.0 Years smoked: 50 Smoking pack-years: 75.00 Smoking status: Former smoker Tobacco type: cigarettes Second hand tobacco smoke exposure: No Smoking end date: 09/04/22 Alcohol intake: never Substance use: never Substance use type: does not use Lack of Transportation: No Lack of Food: Never True Current Housing: I Have Housing Concerned About Future Housing: No Difficulty Paying Gas/Electric Bills: No Difficulty Paying for Meds: No Currently Unemployed: No Education: Associate Degree Difficulty w/ Childcare or Family Care: No Living arrangements: with family Occupation/Education: retired Gender identity (if verbalized by the patient): Female Sexual Orientation (if Verbalized by the Patient): Straight or Heterosexual Spiritual care concerns: No Agree to blood products: Yes Meds Home Medications and Allergies Home Medications Medication Instructions Recorded Confirmed Type albuterol sulfate 90 mcg/actuation 2 inh inhalation QID PRN Shortness 01/25/22 03/07/23 Rx aerosol inhaler Of Breath #25.5 grams duloxetine 60 mg capsule,delayed 60 mg PO DAILY 05/23/22 03/07/23 History release sertraline 100 mg tablet 100 mg PO HS #30 tabs 08/01/22 03/07/23 Rx glimepiride 1 mg tablet 1 mg PO DAILY #90 tabs 08/07/22 03/07/23 Rx aripiprazole 10 mg tablet 10 mg PO HS #30 tabs 12/18/22 03/07/23 Rx fluticasone fur. 200 mcg-umeclid 1 inh inhalation DAILY #60 ea 01/03/23 03/07/23 Rx 62.5 mcg-vilant 25 mcg inhalat.powder levothyroxine 25 mcg tablet 25 mcg PO 0600 #90 tabs 01/23/23 03/07/23 Rx cholecalciferol (vitamin D3) 50 50 mcg PO DAILY #30 caps 02/06/23 03/07/23 Rx mcg (2,000 unit) capsule diltiazem HCl 240 mg capsule,24 240 mg PO DAILY #30 caps 03/01/23 03/07/23 Rx hr,extended release apixaban 2.5 mg tablet (Eliquis) 2.5 mg PO Q12H 03/07/23 03/07/23 History flecainide 150 mg tablet 150 mg P
[2023-03-14 17:04] LABS: Glucose Point of Care 145 mg/dl (65-105)
[2023-03-14] MEDS: ARIPiprazole 10 MG TABLET PO (20:23)
[2023-03-14] MEDS: SERTRALINE HCL 50 MG TABLET 100 MG PO (20:23)
[2023-03-14 21:27] LABS: Glucose Point of Care 139 mg/dl (65-105)
[2023-03-15] VITALS (15 sets, daily range): BP systolic 118–142; BP diastolic 46–63; PULSE 60–73; RESP 12–18; TEMP 36.2–36.6; O2SAT 96–98
[2023-03-15 01:32] LABS: Legionella pneumophila Ag Ur Not Detected (Not Detected)
[2023-03-15] MEDS: ALBUTEROL SULFATE NEB 2.5 MG/3 ML INH INHALATION ×4 (02:05→19:37)
[2023-03-15] MEDS: IPRATROPIUM BR 0.02% INH SOLN 0.5 MG/2.5 ML VIAL INHALATION ×4 (02:05→19:38)
[2023-03-15] MEDS: LEVOTHYROXINE SODIUM 25 MCG TABLET PO (05:56)
[2023-03-15 06:47] LABS: Anion Gap 3 mmol/L (8-16); Blood Urea Nitrogen 20 mg/dL (7-17); Calcium 8.9 mg/dL (8.4-10.2); Carbon Dioxide 30 mmol/L (22-30); Chloride 105 mmol/L (98-107); Estimated CRCL calculation 46 ml/min; Estimated Glomerular Filt Rate 54; Glucose 114 mg/dL (65-110); Potassium 4.2 mmol/L (3.4-5.0); Sodium 138 mmol/L (137-145)
[2023-03-15] MEDS: FLUTICASONE/UMECLIDIN/VILANTER 200-62.5-25 MCG ELLIPTA 1 PUFF INHALATION (07:18)
[2023-03-15 07:40] LABS: Glucose Point of Care 120 mg/dl (65-105)
--- NOTE | 2023-03-15 08:01 | PM.PNCARD ---
Progress Note: A&P Assessment and Plan (1) Paroxysmal atrial flutter: Code(s): I48.92 - Unspecified atrial flutter Status: Acute Assessment and Plan: [id number] 4. On Eliquis. On Flecainide and was on Diltiazem. Was direct admit for symptomatic atrial flutter to be scheduled for ESTRELLA/DC cardioversion today. However, late last night after receiving Metoprolol Tartate 25 mg and home morphine her HR dropped to 30's bpm and SBP 65 mmHg. Transferred to ICU for Dopamine drip, off Dopamine. Stopped Flecainide and Diltiazem and Metoprolol due to bradycardia. Hold Eliquis and her last dose was 03/07/23 in evening. On Heparin drip for now. 03/08/23 Echo: 60-65%, diastolic dysfunction with E/e' 12, mod biatrial enlargement, mild TR. She is in sinus rhythm now, but was in slow junctional rhythm or ectopic atrial rhythm, and had frequent NSVT. Appreciate Dr. Cody, the naval aircrewman avionics's input. HCG following for pacemaker. Transvenous pacer placed on 03/09/[address] Toledo and working well, paced at 60 bpm. No longer having PMVT/VT. Biotronik dual chamber pacemaker implanted on 03/12/[address] Gray for sinus node dysfunction with tachy-guanaco syndrome. Doing well. Hold off on restarting Eliquis unless OK by Dr. Gray to avoid oozing or hematoma in the pacemaker pocket. PT/OT evaluation. Obtain hospitalist consult for medical management of UTI/DM/COPD/etc as patient is transferred out of ICU and was managed by naval aircrewman avionics. Reorder hospitalist consult as patient refused yesterday thinking she would be responsible for a larger bill for out of network providers. Spoke with care coordination and that is not the case. Care coordination will let the patient know. Upon discharge she will f/u with Dr. Gray in 1 week for wound check and f/u with me in 3 weeks. (2) Asthma-COPD overlap syndrome: Code(s): J44.9 - Chronic obstructive pulmonary disease, unspecified Status: Acute (3) Type 2 diabetes mellitus: Qualifiers: Diabetes mellitus intermediate frame tender insulin use: without intermediate frame tender use Diabetes mellitus complication status: without complication Qualified Code(s): E11.9 - Type 2 diabetes mellitus without complications Code(s): E11.9 - Type 2 diabetes mellitus without complications Status: Chronic Assessment and Plan: Monitor BS. (4) Tachy-guanaco syndrome: Code(s): I49.5 - Sick sinus syndrome Status: Acute (5) UTI (urinary tract infection): Code(s): N39.0 - Urinary tract infection, site not specified Status: Acute Assessment and Plan: Ceftriaxone 1 gm IV daily. Subjective Date/time seen: 03/15/23 08:01 Interval history: No chest pain or sob. Exam Const: General: cooperative, healthy appearing, comfortable and obese Nutritional Appearance: obese Resp: Auscultation: no crackles, no rales, no rhonchi, wheezes and diminished lung sounds Cardio: Rate: regular rate Rhythm: regular rhythm Heart sounds: no murmurs Peripheral pulses: dorsalis pedis present Extrem: Right lower extremity: no edema Left lower extremity: no edema Objective Data Vital Signs Vital Signs: Vital Signs - 24 hr 03/14/23 08:04 03/14/23 08:15 03/14/23 08:17 Temperature Pulse Rate 74 72 Respiratory Rate 18 16 Blood Pressure Pulse Oximetry 97 Oxygen Delivery Nasal Cannula Oxygen Flow Rate 2 Fraction of Inspired Oxygen 03/14/23 09:45 03/14/23 12:00 03/14/23 12:00 Temperature 98.4 F Pulse Rate 64 67 Respiratory Rate 18 Blood Pressure 116/54 L Pulse Oximetry 97 Oxygen Delivery Nasal Cannula Oxygen Flow Rate 1 Fraction of Inspired Oxygen 03/14/23 09:45 03/14/23 14:25 03/14/23 14:38 Temperature Pulse Rate 71 69 Respiratory Rate 18 18 Blood Pressure Pulse Oximetry 94 Oxygen Delivery Nasal Cannula Oxygen Flow Rate 1 Fraction of Inspired Oxygen 03/14/23 16:00 03/14/23 16:00 03/14/23 20:00 Temperature 9
[2023-03-15] MEDS: CHOLECALCIFEROL 1,000 UNITS TABLET 2000 UNITS PO (09:34)
[2023-03-15] MEDS: TOPIRAMATE 25 MG TABLET PO ×2 (09:36→21:13)
[2023-03-15 12:02] LABS: Glucose Point of Care 182 mg/dl (65-105)
--- NOTE | 2023-03-15 13:14 | PM.IMCN ---
Assessment and Plan Assessment and plan (1) Paroxysmal atrial fibrillation: Code(s): I48.0 - Paroxysmal atrial fibrillation Status: Acute Assessment and Plan: As per cardiology note [id number] 4. On Eliquis. On Flecainide and was on Diltiazem. Was direct admit for symptomatic atrial flutter to be scheduled for ESTRELLA/DC cardioversion today. However, late last night after receiving Metoprolol Tartate 25 mg and home morphine her HR dropped to 30's bpm and SBP 65 mmHg. Transferred to ICU for Dopamine drip, off Dopamine. Stopped Flecainide and Diltiazem and Metoprolol due to bradycardia. Hold Eliquis and her last dose was 03/07/23 in evening. On Heparin drip for now. 03/08/23 Echo: 60-65%, diastolic dysfunction with E/e' 12, mod biatrial enlargement, mild TR. She is in sinus rhythm now, but was in slow junctional rhythm or ectopic atrial rhythm, and had frequent NSVT. Appreciate Dr. Cody, the fare enforcement officer's input. HCG following for pacemaker. Transvenous pacer placed on 03/09/[address] Toledo and working well, paced at 60 bpm. No longer having PMVT/VT. Biotronik dual chamber pacemaker implanted on 03/12/[address] Gray for sinus node dysfunction with tachy-guanaco syndrome. Doing well. Hold off on restarting Eliquis unless OK by Dr. Gray to avoid oozing or hematoma in the pacemaker pocket. PT/OT evaluation.Upon discharge she will f/u with Dr. Gray in 1 week for wound check and f/u with me in 3 weeks. The patient was up in the chair with physical therapy and occupational therapy. The patient has director career services on her case and will be discharged to [facility] facility today. (2) Asthma-COPD overlap syndrome: Code(s): J44.9 - Chronic obstructive pulmonary disease, unspecified Status: Acute Assessment and Plan: THE PATIENT MAY RESUME HER HOME INHALER. (3) Type 2 diabetes mellitus: Qualifiers: Diabetes mellitus parts counterman insulin use: without prison use Diabetes mellitus complication status: without complication Qualified Code(s): E11.9 - Type 2 diabetes mellitus without complications Code(s): E11.9 - Type 2 diabetes mellitus without complications Status: Chronic Assessment and Plan: THE PATIENT MAY RESUME HER GLIMEPIRIDE (4) Tachy-guanaco syndrome: Code(s): I49.5 - Sick sinus syndrome Status: Acute Assessment and Plan: THE PATIENT HAD A PACEMAKER INSERTED. INSTRUCTIONS PER CARDIOLOGY. (5) UTI (urinary tract infection): Code(s): N39.0 - Urinary tract infection, site not specified Status: Acute Assessment and Plan: THE PATIENT HAD 3 DOSES OF ROCEPHIN. URINE CULTURE SHOWS STAPHYLOCOCCUS AUREUS WHICH MOST LIKELY IS A CONTAMINANT. HOWEVER JUST TO COVER POSSIBLE INFECTION I WILL SEND A PRESCRIPTION FOR CIPRO 500 P.O. B.I.D. FOR THE NEXT 3 DAYS. Plan THANK YOU FOR ALLOWING US TO CONSULT ON THIS PLEASANT LADY. PLEASE CONTINUE WITH HER HOME DIABETES ASTHMA AND UTI MEDICATIONS. HPI Data of Consult Consult date: 03/15/23 Requesting Physician: Anthony Castellano DO Primary Care Provider: Day Henry MD Consult Narrative Narrative: Lili Sanchez is a 77 year old female who has had a very extensive hospital stay. This patient was a direct admit on 03/07/2023. She arrived from her primary care doctor's office due to shortness of breath rapid atrial flutter. She does have history of atrial flutter, diabetes dyslipidemia COPD and bilateral pulmonary embolism alert she is chronically anticoagulated with Eliquis. The patient was short of breath and could only walk minimal distances. On 03/07/2023 the patient had a heart rate dipped down into the 30s after receiving metoprolol and morphine. The patient had been transferred to ICU and was placed on a dopamine drip her heart rate remained in the 40s and her blood pressure did improve. Patient's diltiazem, flecainide and metoprolol were stopped. Patient had an echo on
[2023-03-15] MEDS: oxyCODONE HCL (*CRX) 5 MG TAB IR PO ×2 (15:33→21:13)
--- NOTE | 2023-03-15 16:03 | PM.DS ---
DS: Admitting Diagnosis Discharge Date 03/15/23 Admitting Diagnosis Symptomatic rapid atrial flutter DS: Discharge Diagnosis Discharge Diagnosis Plan Sick sinus sydrome with tachy-guanaco syndrome- Biotronik dual chamber pacemaker implanted by Dr. Gray on 03/12/23. F/U with Dr. Gray in 1 week for wound check. F/U with om 3 weeks. DS: Summary Hospital Course Reason for hospitalization: Symptomatic rapid atrial fibrillation Hospital Course: 77 yr old woman was directly admitted to have ESTRELLA/DC cardioversion the following morning. However she developed significant bradycardia overnight and had to be transferred to ICU for dopamine drip to maintain HR and BP. Professor Of Historical Theology was consulted for medical management. She was on Eliquis for atrial fib and had to be held and heparin drip started. Dr. Toledo was consulted for temporary transvenous pacemaker and was placed on second day of hospitalization as patient was having bradycardia induced ventricular arrhythmias. After pacemaker placed no long having arrhythmias including PAF or VT. Dr. Gray placed Biotronik dual chamber pacemaker on 03/12/23 and temporary removed. She had burdick catheter and developed a UTI. She felt weak and PT/OT evaluated her. [facility] Hospitalist was consulted for medical management of UTI/COPD/DM etc. She needs rehab [facility] Status at Discharge Functional status at discharge: wheelchair bound Overall status at discharge: patient is not back to baseline Time Spent with Patient Time attestation: Total time spent providing and/or coordinating discharge services: Time spent: Less than 30 minutes DS: Data Data Completed and Pending Labs on day of discharge: Labs from last 24 hours 03/15/23 03/15/23 03/15/23 11:58 07:28 06:22 Sodium 138 Potassium 4.2 Chloride 105 Carbon Dioxide 30 Anion Gap 3 L BUN 20 H Creatinine 1.00 Estim Creat Clear Calc 46 Estimated GFR 54 L Glucose 114 H POC Capillary Glucose 182 H 120 H Calcium 8.9 Ur L.pneumophila Ag 03/14/23 03/14/23 03/09/23 20:16 16:54 21:37 Sodium Potassium Chloride Carbon Dioxide Anion Gap BUN Creatinine Estim Creat Clear Calc Estimated GFR Glucose POC Capillary Glucose 139 H 145 H Calcium Ur L.pneumophila Ag Not detected Discharge Plan Discharge Attending physician on discharge: Anthony Castellano Consulting providers: Justin Pavon; Vicki Pack; Flor Silva Discharging Clinician: Anthony Castellano Patient Disposition: Inpatient Rehab Facility Activity: as tolerated Diet: diabetic Wound Care Instructions: follow printed instructions and other - see discharge instructions Discharge Instructions: [facility] [address] [place] [address] DISCHARGE INSTRUCTIONS - POST PACEMAKER Activity 1. No driving until you are seen in the office for your incision check. 2. No lifting, pushing or pulling more than 5 pounds with affected arm for 1 MONTH 3. No lifting affected arm above shoulder height for 1 MONTH 4. Wear immobilizer/sling only if you are unable to remember the above activity restrictions. Recommend that it be worn at night. 5. You may shower AFTER you are seen for incision check but no tub baths, swimming pool or hot tub for 1MONTH Wound Care 1. Do not attempt to remove the Aquacel dressing. Leave
[2023-03-15 17:24] LABS: Glucose Point of Care 103 mg/dl (65-105)
[2023-03-15 21:07] LABS: Glucose Point of Care 160 mg/dl (65-105)
[2023-03-15] MEDS: ARIPiprazole 10 MG TABLET PO (21:13)
[2023-03-15] MEDS: SERTRALINE HCL 50 MG TABLET 100 MG PO (21:13)
[2023-03-15] MEDS: CIPROFLOXACIN 500 MG TAB PO (21:13)
[2023-03-16] VITALS (7 sets, daily range): BP systolic 131–142; BP diastolic 50–57; PULSE 57–70; RESP 12–16; TEMP 36.1–36.3; O2SAT 94–100
[2023-03-16] MEDS: LEVOTHYROXINE SODIUM 25 MCG TABLET PO (05:45)
--- NOTE | 2023-03-16 07:43 | PM.PNCARD ---
Progress Note: A&P Assessment and Plan (1) Asthma-COPD overlap syndrome: Code(s): J44.9 - Chronic obstructive pulmonary disease, unspecified Status: Acute (2) Type 2 diabetes mellitus: Qualifiers: Diabetes mellitus buttermaker insulin use: without buttermaker use Diabetes mellitus complication status: without complication Qualified Code(s): E11.9 - Type 2 diabetes mellitus without complications Code(s): E11.9 - Type 2 diabetes mellitus without complications Status: Chronic (3) Tachy-guanaco syndrome: Code(s): I49.5 - Sick sinus syndrome Status: Acute (4) UTI (urinary tract infection): Code(s): N39.0 - Urinary tract infection, site not specified Status: Acute Assessment and Plan: Cipro for 3 days. (5) Paroxysmal atrial flutter: Code(s): I48.92 - Unspecified atrial flutter Status: Acute Assessment and Plan: [id number] 4. On Eliquis. On Flecainide and was on Diltiazem. Was direct admit for symptomatic atrial flutter to be scheduled for ESTRELLA/DC cardioversion today. However, late last night after receiving Metoprolol Tartate 25 mg and home morphine her HR dropped to 30's bpm and SBP 65 mmHg. Transferred to ICU for Dopamine drip, off Dopamine. Stopped Flecainide and Diltiazem and Metoprolol due to bradycardia. Hold Eliquis and her last dose was 03/07/23 in evening. On Heparin drip for now. 03/08/23 Echo: 60-65%, diastolic dysfunction with E/e' 12, mod biatrial enlargement, mild TR. She is in sinus rhythm now, but was in slow junctional rhythm or ectopic atrial rhythm, and had frequent NSVT. Appreciate Dr. Cody, the printing press machine operator's input. HCG following for pacemaker. Transvenous pacer placed on 03/09/[address] Toledo and working well, paced at 60 bpm. No longer having PMVT/VT. Biotronik dual chamber pacemaker implanted on 03/12/[address] Gray for sinus node dysfunction with tachy-guanaco syndrome. Doing well. Hold off on restarting Eliquis unless OK by Dr. Gray to avoid oozing or hematoma in the pacemaker pocket. PT/OT evaluation. Appreciate hospitalist consult for medical management of UTI/DM/COPD/etc as patient is transferred out of ICU and was managed by printing press machine operator. Patient is to be discharged today to [facility] for strengthening. Plan Sick sinus sydrome with tachy-guanaco syndrome- Biotronik dual chamber pacemaker implanted by Dr. Gray on 03/12/23. F/U with Dr. Gray in 1 week for wound check. F/U with me om 3 weeks. Subjective Date/time seen: 03/16/23 07:43 Interval history: No chest pain or sob. Exam Const: General: cooperative, healthy appearing, comfortable and obese Nutritional Appearance: obese Resp: Auscultation: no crackles, no rales, no rhonchi, wheezes and diminished lung sounds Cardio: Rate: regular rate Rhythm: regular rhythm Heart sounds: no murmurs Peripheral pulses: dorsalis pedis present Extrem: Right lower extremity: no edema Left lower extremity: no edema Objective Data Vital Signs Vital Signs: Vital Signs - 24 hr 03/15/23 08:00 03/15/23 08:00 03/15/23 13:12 Temperature 97.8 F Pulse Rate 68 73 61 Respiratory Rate 18 18 Blood Pressure 140/55 L Pulse Oximetry 98 Oxygen Delivery Oxygen Flow Rate Fraction of Inspired Oxygen 03/15/23 13:26 03/15/23 12:00 03/15/23 16:00 Temperature 97.6 F 97.6 F Pulse Rate 63 61 68 Respiratory Rate 18 18 18 Blood Pressure 135/62 118/63 Pulse Oximetry 98 98 Oxygen Delivery Oxygen Flow Rate Fraction of Inspired Oxygen 03/15/23 12:00 03/15/23 16:00 03/15/23 19:38 Temperature Pulse Rate 70 65 65 Respiratory Rate 16 Blood Pressure Pulse Oximetry Oxygen Delivery Oxygen Flow Rate Fraction of Inspired Oxygen 03/15/23 19:42 03/15/23 19:46 03/15/23 20:00 Temperature 97.8 F Pulse Rate 66 65 Respiratory Rate 16 14 Blood Pressure 135/63 Pulse Oximetry 97 96 Oxygen Delivery Nasal
[2023-03-16 07:48] LABS: Glucose Point of Care 110 mg/dl (65-105)
[2023-03-16] MEDS: FLUTICASONE/UMECLIDIN/VILANTER 200-62.5-25 MCG ELLIPTA 1 PUFF INHALATION (07:56)
[2023-03-16] MEDS: CIPROFLOXACIN 500 MG TAB PO (09:33)
[2023-03-16] MEDS: CHOLECALCIFEROL 1,000 UNITS TABLET 2000 UNITS PO (09:34)
[2023-03-16] MEDS: TOPIRAMATE 25 MG TABLET PO (09:34)
[2023-03-16] MEDS: oxyCODONE HCL (*CRX) 5 MG TAB IR PO (09:34)
[2023-03-16 11:38] LABS: Glucose Point of Care 108 mg/dl (65-105)
--- NOTE | 2023-03-16 12:15 | PM.IMPN ---
Progress Note: A&P Assessment and Plan (1) Paroxysmal atrial fibrillation: Code(s): I48.0 - Paroxysmal atrial fibrillation Status: Acute Assessment and Plan: per cardiology (2) Asthma-COPD overlap syndrome: Code(s): J44.9 - Chronic obstructive pulmonary disease, unspecified Status: Acute Assessment and Plan: THE PATIENT MAY RESUME HER HOME INHALER. (3) Type 2 diabetes mellitus: Qualifiers: Diabetes mellitus custodial insulin use: without custodial use Diabetes mellitus complication status: without complication Qualified Code(s): E11.9 - Type 2 diabetes mellitus without complications Code(s): E11.9 - Type 2 diabetes mellitus without complications Status: Chronic Assessment and Plan: THE PATIENT MAY RESUME HER GLIMEPIRIDE (4) Tachy-guanaco syndrome: Code(s): I49.5 - Sick sinus syndrome Status: Acute Assessment and Plan: THE PATIENT HAD A PACEMAKER INSERTED. INSTRUCTIONS PER CARDIOLOGY. (5) UTI (urinary tract infection): Code(s): N39.0 - Urinary tract infection, site not specified Status: Acute Assessment and Plan: THE PATIENT HAD 3 DOSES OF ROCEPHIN. URINE CULTURE SHOWS STAPHYLOCOCCUS AUREUS WHICH MOST LIKELY IS A CONTAMINANT. HOWEVER JUST TO COVER POSSIBLE INFECTION I WILL SEND A PRESCRIPTION FOR CIPRO 500 P.O. B.I.D. FOR THE NEXT 3 DAYS. Plan THANK YOU FOR ALLOWING US TO CONSULT ON THIS PLEASANT LADY. PLEASE CONTINUE WITH HER HOME DIABETES ASTHMA AND UTI MEDICATIONS. Subjective Date/time seen: 03/16/23 12:15 Interval history: No complaints Exam Narrative: General: Pt is alert awake and in NAD, Lungs/Chest: Trachea central Clear BS B/L, bibasilar crackles, no respiratory distress use of accessory muscles or tachypnea. No wheezing Cardiac: Paced rhythm, left-sided permanent pacemaker Circulation: Pedal pulses are intact and symmetrical. Abdomen: Normal bowel sounds. Obese. Soft. NT. ND. Extremities: No clubbing, cyanosis mild pitting edema : Kirby in place Neurologic: Follows commands. Moves all 4 extremities PERRL AO x2 Skin: No Rash Psych: Flat affect, normal speech Objective Data Vital Signs Vital Signs: Vital Signs - 24 hr 03/15/23 13:12 03/15/23 13:26 03/15/23 16:00 Temperature 97.6 F Pulse Rate 61 63 68 Respiratory Rate 18 18 18 Blood Pressure 118/63 Pulse Oximetry 98 Oxygen Delivery Oxygen Flow Rate Fraction of Inspired Oxygen 03/15/23 16:00 03/15/23 19:38 03/15/23 19:42 Temperature Pulse Rate 65 65 Respiratory Rate 16 Blood Pressure Pulse Oximetry 97 Oxygen Delivery Nasal Cannula Oxygen Flow Rate 2 Fraction of Inspired Oxygen 28 03/15/23 19:46 03/15/23 20:00 03/15/23 20:00 Temperature 97.8 F Pulse Rate 66 65 65 Respiratory Rate 16 14 14 Blood Pressure 135/63 Pulse Oximetry 96 96 Oxygen Delivery Nasal Cannula Oxygen Flow Rate 1 Fraction of Inspired Oxygen 28 03/15/23 20:00 03/16/23 00:00 03/16/23 00:00 Temperature 97.2 F L Pulse Rate 65 67 70 Respiratory Rate 12 Blood Pressure 142/51 H Pulse Oximetry 100 Oxygen Delivery Oxygen Flow Rate Fraction of Inspired Oxygen 03/16/23 04:00 03/16/23 04:00 03/16/23 07:53 Temperature 97.0 F L Pulse Rate 60 60 Respiratory Rate 14 Blood Pressure 137/52 L Pulse Oximetry 98 98 Oxygen Delivery Nasal Cannula Oxygen Flow Rate 2 Fraction of Inspired Oxygen 03/16/23 08:00 03/16/23 09:34 Temperature 97.3 F L Pulse Rate 61 Respiratory Rate 16 Blood Pressure 139/50 L Pulse Oximetry 96 96 Oxygen Delivery Nasal Cannula Oxygen Flow Rate 1 Fraction of Inspired Oxygen Intake/Output Intake/Output: Intake & Output 03/13/23 03/14/23 03/15/23 03/16/23 23:59 23:59 23:59 23:59 Intake Total 3757 796 8765 220 Output Total 6300 3600 2150 1650 Balance -357 -2890 -390 -0950 Meds/Results Medications: Active Medica
--- NOTE | 2023-03-16 16:44 | PC.NURSE ---
Pt worked with therapy today and tolerated well. Pt has reported pain once during this shift. Pt has bruising around pacemaker with dressing intact. Pt has dressing intact for IJ removal. Pts IV's were removed pt tolerated well. Pt was monitored for any changes during this shift. Pt was transported to [facility] by [facility].
== END 2023-03-16 15:45 | DRG 242 ==
LOC: ANHIMU 19:44 → ANHICU 03-08 01:00 → ANH3MEDSUR 03-14 02:57
PROVIDERS: Internal Medicine; Physician Assistant; Specialist; Admitting Provider Internal Medicine Cardiovascular Disease; PCP Family Medicine; Visit Provider Internal Medicine Cardiovascular Disease
PROC: (CPT 33210; principal; 2023-03-09 08:30)
PROC: 0JH606Z Insertion of Pacemaker, Dual Chamber into Chest Subcutaneous Tissue and Fascia, Open Approach (ICD-10-PCS; CPT 33208; principal; 2023-03-12 12:00)
DX: I48.92 Unspecified atrial flutter (principal); R57.0 Cardiogenic shock; R57.8 Other shock; I13.0 Hypertensive heart and chronic kidney disease with heart failure and stage 1 through stage 4 chronic kidney disease, or unspecified chronic kidney disease; N17.9 Acute kidney failure, unspecified; J96.11 Chronic respiratory failure with hypoxia; N39.0 Urinary tract infection, site not specified; I49.5 Sick sinus syndrome; I47.21 Torsades de pointes; T50.905A Adverse effect of unspecified drugs, medicaments and biological substances, initial encounter; Z20.822 Contact with and (suspected) exposure to COVID-19; R00.1 Bradycardia, unspecified; E11.22 Type 2 diabetes mellitus with diabetic chronic kidney disease; I50.9 Heart failure, unspecified; N18.30 Chronic kidney disease, stage 3 unspecified; I95.9 Hypotension, unspecified; I48.0 Paroxysmal atrial fibrillation; J44.9 Chronic obstructive pulmonary disease, unspecified; E78.5 Hyperlipidemia, unspecified; Z79.01 Long term (current) use of anticoagulants; Z86.711 Personal history of pulmonary embolism; Z87.891 Personal history of nicotine dependence; Z99.81 Dependence on supplemental oxygen; Z90.49 Acquired absence of other specified parts of digestive tract; Z90.710 Acquired absence of both cervix and uterus; Z90.721 Acquired absence of ovaries, unilateral; G30.9 Alzheimer's disease, unspecified; E66.9 Obesity, unspecified; Z68.35 Body mass index [BMI] 35.0-35.9, adult
CPT/HCPCS: 33208; 33210; 36415; 71045; 76775; 80048; 80053; 81001; 82550; 82570; 82948; 83036; 83605; 83735; 84100; 84300; 84443; 85025; 85027; 85610; 85730; 87040; 87077; 87086; 87088; 87186; 87449; 87637; 87899; 93005; 94640; 97110; 97116; 97162; 97165; 97530; 97535; A9270; C1751; C1779; C1785; C1894; C8929; J0360; J0461; J0690; J0696; J1250; J1265; J1644; J1815; J2250; J2405; J3010; J3475; J7030; J7040; J7120; Q9957

== ENCOUNTER 2023-03-24 08:19 | Inpatient (IN) | payer MEDICARE, BC, SELFPAY ==
[2023-03-24] VITALS (21 sets, daily range): BP systolic 103–148; BP diastolic 52–90; PULSE 58–65; RESP 16–29; TEMP 36.3–36.5; O2SAT 92–99; BMI 38.4
--- NOTE | ~2023-03-24 | CT_ITS ---
EXAMINATION: CTA chest PE protocol DATE: 03/24/2023 18:11 INDICATION: Hypoxia TECHNIQUE: Computed tomography angiography (CTA) of the chest was performed with 100 mL Omnipaque-350 intravenous contrast timed to evaluate the pulmonary arteries. Coronal maximum intensity projection 3D-reconstructions were created by the technologist. The dose-length product (DLP) was 920.29 mGy-cm. Automated exposure control and iterative reconstruction technique were employed. COMPARISON: X-ray chest, same date. FINDINGS: Lung parenchyma and airways: Senescent change. Bibasilar scar/atelectasis. Biapical pleural scarring. Pleura: Unremarkable. Thoracic inlet, axillae and chest wall: Unremarkable. Thoracic aorta: No significant dilation. Moderate arch calcification. Mediastinum: No lymphadenopathy or mass. Dilated central pulmonary arteries as can be seen with pulmo nary arterial hypertension. Heart and pericardium: Mild cardiomegaly. Incompletely visualized pacing wires. No pericardial effusi on. Coronary artery calcifications: Mild. Upper abdomen: No significant finding. Bones: No acute osseous finding. Pulmonary arteries: Study quality: Adequate. No pulmonary emboli detected. IMPRESSION: No CT evidence of acute pulmonary embolus. No acute process detected in the chest. Reviewed, dictated and finalized at location K. IMPRESSION: No CT evidence of acute pulmonary embolus. No acute process detected in the [address].
--- NOTE | ~2023-03-24 | XR_ITS ---
XR chest 1V portable 03/24/2023 08:53 Indication: Weakness. Wheeziness. Procedure: AP portable chest Comparison: Comparison to multiple prior studies sequentially, with oldest reviewed study dated 05/2023. Findings: Borderline heart size. Pacemaker leads in expected position. Mild pulmonary vascular conges tion. Small left pleural effusion. Bibasilar atelectasis. Impression: 1: Mild pulmonary vascular congestion with small left pleural effusion. Reviewed, dictated and finalized at location A. Impression: 1: Mild pulmonary vascular congestion with small left pleural effusion.
--- NOTE | 2023-03-24 08:22 | ECG_ITS ---
Measurements Intervals [place] Rate: 60 P: 106 UT: 167 QRS: 88 QRSD: 99 T: 111 QT: 401 QTc: 401 Interpretive Statements ELECTRONIC ATRIAL PACEMAKER DELAYED PRECORDIAL R/S TRANSITION NONSPECIFIC T-WAVE ABNORMALITY ANT/HIGH LAT LEADS BASELINE ARTIFACT- I, II, III, AVR, AVL, AVF,V2-V6 BORDERLINE ECG COMPARED TO ECG 03/11/2023 10:16:29 ATRIAL PACEMAKER NOW PRESENT T-WAVE ABNORMALITY NOW PRESENT Electronically Signed On 03-24-2023 21:48:02 CDT by Anthony Castellano D.O.
--- NOTE | 2023-03-24 08:40 | ED.GENADULT ---
HPI - General Adult General Chief complaint: Weakness Stated complaint: weakness, muscle twitching History of Present Illness HPI narrative: 77-year-old female presented the emergency department for evaluation for increased generalized weakness. Patient was recently admitted to our institution and had a pacemaker placed. Patient was at rehab this morning and had done well on her rehab but then began having increased generalized weakness and tremor. Patient does have history of COPD is normally on 2 L of oxygen by nasal cannula. Upon arrival to the ED patient had coarse lung sounds and was requiring 4 L of oxygen by nasal cannula. Patient did have some baseline tremor. EKG showed a paced rhythm Related Data Home Medications Medication Instructions Recorded Confirmed duloxetine 60 mg capsule,delayed 60 mg PO DAILY 05/23/22 03/16/23 release morphine 15 mg tablet,extended 15 mg PO Q12H 03/07/23 03/16/23 release Allergies Allergy/AdvReac Type Severity Reaction Status Date / Time adhesive tape Allergy Intermediate REDNESS Verified 02/06/23 13:04 Review of Systems Review of Systems: All systems reviewed & are unremarkable except as noted in HPI and below PMFSH Past Medical History Medical History Anxiety Asthma-COPD overlap syndrome Chest pain Chronic anticoagulation Chronic low back pain with sciatica Chronic renal insufficiency, stage III (moderate) Chronic respiratory failure with hypoxia, on home oxygen therapy Depression Fibromyalgia History of pulmonary embolism (2006) Hypothyroidism Migraine Mixed hyperlipidemia Paroxysmal atrial fibrillation Type 2 diabetes mellitus Vitamin D deficiency Surgical History Surgical History History of appendectomy History of benign breast biopsy History of hysterectomy with oophorectomy History of lumbar surgery History of open reduction and internal fixation (ORIF) procedure (02/2021) Left ankle trimalleolar fracture. Family History Family History Father COPD (chronic obstructive pulmonary disease) Family history of alcoholism Mother Acute myocardial infarction COPD (chronic obstructive pulmonary disease) Hypertension Family history of alcoholism Sibling Diabetes mellitus 1 Sister CHF (congestive heart failure) Brother Breast cancer 2 sisters Hypertension COPD (chronic obstructive pulmonary disease) Family history of alcoholism Other Carcinoma of colon Daughter DVT (deep venous thrombosis) Social History Social History (Updated 03/24/23 @ 13:54 by Sisi Chan NP) Social History: She is and typically lives with her nephew. SHe smoked 1-2 packs of cigarettes per day for 60 years, has quit intermittently, resumed smoking approximately 1 year ago but stopped 1 week ago when she got sick. She denies any alcohol or illicit substance use. She is currently at [facility]. Code status full code Smoking packs per day: 1.5 Smoking cigarettes per day: 30.0 Years smoked: 30 Smoking pack-years: 45.00 Smoking status: Current some day smoker Tobacco type: cigarettes Smokeless tobacco user: chewing tobacco Second hand tobacco smoke exposure: No Smoking end date: 11/01/22 Additional smoking assessment comments: smokes occasionally Alcohol intake: never Substance use: current Substance use type: painkillers Last use: unsure Lack of Transportation: No Lack of Food: Never True Current Housing: I Have Housing Concerned About Future Housing: No Difficulty Paying Gas/Electric Bills: No Difficulty Paying for Meds: No Currently Unemployed: No Education: Associate Degree Difficulty w/ Childcare or Family Care: No Living arrangements: with family Occupation/Education: retired Gender identity (i
[2023-03-24] MEDS: ALBUTEROL SULFATE NEB 2.5 MG/3 ML INH INHALATION ×2 (08:42→20:30)
[2023-03-24 08:47] LABS: Alveolar/Arterial O2 Gradient 115.7 mmHg; Base Excess ABG 0.5 mEq/l (+/-2.0); Carboxyhemoglobin 1.2 % THb (0-2.0); Fractional Inspired Oxygen 36 %; HCO3 ABG 27.1 mEq/l (22.0-26.0); Methemoglobin ABG 0.4 %THb (0-1.5); Oxygen Content ABG 18.3 %vol (16.0-22.0); Oxygen Saturation ABG 95.2 % (95.0-100.0); Oxyhemoglobin 94.2 % THb (90.0-100.0); PCO2 ABG 51.5 mmHg (35.0-45.0); PO2 ABG 81.2 mmHg (80.0-100.0); PO2 FiO2 Ratio Arterial Blood 2.26 %; Reduced Hemoglobin 4.2 %THb (0-5.0); Total Hemoglobin 13.8 g/dL (12.0-18.0); pH ABG 7.339 (7.350-7.450)
[2023-03-24 08:48] LABS: Device NASAL CANNULA; Modified Allen's Test Pass; Site Drawn RIGHT RADIAL
[2023-03-24 09:10] LABS: Basophils Absolute Auto 0.1 K/mm3 (0.0-0.1); Basophils Percent Auto 0.3 % (0.2-1.2); Eosinophils Absolute Auto 0.1 K/mm3 (0-0.3); Eosinophils Percent Auto 0.9 % (0-4.4); Hematocrit 41.2 % (37.0-47.0); Hemoglobin 12.9 g/dL (12.0-15.0); Immature Granulocyte Absolute 0.05 K/mm3 (0.00-0.031); Immature Granulocyte Percent A 0.3 % (0-0.5); Lymphocytes Absolute Auto 0.76 K/mm3 (0.9-3.2); Lymphocytes Percent Auto 5.3 % (18.3-44.2); Mean Corpuscular HGB Conc 31.3 g/dl (32-36); Mean Corpuscular Hemoglobin 31.7 pg (26-34); Mean Corpuscular Volume 101.2 fl (80-100); Monocytes Absolute Auto 0.5 K/mm3 (0.1-0.6); Monocytes Percent Auto 3.3 % (2.6-8.5); Neutrophils Percent Auto 89.9 % (45.5-73.1); Platelet Count Result 242 k/mm3 (150-375); Red Blood Count 4.07 M/mm3 (4.2-5.4); Red Cell Distribution Width 13.5 % (11.5-14.5); White Blood Count 14.4 K/mm3 (4.5-10.0)
[2023-03-24 09:21] LABS: Alanine Aminotransferase 30 U/L (6-35); Albumin Level 3.7 g/dL (3.5-5.1); Alkaline Phosphatase 77 U/L (38-126); Anion Gap 7 mmol/L (8-16); Aspartate Amino Transferase 36 U/L (14-36); Bilirubin,Total 0.5 mg/dL (0.2-1.3); Blood Urea Nitrogen 18 mg/dL (7-17); Calcium 9.5 mg/dL (8.4-10.2); Carbon Dioxide 30 mmol/L (22-30); Chloride 102 mmol/L (98-107); Estimated Glomerular Filt Rate 48; Glucose 98 mg/dL (65-110); Potassium 4.4 mmol/L (3.4-5.0); Sodium 139 mmol/L (137-145)
[2023-03-24 09:32] LABS: NT Pro B Type Natriuretic Pept 813 pg/mL (19.9-100)
[2023-03-24 09:33] LABS: Appearance Urine Clear (Clear); Bacteria Urine None Seen /hpf; Bilirubin Urine Negative (Negative); Blood Urine Negative (Negative); Calcium Oxalate Crystals Urine Present /hpf; Color Urine Dark Yellow (Yellow); Glucose Urine UA Negative (Negative); Ketones Urine Trace mg/dL (Negative); Leukocyte Esterase Ur Trace LEU/UL (Negative); Mucus Urine Present /lpf; Nitrate Urine Negative (Negative); Protein Urine Trace mg/dL (Negative); RBC Urine 0-2 /hpf (0-2); Specific Grav Ur 1.018 (1.001-1.035); Squamous Epithelial Cell Urine Occasional /hpf (Few); Urobilinogen Urine 0.2 mg/dL (<2.0); WBC Urine 0-5 /hpf; pH Urine 5.5 (5.0-9.0)
[2023-03-24 09:42] LABS: Add Urine Microscopic? YES
[2023-03-24] MEDS: FUROSEMIDE INJ 40 MG/4 ML VIAL IV PUSH ×2 (10:18→20:24)
[2023-03-24] MEDS: AZITHROMYCIN 500 MG/NS 250 ML 500 MG/250 ML BAG 250 MG IVPB (10:55)
--- NOTE | 2023-03-24 11:42 | ADMGEN ---
This patient, Lili Sanchez, was admitted to 2 Medical Room 260-. Patient/family oriented to hospital policies and general routines including ID bracelet, bed and alarms, visiting hours, pain management, procedures, bathroom and other care routines, personal items, smoking policy, room service/diet, and visiting hours. Information on how to activate the Rapid Response Team has been discussed. Patient/Family are encouraged to report perceived risks to care and to ask questions if they do not understand what they are told or what they should do. report received from Aye in ER
--- NOTE | 2023-03-24 12:28 | PM.IMHP ---
H&P: HPI History of Present Illness Date/Time: 03/24/23 12:28 Chief Complaint: Week and shaking Narrative: This is a 77-year-old female patient who was just discharged from this facility on 03/15/2023 after an extensive hospital stay. Patient was discharged to [facility] rehab facility and according to the granddaughter was doing very well with physical therapy. The patient recently had a pacemaker placed with her last hospital stay. The patient typically wears oxygen at 2 L per nasal cannula and had to increase her oxygen to 4 L per nasal cannula. EKG was showing a paced rhythm today. She does have a history of COPD. Her white count is 14.4. Neutrophil percentage 89.9. Arterial blood gases pH 7.339 pCO2 51.5 and bicarb 27.1. Her blood sugar was 106 and then 117. BNP is 813. Chest x-ray was read as mild pulmonary vascular congestion with left pleural effusion. The patient was given a nebulizer treatment, Lasix and started on Rocephin and azithromycin. The patient is being admitted to observation status on the date of service is 03/24/2023. Review of Systems Review of Systems: All systems reviewed & are unremarkable except as noted in HPI and below Constitutional: Constitutional: Reports as per HPI and Reports no additional constitutional complaints Eyes: Eyes: Reports as per HPI and Reports no additional eye complaints ENT: Reports system reviewed and no additional complaints, except as documented and Reports Normal hearing present Cardiovascular: Cardiovascular: Reports no additional cardiovascular complaints Respiratory: Respiratory: Reports no additional respiratory complaints and Reports no additional respiratory complaints Gastrointestinal: Gastrointestinal: Reports as per HPI and Reports no additional gastrointestinal complaints Musculoskeletal: Musculoskeletal: Reports no additional musculoskeletal complaints Integumentary/Breasts: Skin/Breast: Reports system reviewed and no additional complaints, except as docu and Reports as per HPI Neurologic: Reports system reviewed and no additional complaints, except as documented, Reports as per HPI and Reports Normal hearing present Psychiatric: Psychiatric: Reports no additional psychiatric complaints and Reports as per HPI Endocrine: Endocrine: Reports no additional endocrine complaints Hematologic/Lymphatic: Hematologic/Lymphatic: Reports no additional hematologic/lymphatic complaints Allergic/Immunologic: Allergic/Immunologic: Reports no additional allergic/immunologic complaints PMFSH Past Medical History Medical History Anxiety Asthma-COPD overlap syndrome Chest pain Chronic anticoagulation Chronic low back pain with sciatica Chronic renal insufficiency, stage III (moderate) Chronic respiratory failure with hypoxia, on home oxygen therapy Depression Fibromyalgia History of pulmonary embolism (2006) Hypothyroidism Migraine Mixed hyperlipidemia Paroxysmal atrial fibrillation Type 2 diabetes mellitus Vitamin D deficiency Surgical History Surgical History History of appendectomy History of benign breast biopsy History of hysterectomy with oophorectomy History of lumbar surgery History of open reduction and internal fixation (ORIF) procedure (02/2021) Left ankle trimalleolar fracture. Family History Family History Father COPD (chronic obstructive pulmonary disease) Family history of alcoholism Mother Acute myocardial infarction COPD (chronic obstructive pulmonary disease) Hypertension Family history of alcoholism Sibling Diabetes mellitus 1 Sister CHF (congestive heart failure) Brother Breast cancer 2 sisters Hypertension COPD (chronic obstructive pulmonary disease) Family history of alcoholism Other Carcinoma of colon Daughter DVT (deep venous
[2023-03-24 12:59] LABS: Glucose Point of Care 117 mg/dl (65-105)
[2023-03-24 14:43] LABS: Alanine Aminotransferase 24 U/L (6-35); Albumin Level 2.9 g/dL (3.5-5.1); Alkaline Phosphatase 62 U/L (38-126); Anion Gap 6 mmol/L (8-16); Aspartate Amino Transferase 29 U/L (14-36); Bilirubin,Total 0.4 mg/dL (0.2-1.3); Blood Urea Nitrogen 20 mg/dL (7-17); Calcium 8.8 mg/dL (8.4-10.2); Carbon Dioxide 33 mmol/L (22-30); Chloride 100 mmol/L (98-107); Estimated CRCL calculation 36 ml/min; Estimated Glomerular Filt Rate 44; Glucose 152 mg/dL (65-110); Potassium 3.8 mmol/L (3.4-5.0); Sodium 139 mmol/L (137-145)
[2023-03-24] MEDS: IPRATROPIUM BR 0.02% INH SOLN 0.5 MG/2.5 ML VIAL INHALATION ×2 (14:49→20:30)
[2023-03-24] MEDS: ALBUTEROL SULFATE NEB 2.5 MG/3 ML INH (14:49)
[2023-03-24 17:47] LABS: Glucose Point of Care 106 mg/dl (65-105)
--- NOTE | 2023-03-24 19:00 | PC.NURSE ---
Patient refusing to allow me to change dressing that is covering pacemaker site of which was recently placed.
[2023-03-24 20:22] LABS: Glucose Point of Care 124 mg/dl (65-105)
[2023-03-24] MEDS: TOPIRAMATE 25 MG TABLET PO (20:24)
[2023-03-24] MEDS: SERTRALINE HCL 50 MG TABLET 100 MG PO (20:24)
[2023-03-24] MEDS: ARIPiprazole 10 MG TABLET PO (20:24)
[2023-03-24] MEDS: MORPHINE SULFATE (*CRX) 15 MG TABCR PO (20:24)
[2023-03-24] MEDS: MICONAZOLE NITRATE 2% CREAM 30 GM TUBE 1 APPLIC TOPICAL (20:25)
[2023-03-25] VITALS (17 sets, daily range): BP systolic 106–108; BP diastolic 48–50; PULSE 59–83; RESP 17–20; TEMP 36.2–37.1; O2SAT 95–99
[2023-03-25] MEDS: ALBUTEROL SULFATE NEB 2.5 MG/3 ML INH INHALATION ×4 (02:08→20:30)
[2023-03-25] MEDS: IPRATROPIUM BR 0.02% INH SOLN 0.5 MG/2.5 ML VIAL INHALATION ×4 (02:09→20:30)
[2023-03-25 05:17] LABS: Basophils Percent Auto 0.3 % (0.2-1.2); Eosinophils Absolute Auto 0.2 K/mm3 (0-0.3); Eosinophils Percent Auto 1.4 % (0-4.4); Hematocrit 40.6 % (37.0-47.0); Hemoglobin 12.1 g/dL (12.0-15.0); Immature Granulocyte Absolute 0.07 K/mm3 (0.00-0.031); Immature Granulocyte Percent A 0.6 % (0-0.5); Lymphocytes Absolute Auto 0.98 K/mm3 (0.9-3.2); Lymphocytes Percent Auto 8.1 % (18.3-44.2); Mean Corpuscular HGB Conc 29.8 g/dl (32-36); Mean Corpuscular Hemoglobin 32.1 pg (26-34); Mean Corpuscular Volume 107.7 fl (80-100); Monocytes Absolute Auto 0.5 K/mm3 (0.1-0.6); Neutrophils Absolute Auto 10.4 K/mm3 (1.3-6.7); Neutrophils Percent Auto 85.6 % (45.5-73.1); Platelet Count Result 203 k/mm3 (150-375); Red Blood Count 3.77 M/mm3 (4.2-5.4); Red Cell Distribution Width 13.4 % (11.5-14.5); White Blood Count 12.1 K/mm3 (4.5-10.0)
[2023-03-25 05:26] LABS: Lactic Acid Reflex 1.8 mmol/L (0.7-2.0)
[2023-03-25 05:27] LABS: Magnesium 1.7 mg/dL (1.6-2.3)
[2023-03-25] MEDS: glipiZIDE 2.5 MG TABLET PO (06:23)
[2023-03-25] MEDS: LEVOTHYROXINE SODIUM 25 MCG TABLET PO (06:23)
[2023-03-25 06:27] LABS: Thyroid Stimulating Hormone Reflex 0.699 uIU/mL (0.465-4.68)
[2023-03-25] MEDS: FLUTICASONE/UMECLIDIN/VILANTER 200-62.5-25 MCG ELLIPTA 1 PUFF INHALATION (08:19)
[2023-03-25 08:26] LABS: Glucose Point of Care 72 mg/dl (65-105)
[2023-03-25] MEDS: TOPIRAMATE 25 MG TABLET PO ×2 (09:17→20:11)
[2023-03-25] MEDS: DULoxetine HCL 60 MG CAPSULE.DR PO (09:17)
[2023-03-25] MEDS: FUROSEMIDE INJ 40 MG/4 ML VIAL IV PUSH ×2 (09:17→20:17)
[2023-03-25] MEDS: GABAPENTIN 100 MG CAPSULE 200 MG PO ×3 (09:17→16:54)
[2023-03-25] MEDS: CHOLECALCIFEROL 1,000 UNITS TABLET 2000 UNITS PO (09:17)
[2023-03-25] MEDS: LIDOCAINE 5% PATCH 1 PATCH TOPICAL (09:18)
[2023-03-25] MEDS: MICONAZOLE NITRATE 2% CREAM 30 GM TUBE 1 APPLIC TOPICAL ×2 (09:18→20:12)
[2023-03-25] MEDS: MORPHINE SULFATE (*CRX) 15 MG TABCR PO ×2 (09:18→20:11)
--- NOTE | 2023-03-25 11:30 | PM.IMPN ---
Progress Note: A&P Assessment and Plan (1) Tremor of both hands: Code(s): R25.1 - Tremor, unspecified Status: Acute Assessment and Plan: Fine motor tremor noted when arms are not otherwise supported by lying on the bed, absent when supported by bed or held up by mill house supervisor. Neurology has been consulted, feel this may be due to patient's overall generalized debility rather new neurologic process (2) Debility: Code(s): R53.81 - Other malaise Status: Acute Assessment and Plan: Patient generally deconditioned after long hospitalization. She still requires inpatient rehabilitation which may persist longer now that she has been readmitted to the hospital. (3) Congestive heart failure: Code(s): I50.9 - Heart failure, unspecified Status: Acute Assessment and Plan: Temporary increase in oxygen demand without findings peripheral edema or wet sounding lungs. Continue home medications. (4) Asthma-COPD overlap syndrome: Code(s): J44.9 - Chronic obstructive pulmonary disease, unspecified Status: Acute Assessment and Plan: Temporary increase in oxygen demand without findings of wheezing or wet sounding lungs. Continue home medications. (5) Chronic respiratory failure with hypoxia, on home oxygen therapy: Code(s): J96.11 - Chronic respiratory failure with hypoxia; Z99.81 - Dependence on supplemental oxygen Status: Chronic Assessment and Plan: Patient wears oxygen at 2 liters/minute at all times due to COPD, temporarily required 4 liters/minute. Has been titrated back to 2 liters/minute with stable vital signs and no signs of respiratory distress. Plan Neurology consult, appreciate recommendations and guidance for tremors Continue antibiotics for possible pneumonia/COPD exacerbation with elevated white blood cell count and temporary increased oxygen demand. Involve physical therapy and occupational therapy while admitted. Once workup completed, plan to send patient back to [facility] for additional inpatient therapy needs. Time Spent With Patient Time with patient: 25 - 35 minutes Subjective Date/time seen: 03/25/23 11:30 Interval history: This is a 77-year-old female patient who was admitted to the hospital from [facility] with report significant right upper extremity tremors and increased oxygen demand. Patient had been admitted to [facility] on March 07, 2023 due to rapid AFib and subsequently developed bradycardia requiring pacemaker placement. During hospitalization patient became debilitated and requires additional rehabilitation therapy with plan to eventually return home to modified independent living. Patient was discharged from [facility] and admitted to [facility] on March 16. In the emergency department yesterday patient was started on IV a Zithromax in and Rocephin due to elevated white blood cell count and possible pneumonia given increased oxygen needs. Patient currently denies any difficulty breathing, productive cough, shortness of breath or abdominal symptoms including nausea vomiting constipation or diarrhea. She states that she just feels overall weak and when her arms are not supported they have a tremor. Neurology was consulted and we are awaiting their recommendations. Review of Systems Review of Systems: All systems reviewed & are unremarkable except as noted in HPI and below Exam Narrative: GENERAL: Obese, well appearing, alert and oriented, in no apparent distress. She is pleasant and conversant in full sentences. HEENT: Pupils are equally round and briskly reactive to light. Extraocular muscles are intact. Oral mucous membranes are moist without lesions. NECK: The patient has no noted JVD. No adenopathy is appreciated. CHEST/LUNGS: Lungs are diminished bilaterally without significant wheeze, rales or rhonchi. There is no subcutaneous air appreciated. There is no tenderness to
[2023-03-25 12:03] LABS: Glucose Point of Care 188 mg/dl (65-105)
[2023-03-25] MEDS: AZITHROMYCIN 500 MG/NS 250 ML 500 MG/250 ML BAG 250 MG IVPB (12:15)
--- NOTE | 2023-03-25 16:43 | WPDNEURCNPN ---
Assessment and Plan Assessment and plan (1) Tremors of nervous system: Code(s): R25.1 - Tremor, unspecified Status: Acute (2) COPD (chronic obstructive pulmonary disease): Code(s): J44.9 - Chronic obstructive pulmonary disease, unspecified Status: Acute Plan nonspecific tremor will reexamine tomorrow to consider if any further intervention is necessary Consult date: 03/25/23 HPI: Lili Sanchez is a 77 year old female admitted to the hospital through the emergency room where she presented with the complaints of increasing generalized weakness patient has recently been admitted to institution and had a pacemaker placed in subsequently she was at rehab and this morning she did the rehab fairly well but then started complaining of increasing weakness and tremor again she does have a history of COPD and is normally on 2L of oxygen by nasal cannula on initial evaluation in the emergency room she was found to have coarse lung sounds and was requiring 4L of oxygen by nasal cannula her home medications included duloxetine 60 mg delayed release and a morphine 15 mg extended release q.12 hours her past history is consistent with the anxiety, COPD, chronic low back pain, fibromyalgia with depression, migraine, and type 2 diabetes mellitus, she has history of smoking pack years 45 currently some day smoker and chewing tobacco with smoking and date is listed at November 01, 2022 but no alcohol intake or and also history of taking pain killers, initial exam in the emergency room with no neurological deficit normal vital signs the oxygen per nasal cannula fairly normal routine lab with blood sugar 152, and negative routine lab except oxalate crystals in the UA , pertinent investigations include CTA without evidence of acute pulmonary embolus PMFSH Past Medical History Medical History Anxiety Asthma-COPD overlap syndrome Chest pain Chronic anticoagulation Chronic low back pain with sciatica Chronic renal insufficiency, stage III (moderate) Chronic respiratory failure with hypoxia, on home oxygen therapy Depression Fibromyalgia History of pulmonary embolism (2006) Hypothyroidism Migraine Mixed hyperlipidemia Paroxysmal atrial fibrillation Type 2 diabetes mellitus Vitamin D deficiency Surgical History Surgical History History of appendectomy History of benign breast biopsy History of hysterectomy with oophorectomy History of lumbar surgery History of open reduction and internal fixation (ORIF) procedure (02/2021) Left ankle trimalleolar fracture. Family History Family History Father COPD (chronic obstructive pulmonary disease) Family history of alcoholism Mother Acute myocardial infarction COPD (chronic obstructive pulmonary disease) Hypertension Family history of alcoholism Sibling Diabetes mellitus 1 Sister CHF (congestive heart failure) Brother Breast cancer 2 sisters Hypertension COPD (chronic obstructive pulmonary disease) Family history of alcoholism Other Carcinoma of colon Daughter DVT (deep venous thrombosis) Social History Social History (Updated 03/24/23 @ 13:54 by Sisi Chan NP) Social History: She is and typically lives with her nephew. SHe smoked 1-2 packs of cigarettes per day for 60 years, has quit intermittently, resumed smoking approximately 1 year ago but stopped 1 week ago when she got sick. She denies any alcohol or illicit substance use. [facility]. Code status full code Smoking packs per day: 1.5 Smoking cigarettes per day: 30.0 Years smoked: 30 Smoking pack-years: 45.00 Smoking status: Current some day smoker Tobacco type: cigarettes Smokeless tobacco user: chewing tobacco Second hand tobacco smoke exposure: No Smoking en
[2023-03-25 16:47] LABS: Glucose Point of Care 195 mg/dl (65-105)
[2023-03-25] MEDS: SERTRALINE HCL 50 MG TABLET 100 MG PO (20:11)
[2023-03-25] MEDS: ARIPiprazole 10 MG TABLET PO (20:11)
[2023-03-25 20:27] LABS: Glucose Point of Care 113 mg/dl (65-105)
[2023-03-26] VITALS (18 sets, daily range): BP systolic 104–124; BP diastolic 44–52; PULSE 57–73; RESP 16–18; TEMP 36.3–36.7; O2SAT 95–97
[2023-03-26] MEDS: ALBUTEROL SULFATE NEB 2.5 MG/3 ML INH INHALATION ×4 (02:24→19:46)
[2023-03-26] MEDS: IPRATROPIUM BR 0.02% INH SOLN 0.5 MG/2.5 ML VIAL INHALATION ×4 (02:24→19:45)
[2023-03-26] MEDS: LEVOTHYROXINE SODIUM 25 MCG TABLET PO (05:04)
[2023-03-26] MEDS: glipiZIDE 2.5 MG TABLET PO (05:04)
[2023-03-26] MEDS: FLUTICASONE/UMECLIDIN/VILANTER 200-62.5-25 MCG ELLIPTA 1 PUFF INHALATION (08:26)
[2023-03-26] MEDS: CHOLECALCIFEROL 1,000 UNITS TABLET 2000 UNITS PO (08:50)
[2023-03-26] MEDS: GABAPENTIN 100 MG CAPSULE 200 MG PO ×3 (08:50→17:16)
[2023-03-26] MEDS: LIDOCAINE 5% PATCH 1 PATCH TOPICAL (08:50)
[2023-03-26] MEDS: DULoxetine HCL 60 MG CAPSULE.DR PO (08:50)
[2023-03-26] MEDS: FUROSEMIDE INJ 40 MG/4 ML VIAL IV PUSH (08:50)
[2023-03-26] MEDS: MORPHINE SULFATE (*CRX) 15 MG TABCR PO ×2 (08:51→20:35)
[2023-03-26] MEDS: TOPIRAMATE 25 MG TABLET PO ×2 (08:51→20:35)
[2023-03-26] MEDS: MICONAZOLE NITRATE 2% CREAM 30 GM TUBE 1 APPLIC TOPICAL ×2 (08:51→20:35)
[2023-03-26 08:57] LABS: Glucose Point of Care 59 mg/dl (65-105)
[2023-03-26 08:57] LABS: Glucose Point of Care 44 mg/dl (65-105)
[2023-03-26] MEDS: GLUCOSE ORAL GEL 15 GM OF GLUCSE IN 37.5 GM TUBE PO (09:03)
[2023-03-26 09:35] LABS: Glucose Point of Care 140 mg/dl (65-105)
[2023-03-26] MEDS: AMOXICILLIN/CLAVULANATE K 875-125 MG TAB 1 TABLET PO ×2 (10:43→20:35)
[2023-03-26] MEDS: AZITHROMYCIN 250 MG TABLET 500 MG PO (10:43)
[2023-03-26 12:26] LABS: Glucose Point of Care 165 mg/dl (65-105)
--- NOTE | 2023-03-26 12:49 | PM.IMPN ---
Progress Note: A&P Assessment and Plan (1) Tremor of both hands: Code(s): R25.1 - Tremor, unspecified Status: Acute Assessment and Plan: Fine motor tremor noted when arms are not otherwise supported by lying on the bed, absent when supported by bed or held up by service desk associate. Neurology has been consulted, feel this may be due to patient's overall generalized debility rather new neurologic process (2) Debility: Code(s): R53.81 - Other malaise Status: Acute Assessment and Plan: Patient generally deconditioned after long hospitalization. She still requires inpatient rehabilitation which may persist longer now that she has been readmitted to the hospital. (3) Congestive heart failure: Code(s): I50.9 - Heart failure, unspecified Status: Acute Assessment and Plan: Temporary increase in oxygen demand without findings peripheral edema or wet sounding lungs. IV furosemide changed to oral furosemide 40 mg b.i.d., 1st dose this morning (4) Asthma-COPD overlap syndrome: Code(s): J44.9 - Chronic obstructive pulmonary disease, unspecified Status: Acute Assessment and Plan: Temporary increase in oxygen demand without findings of wheezing or wet sounding lungs. Continue home medications. (5) Chronic respiratory failure with hypoxia, on home oxygen therapy: Code(s): J96.11 - Chronic respiratory failure with hypoxia; Z99.81 - Dependence on supplemental oxygen Status: Chronic Assessment and Plan: Patient wears oxygen at 2 liters/minute at all times due to COPD, temporarily required 4 liters/minute. Has been titrated back to 2 liters/minute with stable vital signs and no signs of respiratory distress. Plan Neurology consult, appreciate recommendations and guidance for tremors IV antibiotics changed to oral Augmentin and azithromycin. Involve physical therapy and occupational therapy while admitted. Once workup completed, plan to send patient back to [facility] for additional inpatient therapy needs. Time Spent With Patient Time with patient: 25 - 35 minutes Subjective Date/time seen: 03/26/23 12:49 Interval history: This is a 77-year-old female patient who was admitted to the hospital from [facility] with report significant right upper extremity tremors and increased oxygen demand. Patient had been admitted to [facility] on March 07, 2023 due to rapid AFib and subsequently developed bradycardia requiring pacemaker placement. During hospitalization patient became debilitated and requires additional rehabilitation therapy with [facility] Patient was discharged from [facility] and admitted to [facility] on March 16. In the emergency department yesterday patient was started on IV a Zithromax in and Rocephin due to elevated white blood cell count and possible pneumonia given increased oxygen needs. Patient currently denies any difficulty breathing, productive cough, shortness of breath or abdominal symptoms including nausea vomiting constipation or diarrhea. She states that she just feels overall weak and when her arms are not supported they have a tremor. Neurology was consulted and we are awaiting their recommendations. 03/26 Rounding: Patient states she is feeling well today. Her shortness of breath has improved. Her tremors have improved. [facility] rounded today states that patient needs to be off IV Lasix for 24 hours before she can return. Review of Systems Review of Systems: All systems reviewed & are unremarkable except as noted in HPI and below Exam Narrative: GENERAL: Obese, well appearing, alert and oriented, in no apparent distress. She is pleasant and conversant in full sentences. HEENT: Pupils are equally round and briskly reactive to light. Extraocular muscles are intact. Oral mucous membranes are moist without lesions. NECK:
[2023-03-26] MEDS: FUROSEMIDE 40 MG TABLET PO (17:17)
[2023-03-26 17:31] LABS: Glucose Point of Care 115 mg/dl (65-105)
[2023-03-26] MEDS: SERTRALINE HCL 50 MG TABLET 100 MG PO (20:35)
[2023-03-26] MEDS: ARIPiprazole 10 MG TABLET PO (20:35)
[2023-03-26 21:07] LABS: Glucose Point of Care 179 mg/dl (65-105)
[2023-03-27] VITALS (13 sets, daily range): BP systolic 114–115; BP diastolic 49–58; PULSE 60–69; RESP 16–17; TEMP 36.6–36.8; O2SAT 95–99
[2023-03-27] MEDS: IPRATROPIUM BR 0.02% INH SOLN 0.5 MG/2.5 ML VIAL INHALATION ×3 (01:37→13:32)
[2023-03-27] MEDS: ALBUTEROL SULFATE NEB 2.5 MG/3 ML INH INHALATION ×3 (01:37→13:32)
[2023-03-27] MEDS: LEVOTHYROXINE SODIUM 25 MCG TABLET PO (06:03)
--- NOTE | 2023-03-27 08:17 | PM.DS ---
DS: Admitting Diagnosis Discharge Date 03/27/2023 Admitting Diagnosis Debility Congestive Heart Failure Paroxysmal atrial flutter Tremor of both hands Type 2 diabetes mellitus Depression with anxiety Hypothyrodism Mixed hyperlipidemia Asthma-COPD overlap syndrome DS: Discharge Diagnosis Discharge Diagnosis (1) CHF (congestive heart failure): Code(s): I50.9 - Heart failure, unspecified Status: Acute (2) Tremor of both hands: Code(s): R25.1 - Tremor, unspecified Status: Acute (3) Debility: Code(s): R53.81 - Other malaise Status: Acute (4) Asthma-COPD overlap syndrome: Code(s): J44.9 - Chronic obstructive pulmonary disease, unspecified Status: Acute (5) Chronic respiratory failure with hypoxia, on home oxygen therapy: Code(s): J96.11 - Chronic respiratory failure with hypoxia; Z99.81 - Dependence on supplemental oxygen Status: Chronic (6) Type 2 diabetes mellitus with hypoglycemia: Code(s): E11.649 - Type 2 diabetes mellitus with hypoglycemia without coma Status: Acute Plan Continue furosemide 40 mg BID Continue home oxygen at 2 LPM Return to [facility] Discontinue morning glipizide due to episode of AM hypoglycemia without altered mental status on 03/26/23 DS: Summary Hospital Course Reason for hospitalization: This patient was admitted to the [facility] after she was found to gross tremors of upper extremities and a temporary need for increased oxygen patient related to CHF exacerbation. Hospital Course: While admitted patient was diuresed with additional Lasix and oxygen was able to be titrated back down to home dose of 2 liters/minute. She had a single episode of hypoglycemia in the morning before breakfast tray that was corrected by food and drink. Patient had been started on antibiotics for possible pneumonia these were transitioned to oral antibiotics yesterday. Furosemide was transition to oral yesterday patient feeling much better yesterday and today. Status at Discharge Cognitive/behavioral status at discharge: Awake, alert, oriented and pleasant. Functional status at discharge: wheelchair bound Overall status at discharge: patient is progressing back to baseline Time Spent with Patient Time attestation: Total time spent providing and/or coordinating discharge services: Time spent: Greater than 30 minutes Exam Narrative: GENERAL: Obese, well appearing, alert and oriented, in no apparent distress. She is pleasant and conversant in full sentences. HEENT: Pupils are equally round and briskly reactive to light. Extraocular muscles are intact. Oral mucous membranes are moist without lesions. NECK: The patient has no noted JVD. No adenopathy is appreciated. CHEST/LUNGS: Lungs are diminished bilaterally without significant wheeze, rales or rhonchi. There is no tenderness to the chest wall. HEART: The patient has a regular rate and rhythm. No murmurs, rubs, or gallops are appreciated. Distal pulses are 2+. ABDOMEN: The patient?s abdomen is soft, nontender, and nondistended. Bowel sounds are positive. No organomegaly is appreciated. No masses are appreciated. There are no peritoneal signs. EXTREMITIES: The patient has no pitting peripheral edema. There is no focal long bone tenderness or deformity. SKIN: The patient?s skin is warm and dry, without rashes or lesions. Bruising noted bilateral arms from prior IVs and blood draws. Swelling around previous IV site, IV not working currently PSYCHIATRIC: The patient has normal mental status and has an appropriate affect. NEUROLOGIC: No tremor when arms are supported, fine motor tremor noted when arms are raised off bed and not held, possibly due to overall debility from prolonged hospitalization. Patient reports this is much improved over how they were when she was brought to ER. DS: Data Data Completed and Pending Completed studies during hospitalization: CXR, CT
[2023-03-27] MEDS: CHOLECALCIFEROL 1,000 UNITS TABLET 2000 UNITS PO (08:29)
[2023-03-27] MEDS: AMOXICILLIN/CLAVULANATE K 875-125 MG TAB 1 TABLET PO (08:30)
[2023-03-27] MEDS: DULoxetine HCL 60 MG CAPSULE.DR PO (08:30)
[2023-03-27] MEDS: FUROSEMIDE 40 MG TABLET PO (08:30)
[2023-03-27] MEDS: MORPHINE SULFATE (*CRX) 15 MG TABCR PO (08:30)
[2023-03-27] MEDS: LIDOCAINE 5% PATCH 1 PATCH TOPICAL (08:30)
[2023-03-27] MEDS: TOPIRAMATE 25 MG TABLET PO (08:30)
[2023-03-27] MEDS: GABAPENTIN 100 MG CAPSULE 200 MG PO ×2 (08:30→13:15)
[2023-03-27] MEDS: AZITHROMYCIN 250 MG TABLET PO (08:30)
[2023-03-27] MEDS: MICONAZOLE NITRATE 2% CREAM 30 GM TUBE 1 APPLIC TOPICAL (08:31)
[2023-03-27 08:33] LABS: Glucose Point of Care 63 mg/dl (65-105)
[2023-03-27] MEDS: FLUTICASONE/UMECLIDIN/VILANTER 200-62.5-25 MCG ELLIPTA 1 PUFF INHALATION (08:56)
[2023-03-27 10:39] LABS: Glucose Point of Care 159 mg/dl (65-105)
[2023-03-27 11:47] LABS: SARS-CoV-2 RNA PCR Negative (Negative)
[2023-03-27 12:12] LABS: Glucose Point of Care 138 mg/dl (65-105)
--- NOTE | 2023-03-27 12:45 | WPDNEUROPN ---
Subjective Date/time seen: 03/27/23 12:45 Interval history: 77 years old with history of 1. COPD 2. Tremors 3. Anxiety and 4. Paroxysmal atrial fibrillation seen initially for tremor medications include abilifyl 10 mg at night duloxetine 60 mg daily gabapentin 200 mg 3 times a day sertraline 100 mg at night and topiramate 25 mg q.12 hours. Considering the multiple medications which are in directly used for the tremor as well such as gabapentin and topiramate I will simply increase the topiramate to 50 mg q.12 hours and be followed in the office as an outpatient Objective Data Vital Signs Vital Signs: Vital Signs - 24 hr 03/26/23 13:10 03/26/23 13:22 03/26/23 14:30 Temperature 36.7 C Pulse Rate 69 67 60 Respiratory Rate 16 18 18 Blood Pressure 106/50 L Pulse Oximetry 96 Oxygen Delivery Oxygen Flow Rate 03/26/23 16:00 03/26/23 19:46 03/26/23 19:46 Temperature Pulse Rate 60 71 Respiratory Rate 16 Blood Pressure Pulse Oximetry 97 Oxygen Delivery Nasal Cannula Oxygen Flow Rate 2 03/26/23 20:08 03/26/23 21:17 03/26/23 20:00 Temperature 36.7 C Pulse Rate 73 60 60 Respiratory Rate 16 17 Blood Pressure 124/52 L Pulse Oximetry 95 Oxygen Delivery Oxygen Flow Rate 03/27/23 00:00 03/27/23 01:39 03/27/23 01:47 Temperature Pulse Rate 60 69 69 Respiratory Rate 16 16 Blood Pressure Pulse Oximetry Oxygen Delivery Oxygen Flow Rate 03/27/23 04:00 03/27/23 05:36 03/27/23 08:57 Temperature 36.8 C Pulse Rate 60 61 60 Respiratory Rate 17 16 Blood Pressure 115/49 L Pulse Oximetry 96 Oxygen Delivery Oxygen Flow Rate 03/27/23 08:59 03/27/23 09:07 03/27/23 08:00 Temperature Pulse Rate 60 61 Respiratory Rate 16 16 Blood Pressure Pulse Oximetry 99 99 Oxygen Delivery Nasal Cannula Nasal Cannula Oxygen Flow Rate 2 2 Intake/Output Intake/Output: Intake & Output 03/24/23 03/25/23 03/26/23 03/27/23 23:59 23:59 23:59 23:59 Intake Total 610 2280 1320 590 Output Total 300 Balance 610 2280 1020 590 Meds/Results Medications: Active Medications Generic Name Dose Route Start Last Admin Trade Name Fabricioq PRN Reason Stop Dose Admin Albuterol 2.5 mg 03/24/23 20:00 03/27/23 08:56 Albuterol Sulfate Neb 2.5 Mg/3 Ml Inh INHALATION 2.5 mg Q6HRT FARRUKH Administration Amoxicillin/Clavulanate Potassium 1 tablet 03/26/23 09:25 03/27/23 08:30 Amoxicillin/Clavulanate K 875-125 Mg Tab PO 1 tablet Q12HR FARRUKH Administration Aripiprazole 10 mg 03/24/23 21:00 03/26/23 20:35 Aripiprazole 10 Mg Tablet PO 10 mg HS FARRUKH Administration Azithromycin 250 mg 03/27/23 09:00 03/27/23 08:30 Azithromycin 250 Mg Tablet PO 03/30/23 09:01 250 mg DAILY FARRUKH Administration Dextrose 12.5 gm 03/24/23 13:01 Dextrose 50% 25 Gm/50 Ml Syringe IV PUSH PRN PRN Hypoglycemia Protocol Duloxetine HCl 60 mg 03/25/23 09:00 03/27/23 08:30 Duloxetine Hcl 60 Mg Capsule.Dr PO 60 mg DAILY FARRUKH Administration Fluticasone/Umeclidinium/Vilanterol 1 puff 03/25/23 09:00 03/27/23 08:56 Fluticasone/Umeclidin/Vilanter 200-62.5-25 Mcg Ellipta INHALATION 1 puff DAILY FARRUKH Administration Furosemide 40 mg 03/26/23 17:00 03/27/23 08:30 Furosemide 40 Mg Tablet PO 40 mg BID FARRUKH Administration Gabapentin 200 mg 03/25/23 09:00 03/27/23 08:30 Gabapentin 100 Mg Capsule PO 04/24/23 08:59 200 mg TID FARRUKH Administration Glucagon 1 mg 03/24/23 13:01 Glucagon For Inj 1 Mg Vial IM PRN PRN Hypoglycemia Protocol Glucose 15 gm 03/24/23 13:01 03/26/23 09:03 Glucose Oral Gel 15 Gm Of Glucse In 37.5 Gm Tube PO 15 gm PRN PRN Administration Hypoglycemia Protocol Dextrose 1,000 mls @ 100 mls/hr 03/24/23 13:01 Dextrose 5% 1,000 Ml IVPB PRN PRN Hypoglycemia Protocol Insulin Aspart 2 - 5 units 03/24/23 17:00 03/27/23 12:22 Insul
[2023-03-27 13:06] LABS: Hematocrit 38.8 % (37.0-47.0); Mean Corpuscular HGB Conc 30.9 g/dl (32-36); Mean Corpuscular Hemoglobin 31.3 pg (26-34); Platelet Count Result 218 k/mm3 (150-375); Red Blood Count 3.84 M/mm3 (4.2-5.4); Red Cell Distribution Width 13.6 % (11.5-14.5); White Blood Count 6.4 K/mm3 (4.5-10.0)
[2023-03-27 13:16] LABS: Anion Gap 6 mmol/L (8-16); Blood Urea Nitrogen 19 mg/dL (7-17); Carbon Dioxide 38 mmol/L (22-30); Chloride 94 mmol/L (98-107); Estimated CRCL calculation 39 ml/min; Estimated Glomerular Filt Rate 48; Glucose 124 mg/dL (65-110); Potassium 3.3 mmol/L (3.4-5.0); Sodium 138 mmol/L (137-145)
[2023-03-27] MEDS: POTASSIUM CHLORIDE 20 MEQ ER TABLET 40 MEQ PO (14:18)
== END 2023-03-27 16:30 | DRG 292 ==
LOC: ANHED 08:48 → ANH3MEDSUR 10:44 → ANH2MED 11:01
PROVIDERS: Nurse Practitioner; Admitting Provider Family Medicine; Emergency Provider Emergency Medicine; PCP Family Medicine; Visit Provider Nurse Practitioner
DX: I13.0 Hypertensive heart and chronic kidney disease with heart failure and stage 1 through stage 4 chronic kidney disease, or unspecified chronic kidney disease (principal); I48.92 Unspecified atrial flutter; J96.11 Chronic respiratory failure with hypoxia; R53.81 Other malaise; R25.1 Tremor, unspecified; E78.2 Mixed hyperlipidemia; E11.22 Type 2 diabetes mellitus with diabetic chronic kidney disease; E03.9 Hypothyroidism, unspecified; E55.9 Vitamin D deficiency, unspecified; F17.290 Nicotine dependence, other tobacco product, uncomplicated; F32.A Depression, unspecified; F41.8 Other specified anxiety disorders; G89.29 Other chronic pain; I50.9 Heart failure, unspecified; I48.0 Paroxysmal atrial fibrillation; J44.9 Chronic obstructive pulmonary disease, unspecified; M54.40 Lumbago with sciatica, unspecified side; N18.30 Chronic kidney disease, stage 3 unspecified; Z86.711 Personal history of pulmonary embolism; Z90.49 Acquired absence of other specified parts of digestive tract; Z99.81 Dependence on supplemental oxygen; Z79.01 Long term (current) use of anticoagulants; Z90.710 Acquired absence of both cervix and uterus; Z95.0 Presence of cardiac pacemaker; Z79.84 Long term (current) use of oral hypoglycemic drugs
CPT/HCPCS: 36415; 36600; 71045; 71275; 80048; 80053; 81001; 82375; 82805; 82948; 83050; 83605; 83735; 83880; 84443; 85025; 85027; 87040; 87635; 93005; 94640; 96365; 96366; 96375; 97110; 97161; 97165; 97530; 99285; A9270; G0378; J0456; J0696; J1940; Q9967

== ENCOUNTER 2023-04-03 12:04 | Inpatient (IN) | payer MEDICARE, BC, SELFPAY ==
[2023-04-03] VITALS (17 sets, daily range): BP systolic 110–126; BP diastolic 40–88; PULSE 60–100; RESP 12–97; TEMP 36.1–37; O2SAT 93–100; BMI 32.9
--- NOTE | ~2023-04-03 | XR_ITS ---
EXAMINATION: XR chest 1V portable DATE: 04/07/2023 13:14 INDICATION: Dyspnea. Altered level of consciousness. TECHNIQUE: frontal view of the chest was obtained. COMPARISON: Chest radiograph date FINDINGS: New retrocardiac bandlike opacity in the left lower lung zone. Right lung is clear. No pulmonary tarsha a, pleural effusion or pneumothorax. Heart size is normal. Dual lead pacemaker seen with leads projec ting over the expected locations of the right atrium and right ventricle. Thoracolumbar dextroscolio sis. IMPRESSION: 1. New retrocardiac bandlike opacity left lower lung zone which could represent atelectasis and/or pn eumonia. Reviewed, dictated and finalized at location A. IMPRESSION: 1. New retrocardiac bandlike opacity left lower lung zone which could represent atelectasis and/or pneumonia.
--- NOTE | ~2023-04-03 | XR_ITS ---
EXAMINATION: XR chest 1V portable DATE: 04/08/2023 03:52 INDICATION: Increased oxygen requirements. TECHNIQUE: A single frontal view of the chest was obtained. COMPARISON: Chest single view 04/07/2023 FINDINGS: Again seen is mild elevation of left hemidiaphragm. There are airspace opacities at left jonah ng base. No pleural effusion or pneumothorax. Cardiomegaly is noted. There is a left chest wall pacer with leads in the right atrium and right ventricle. IMPRESSION: 1. Stable airspace opacities at left lung base, consistent with atelectasis versus pneumonia. 2. Cardiomegaly. Reviewed, dictated and finalized at location E. IMPRESSION: 1. Stable airspace opacities at left lung base, consistent with atelectasis viola yanci pneumonia. 2. Cardiomegaly.
--- NOTE | ~2023-04-03 | US_ITS ---
Renal-Bladder ultrasound Clinical History: Elevated creatinine Technique: Real-time sonographic imaging of the kidneys and urinary bladder was performed. Findings: The right kidney measures 7.9 cm in length and the left kidney measures 9.3 cm. There is no hydronephrosis or renal calculus identified. Renal cortical echogenicity is within normal limits. No renal mass lesion is identified. The urinary bladder is collapsed around a Kirby catheter. Impression: Unremarkable ultrasound of the kidneys. Collapsed urinary bladder limits evaluation. Reviewed, dictated and finalized at location M. Impression: Unremarkable ultrasound of the kidneys. Collapsed urinary bladder limits evaluation.
--- NOTE | ~2023-04-03 | XR_ITS ---
EXAMINATION: XR chest 1V portable DATE: 04/03/2023 13:41 INDICATION: Shortness of breath. TECHNIQUE: A single frontal view of the chest was obtained. COMPARISON: Chest single view 03/24/2023 FINDINGS: The chest demonstrates clear lungs without pneumonia, pleural effusion, or pneumothorax. Th e heart size is normal. There is a left chest wall pacer with leads in the right atrium and right theresa tricle. IMPRESSION: 1. No acute cardiopulmonary disease. Reviewed, dictated and finalized at location A.
--- NOTE | 2023-04-03 12:16 | ECG_ITS ---
Measurements Intervals [place] Rate: 60 P: 128 OR: 176 QRS: 34 QRSD: 117 T: 65 QT: 387 QTc: 387 Interpretive Statements Possible eLECTRONIC ATRIAL PACEMAKER COMPARED TO ECG 03/24/2023 08:25:29 NO SIGNIFICANT CHANGES Electronically Signed On 04-03-2023 13:52:00 CDT by Shellie Hawkins M.D.
[2023-04-03 12:29] LABS: Glucose Point of Care 104 mg/dl (65-105)
[2023-04-03 12:32] LABS: Basophils Percent Auto 0.3 % (0.2-1.2); Eosinophils Absolute Auto 0.3 K/mm3 (0-0.3); Eosinophils Percent Auto 2.5 % (0-4.4); Hematocrit 39.3 % (37.0-47.0); Hemoglobin 12.1 g/dL (12.0-15.0); Immature Granulocyte Absolute 0.07 K/mm3 (0.00-0.031); Immature Granulocyte Percent A 0.6 % (0-0.5); Lymphocytes Absolute Auto 1.46 K/mm3 (0.9-3.2); Lymphocytes Percent Auto 13.5 % (18.3-44.2); Mean Corpuscular HGB Conc 30.8 g/dl (32-36); Mean Corpuscular Volume 100.8 fl (80-100); Mean Platelet Volume 9.3 fl (7.4-10.4); Monocytes Absolute Auto 0.5 K/mm3 (0.1-0.6); Monocytes Percent Auto 4.8 % (2.6-8.5); Neutrophils Absolute Auto 8.4 K/mm3 (1.3-6.7); Neutrophils Percent Auto 78.3 % (45.5-73.1); Platelet Count Result 235 k/mm3 (150-375); Red Cell Distribution Width 13.2 % (11.5-14.5); White Blood Count 10.8 K/mm3 (4.5-10.0)
[2023-04-03 12:35] LABS: Base Excess ABG 11.2 mEq/l (+/-2.0); Carboxyhemoglobin 0.8 % THb (0-2.0); Fractional Inspired Oxygen 28 %; HCO3 ABG 37.9 mEq/l (22.0-26.0); Methemoglobin ABG 0.3 %THb (0-1.5); Oxygen Content ABG 16.4 %vol (16.0-22.0); Oxygen Saturation ABG 93.6 % (95.0-100.0); Oxyhemoglobin 92.3 % THb (90.0-100.0); PCO2 ABG 59.3 mmHg (35.0-45.0); PO2 ABG 68.7 mmHg (80.0-100.0); PO2 FiO2 Ratio Arterial Blood 2.45 %; Reduced Hemoglobin 6.6 %THb (0-5.0); Total Hemoglobin 12.6 g/dL (12.0-18.0); pH ABG 7.423 (7.350-7.450)
[2023-04-03 12:36] LABS: Device NASAL CANNULA; Modified Allen's Test Pass; Site Drawn RIGHT BRACHIAL
[2023-04-03 12:44] LABS: Alanine Aminotransferase 24 U/L (6-35); Alkaline Phosphatase 67 U/L (38-126); Aspartate Amino Transferase 36 U/L (14-36); Bilirubin,Total 0.7 mg/dL (0.2-1.3); Blood Urea Nitrogen 26 mg/dL (7-17); Carbon Dioxide > 40 mmol/L (22-30); Chloride 91 mmol/L (98-107); Estimated CRCL calculation 40 ml/min; Estimated Glomerular Filt Rate 44; Glucose 97 mg/dL (65-110); Potassium 3.5 mmol/L (3.4-5.0); Sodium 136 mmol/L (137-145)
--- NOTE | 2023-04-03 13:38 | PC.NURSE ---
Pt removed BIPAP mask and refusing to allow this RN to place back on. Pt assisted to bedpan for toileting, repositioned, given blanket, and RESP at bedside to educate pt and reapply mask.
[2023-04-03 14:14] LABS: Alveolar/Arterial O2 Gradient 50.5 mmHg; Base Excess ABG 10.1 mEq/l (+/-2.0); Carboxyhemoglobin 1.1 % THb (0-2.0); Fractional Inspired Oxygen 28 %; Methemoglobin ABG 0.3 %THb (0-1.5); Oxygen Saturation ABG 95.2 % (95.0-100.0); Oxyhemoglobin 93.5 % THb (90.0-100.0); PO2 ABG 77.6 mmHg (80.0-100.0); PO2 FiO2 Ratio Arterial Blood 2.77 %; Reduced Hemoglobin 5.1 %THb (0-5.0); Total Hemoglobin 12.9 g/dL (12.0-18.0); pH ABG 7.404 (7.350-7.450)
[2023-04-03 14:16] LABS: PCO2 ABG 60.6 mmHg (35.0-45.0)
[2023-04-03 14:17] LABS: Device BIPAP; Site Drawn LEFT BRACHIAL
--- NOTE | 2023-04-03 14:37 | ED.GENADULT ---
HPI - General Adult General Chief complaint: Recheck/Abnormal Lab/Rx Stated complaint: lethargic Time Seen by Provider: 04/03/23 12:16 History of Present Illness HPI narrative: Patient is a 77-year-old female who [facility] confusion and increased CO2 levels. Patient has history of COPD and hypercarbia in the past. Patient is oriented x3 but unable to provide any history. She is not reporting discomfort or dyspnea at this time. Related Data Home Medications Medication Instructions Recorded Confirmed duloxetine 60 mg capsule,delayed 60 mg PO DAILY 05/23/22 04/03/23 release morphine 15 mg tablet,extended 15 mg PO Q12H 03/07/23 04/03/23 release gabapentin 200 mg PO TID 03/24/23 04/03/23 miconazole nitrate 45 g topical HS 03/24/23 04/03/23 polyethylene glycol 3350 17 g PO QAM PRN Constipation 03/24/23 04/03/23 acetaminophen 325 mg tablet 650 mg PO Q8H PRN Pain 04/03/23 04/03/23 amlodipine 5 mg tablet 5 mg PO DAILY 04/03/23 04/03/23 apixaban 2.5 mg tablet (Eliquis) 2.5 mg PO BID 04/03/23 04/03/23 diltiazem HCl 120 mg 240 mg PO DAILY 04/03/23 04/03/23 capsule,extended release 24 hr flecainide 150 mg tablet 150 mg PO Q12H 04/03/23 04/03/23 hydrocodone 5 mg-acetaminophen 325 1 tablet PO TID PRN Pain 04/03/23 04/03/23 mg tablet topiramate 50 mg tablet (Topamax) 25 mg PO BID 04/03/23 04/03/23 valacyclovir 500 mg tablet 500 mg PO Q12H 04/03/23 04/03/23 Allergies Allergy/AdvReac Type Severity Reaction Status Date / Time adhesive tape Allergy Intermediate REDNESS Verified 04/03/23 12:18 Review of Systems Review of Systems: ROS unobtainable: Yes unobtainable due to mental status Constitutional: Constitutional: Denies chills and Denies fever(s) Cardiovascular: Cardiovascular: Denies chest pain and Denies rapid heart rate Respiratory: Respiratory: Denies cough, Denies dyspnea and Denies wheezing [facility] Past Medical History Medical History (Updated 04/03/23 @ 21:21 by Jesus Holloway MD) Anxiety Asthma-COPD overlap syndrome Chest pain Chronic anticoagulation Chronic low back pain with sciatica Chronic renal insufficiency, stage III (moderate) Chronic respiratory failure with hypoxia, on home oxygen therapy Depression Fibromyalgia History of pulmonary embolism (2006) Hypothyroidism Migraine Mixed hyperlipidemia Paroxysmal atrial fibrillation Type 2 diabetes mellitus Vitamin D deficiency Surgical History Surgical History History of appendectomy History of benign breast biopsy History of hysterectomy with oophorectomy History of lumbar surgery History of open reduction and internal fixation (ORIF) procedure (02/2021) Left ankle trimalleolar fracture. Family History Family History Father COPD (chronic obstructive pulmonary disease) Family history of alcoholism Mother Acute myocardial infarction COPD (chronic obstructive pulmonary disease) Hypertension Family history of alcoholism Sibling Diabetes mellitus 1 Sister CHF (congestive heart failure) Brother Breast cancer 2 sisters Hypertension COPD (chronic obstructive pulmonary disease) Family history of alcoholism Other Carcinoma of colon Daughter DVT (deep venous thrombosis) Social History Social History Social History: She is and typically lives with her nephew. SHe smoked 1-2 packs of cigarettes per day for 60 years, has quit intermittently, resumed smoking approximately 1 year ago but stopped 1 week ago when she got sick. She denies any alcohol or illicit substance use. [facility]. Code status full code Smoking packs per day: 1.5 Smoking cigarettes per day: 30.0 Years smoked: 30 Smoking pack-years: 45.00 Smoking status: Current some day smo
--- NOTE | 2023-04-03 16:14 | ADMGEN ---
This patient, Lili Sanchez, was admitted to IMU Room 207-01 on 04/03/23 at 1528. Patient/family oriented to hospital policies and general routines including ID bracelet, bed and alarms, visiting hours, pain management, procedures, bathroom and other care routines, personal items, smoking policy, room service/diet, and visiting hours. Information on how to activate the Rapid Response Team has been discussed. Patient/Family are encouraged to report perceived risks to care and to ask questions if they do not understand what they are told or what they should do.
[2023-04-03 16:39] LABS: Glucose Point of Care 95 mg/dl (65-105)
--- NOTE | 2023-04-03 17:06 | PM.IMHP ---
H&P: HPI History of Present Illness Date/Time: 04/03/23 17:06 Chief Complaint: Lethargic Narrative: The patient was discharged from the hospital today. The patient is currently at [facility]. The patient was brought to the emergency room for increased confusion increased CO2 levels. She does have a history of COPD and hypercapnia. The patient was alert orientated was and able to provide history when she came to the emergency room. The patient was placed on a BiPAP in the emergency room. Her white count was noted to be 10.8. Her pH was 7.404 and CO2 was 60.6. Patient's baseline is somewhere between 40 and 50. Chest x-ray was read as no acute cardiopulmonary disease. The patient was given a pain medication and Zofran in the emergency room. The patient is being admitted to inpatient status on the date of service of 04/03/2023 Review of Systems Review of Systems: All systems reviewed & are unremarkable except as noted in HPI and below Constitutional: Constitutional: Reports as per HPI and Reports no additional constitutional complaints Eyes: Eyes: Reports as per HPI and Reports no additional eye complaints ENT: Reports system reviewed and no additional complaints, except as documented and Reports Normal hearing present Cardiovascular: Cardiovascular: Reports no additional cardiovascular complaints Respiratory: Respiratory: Reports no additional respiratory complaints and Reports no additional respiratory complaints Gastrointestinal: Gastrointestinal: Reports as per HPI and Reports no additional gastrointestinal complaints Musculoskeletal: Musculoskeletal: Reports no additional musculoskeletal complaints Integumentary/Breasts: Skin/Breast: Reports system reviewed and no additional complaints, except as docu and Reports as per HPI Neurologic: Reports system reviewed and no additional complaints, except as documented, Reports as per HPI and Reports Normal hearing present Psychiatric: Psychiatric: Reports no additional psychiatric complaints and Reports as per HPI Endocrine: Endocrine: Reports no additional endocrine complaints Hematologic/Lymphatic: Hematologic/Lymphatic: Reports no additional hematologic/lymphatic complaints Allergic/Immunologic: Allergic/Immunologic: Reports no additional allergic/immunologic complaints [facility] Past Medical History Medical History (Updated 04/03/23 @ 22:30 by Sisi Chan NP) Anxiety Asthma-COPD overlap syndrome Chest pain Chronic anticoagulation Chronic low back pain with sciatica Chronic renal insufficiency, stage III (moderate) Chronic respiratory failure with hypoxia, on home oxygen therapy Depression Fibromyalgia History of pulmonary embolism (2006) Hypothyroidism Migraine Mixed hyperlipidemia Pacemaker Paroxysmal atrial fibrillation Type 2 diabetes mellitus Vitamin D deficiency Surgical History Surgical History History of appendectomy History of benign breast biopsy History of hysterectomy with oophorectomy History of lumbar surgery History of open reduction and internal fixation (ORIF) procedure (02/2021) Left ankle trimalleolar fracture. Family History Family History Father COPD (chronic obstructive pulmonary disease) Family history of alcoholism Mother Acute myocardial infarction COPD (chronic obstructive pulmonary disease) Hypertension Family history of alcoholism Sibling Diabetes mellitus 1 Sister CHF (congestive heart failure) Brother Breast cancer 2 sisters Hypertension COPD (chronic obstructive pulmonary disease) Family history of alcoholism Other Carcinoma of colon Daughter DVT (deep venous thrombosis) Social History Social History Social History: She is and typically lives with her nephew. SHe smoked 1-2 packs of cigarette
[2023-04-03] MEDS: ALBUTEROL SULFATE NEB 2.5 MG/3 ML INH INHALATION (19:22)
[2023-04-03] MEDS: IPRATROPIUM BR 0.02% INH SOLN 0.5 MG/2.5 ML VIAL INHALATION (19:22)
[2023-04-03 20:09] LABS: Glucose Point of Care 123 mg/dl (65-105)
[2023-04-03] MEDS: HYDROcodone/acetaminophen (*CRX) 5-325 MG TABLET 1 TAB PO (22:28)
[2023-04-03] MEDS: GABAPENTIN 100 MG CAPSULE 200 MG PO (23:48)
[2023-04-03] MEDS: ARIPiprazole 10 MG TABLET PO (23:48)
[2023-04-03] MEDS: APIXABAN 2.5 MG TABLET PO (23:48)
[2023-04-03] MEDS: FLECAINIDE ACETATE 100 MG TABLET PO (23:49)
[2023-04-03] MEDS: MORPHINE SULFATE (*CRX) 15 MG TABCR PO (23:49)
[2023-04-03] MEDS: SERTRALINE HCL 50 MG TABLET 100 MG PO (23:49)
[2023-04-03] MEDS: FLECAINIDE ACETATE 50 MG TABLET PO (23:49)
[2023-04-03] MEDS: valACYclovir HCL 500 MG TABLET PO (23:49)
[2023-04-03] MEDS: TOPIRAMATE 25 MG TABLET PO (23:49)
[2023-04-03] MEDS: MICONAZOLE NITRATE 2% CREAM 30 GM TUBE 1 APPLIC TOPICAL (23:50)
[2023-04-04] VITALS (24 sets, daily range): BP systolic 108–133; BP diastolic 40–55; PULSE 58–74; RESP 15–98; TEMP 35.9–36.4; O2SAT 95–100; BMI 32.9
[2023-04-04] MEDS: IPRATROPIUM BR 0.02% INH SOLN 0.5 MG/2.5 ML VIAL INHALATION ×4 (01:38→20:26)
[2023-04-04] MEDS: ALBUTEROL SULFATE NEB 2.5 MG/3 ML INH INHALATION ×4 (01:38→20:27)
[2023-04-04 05:05] LABS: Basophils Absolute Auto 0.1 K/mm3 (0.0-0.1); Basophils Percent Auto 0.7 % (0.2-1.2); Eosinophils Absolute Auto 0.3 K/mm3 (0-0.3); Eosinophils Percent Auto 3.9 % (0-4.4); Hematocrit 36.8 % (37.0-47.0); Hemoglobin 11.2 g/dL (12.0-15.0); Immature Granulocyte Absolute 0.04 K/mm3 (0.00-0.031); Immature Granulocyte Percent A 0.5 % (0-0.5); Lymphocytes Absolute Auto 1.54 K/mm3 (0.9-3.2); Lymphocytes Percent Auto 20.5 % (18.3-44.2); Mean Corpuscular HGB Conc 30.4 g/dl (32-36); Mean Corpuscular Hemoglobin 31.3 pg (26-34); Mean Corpuscular Volume 102.8 fl (80-100); Mean Platelet Volume 9.1 fl (7.4-10.4); Monocytes Absolute Auto 0.4 K/mm3 (0.1-0.6); Monocytes Percent Auto 5.7 % (2.6-8.5); Neutrophils Absolute Auto 5.2 K/mm3 (1.3-6.7); Neutrophils Percent Auto 68.7 % (45.5-73.1); Platelet Count Result 210 k/mm3 (150-375); Red Blood Count 3.58 M/mm3 (4.2-5.4); Red Cell Distribution Width 13.2 % (11.5-14.5); White Blood Count 7.5 K/mm3 (4.5-10.0)
[2023-04-04 05:20] LABS: Lactic Acid Reflex 1.9 mmol/L (0.7-2.0)
[2023-04-04 05:32] LABS: Alveolar/Arterial O2 Gradient 46.1 mmHg; Base Excess ABG 12.4 mEq/l (+/-2.0); Carboxyhemoglobin 0.1 % THb (0-2.0); Fractional Inspired Oxygen 28 %; HCO3 ABG 38.8 mEq/l (22.0-26.0); Methemoglobin ABG 0.3 %THb (0-1.5); Oxygen Content ABG 17.3 %vol (16.0-22.0); Oxygen Saturation ABG 96.6 % (95.0-100.0); Oxyhemoglobin 95.6 % THb (90.0-100.0); PCO2 ABG 57.7 mmHg (35.0-45.0); PO2 ABG 85.5 mmHg (80.0-100.0); PO2 FiO2 Ratio Arterial Blood 3.05 %; Total Hemoglobin 12.8 g/dL (12.0-18.0); pH ABG 7.445 (7.350-7.450)
[2023-04-04 05:33] LABS: Device BIPAP; Expiratory Pressure 8 cmH2O; Inspiratory Pressure 16 cmH2O; Modified Allen's Test Pass; Site Drawn RIGHT RADIAL
[2023-04-04] MEDS: LEVOTHYROXINE SODIUM 25 MCG TABLET PO (06:04)
[2023-04-04 08:40] LABS: Glucose Point of Care 134 mg/dl (65-105)
[2023-04-04] MEDS: dilTIAZem HCL CD 240 MG CAP.24HR PO (09:36)
[2023-04-04] MEDS: DULoxetine HCL 60 MG CAPSULE.DR PO (09:36)
[2023-04-04] MEDS: CHOLECALCIFEROL 1,000 UNITS TABLET 2000 UNITS PO (09:36)
[2023-04-04] MEDS: GABAPENTIN 100 MG CAPSULE 200 MG PO ×3 (09:36→18:15)
[2023-04-04] MEDS: FUROSEMIDE 40 MG TABLET PO ×2 (09:37→18:16)
[2023-04-04] MEDS: MORPHINE SULFATE (*CRX) 15 MG TABCR PO ×2 (09:37→21:49)
[2023-04-04] MEDS: amLODIPine BESYLATE 5 MG TABLET PO (09:37)
[2023-04-04] MEDS: APIXABAN 2.5 MG TABLET PO ×2 (09:37→21:44)
[2023-04-04] MEDS: FLECAINIDE ACETATE 100 MG TABLET PO ×2 (09:41→21:47)
[2023-04-04] MEDS: FLECAINIDE ACETATE 50 MG TABLET PO ×2 (09:41→21:44)
[2023-04-04] MEDS: TOPIRAMATE 25 MG TABLET PO ×2 (09:42→18:17)
[2023-04-04] MEDS: valACYclovir HCL 500 MG TABLET PO ×2 (09:42→21:46)
--- NOTE | 2023-04-04 09:42 | PM.IMPN ---
Progress Note: A&P Assessment and Plan (1) Acute hypercapnic respiratory failure: Code(s): J96.02 - Acute respiratory failure with hypercapnia Status: Acute Assessment and Plan: Acute on chronic hypercapnic respiratory failure with confusion. Patient usually wears 3 L oxygen by nasal cannula and is currently saturating well on this. She was noted to be hypercapnic with pCO2 over 60 which improved somewhat on BiPAP overnight. Patient in no respiratory distress this morning. Will continue BiPAP at night continue on oxygen during the day. OK to move patient to Med/Surg now. (2) Depression: Code(s): F32.9 - Major depressive disorder, single episode, unspecified Status: Acute Assessment and Plan: Continue with Abilify, Zoloft, and Cymbalta (3) Diastolic congestive heart failure: Code(s): I50.30 - Unspecified diastolic (congestive) heart failure Status: Acute Assessment and Plan: No signs of acute fluid retention or pulmonary edema. Continue with Lasix (4) Type 2 diabetes mellitus with hypoglycemia: Code(s): E11.649 - Type 2 diabetes mellitus with hypoglycemia without coma Status: Acute Assessment and Plan: Accu-Cheks AC and HS with sliding scale insulin. (5) Asthma-COPD overlap syndrome: Code(s): J44.9 - Chronic obstructive pulmonary disease, unspecified Status: Acute Assessment and Plan: Continue with nebulizers and home oxygen. (6) Chronic anticoagulation: Code(s): Z79.01 - penitentiary (current) use of anticoagulants Status: Acute Assessment and Plan: Continue with Eliquis (7) Paroxysmal atrial fibrillation: Code(s): I48.0 - Paroxysmal atrial fibrillation Status: Acute Assessment and Plan: Continue with Eliquis, flecainide, and Cardizem (8) Pacemaker: Code(s): Z95.0 - Presence of cardiac pacemaker Status: Acute Assessment and Plan: The patient has heart rate 60 and showing paced rhythm on telemetry. Okay to discontinue telemetry and transfer patient to med surg (9) Hypothyroidism: Code(s): E03.9 - Hypothyroidism, unspecified Status: Chronic Assessment and Plan: Continue with levothyroxine. Plan Continue BiPap at night and PRN, consider titrating down oxygen PT/OT for discharge planning Time Spent With Patient Time with patient: 25 - 35 minutes Subjective Date/time seen: 04/04/23 09:42 Interval history: This is a 77-year-old female patient who was admitted to the hospital from [facility] with increased confusion. Patient has Eladio history of COPD with hypercapnia and is supposed to be on BiPAP therapy at nighttime to sleep. Patient found to have hypercapnia was placed on BiPAP in the emergency department admitted to IMU status. Overnight patient experienced no acute events. This morning she is awake alert with baseline confusion. Incidentally, I saw patient on her last hospitalization about a week ago and she appears back to baseline status today. She did not remember me taking care of her last week. Patient is seen eating breakfast on nasal cannula without respiratory distress. Patient has clear lung sounds slightly diminished in the bases. Review of Systems Review of Systems: All systems reviewed & are unremarkable except as noted in HPI and below Exam Narrative: GENERAL: Obese, well appearing, alert and oriented, in no apparent distress. She is pleasant and conversant in full sentences. HEENT: Pupils are equally round and briskly reactive to light. Extraocular muscles are intact. Oral mucous membranes are moist without lesions. NECK: The patient has no noted JVD. No adenopathy is appreciated. CHEST/LUNGS: Lungs are diminished bilaterally without significant wheeze, rales or rhonchi. There is no subcutaneous air appreciated. There is no tenderness to the chest wall. HEART: The patient has a regular rate and rhythm. No murmurs, r
[2023-04-04 11:47] LABS: Glucose Point of Care 132 mg/dl (65-105)
--- NOTE | 2023-04-04 14:39 | PC.NURSE ---
This patient, Lili Sanchez, was transferred to [facility] on 04/04/23 at 1239. Personal belongings sent with patient. Report given to Jace. Appropriate documentation sent with patient.
[2023-04-04 17:52] LABS: Glucose Point of Care 151 mg/dl (65-105)
[2023-04-04] MEDS: SERTRALINE HCL 50 MG TABLET 100 MG PO (21:47)
[2023-04-04] MEDS: ARIPiprazole 10 MG TABLET PO (21:47)
[2023-04-04] MEDS: MICONAZOLE NITRATE 2% CREAM 30 GM TUBE 1 APPLIC TOPICAL (21:50)
[2023-04-04 22:04] LABS: Glucose Point of Care 173 mg/dl (65-105)
[2023-04-05] VITALS (15 sets, daily range): BP systolic 107–116; BP diastolic 44–46; PULSE 59–87; RESP 12–148; TEMP 36.1–36.4; O2SAT 92–100
[2023-04-05] MEDS: ALBUTEROL SULFATE NEB 2.5 MG/3 ML INH INHALATION ×4 (02:34→20:05)
[2023-04-05] MEDS: IPRATROPIUM BR 0.02% INH SOLN 0.5 MG/2.5 ML VIAL INHALATION ×4 (02:35→20:05)
[2023-04-05] MEDS: LEVOTHYROXINE SODIUM 25 MCG TABLET PO (05:04)
[2023-04-05 06:52] LABS: Basophils Percent Auto 0.4 % (0.2-1.2); Eosinophils Absolute Auto 0.3 K/mm3 (0-0.3); Hematocrit 38.6 % (37.0-47.0); Hemoglobin 11.6 g/dL (12.0-15.0); Immature Granulocyte Absolute 0.05 K/mm3 (0.00-0.031); Immature Granulocyte Percent A 0.6 % (0-0.5); Lymphocytes Absolute Auto 1.07 K/mm3 (0.9-3.2); Lymphocytes Percent Auto 12.9 % (18.3-44.2); Mean Corpuscular HGB Conc 30.1 g/dl (32-36); Mean Corpuscular Hemoglobin 30.9 pg (26-34); Mean Corpuscular Volume 102.9 fl (80-100); Mean Platelet Volume 9.2 fl (7.4-10.4); Monocytes Absolute Auto 0.3 K/mm3 (0.1-0.6); Monocytes Percent Auto 4.1 % (2.6-8.5); Neutrophils Absolute Auto 6.5 K/mm3 (1.3-6.7); Platelet Count Result 245 k/mm3 (150-375); Red Blood Count 3.75 M/mm3 (4.2-5.4); Red Cell Distribution Width 13.2 % (11.5-14.5); White Blood Count 8.3 K/mm3 (4.5-10.0)
[2023-04-05 06:57] LABS: Alanine Aminotransferase 24 U/L (6-35); Albumin Level 3.7 g/dL (3.5-5.1); Alkaline Phosphatase 68 U/L (38-126); Aspartate Amino Transferase 34 U/L (14-36); Bilirubin,Total 0.4 mg/dL (0.2-1.3); Blood Urea Nitrogen 20 mg/dL (7-17); Calcium 8.8 mg/dL (8.4-10.2); Carbon Dioxide > 40 mmol/L (22-30); Chloride 92 mmol/L (98-107); Estimated CRCL calculation 45 ml/min; Estimated Glomerular Filt Rate 54; Glucose 159 mg/dL (65-110); Potassium 3.1 mmol/L (3.4-5.0); Sodium 139 mmol/L (137-145)
[2023-04-05 08:04] LABS: Glucose Point of Care 116 mg/dl (65-105)
[2023-04-05] MEDS: CHOLECALCIFEROL 1,000 UNITS TABLET 2000 UNITS PO (08:43)
[2023-04-05] MEDS: dilTIAZem HCL CD 240 MG CAP.24HR PO (08:43)
[2023-04-05] MEDS: amLODIPine BESYLATE 5 MG TABLET PO (08:44)
[2023-04-05] MEDS: DULoxetine HCL 60 MG CAPSULE.DR PO (08:44)
[2023-04-05] MEDS: MORPHINE SULFATE (*CRX) 15 MG TABCR PO ×2 (08:48→21:36)
[2023-04-05] MEDS: POTASSIUM CHLORIDE 20 MEQ ER TABLET 40 MEQ PO (08:48)
[2023-04-05] MEDS: GABAPENTIN 100 MG CAPSULE 200 MG PO ×2 (08:48→17:28)
--- NOTE | 2023-04-05 09:03 | PM.IMPN ---
Progress Note: A&P Assessment and Plan (1) Acute hypercapnic respiratory failure: Code(s): J96.02 - Acute respiratory failure with hypercapnia Status: Acute Assessment and Plan: 04/04: Acute on chronic hypercapnic respiratory failure with confusion. Patient usually wears 3 L oxygen by nasal cannula and is currently saturating well on this. She was noted to be hypercapnic with pCO2 over 60 which improved somewhat on BiPAP overnight. Patient in no respiratory distress this morning. Will continue BiPAP at night continue on oxygen during the day. OK to move patient to Med/Surg now. 04/05: Carbon dioxide still greater than 40 on metabolic panel. Nursing staff instructed to titrate oxygen down due to hypercapnia in the setting of COPD. Goal saturations 90-93% (2) Depression: Code(s): F32.9 - Major depressive disorder, single episode, unspecified Status: Acute Assessment and Plan: Continue with Abilify, Zoloft, and Cymbalta (3) Diastolic congestive heart failure: Code(s): I50.30 - Unspecified diastolic (congestive) heart failure Status: Acute Assessment and Plan: No signs of acute fluid retention or pulmonary edema. Continue with Lasix (4) Type 2 diabetes mellitus with hypoglycemia: Code(s): E11.649 - Type 2 diabetes mellitus with hypoglycemia without coma Status: Acute Assessment and Plan: Accu-Cheks AC and HS with sliding scale insulin. (5) Asthma-COPD overlap syndrome: Code(s): J44.9 - Chronic obstructive pulmonary disease, unspecified Status: Acute Assessment and Plan: Continue with nebulizers and home oxygen with attempts to titrate down (6) Chronic anticoagulation: Code(s): Z79.01 - retirement (current) use of anticoagulants Status: Acute Assessment and Plan: Continue with Eliquis (7) Paroxysmal atrial fibrillation: Code(s): I48.0 - Paroxysmal atrial fibrillation Status: Acute Assessment and Plan: Continue with Eliquis, flecainide, and Cardizem (8) Pacemaker: Code(s): Z95.0 - Presence of cardiac pacemaker Status: Acute Assessment and Plan: The patient has heart rate 60 and showing paced rhythm on telemetry. Okay to discontinue telemetry and transfer patient to med surg. Incision site well healed no appearance of infection (9) Hypothyroidism: Code(s): E03.9 - Hypothyroidism, unspecified Status: Chronic Assessment and Plan: Continue with levothyroxine. Plan Continue BiPap at night and PRN titrate down oxygen PT/OT for discharge planning Time Spent With Patient Time with patient: 25 - 35 minutes Subjective Date/time seen: 04/05/23 09:03 Interval history: 04/04: This is a 77-year-old female patient who was admitted to the hospital from [facility] with increased confusion.? Patient has Eladio history of COPD with hypercapnia and is supposed to be on BiPAP therapy at nighttime to sleep.? Patient found to have hypercapnia was placed on BiPAP in the emergency department admitted to IMU status.? Overnight patient experienced no acute events.? This morning she is awake alert with baseline confusion.? Incidentally, I saw patient on her last hospitalization about a week ago and she appears back to baseline status today.? She did not remember me taking care of her last week.? Patient is seen eating breakfast on nasal cannula without respiratory distress.? Patient has clear lung sounds slightly diminished in the bases. 04/05: Patient reports feeling well today. She states that she tolerated BiPAP mask overnight without any difficulties. Review of lab still shows a carbon dioxide greater than 40 on metabolic panel. However, patient mental status appears improved. Physical therapy occupational therapy have been ordered for discharge planning. Case Management states that patient prefers to return back to [facility]. BiPAP for nighttime will b
[2023-04-05] MEDS: APIXABAN 2.5 MG TABLET PO ×2 (11:46→21:36)
[2023-04-05] MEDS: FLECAINIDE ACETATE 50 MG TABLET PO ×2 (11:46→21:37)
[2023-04-05 11:47] LABS: Glucose Point of Care 187 mg/dl (65-105)
[2023-04-05] MEDS: valACYclovir HCL 500 MG TABLET PO ×2 (11:47→21:36)
[2023-04-05] MEDS: FUROSEMIDE 40 MG TABLET PO (11:47)
[2023-04-05] MEDS: FLECAINIDE ACETATE 100 MG TABLET PO ×2 (11:47→21:37)
[2023-04-05] MEDS: TOPIRAMATE 25 MG TABLET PO ×2 (11:47→17:28)
[2023-04-05 17:03] LABS: Glucose Point of Care 116 mg/dl (65-105)
[2023-04-05] MEDS: acetaZOLAMIDE SODIUM FOR INJ 500 MG VIAL IV PUSH (17:30)
[2023-04-05 20:54] LABS: Glucose Point of Care 145 mg/dl (65-105)
[2023-04-05] MEDS: ARIPiprazole 10 MG TABLET PO (21:36)
[2023-04-05] MEDS: SERTRALINE HCL 50 MG TABLET 100 MG PO (21:36)
[2023-04-05] MEDS: MICONAZOLE NITRATE 2% CREAM 30 GM TUBE 1 APPLIC TOPICAL (21:53)
[2023-04-06] VITALS (15 sets, daily range): BP systolic 101–153; BP diastolic 48–66; PULSE 51–74; RESP 16–25; TEMP 35.6–36.3; O2SAT 92–98
[2023-04-06] MEDS: ALBUTEROL SULFATE NEB 2.5 MG/3 ML INH INHALATION ×3 (02:23→21:00)
[2023-04-06] MEDS: IPRATROPIUM BR 0.02% INH SOLN 0.5 MG/2.5 ML VIAL INHALATION ×3 (02:23→21:00)
[2023-04-06 03:29] LABS: Basophils Percent Auto 0.3 % (0.2-1.2); Eosinophils Absolute Auto 0.3 K/mm3 (0-0.3); Eosinophils Percent Auto 2.6 % (0-4.4); Hematocrit 42.3 % (37.0-47.0); Hemoglobin 12.9 g/dL (12.0-15.0); Immature Granulocyte Absolute 0.08 K/mm3 (0.00-0.031); Immature Granulocyte Percent A 0.7 % (0-0.5); Lymphocytes Absolute Auto 1.34 K/mm3 (0.9-3.2); Lymphocytes Percent Auto 11.2 % (18.3-44.2); Mean Corpuscular HGB Conc 30.5 g/dl (32-36); Mean Corpuscular Hemoglobin 31.2 pg (26-34); Mean Corpuscular Volume 102.4 fl (80-100); Mean Platelet Volume 8.9 fl (7.4-10.4); Monocytes Absolute Auto 0.5 K/mm3 (0.1-0.6); Monocytes Percent Auto 4.2 % (2.6-8.5); Neutrophils Absolute Auto 9.7 K/mm3 (1.3-6.7); Platelet Count Result 278 k/mm3 (150-375); Red Blood Count 4.13 M/mm3 (4.2-5.4); Red Cell Distribution Width 13.3 % (11.5-14.5); White Blood Count 11.9 K/mm3 (4.5-10.0)
[2023-04-06 03:41] LABS: Alanine Aminotransferase 28 U/L (6-35); Albumin Level 4.1 g/dL (3.5-5.1); Alkaline Phosphatase 85 U/L (38-126); Aspartate Amino Transferase 41 U/L (14-36); Bilirubin,Total 0.6 mg/dL (0.2-1.3); Blood Urea Nitrogen 22 mg/dL (7-17); Carbon Dioxide > 40 mmol/L (22-30); Chloride 88 mmol/L (98-107); Estimated CRCL calculation 33 ml/min; Estimated Glomerular Filt Rate 36; Glucose 152 mg/dL (65-110); Potassium 4.1 mmol/L (3.4-5.0); Sodium 139 mmol/L (137-145)
--- NOTE | 2023-04-06 05:09 | PCRCNOTE ---
Lab called about Venous blood sample sent down to them by parent partner. RT needed sample to run VBG order. Sample not returned to RT. PT removed BIPAP at 02:30. RT asked to have Sample drawn to reflect BIPAP immediately after. Sample drawn and sent to lab. RT could not obtain sample to run VBG.
[2023-04-06] MEDS: LEVOTHYROXINE SODIUM 25 MCG TABLET PO (06:02)
[2023-04-06 08:01] LABS: Glucose Point of Care 176 mg/dl (65-105)
[2023-04-06] MEDS: MORPHINE SULFATE (*CRX) 15 MG TABCR PO ×2 (08:20→22:46)
[2023-04-06] MEDS: SODIUM CHLORIDE 0.9% IV 500 ML IV CONT (08:20)
[2023-04-06] MEDS: CHOLECALCIFEROL 1,000 UNITS TABLET 2000 UNITS PO (08:20)
[2023-04-06] MEDS: valACYclovir HCL 500 MG TABLET PO ×2 (08:20→22:45)
[2023-04-06] MEDS: DULoxetine HCL 60 MG CAPSULE.DR PO (08:20)
[2023-04-06] MEDS: amLODIPine BESYLATE 5 MG TABLET PO (08:21)
[2023-04-06] MEDS: APIXABAN 2.5 MG TABLET PO ×2 (08:21→22:45)
[2023-04-06] MEDS: FLECAINIDE ACETATE 100 MG TABLET PO ×2 (08:22→22:45)
[2023-04-06] MEDS: FLECAINIDE ACETATE 50 MG TABLET PO ×2 (08:22→22:46)
[2023-04-06] MEDS: dilTIAZem HCL CD 240 MG CAP.24HR PO (08:23)
[2023-04-06] MEDS: TOPIRAMATE 25 MG TABLET PO ×2 (08:23→17:43)
[2023-04-06] MEDS: GABAPENTIN 100 MG CAPSULE 200 MG PO ×3 (08:28→17:45)
[2023-04-06] MEDS: ONDANSETRON INJ 4 MG/2 ML VIAL IV PUSH (08:36)
--- NOTE | 2023-04-06 09:08 | PCOTNOTE ---
Attempted OT eval x2 at 8:10 and 9:08, per nursing patient is nauseated and confused and wants OT to check back later.
[2023-04-06 11:45] LABS: Glucose Point of Care 157 mg/dl (65-105)
--- NOTE | 2023-04-06 11:46 | PM.IMPN ---
Progress Note: A&P Assessment and Plan (1) Acute hypercapnic respiratory failure: Code(s): J96.02 - Acute respiratory failure with hypercapnia Status: Acute Assessment and Plan: 04/04: Acute on chronic hypercapnic respiratory failure with confusion. Patient usually wears 3 L oxygen by nasal cannula and is currently saturating well on this. She was noted to be hypercapnic with pCO2 over 60 which improved somewhat on BiPAP overnight. Patient in no respiratory distress this morning. Will continue BiPAP at night continue on oxygen during the day. OK to move patient to Med/Surg now. 04/05: Carbon dioxide still greater than 40 on metabolic panel. Nursing staff instructed to titrate oxygen down due to hypercapnia in the setting of COPD. Goal saturations 90-93% 04/06: Current access still greater than 40 a metabolic panel. Ordered VBG but this was never collected or resulted. Patient drowsy and apparently hypercapnic. Since she was napping we assessed RT to reapply BiPAP. ABG is now ordered. (2) Depression: Code(s): F32.9 - Major depressive disorder, single episode, unspecified Status: Acute Assessment and Plan: Continue with Abilify, Zoloft, and Cymbalta (3) Diastolic congestive heart failure: Code(s): I50.30 - Unspecified diastolic (congestive) heart failure Status: Acute Assessment and Plan: No signs of acute fluid retention or pulmonary edema. Will hold Lasix today as this may be contributing to metabolic alkalosis. And plan to restart tomorrow. Blood pressure was low believe patient may be dehydrated. She also received 500 mL normal saline bolus. (4) Type 2 diabetes mellitus with hypoglycemia: Code(s): E11.649 - Type 2 diabetes mellitus with hypoglycemia without coma Status: Acute Assessment and Plan: Accu-Cheks AC and HS with sliding scale insulin. (5) Asthma-COPD overlap syndrome: Code(s): J44.9 - Chronic obstructive pulmonary disease, unspecified Status: Acute Assessment and Plan: Continue with nebulizers and home oxygen with attempts to titrate down (6) Chronic anticoagulation: Code(s): Z79.01 - shelter (current) use of anticoagulants Status: Acute Assessment and Plan: Continue with Eliquis (7) Paroxysmal atrial fibrillation: Code(s): I48.0 - Paroxysmal atrial fibrillation Status: Acute Assessment and Plan: Continue with Eliquis, flecainide, and Cardizem Plan Continue BiPap at night and PRN Lasix on hold. Worsening renal function with use of Diamox. Patient may just be intravascularly dry from over diuresis. Lasix likely contributing to metabolic alkalosis. ABG ordered he due to apparent symptomatic hypercapnia again. titrate down oxygen PT/OT for discharge planning--informed that patient will not be accepted back to [facility]. Time Spent With Patient Time with patient: 25 - 35 minutes Subjective Date/time seen: 04/06/23 11:46 Interval history: 04/04: This is a 77-year-old female patient who was admitted to the hospital from [facility] with increased confusion.? Patient has Eladio history of COPD with hypercapnia and is supposed to be on BiPAP therapy at nighttime to sleep.? Patient found to have hypercapnia was placed on BiPAP in the emergency department admitted to IMU status.? Overnight patient experienced no acute events.? This morning she is awake alert with baseline confusion.? Incidentally, I saw patient on her last hospitalization about a week ago and she appears back to baseline status today.? She did not remember me taking care of her last week.? Patient is seen eating breakfast on nasal cannula without respiratory distress.? Patient has clear lung sounds slightly diminished in the bases. 04/05: Patient reports feeling well today. She states that she tolerated BiPAP mask overnight without any difficulties. Review of lab still shows a carbon dioxide grea
[2023-04-06 14:30] LABS: Alveolar/Arterial O2 Gradient 58.6 mmHg; Base Excess ABG 9.4 mEq/l (+/-2.0); Fractional Inspired Oxygen 28 %; HCO3 ABG 36.1 mEq/l (22.0-26.0); Oxygen Content ABG 17.9 %vol (16.0-22.0); Oxygen Saturation ABG 94.4 % (95.0-100.0); Oxyhemoglobin 93.6 % THb (90.0-100.0); PCO2 ABG 58.1 mmHg (35.0-45.0); PO2 ABG 72.5 mmHg (80.0-100.0); PO2 FiO2 Ratio Arterial Blood 2.59 %; Total Hemoglobin 13.6 g/dL (12.0-18.0); pH ABG 7.411 (7.350-7.450)
[2023-04-06 14:31] LABS: Device NON-INVASIVE VENT; Non-Invasive Expiratory Pressure 8 CMH2O; Non-Invasive Inspiratory Pressure 16 CMH2O; Non-Invasive Vent Rate 22 /MIN; Site Drawn RIGHT BRACHIAL
[2023-04-06 14:46] LABS: Expiratory Pressure 8 cmH2O; Inspiratory Pressure 16 cmH2O
[2023-04-06 16:13] LABS: Glucose Point of Care 155 mg/dl (65-105)
[2023-04-06 20:31] LABS: Glucose Point of Care 169 mg/dl (65-105)
[2023-04-06] MEDS: ARIPiprazole 10 MG TABLET PO (22:45)
[2023-04-06] MEDS: MICONAZOLE NITRATE 2% CREAM 30 GM TUBE 1 APPLIC TOPICAL (22:46)
[2023-04-06] MEDS: SERTRALINE HCL 50 MG TABLET 100 MG PO (22:46)
[2023-04-07] VITALS (22 sets, daily range): BP systolic 110–127; BP diastolic 58–100; PULSE 60–109; RESP 16–28; TEMP 35.7–37.9; O2SAT 86–97
[2023-04-07] MEDS: ALBUTEROL SULFATE NEB 2.5 MG/3 ML INH INHALATION ×5 (02:05→20:05)
[2023-04-07] MEDS: IPRATROPIUM BR 0.02% INH SOLN 0.5 MG/2.5 ML VIAL INHALATION ×4 (02:05→20:05)
[2023-04-07] MEDS: LEVOTHYROXINE SODIUM 25 MCG TABLET PO (06:27)
[2023-04-07 06:57] LABS: Basophils Percent Auto 0.3 % (0.2-1.2); Eosinophils Absolute Auto 0.1 K/mm3 (0-0.3); Eosinophils Percent Auto 1.1 % (0-4.4); Hematocrit 42.4 % (37.0-47.0); Hemoglobin 13.2 g/dL (12.0-15.0); Immature Granulocyte Absolute 0.05 K/mm3 (0.00-0.031); Immature Granulocyte Percent A 0.4 % (0-0.5); Lymphocytes Absolute Auto 1.08 K/mm3 (0.9-3.2); Lymphocytes Percent Auto 9.3 % (18.3-44.2); Mean Corpuscular HGB Conc 31.1 g/dl (32-36); Mean Corpuscular Volume 102.7 fl (80-100); Mean Platelet Volume 9.1 fl (7.4-10.4); Monocytes Absolute Auto 0.6 K/mm3 (0.1-0.6); Monocytes Percent Auto 4.9 % (2.6-8.5); Neutrophils Absolute Auto 9.7 K/mm3 (1.3-6.7); Platelet Count Result 262 k/mm3 (150-375); Red Blood Count 4.13 M/mm3 (4.2-5.4); Red Cell Distribution Width 13.4 % (11.5-14.5); White Blood Count 11.6 K/mm3 (4.5-10.0)
[2023-04-07 07:10] LABS: Alanine Aminotransferase 25 U/L (6-35); Albumin Level 3.9 g/dL (3.5-5.1); Alkaline Phosphatase 78 U/L (38-126); Anion Gap 6 mmol/L (8-16); Aspartate Amino Transferase 33 U/L (14-36); Bilirubin,Total 0.7 mg/dL (0.2-1.3); Blood Urea Nitrogen 29 mg/dL (7-17); Calcium 9.5 mg/dL (8.4-10.2); Carbon Dioxide 36 mmol/L (22-30); Chloride 88 mmol/L (98-107); Estimated CRCL calculation 28 ml/min; Estimated Glomerular Filt Rate 29; Glucose 162 mg/dL (65-110); Potassium 3.8 mmol/L (3.4-5.0); Sodium 130 mmol/L (137-145)
--- NOTE | 2023-04-07 07:14 | PM.IMPN ---
Progress Note: A&P Assessment and Plan (1) Acute hypercapnic respiratory failure: Code(s): J96.02 - Acute respiratory failure with hypercapnia Status: Acute Assessment and Plan: 04/04: Acute on chronic hypercapnic respiratory failure with confusion. Patient usually wears 3 L oxygen by nasal cannula and is currently saturating well on this. She was noted to be hypercapnic with pCO2 over 60 which improved somewhat on BiPAP overnight. Patient in no respiratory distress this morning. Will continue BiPAP at night continue on oxygen during the day. OK to move patient to Med/Surg now. 04/05: Carbon dioxide still greater than 40 on metabolic panel. Nursing staff instructed to titrate oxygen down due to hypercapnia in the setting of COPD. Goal saturations 90-93% 04/06: Current access still greater than 40 a metabolic panel. Ordered VBG but this was never collected or resulted. Patient drowsy and apparently hypercapnic. Since she was napping we assessed RT to reapply BiPAP. ABG is now ordered. 04/07: ABG yesterday shows compensated respiratory acidosis. BiPap on to nap and to sleep. Today patient more confused, appears more hypercapneic. Ordered repeat ABG. (2) Acute kidney injury: Code(s): N17.9 - Acute kidney failure, unspecified Status: Acute Assessment and Plan: 04/07: Diuretics held yesterday but serum Cr elevated to 1.7, up from 1.0 two days ago. Consult Nephrology --Cr 1.8 on afternoon labs, no urine output so far this morning or overnight per nursing staff. Mirta ordered for accurate I&O (3) Hyponatremia: Code(s): E87.1 - Hypo-osmolality and hyponatremia Status: Acute Assessment and Plan: 04/07: Drop from 139 yesterday to 130 today. Consult Nephrology --Na to 134 without intervention with afternoon labs (4) Diastolic congestive heart failure: Code(s): I50.30 - Unspecified diastolic (congestive) heart failure Status: Acute Assessment and Plan: 04/06: No signs of acute fluid retention or pulmonary edema. Will hold Lasix today as this may be contributing to metabolic alkalosis. And plan to restart tomorrow. Blood pressure was low believe patient may be dehydrated. She also received 500 mL normal saline bolus. 04/07: worsening renal function despite diuretics on hold. Kirby ordered (5) Type 2 diabetes mellitus with hypoglycemia: Code(s): E11.649 - Type 2 diabetes mellitus with hypoglycemia without coma Status: Acute Assessment and Plan: Accu-Cheks AC and HS with sliding scale insulin. (6) Asthma-COPD overlap syndrome: Code(s): J44.9 - Chronic obstructive pulmonary disease, unspecified Status: Acute Assessment and Plan: Continue with nebulizers and home oxygen with attempts to titrate down --additional neb ordered due to wheezing on exam (7) Chronic anticoagulation: Code(s): Z79.01 - buttermaker (current) use of anticoagulants Status: Acute Assessment and Plan: Continue with Eliquis (8) Paroxysmal atrial fibrillation: Code(s): I48.0 - Paroxysmal atrial fibrillation Status: Acute Assessment and Plan: Continue with Eliquis, flecainide, and Cardizem --regular rhythm around 60 BPM, previously Paced at this rate when on Telemetry (9) Depression: Code(s): F32.9 - Major depressive disorder, single episode, unspecified Status: Acute Assessment and Plan: Continue with Abilify, Zoloft, and Cymbalta Plan Worsening renal function and drop in sodium despite diuretics on hold as well as reported increased confusion, Consult Nephrology Continue to work with case management regarding placement upon discharge Suspect possible UTI, ordered Kirby placement and UA, ordered CXR and blood cultures. WBC climbing, up to 15.6 with afternoon labs. Time Spent With Patient Time with patient: Greater than 35 minutes Subjective Date/time seen: 04/07/23 12:30 Interval history: 04/04:
[2023-04-07 07:41] LABS: Glucose Point of Care 158 mg/dl (65-105)
[2023-04-07] MEDS: FUROSEMIDE 40 MG TABLET PO (08:12)
[2023-04-07] MEDS: valACYclovir HCL 500 MG TABLET PO (08:12)
[2023-04-07] MEDS: APIXABAN 2.5 MG TABLET PO (08:12)
[2023-04-07] MEDS: FLECAINIDE ACETATE 50 MG TABLET PO (08:12)
[2023-04-07] MEDS: dilTIAZem HCL CD 240 MG CAP.24HR PO (08:12)
[2023-04-07] MEDS: amLODIPine BESYLATE 5 MG TABLET PO (08:12)
[2023-04-07] MEDS: DULoxetine HCL 60 MG CAPSULE.DR PO (08:12)
[2023-04-07] MEDS: TOPIRAMATE 25 MG TABLET PO (08:12)
[2023-04-07] MEDS: FLECAINIDE ACETATE 100 MG TABLET PO (08:12)
[2023-04-07] MEDS: CHOLECALCIFEROL 1,000 UNITS TABLET 2000 UNITS PO (08:13)
[2023-04-07] MEDS: MORPHINE SULFATE (*CRX) 15 MG TABCR PO (08:17)
[2023-04-07] MEDS: GABAPENTIN 100 MG CAPSULE 200 MG PO (08:17)
[2023-04-07 11:32] LABS: Glucose Point of Care 231 mg/dl (65-105)
[2023-04-07] MEDS: ALBUTEROL SULFATE NEB 2.5 MG/3 ML INH 5 MG INHALATION (12:30)
[2023-04-07] MEDS: IPRATROPIUM BR 0.02% INH SOLN 0.5 MG/2.5 ML VIAL 1 MG INHALATION (12:30)
[2023-04-07 13:15] LABS: Hemoglobin 12.9 g/dL (12.0-15.0); Mean Corpuscular HGB Conc 31.5 g/dl (32-36); Mean Corpuscular Hemoglobin 31.5 pg (26-34); Platelet Count Result 295 k/mm3 (150-375); Red Cell Distribution Width 13.3 % (11.5-14.5); White Blood Count 15.6 K/mm3 (4.5-10.0)
[2023-04-07 13:28] LABS: Blood Urea Nitrogen 32 mg/dL (7-17); Calcium 9.6 mg/dL (8.4-10.2); Carbon Dioxide > 40 mmol/L (22-30); Chloride 85 mmol/L (98-107); Estimated CRCL calculation 27 ml/min; Estimated Glomerular Filt Rate 27; Glucose 184 mg/dL (65-110); Potassium 4.1 mmol/L (3.4-5.0); Sodium 134 mmol/L (137-145)
--- NOTE | 2023-04-07 13:31 | PM.CNNEP ---
Assessment and Plan Assessment and plan (1) Acute kidney injury: Code(s): N17.9 - Acute kidney failure, unspecified Status: Acute Assessment and Plan: The patient has acute kidney injury. Her volume status looks okay or possibly dehydrated. She has no swelling. Chest x-ray on admission was no acute disorder. She has been on diuretics. So I do not think she has become fluid overloaded. I suspect she is dehydrated. Will hold diuretics and give her some fluids. Other things can cause kidney disease as well as has his obstruction, nephritis, allergic interstitial disease, and rhabdomyolysis. Ultrasound and a CK as well as urine electrolytes. (2) Stage 3a chronic kidney disease (CKD): Code(s): N18.31 - Chronic kidney disease, stage 3a Status: Acute Assessment and Plan: Patient has chronic kidney disease stage IIIA. This is likely related to vascular disease and hypertension. She could also have chronic pre renal azotemia from her severe COPD/asthma condition. (3) Chronic respiratory failure with hypoxia, on home oxygen therapy: Code(s): J96.11 - Chronic respiratory failure with hypoxia; Z99.81 - Dependence on supplemental oxygen Status: Chronic Assessment and Plan: The patient has COPD and Pickwickian syndrome. Oxygen supplementation is being minimized in order to keep her O2 sats just around 90. High bicarbonate level can contribute to a higher pCO2 as well. Her creatinine is higher I believe because of the furosemide and her poor oral intake. She did receive Diamox last night but I do not think that 1 dose of Diamox would affect her creatinine. This is a very mild diuretic. She is however already on topiramate which can increase her urine pH. Would an agent like theophylline to increased respiratory drive be an option here? (4) Paroxysmal atrial fibrillation: Code(s): I48.0 - Paroxysmal atrial fibrillation Status: Acute Assessment and Plan: The patient is anticoagulated. Heart rate is good. EKG showed atrial pacemaker (5) Congestive heart failure: Code(s): I50.9 - Heart failure, unspecified Status: Acute Assessment and Plan: No signs of volume overload now History of Present Illness Reason for Consult Consult date: 04/07/23 Chief Complaint Chief complaint: Hypercarbia/Confusion History of Present Illness Narrative: Lili is a very pleasant 77-year-old lady who has multiple medical problems including COPD with CO2 retention, anxiety, chronic kidney disease stage IIIA or the creatinine baseline seems to be 1.1-1.3. She also has diabetes, hyperlipidemia, asthma/COPD, fibromyalgia, history of pulmonary embolism on anticoagulants, hypothyroidism, hyperlipidemia, vitamin-D deficiency. The patient came into the hospital because of lethargy. She was seen in the emergency room found to have a high pCO2. She was placed on a BiPAP machine admitted. She was transferred to the floor. The patient has been continuously confused and lethargic since then. She has had a BiPAP mask on continuously and her pCO2 remains fairly high. They have tried reducing the oxygen supplementation to minimize the affect of oxygen on her respiratory drive and actually gave her a dose of Diamox last night to bring the bicarbonate down but the patient remains lethargic She is able to answer questions briefly but not very reliably and tires very quickly. Her hemodynamics have been relatively stable. Review of Systems Review of Systems: ROS unobtainable: Yes unobtainable due to medical condition PMFSH Past Medical History Medical History Anxiety Asthma-COPD overlap syndrome Chest pain Chronic anticoagulation Chronic low back pain with sciatica Chronic renal insufficiency, stage III (moderate) Chronic respiratory failure with hypoxia, on home oxygen therapy Depression Fibromyalgia History of pulmo
[2023-04-07 13:47] LABS: Alveolar/Arterial O2 Gradient 60.9 mmHg; Base Excess ABG 11.2 mEq/l (+/-2.0); Fractional Inspired Oxygen 28 %; Oxygen Content ABG 18.3 %vol (16.0-22.0); Oxygen Saturation ABG 95.7 % (95.0-100.0); Oxyhemoglobin 94.7 % THb (90.0-100.0); PCO2 ABG 52.8 mmHg (35.0-45.0); PO2 ABG 76.4 mmHg (80.0-100.0); PO2 FiO2 Ratio Arterial Blood 2.73 %; Total Hemoglobin 13.7 g/dL (12.0-18.0); pH ABG 7.463 (7.350-7.450)
[2023-04-07 13:50] LABS: Device NON-INVASIVE VENT; Modified Allen's Test Pass; Site Drawn RIGHT RADIAL
[2023-04-07 13:51] LABS: Non-Invasive Expiratory Pressure 8 CMH2O; Non-Invasive Inspiratory Pressure 16 CMH2O
[2023-04-07] MEDS: LACTATED RINGERS 1,000 ML 250 ML IV CONT (14:00)
--- NOTE | 2023-04-07 14:10 | PCOTNOTE ---
Attempted OT evaluation; pt. sleeping and refused to wake. Will attempt again tomorrow.
[2023-04-07 14:19] LABS: Creatine Kinase 69 U/L (30-135)
[2023-04-07 14:20] LABS: Creatinine Urine 112.6 mg/dL; Total Protein Urine Random 21 mg/dL; Ur Ttl Prot Creatinine Ratio 0.19 mg/mg (0-0.20); Urea Random Urine 469 MG/DL
[2023-04-07 14:25] LABS: Appearance Urine Turbid (Clear); Bacteria Urine 4+ /hpf; Bilirubin Urine Negative (Negative); Blood Urine 1+ (Negative); Color Urine Yellow (Yellow); Glucose Urine UA Negative (Negative); Ketones Urine Negative (Negative); Leukocyte Esterase Ur 3+ LEU/UL (Negative); Need Manual Microscopic Reviewed; Nitrate Urine Positive (Negative); Non Pathogenic Casts >20; Protein Urine 1+ mg/dL (Negative); Specific Grav Ur 1.013 (1.001-1.035); Squamous Epithelial Cell Urine Moderate /hpf (Few); Urobilinogen Urine 0.2 mg/dL (<2.0); WBC Urine >100 /hpf
[2023-04-07 14:26] LABS: Sodium Urine Random 15 meq/L
[2023-04-07 14:26] LABS: Add Urine Microscopic? YES
[2023-04-07] MEDS: AZITHROMYCIN 500 MG/NS 250 ML 500 MG/250 ML BAG 250 MG IVPB (15:34)
[2023-04-07] MEDS: cefTRIAXone 2 GM/NS 100 ML 2 GM/100 ML BAG IVPB (15:35)
[2023-04-07] MEDS: LACTATED RINGERS 1,000 ML 999 ML IV CONT (15:40)
[2023-04-07] MEDS: LORazepam INJ (*CRX) 2 MG/ML VIAL 1 MG IV PUSH (15:42)
[2023-04-07] MEDS: SODIUM CHLORIDE 0.9% IV 1,000 ML 75 ML IV CONT ×2 (16:23→21:08)
[2023-04-07 16:27] LABS: Lactic Acid Reflex 1.7 mmol/L (0.7-2.0)
[2023-04-07 16:34] LABS: Glucose Point of Care 170 mg/dl (65-105)
--- NOTE | 2023-04-07 17:32 | PC.NURSE ---
This patient, Lili Sanchez, was transferred to [[facility] ] on 04/07/23 at 1732. Personal belongings sent with patient. Report given to [ ]. Appropriate documentation sent with patient. Hearing Aides glasses are in slippers in bag, [employer] Pacemaker machine and paperwork sent with [employer]. Cell phone sent with Patient
--- NOTE | 2023-04-07 18:33 | PC.NURSE ---
This patient, Lili Sanchez, was received from [facility] on 04/07/23 at 1750. Patient/family oriented to unit policies and routines.
[2023-04-07] MEDS: ENOXAPARIN 30 MG/0.3 ML SYRINGE SUB-Q (18:46)
[2023-04-07] MEDS: MICONAZOLE NITRATE 2% CREAM 30 GM TUBE 1 APPLIC TOPICAL (21:10)
[2023-04-07 23:43] LABS: Glucose Point of Care 173 mg/dl (65-105)
[2023-04-08] VITALS (32 sets, daily range): BP systolic 94–137; BP diastolic 31–93; PULSE 60–66; RESP 18–25; TEMP 35.8–38.2; O2SAT 88–100
[2023-04-08] MEDS: ALBUTEROL SULFATE NEB 2.5 MG/3 ML INH INHALATION ×4 (01:23→20:17)
[2023-04-08] MEDS: IPRATROPIUM BR 0.02% INH SOLN 0.5 MG/2.5 ML VIAL INHALATION ×4 (01:23→20:17)
[2023-04-08 03:46] LABS: Alveolar/Arterial O2 Gradient 239.6 mmHg; Carboxyhemoglobin 0.2 % THb (0-2.0); Fractional Inspired Oxygen 50 %; HCO3 ABG 38.5 mEq/l (22.0-26.0); Methemoglobin ABG 0.6 %THb (0-1.5); Oxygen Content ABG 14.8 %vol (16.0-22.0); PCO2 ABG 59.1 mmHg (35.0-45.0); PO2 ABG 50.4 mmHg (80.0-100.0); PO2 FiO2 Ratio Arterial Blood 1.01 %; Reduced Hemoglobin 14.8 %THb (0-5.0); Total Hemoglobin 12.5 g/dL (12.0-18.0); pH ABG 7.432 (7.350-7.450)
[2023-04-08 03:52] LABS: Oxygen Saturation ABG 85.7 % (95.0-100.0)
[2023-04-08 03:53] LABS: Device NON-INVASIVE VENT; Modified Allen's Test Pass; Oxyhemoglobin 84.4 % THb (90.0-100.0); Site Drawn LEFT RADIAL
[2023-04-08 03:54] LABS: Non-Invasive Expiratory Pressure 8 CMH2O; Non-Invasive Inspiratory Pressure 16 CMH2O; Non-Invasive Vent Rate 22 /MIN
[2023-04-08 05:12] LABS: Basophils Percent Auto 0.3 % (0.2-1.2); Eosinophils Absolute Auto 0.1 K/mm3 (0-0.3); Eosinophils Percent Auto 0.8 % (0-4.4); Hematocrit 35.8 % (37.0-47.0); Hemoglobin 11.1 g/dL (12.0-15.0); Immature Granulocyte Absolute 0.05 K/mm3 (0.00-0.031); Immature Granulocyte Percent A 0.5 % (0-0.5); Lymphocytes Percent Auto 9.5 % (18.3-44.2); Mean Corpuscular Hemoglobin 31.5 pg (26-34); Mean Corpuscular Volume 101.7 fl (80-100); Mean Platelet Volume 9.2 fl (7.4-10.4); Monocytes Absolute Auto 0.6 K/mm3 (0.1-0.6); Monocytes Percent Auto 5.2 % (2.6-8.5); Neutrophils Absolute Auto 8.8 K/mm3 (1.3-6.7); Neutrophils Percent Auto 83.7 % (45.5-73.1); Platelet Count Result 252 k/mm3 (150-375); Red Blood Count 3.52 M/mm3 (4.2-5.4); Red Cell Distribution Width 13.4 % (11.5-14.5); White Blood Count 10.6 K/mm3 (4.5-10.0)
[2023-04-08 05:28] LABS: Alanine Aminotransferase 20 U/L (6-35); Albumin Level 3.3 g/dL (3.5-5.1); Alkaline Phosphatase 68 U/L (38-126); Anion Gap 4 mmol/L (8-16); Aspartate Amino Transferase 28 U/L (14-36); Bilirubin,Total 0.6 mg/dL (0.2-1.3); Blood Urea Nitrogen 28 mg/dL (7-17); Calcium 8.7 mg/dL (8.4-10.2); Carbon Dioxide 38 mmol/L (22-30); Chloride 89 mmol/L (98-107); Estimated CRCL calculation 32 ml/min; Estimated Glomerular Filt Rate 34; Glucose 160 mg/dL (65-110); Phosphorus 3.7 mg/dL (2.5-4.5); Potassium 3.4 mmol/L (3.4-5.0); Sodium 131 mmol/L (137-145)
--- NOTE | 2023-04-08 05:34 | P.PNCROSS_ITS ---
Event Note Event Note Event Note: Nursing staff called me around 04:30 as the patient was having hypoxia. They h ave had to increase the patient's oxygen rapidly from 35% up to 60% to maintain oxygen saturations. I ordered a stat chest x-ray and requested nursing staff hold the IV fluids. I went and evaluated the patient. The chest x-ray. Relatively stable given variances and technique. Although there may be some mild pulmonary vascular congestion. I am waiting radiologic interpretation. The patient's oxygen saturation improved up to 100% after the patient had moved been moved around by Radiology. While I was in evaluating the patient I did make adjustments to the BiPAP from 16/6 with a rate of 22 to 18/10 with a rate of 22. The patient did seem to tolerate these adjustments. Also the patient's face mask was adjusted she did not have a large leak on her BiPAP but she was leaking between 16 and 25 in pressure. This resolved. For the most per the patient pulling tidal volumes between 350 and 500. Her repeat ABG was stable. I suspect the patient's acute worsening of her respiratory failure was due to mucous plugging. I doubt the patient would be able to participate in good pulmonary toilet. Instead will place patient on Pulmozyme for couple of doses to see if this does not improve. I did continue to hold the IV fluids. Repeat morning labs were pending. 35 minute spent in critical care activities. Due to a high probability of clinically significant, life threatening deteri oration, the patient required my highest level of preparedness to intervene emergently and I personally spent this critical care time directly and personally managing the patient. This critical care time included obtaining a history; examining the patient; pulse oximetry; ordering and review of studies; arranging urgent treatment with development of a management plan; evaluation of patient's response to treatment; frequent reassessment; and discussions with other providers. It was exclusive of separately billable procedures and treating other patients and teaching time. Please see Assessment and Plan section and the rest of the note for further information on patient assessment and treatment.
[2023-04-08] MEDS: DORNASE ALFA INH SOLN 1 MG/ML 2.5 ML AMP 2.5 MG INHALATION ×2 (08:15→22:03)
[2023-04-08] MEDS: FLECAINIDE ACETATE 50 MG TABLET PO (09:02)
[2023-04-08] MEDS: dilTIAZem HCL CD 240 MG CAP.24HR PO (09:02)
[2023-04-08] MEDS: FLECAINIDE ACETATE 100 MG TABLET PO (09:02)
[2023-04-08] MEDS: AZITHROMYCIN 500 MG/NS 250 ML 500 MG/250 ML BAG 250 MG IVPB (11:17)
[2023-04-08] MEDS: ENOXAPARIN 30 MG/0.3 ML SYRINGE SUB-Q (11:17)
--- NOTE | 2023-04-08 11:54 | PM.IMPN ---
Progress Note: A&P Assessment and Plan (1) Acute hypercapnic respiratory failure: Code(s): J96.02 - Acute respiratory failure with hypercapnia Status: Acute Assessment and Plan: 04/04: Acute on chronic hypercapnic respiratory failure with confusion. Patient usually wears 3 L oxygen by nasal cannula and is currently saturating well on this. She was noted to be hypercapnic with pCO2 over 60 which improved somewhat on BiPAP overnight. Patient in no respiratory distress this morning. Will continue BiPAP at night continue on oxygen during the day. OK to move patient to Med/Surg now. 04/05: Carbon dioxide still greater than 40 on metabolic panel. Nursing staff instructed to titrate oxygen down due to hypercapnia in the setting of COPD. Goal saturations 90-93% 04/06: Current access still greater than 40 a metabolic panel. Ordered VBG but this was never collected or resulted. Patient drowsy and apparently hypercapnic. Since she was napping we assessed RT to reapply BiPAP. ABG is now ordered. 04/07: ABG yesterday shows compensated respiratory acidosis. BiPap on to nap and to sleep. Today patient more confused, appears more hypercapneic. Ordered repeat ABG. 04/08: Patient was on BiPAP most of the day yesterday and overnight. Had an event of mucus plugging with desaturation overnight. Settings were modified. Attempted to take patient off BiPAP this morning had to be replaced due to respiratory distress. (2) Severe sepsis: Code(s): A41.9 - Sepsis, unspecified organism; R65.20 - Severe sepsis without septic shock Status: Acute Assessment and Plan: Patient with suspected fever (100 axillary) with evidence return of urinary tract infection and lactic acidosis of 2.4. Patient received IV fluids IV antibiotics and placed on continuous BiPAP. There is possibility of pneumonia versus atelectasis so antibiotic therapy was chosen to treat both pneumonia and UTI. (3) UTI (urinary tract infection): Code(s): N39.0 - Urinary tract infection, site not specified Status: Acute Assessment and Plan: Appearance highly infected urine upon Kirby catheter insertion. Patient a previous urinary tract infection that was later shown to have cleared but now appears to have a new infection. (4) Acute kidney injury: Code(s): N17.9 - Acute kidney failure, unspecified Status: Acute Assessment and Plan: 04/07: Diuretics held yesterday but serum Cr elevated to 1.7, up from 1.0 two days ago. Consult Nephrology --Cr 1.8 on afternoon labs, no urine output so far this morning or overnight per nursing staff. Kirby ordered for accurate I&O 04/08: Mildly improved with creatinine to 1.5 BUN 28 estimated GFR 34 (5) Hyponatremia: Code(s): E87.1 - Hypo-osmolality and hyponatremia Status: Acute Assessment and Plan: 04/07: Drop from 139 yesterday to 130 today. Consult Nephrology --Na to 134 without intervention with afternoon labs 04/08: Sodium level stable at 131. (6) Diastolic congestive heart failure: Code(s): I50.30 - Unspecified diastolic (congestive) heart failure Status: Acute Assessment and Plan: 04/06: No signs of acute fluid retention or pulmonary edema. Will hold Lasix today as this may be contributing to metabolic alkalosis. And plan to restart tomorrow. Blood pressure was low believe patient may be dehydrated. She also received 500 mL normal saline bolus. 04/07: worsening renal function despite diuretics on hold. Mirta ordered 8:6: Patient had desaturation overnight does not appear to be pulmonary edema but it said mucus plugging however IV fluids were placed on hold. Diuretics remain on hold. (7) Type 2 diabetes mellitus with hypoglycemia: Code(s): E11.649 - Type 2 diabetes mellitus with hypoglycemia without coma Status: Acute Assessment and Plan: Accu-Cheks AC and HS with sliding scale insulin. (8) Asthma-COPD overlap syndrome: Code(s):
--- NOTE | 2023-04-08 13:48 | PM.PNNEP ---
Progress Note: A&P Assessment and Plan (1) Acute kidney injury: Code(s): N17.9 - Acute kidney failure, unspecified Status: Acute Assessment and Plan: The patient has acute kidney injury. Urine 'lytes prerenal renal sono unremarkable ua bland most likely leanne due to prerenal issues: dehydration diuretics prerenal effects of pulmonary hypertension. pt became hypoxic this am. cxr shows no fluid overload so ascribed to mucus plug. getting pulmonary toilet fluids held for now after some fluids her creatinine came down. will follow. (2) Stage 3a chronic kidney disease (CKD): Code(s): N18.31 - Chronic kidney disease, stage 3a Status: Acute Assessment and Plan: Patient has chronic kidney disease stage IIIA. This is likely related to vascular disease and hypertension. She could also have chronic pre renal azotemia from her severe COPD/asthma condition. (3) Chronic respiratory failure with hypoxia, on home oxygen therapy: Code(s): J96.11 - Chronic respiratory failure with hypoxia; Z99.81 - Dependence on supplemental oxygen Status: Chronic Assessment and Plan: The patient has COPD and Pickwickian syndrome. Oxygen supplementation is being minimized in order to keep her O2 sats just around 90. High bicarbonate level can contribute to a higher pCO2 as well. fluids given. CO2 still high. restart the diamox (4) Paroxysmal atrial fibrillation: Code(s): I48.0 - Paroxysmal atrial fibrillation Status: Acute Assessment and Plan: The patient is anticoagulated. Heart rate is good. EKG showed atrial pacemaker (5) Congestive heart failure: Code(s): I50.9 - Heart failure, unspecified Status: Acute Assessment and Plan: No signs of volume overload now Subjective Date/time seen: 04/08/23 13:48 Interval history: family in the room pt is still on bipap. wakens with name calling. denies distress. Review of Systems Cardiovascular: Cardiovascular: Reports no additional cardiovascular complaints Respiratory: Respiratory: Reports no additional respiratory complaints Gastrointestinal: Gastrointestinal: Reports no additional gastrointestinal complaints Genitourinary: Genitourinary: Reports no additional female genitourinary complaints Exam Narrative: WDWN in NAD skin no rash head ncat lungs minimally coarse cor reg no rub or gallop abd BS+ nontender and soft ext no edema. Objective Data Vital Signs Vital Signs: Vital Signs - 24 hr 04/07/23 14:00 04/07/23 15:21 04/07/23 15:31 Temperature 97.8 F Pulse Rate 109 H 64 64 Respiratory Rate 20 24 H 25 H Blood Pressure 120/100 H Pulse Oximetry 96 93 Oxygen Delivery BiPAP Fraction of Inspired Oxygen 04/07/23 15:35 04/07/23 16:10 04/07/23 18:41 Temperature 100.3 F H Pulse Rate 66 90 67 Respiratory Rate 25 H 28 H 16 Blood Pressure 110/80 115/58 L Pulse Oximetry 96 95 Oxygen Delivery Fraction of Inspired Oxygen 04/07/23 18:38 04/07/23 20:09 04/07/23 20:10 Temperature Pulse Rate 62 62 Respiratory Rate 24 H 23 H 23 H Blood Pressure Pulse Oximetry 96 86 L Oxygen Delivery BiPAP BiPAP Fraction of Inspired Oxygen 28 04/07/23 20:11 04/07/23 20:24 04/07/23 20:00 Temperature 100.2 F H Pulse Rate 62 64 64 Respiratory Rate 23 H 23 H 24 H Blood Pressure 127/89 Pulse Oximetry 86 L 93 Oxygen Delivery BiPAP Fraction of Inspired Oxygen 04/07/23 20:00 04/07/23 23:06 04/07/23 23:44 Temperature 98.5 F Pulse Rate 61 60 Respiratory Rate 22 H 24 H Blood Pressure 122/69 Pulse Oximetry 97 97 93 Oxygen Delivery BiPAP BiPAP Fraction of Inspired Oxygen 30 04/08/23 00:00 04/08/23 01:09 04/08/23 00:00 Temperature Pulse Rate 66 Respiratory Rate Blood Pressure Pulse Oximetry 92 90 Oxygen Delivery BiPAP BiPAP Fraction of Inspired Oxygen 28 32 04/07/23 22:00 04/07/23 20:00
[2023-04-08] MEDS: ACETAMINOPHEN 650 MG SUPPOSITORY RECTAL (14:06)
--- NOTE | 2023-04-08 15:47 | PCPTNOTE ---
Attempt to do re-eval as patient had change in medical status, but patient on BiPap, physical therapy will try again tomorrow.
[2023-04-08] MEDS: cefTRIAXone 2 GM/NS 100 ML 2 GM/100 ML BAG IVPB (16:38)
[2023-04-08 19:02] LABS: Glucose Point of Care 136 mg/dl (65-105)
[2023-04-08] MEDS: LORazepam INJ (*CRX) 2 MG/ML VIAL 1 MG IV PUSH (19:09)
[2023-04-08] MEDS: MICONAZOLE NITRATE 2% CREAM 30 GM TUBE 1 APPLIC TOPICAL (20:29)
[2023-04-09] VITALS (29 sets, daily range): BP systolic 97–152; BP diastolic 37–87; PULSE 59–80; RESP 20–26; TEMP 36.3–37.4; O2SAT 88–98
[2023-04-09 00:28] LABS: Glucose Point of Care 129 mg/dl (65-105)
[2023-04-09] MEDS: ALBUTEROL SULFATE NEB 2.5 MG/3 ML INH INHALATION ×4 (01:06→19:47)
[2023-04-09] MEDS: IPRATROPIUM BR 0.02% INH SOLN 0.5 MG/2.5 ML VIAL INHALATION ×4 (01:07→19:47)
[2023-04-09 04:08] LABS: Basophils Absolute Auto 0.1 K/mm3 (0.0-0.1); Basophils Percent Auto 0.5 % (0.2-1.2); Eosinophils Absolute Auto 0.2 K/mm3 (0-0.3); Eosinophils Percent Auto 1.6 % (0-4.4); Hematocrit 35.4 % (37.0-47.0); Hemoglobin 10.8 g/dL (12.0-15.0); Immature Granulocyte Absolute 0.06 K/mm3 (0.00-0.031); Immature Granulocyte Percent A 0.6 % (0-0.5); Lymphocytes Absolute Auto 1.23 K/mm3 (0.9-3.2); Lymphocytes Percent Auto 13.1 % (18.3-44.2); Mean Corpuscular HGB Conc 30.5 g/dl (32-36); Mean Corpuscular Hemoglobin 31.8 pg (26-34); Mean Corpuscular Volume 104.1 fl (80-100); Mean Platelet Volume 9.5 fl (7.4-10.4); Monocytes Absolute Auto 0.5 K/mm3 (0.1-0.6); Monocytes Percent Auto 5.4 % (2.6-8.5); Neutrophils Absolute Auto 7.4 K/mm3 (1.3-6.7); Neutrophils Percent Auto 78.8 % (45.5-73.1); Platelet Count Result 221 k/mm3 (150-375); Red Cell Distribution Width 13.8 % (11.5-14.5); White Blood Count 9.4 K/mm3 (4.5-10.0)
[2023-04-09 04:23] LABS: Potassium 3.5 mmol/L (3.4-5.0)
[2023-04-09 04:24] LABS: Alanine Aminotransferase 19 U/L (6-35); Albumin Level 3.3 g/dL (3.5-5.1); Alkaline Phosphatase 62 U/L (38-126); Anion Gap 5 mmol/L (8-16); Aspartate Amino Transferase 29 U/L (14-36); Bilirubin,Total 0.5 mg/dL (0.2-1.3); Blood Urea Nitrogen 27 mg/dL (7-17); Calcium 8.7 mg/dL (8.4-10.2); Carbon Dioxide 34 mmol/L (22-30); Chloride 97 mmol/L (98-107); Estimated CRCL calculation 37 ml/min; Estimated Glomerular Filt Rate 40; Glucose 150 mg/dL (65-110); Phosphorus 3.4 mg/dL (2.5-4.5); Sodium 136 mmol/L (137-145)
[2023-04-09 05:33] LABS: Glucose Point of Care 157 mg/dl (65-105)
[2023-04-09] MEDS: LEVOTHYROXINE SODIUM 25 MCG TABLET PO (05:58)
[2023-04-09] MEDS: DORNASE ALFA INH SOLN 1 MG/ML 2.5 ML AMP 2.5 MG INHALATION ×2 (08:13→19:47)
--- NOTE | 2023-04-09 09:04 | PM.IMPN ---
Progress Note: A&P Assessment and Plan (1) Acute hypercapnic respiratory failure: Code(s): J96.02 - Acute respiratory failure with hypercapnia Status: Acute Assessment and Plan: 04/04: Acute on chronic hypercapnic respiratory failure with confusion. Patient usually wears 3 L oxygen by nasal cannula and is currently saturating well on this. She was noted to be hypercapnic with pCO2 over 60 which improved somewhat on BiPAP overnight. Patient in no respiratory distress this morning. Will continue BiPAP at night continue on oxygen during the day. OK to move patient to Med/Surg now. 04/05: Carbon dioxide still greater than 40 on metabolic panel. Nursing staff instructed to titrate oxygen down due to hypercapnia in the setting of COPD. Goal saturations 90-93% 04/06: Current access still greater than 40 a metabolic panel. Ordered VBG but this was never collected or resulted. Patient drowsy and apparently hypercapnic. Since she was napping we assessed RT to reapply BiPAP. ABG is now ordered. 04/07: ABG yesterday shows compensated respiratory acidosis. BiPap on to nap and to sleep. Today patient more confused, appears more hypercapneic. Ordered repeat ABG. 04/08: Patient was on BiPAP most of the day yesterday and overnight. Had an event of mucus plugging with desaturation overnight. Settings were modified. Attempted to take patient off BiPAP this morning had to be replaced due to respiratory distress. 04/09: Patient on BiPAP throughout the morning in the afternoon patient was placed on nasal cannula to evaluate. Mildly labored breathing but improved over yesterday. (2) Severe sepsis: Code(s): A41.9 - Sepsis, unspecified organism; R65.20 - Severe sepsis without septic shock Status: Acute Assessment and Plan: 04/07: Patient with suspected fever (100 axillary) with evidence return of urinary tract infection and lactic acidosis of 2.4. Patient received IV fluids IV antibiotics and placed on continuous BiPAP. There is possibility of pneumonia versus atelectasis so antibiotic therapy was chosen to treat both pneumonia and UTI. 04/08: No change, febrile today, severe chills 04/09: apparently improving on antibiotics (3) UTI (urinary tract infection): Code(s): N39.0 - Urinary tract infection, site not specified Status: Acute Assessment and Plan: 8/5: Appearance highly infected urine upon Kirby catheter insertion. Patient a previous urinary tract infection that was later shown to have cleared but now appears to have a new infection. 8.7: Kirby remains in place with improving renal function. (4) Acute kidney injury: Code(s): N17.9 - Acute kidney failure, unspecified Status: Acute Assessment and Plan: 04/07: Diuretics held yesterday but serum Cr elevated to 1.7, up from 1.0 two days ago. Consult Nephrology --Cr 1.8 on afternoon labs, no urine output so far this morning or overnight per nursing staff. Kirby ordered for accurate I&O 04/08: Mildly improved with creatinine to 1.5 BUN 28 estimated GFR 34 04/09: Improving status (5) Hyponatremia: Code(s): E87.1 - Hypo-osmolality and hyponatremia Status: Acute Assessment and Plan: 04/07: Drop from 139 yesterday to 130 today. Consult Nephrology --Na to 134 without intervention with afternoon labs 04/08: Sodium level stable at 131. 04/09: Sodium level stable at 136 (6) Diastolic congestive heart failure: Code(s): I50.30 - Unspecified diastolic (congestive) heart failure Status: Acute Assessment and Plan: 04/06: No signs of acute fluid retention or pulmonary edema. Will hold Lasix today as this may be contributing to metabolic alkalosis. And plan to restart tomorrow. Blood pressure was low believe patient may be dehydrated. She also received 500 mL normal saline bolus. 04/07: worsening renal function despite diuretics on hold. Kirby ordered 8:6: Patient had desaturation overnight does not appear to be
[2023-04-09] MEDS: AZITHROMYCIN 500 MG/NS 250 ML 500 MG/250 ML BAG 250 MG IVPB (10:08)
[2023-04-09] MEDS: dilTIAZem HCL CD 240 MG CAP.24HR PO (10:09)
[2023-04-09] MEDS: APIXABAN 2.5 MG TABLET PO ×2 (10:09→20:33)
[2023-04-09] MEDS: amLODIPine BESYLATE 5 MG TABLET PO (10:09)
[2023-04-09] MEDS: FLECAINIDE ACETATE 50 MG TABLET PO ×2 (10:09→20:32)
[2023-04-09] MEDS: valACYclovir HCL 500 MG TABLET PO ×2 (10:10→20:32)
[2023-04-09] MEDS: ENOXAPARIN 30 MG/0.3 ML SYRINGE SUB-Q (10:10)
[2023-04-09] MEDS: GABAPENTIN 100 MG CAPSULE 200 MG PO ×2 (10:10→18:17)
[2023-04-09] MEDS: FLECAINIDE ACETATE 100 MG TABLET PO ×2 (10:10→20:34)
[2023-04-09] MEDS: DULoxetine HCL 60 MG CAPSULE.DR PO (10:11)
--- NOTE | 2023-04-09 10:12 | PCPTNOTE ---
Spoke with hospitalist regarding continuation of skilled therapy this date. Per Estrada Treadwell APRN, hold pt this date. Will follow.
--- NOTE | 2023-04-09 10:30 | PM.PNNEP ---
Progress Note: A&P Assessment and Plan (1) Acute kidney injury: Code(s): N17.9 - Acute kidney failure, unspecified Status: Acute Assessment and Plan: slow improvement noted evaluation to date: urine electrolytes prerenal renal ultrasound unremarkable UA bland CPK normal suspect etiology due to dehydration + diuretics + prerenal effects from pulmonary HTN s/p IVF hydration (stopped due to hypoxia yesterday although CXR clear) follow trend of repeat labs and UOP (2) Stage 3a chronic kidney disease (CKD): Code(s): N18.31 - Chronic kidney disease, stage 3a Status: Acute Assessment and Plan: baseline creatinine around 1. - 1.3mg/dl likely secondary to vascular disease and hypertension; possible contribution of chronic pre renal azotemia from her severe COPD/asthma condition (3) Chronic respiratory failure with hypoxia, on home oxygen therapy: Code(s): J96.11 - Chronic respiratory failure with hypoxia; Z99.81 - Dependence on supplemental oxygen Status: Chronic Assessment and Plan: known history of COPD CO2 doing better on diamox BiPAP support as needed (4) Paroxysmal atrial fibrillation: Code(s): I48.0 - Paroxysmal atrial fibrillation Status: Chronic Assessment and Plan: rate control strategy on anticoagulation Will continue to follow. Subjective Date/time seen: 04/09/23 10:30 Interval history: Follow-up acute kidney injury/acute renal failure on chronic kidney disease. Chart reviewed - assuming care from Dr. Hernandez; remains on BiPAP therapy at the time of visit; no acute issues/events overnight or earlier this AM; renal function continues to improve by trend of labs. Exam Narrative: General: large and elderly female in NAD Heart: normal S1 and S2; no rub Lungs: coarse breath sounds Abdomen: soft, nontender, nondistended, positive bowel sounds Extremities: no cyanosis or clubbing; no edema Skin: warm and dry Objective Data Vital Signs Vital Signs: Vital Signs Temp Pulse Resp BP Pulse Ox O2 Del Method FiO2 04/09/23 10:10 63 04/09/23 10:09 60 04/09/23 08:12 60 24 H 04/09/23 08:08 60 24 H 95 BiPAP 04/09/23 08:08 95 BiPAP 32 04/09/23 07:50 60 26 H 04/09/23 07:50 98.7 F 66 25 H 101/37 L 94 04/09/23 06:00 60 04/09/23 04:00 96 BiPAP 37 04/09/23 04:00 60 04/09/23 03:54 98.3 F 60 22 H 97/60 L 93 04/09/23 02:00 60 04/09/23 00:00 60 04/08/23 22:00 60 04/08/23 20:00 60 04/09/23 00:00 98 BiPAP 37 04/08/23 20:00 96 BiPAP 35 04/09/23 01:07 60 25 H 04/09/23 00:00 98.6 F 60 24 H 129/72 98 04/09/23 00:21 60 24 H 90 BiPAP 04/08/23 20:30 60 23 H 04/08/23 20:10 60 23 H 93 BiPAP 04/08/23 21:22 107/44 L 04/08/23 20:20 60 23 H 04/08/23 20:00 99.0 F 60 24 H 94/31 L 96 04/08/23 18:00 60 04/08/23 16:00 60 04/08/23 14:00 60 04/08/23 16:00 96 BiPAP 28 04/08/23 16:48 99.9 F H 04/08/23 16:00 99.9 F H 60 24 H 102/32 L 97 04/08/23 16:13 22 H 94 BiPAP 04/08/23 14:06 100.8 F H 04/08/23 13:49 100.8 F H 04/08/23 13:27 60 22 H 04/08/23 13:10 60 23 H 04/08/23 13:14 24 H 94 BiPAP Intake/Output Intake/Output: Intake & Output 04/06/23 04/07/23 04/08/23 04/09/23 23:59 23:59 23:59 23:59 Intake Total 720 2936 827 490 Output Total 300 450 875 450 Balance 420 2486 -48 40 Meds/Results Medications: Active Medications Generic Name Dose Route Start Last Admin Trade Name Freq PRN Reason Stop Dose Admin Acetaminophen 650 mg 04/07/23 18:24 04/08/23 14:06 Acetaminophen 650 Mg Suppository RECTAL 650 mg Q6H PRN Administration Pain or Fever Acetaminophen 650 mg 04/08/23 15:14 Acetaminophen 325 Mg Ta
--- NOTE | 2023-04-09 10:31 | PCOTNOTE ---
Per nursing pt. is currently on continuous BiPap, PT. spoke with hospitalist regarding continuation of skilled therapy this date. Per Estrada Treadwell APRN, hold pt this date. Will follow.
[2023-04-09] MEDS: TOLNAFTATE 1% POWDER 45 GM BTL 1 APPLIC TOPICAL ×2 (12:10→21:00)
--- NOTE | 2023-04-09 12:21 | PCNFU ---
Nutrition Follow-Up Complete: Inadequate oral intake related to loss of appetite as evidenced by weight loss 6%/3 months Goal: Adequate PO intake at least 75% meals and supplements - Not able to meet goal because of bipap. Maintain weight during admission Pt current nutrition is Heart healthy diet but patient is NPO on continuous bipap since yesterday breakfast. Nutrition recommendation: NPO order if patient is unable to eat Last recorded weight is 92.4 kg. Bowel Motility: No bowel movements are charted Labs Reviewed: Hgb 11.2, Hct 36.8, Na 136, BUN 26, Cre 1.2 Meds Noted: Eliquis, Lasix, Zofran Skin: New pressure injury noted: DTI R buttock Additional Notes: Defer Mason for new pressure injury because of continuous bipap/NPO status. Family discussing comfort care or inpatient hospice. Continue to follow Monitoring intakes, weights, labs, supplement tolerance, plan of care Follow up in 7 days
[2023-04-09 12:24] LABS: Glucose Point of Care 144 mg/dl (65-105)
[2023-04-09] MEDS: cefTRIAXone 2 GM/NS 100 ML 2 GM/100 ML BAG IVPB (15:13)
[2023-04-09] MEDS: HYDROcodone/acetaminophen (*CRX) 7.5-325 MG TABLET 1 TAB PO (15:14)
[2023-04-09] MEDS: acetaZOLAMIDE TAB 250 MG TABLET PO ×2 (15:14→20:33)
[2023-04-09 18:00] LABS: Glucose Point of Care 124 mg/dl (65-105)
[2023-04-09] MEDS: MORPHINE SULFATE (*CRX) 15 MG TABCR PO (20:32)
[2023-04-09] MEDS: ARIPiprazole 10 MG TABLET PO (20:33)
[2023-04-09] MEDS: SERTRALINE HCL 50 MG TABLET 100 MG PO (20:33)
[2023-04-09 23:35] LABS: Glucose Point of Care 195 mg/dl (65-105)
[2023-04-10] VITALS (20 sets, daily range): BP systolic 110–134; BP diastolic 40–60; PULSE 60–72; RESP 16–25; TEMP 36.1–36.6; O2SAT 89–100
[2023-04-10] MEDS: ALBUTEROL SULFATE NEB 2.5 MG/3 ML INH INHALATION ×4 (02:30→19:45)
[2023-04-10] MEDS: IPRATROPIUM BR 0.02% INH SOLN 0.5 MG/2.5 ML VIAL INHALATION ×4 (02:30→19:45)
[2023-04-10 04:13] LABS: Basophils Percent Auto 0.3 % (0.2-1.2); Eosinophils Absolute Auto 0.1 K/mm3 (0-0.3); Eosinophils Percent Auto 0.8 % (0-4.4); Hemoglobin 10.6 g/dL (12.0-15.0); Immature Granulocyte Absolute 0.14 K/mm3 (0.00-0.031); Immature Granulocyte Percent A 1.1 % (0-0.5); Lymphocytes Absolute Auto 1.14 K/mm3 (0.9-3.2); Lymphocytes Percent Auto 8.7 % (18.3-44.2); Mean Corpuscular HGB Conc 31.2 g/dl (32-36); Mean Corpuscular Hemoglobin 31.8 pg (26-34); Mean Corpuscular Volume 102.1 fl (80-100); Mean Platelet Volume 9.2 fl (7.4-10.4); Monocytes Absolute Auto 0.5 K/mm3 (0.1-0.6); Monocytes Percent Auto 4.1 % (2.6-8.5); Neutrophils Absolute Auto 11.1 K/mm3 (1.3-6.7); Platelet Count Result 274 k/mm3 (150-375); Red Blood Count 3.33 M/mm3 (4.2-5.4); Red Cell Distribution Width 13.7 % (11.5-14.5); White Blood Count 13.1 K/mm3 (4.5-10.0)
[2023-04-10 04:23] LABS: Alanine Aminotransferase 25 U/L (6-35); Albumin Level 3.4 g/dL (3.5-5.1); Alkaline Phosphatase 73 U/L (38-126); Anion Gap 10 mmol/L (8-16); Aspartate Amino Transferase 40 U/L (14-36); Bilirubin,Total 0.6 mg/dL (0.2-1.3); Blood Urea Nitrogen 28 mg/dL (7-17); Calcium 8.7 mg/dL (8.4-10.2); Carbon Dioxide 33 mmol/L (22-30); Chloride 93 mmol/L (98-107); Estimated CRCL calculation 39 ml/min; Estimated Glomerular Filt Rate 44; Glucose 170 mg/dL (65-110); Potassium 2.9 mmol/L (3.4-5.0); Sodium 136 mmol/L (137-145)
[2023-04-10] MEDS: LEVOTHYROXINE SODIUM 25 MCG TABLET PO (05:51)
[2023-04-10] MEDS: acetaZOLAMIDE TAB 250 MG TABLET PO (05:51)
[2023-04-10] MEDS: DORNASE ALFA INH SOLN 1 MG/ML 2.5 ML AMP 2.5 MG INHALATION ×2 (07:25→19:45)
[2023-04-10] MEDS: POTASSIUM CHLORIDE 20 MEQ ER TABLET 40 MEQ PO (08:32)
[2023-04-10] MEDS: FLECAINIDE ACETATE 50 MG TABLET PO ×2 (08:33→21:28)
[2023-04-10] MEDS: ENOXAPARIN 30 MG/0.3 ML SYRINGE SUB-Q (08:33)
[2023-04-10] MEDS: FLECAINIDE ACETATE 100 MG TABLET PO ×2 (08:33→21:28)
[2023-04-10] MEDS: MORPHINE SULFATE (*CRX) 15 MG TABCR PO (08:33)
[2023-04-10] MEDS: APIXABAN 2.5 MG TABLET PO ×2 (08:33→21:19)
[2023-04-10] MEDS: dilTIAZem HCL CD 240 MG CAP.24HR PO (08:33)
[2023-04-10] MEDS: AZITHROMYCIN 500 MG/NS 250 ML 500 MG/250 ML BAG 250 MG IVPB (08:46)
--- NOTE | 2023-04-10 08:55 | PM.IMPN ---
Progress Note: A&P Assessment and Plan (1) Acute hypercapnic respiratory failure: Code(s): J96.02 - Acute respiratory failure with hypercapnia Status: Acute Assessment and Plan: 04/04: Acute on chronic hypercapnic respiratory failure with confusion. Patient usually wears 3 L oxygen by nasal cannula and is currently saturating well on this. She was noted to be hypercapnic with pCO2 over 60 which improved somewhat on BiPAP overnight. Patient in no respiratory distress this morning. Will continue BiPAP at night continue on oxygen during the day. OK to move patient to Med/Surg now. 04/05: Carbon dioxide still greater than 40 on metabolic panel. Nursing staff instructed to titrate oxygen down due to hypercapnia in the setting of COPD. Goal saturations 90-93% 04/06: Current access still greater than 40 a metabolic panel. Ordered VBG but this was never collected or resulted. Patient drowsy and apparently hypercapnic. Since she was napping we assessed RT to reapply BiPAP. ABG is now ordered. 04/07: ABG yesterday shows compensated respiratory acidosis. BiPap on to nap and to sleep. Today patient more confused, appears more hypercapneic. Ordered repeat ABG. 04/08: Patient was on BiPAP most of the day yesterday and overnight. Had an event of mucus plugging with desaturation overnight. Settings were modified. Attempted to take patient off BiPAP this morning had to be replaced due to respiratory distress. 04/09: Patient on BiPAP throughout the morning in the afternoon patient was placed on nasal cannula to evaluate. Mildly labored breathing but improved over yesterday. 04/10: Patient off BiPap since yesterday afternoon. Patient not excessively dyspneic. She is awake but confused. Patient fights against BiPap due to pain with mask. Family discussing Hospice care but no cohesive decision yet. (2) Severe sepsis: Code(s): A41.9 - Sepsis, unspecified organism; R65.20 - Severe sepsis without septic shock Status: Acute Assessment and Plan: 04/07: Patient with suspected fever (100 axillary) with evidence return of urinary tract infection and lactic acidosis of 2.4. Patient received IV fluids IV antibiotics and placed on continuous BiPAP. There is possibility of pneumonia versus atelectasis so antibiotic therapy was chosen to treat both pneumonia and UTI. 04/08: No change, febrile today, severe chills 04/09: apparently improving on antibiotics 04/10: Improved, stable. End dates for antibiotics entered. (3) UTI (urinary tract infection): Code(s): N39.0 - Urinary tract infection, site not specified Status: Acute Assessment and Plan: 04/07: Appearance highly infected urine upon Kirby catheter insertion. Patient a previous urinary tract infection that was later shown to have cleared but now appears to have a new infection. 8.: Kirby remains in place with improving renal function. 04/10: Kirby with clear drainage and stably improved renal function. (4) Acute kidney injury: Code(s): N17.9 - Acute kidney failure, unspecified Status: Acute Assessment and Plan: 04/07: Diuretics held yesterday but serum Cr elevated to 1.7, up from 1.0 two days ago. Consult Nephrology --Cr 1.8 on afternoon labs, no urine output so far this morning or overnight per nursing staff. Kirby ordered for accurate I&O 04/08: Mildly improved with creatinine to 1.5 BUN 28 estimated GFR 34 04/09: Improving status 04/10: Stable and improved (5) Hyponatremia: Code(s): E87.1 - Hypo-osmolality and hyponatremia Status: Acute Assessment and Plan: 04/07: Drop from 139 yesterday to 130 today. Consult Nephrology --Na to 134 without intervention with afternoon labs 04/08: Sodium level stable at 131. 04/09: Sodium level stable at 136 04/10: Stable (6) Diastolic congestive heart failure: Code(s): I50.30 - Unspecified diastolic (congestive) heart failure Status: Acute Assessment and Plan:
--- NOTE | 2023-04-10 09:11 | PM.PNNEP ---
Progress Note: A&P Assessment and Plan (1) Acute kidney injury: Code(s): N17.9 - Acute kidney failure, unspecified Status: Acute Assessment and Plan: slow improvement noted evaluation to date: urine electrolytes prerenal renal ultrasound unremarkable UA bland CPK normal suspect etiology due to dehydration + diuretics + prerenal effects from pulmonary HTN s/p IVF hydration (stopped due to hypoxia on 04/08/23 although CXR clear) follow trend of repeat labs and UOP (2) Stage 3a chronic kidney disease (CKD): Code(s): N18.31 - Chronic kidney disease, stage 3a Status: Acute Assessment and Plan: baseline creatinine around 1.0 - 1.3mg/dl likely secondary to vascular disease and hypertension; possible contribution of chronic pre renal azotemia from her severe COPD/asthma condition (3) Chronic respiratory failure with hypoxia, on home oxygen therapy: Code(s): J96.11 - Chronic respiratory failure with hypoxia; Z99.81 - Dependence on supplemental oxygen Status: Chronic Assessment and Plan: known history of COPD CO2 doing better on diamox BiPAP support as needed (4) Paroxysmal atrial fibrillation: Code(s): I48.0 - Paroxysmal atrial fibrillation Status: Chronic Assessment and Plan: rate control strategy on anticoagulation Not much else to add -- will continue to follow intermittently. Subjective Date/time seen: 04/10/23 09:11 Interval history: Follow-up acute kidney injury/acute renal failure on chronic kidney disease. Renal function continues to improve as noted by trend of labs; off BiPAP and on nasal cannula; seems more confused today in comparison to when I saw her yesterday; nursing reports family in discussion regarding level of care (hospice versus ongoing current therapy) given significant decline in the last few months. Exam Narrative: General: large and elderly female in NAD Heart: normal S1 and S2; no rub Lungs: coarse breath sounds Abdomen: soft, nontender, nondistended, positive bowel sounds Extremities: no cyanosis or clubbing; no edema Skin: warm and intact Objective Data Vital Signs Vital Signs: Vital Signs Temp Pulse Resp BP Pulse Ox O2 Del Method O2 Flow Rate 04/10/23 08:00 89 L Nasal Cannula 3 04/10/23 08:00 60 04/10/23 08:33 72 04/10/23 08:33 72 04/10/23 08:00 97.8 F 60 21 H 123/60 94 08/08/23 07:48 60 20 04/10/23 07:30 60 20 95 Nasal Cannula 4 04/10/23 07:25 60 20 04/10/23 06:00 68 04/10/23 04:00 63 24 H 95 Nasal Cannula 4 04/10/23 04:00 63 04/10/23 02:00 64 04/10/23 02:45 60 20 04/10/23 02:30 60 20 04/10/23 03:12 97.0 F L 60 24 H 134/40 L 95 04/10/23 00:00 60 25 H 94 Nasal Cannula 4 04/10/23 00:00 60 04/10/23 00:15 25 H 94 BiPAP 04/09/23 23:35 97.3 F L 60 24 H 132/53 L 93 04/09/23 22:00 62 04/09/23 20:00 66 20 93 Nasal Cannula 4 04/09/23 20:00 66 04/09/23 20:00 97.4 F L 59 L 24 H 152/87 H 93 04/09/23 20:34 80 04/09/23 20:32 80 04/09/23 20:18 60 20 04/09/23 19:48 60 23 H 96 Nasal Cannula 3 04/09/23 19:47 60 23 H 04/09/23 18:00 60 04/09/23 16:00 60 04/09/23 16:00 91 Nasal Cannula 4 04/09/23 16:00 98.7 F 60 20 114/57 L 97 04/09/23 14:00 60 04/09/23 12:00 60 04/09/23 12:41 60 22 H 04/09/23 12:27 60 22 H 04/09/23 12:00 96 Nasal Cannula 4 04/09/23 12:00 99.3 F 61 23 H 114/40 L 88 L Intake/Output Intake/Output: Intake & Output 04/07/23 04/08/23 04/09/23 04/10/23 23:59 23:59 23:59 23:59 Intake Total 2936 927 970 440 Output Total 923 150 3453 350 Balance 2486 52 -30 90 Meds/Results Medications: Active Medications Generic Name Dose Route Start Last Admin Trade
[2023-04-10 09:14] LABS: Glucose Point of Care 140 mg/dl (65-105)
[2023-04-10 11:56] LABS: Glucose Point of Care 160 mg/dl (65-105)
[2023-04-10] MEDS: TOLNAFTATE 1% POWDER 45 GM BTL 1 APPLIC TOPICAL ×2 (12:38→23:58)
--- NOTE | 2023-04-10 13:55 | PC.NURSE ---
This patient, Lili Sanchez, was transferred to [[facility] ] on 04/10/23 at 1416. Personal belongings sent with patient. Report given to [YESENIA Brennan @ [phone] ]. Appropriate documentation sent with patient.
[2023-04-10] MEDS: cefTRIAXone 2 GM/NS 100 ML 2 GM/100 ML BAG IVPB (15:52)
--- NOTE | 2023-04-10 16:08 | PCPTNOTE ---
Per hospitalist, HOLD therapy this date until family decides on group home placement. Will follow.
[2023-04-10 16:34] LABS: Glucose Point of Care 129 mg/dl (65-105)
--- NOTE | 2023-04-10 20:36 | PC.NURSE ---
Pt arrived to the unit and was somewhat responsive. Pt has burdick and is tolerating well. Pt placed on bed valdez for urge to have BM, pt did not have any luck. Pt started to decline in status. Provider notified of change. Provider ordered PRN BiPap for comfort. Pt family in disagreement about plan of care. Family to meet with hospice to discuss options going forward per report given to this RN upon pt transfer to unit. Pt has been monitored for changes in status. Pt care report given to film processing shift supervisor RN.
[2023-04-10 21:05] LABS: Glucose Point of Care 145 mg/dl (65-105)
[2023-04-11] VITALS (10 sets, daily range): BP systolic 126–160; BP diastolic 65–75; PULSE 58–87; RESP 16–26; TEMP 36.1–36.6; O2SAT 93–100
[2023-04-11] MEDS: ALBUTEROL SULFATE NEB 2.5 MG/3 ML INH INHALATION ×3 (02:04→13:20)
[2023-04-11] MEDS: IPRATROPIUM BR 0.02% INH SOLN 0.5 MG/2.5 ML VIAL INHALATION ×3 (02:04→13:20)
[2023-04-11] MEDS: acetaZOLAMIDE TAB 250 MG TABLET PO (06:29)
[2023-04-11] MEDS: LEVOTHYROXINE SODIUM 25 MCG TABLET PO (06:29)
[2023-04-11 06:33] LABS: Basophils Absolute Auto 0.1 K/mm3 (0.0-0.1); Basophils Percent Auto 0.3 % (0.2-1.2); Eosinophils Absolute Auto 0.1 K/mm3 (0-0.3); Hematocrit 34.6 % (37.0-47.0); Hemoglobin 10.6 g/dL (12.0-15.0); Immature Granulocyte Absolute 0.12 K/mm3 (0.00-0.031); Immature Granulocyte Percent A 0.8 % (0-0.5); Lymphocytes Absolute Auto 0.73 K/mm3 (0.9-3.2); Mean Corpuscular HGB Conc 30.6 g/dl (32-36); Mean Corpuscular Volume 101.2 fl (80-100); Mean Platelet Volume 9.6 fl (7.4-10.4); Monocytes Absolute Auto 0.6 K/mm3 (0.1-0.6); Monocytes Percent Auto 4.1 % (2.6-8.5); Neutrophils Absolute Auto 12.9 K/mm3 (1.3-6.7); Neutrophils Percent Auto 88.8 % (45.5-73.1); Platelet Count Result 297 k/mm3 (150-375); Red Blood Count 3.42 M/mm3 (4.2-5.4); Red Cell Distribution Width 14.1 % (11.5-14.5); White Blood Count 14.5 K/mm3 (4.5-10.0)
[2023-04-11 06:42] LABS: Alanine Aminotransferase 34 U/L (6-35); Albumin Level 3.2 g/dL (3.5-5.1); Alkaline Phosphatase 75 U/L (38-126); Anion Gap 9 mmol/L (8-16); Aspartate Amino Transferase 61 U/L (14-36); Bilirubin,Total 0.6 mg/dL (0.2-1.3); Blood Urea Nitrogen 25 mg/dL (7-17); Calcium 8.9 mg/dL (8.4-10.2); Carbon Dioxide 28 mmol/L (22-30); Chloride 96 mmol/L (98-107); Estimated CRCL calculation 37 ml/min; Estimated Glomerular Filt Rate 40; Glucose 150 mg/dL (65-110); Potassium 3.5 mmol/L (3.4-5.0); Sodium 133 mmol/L (137-145)
[2023-04-11] MEDS: DORNASE ALFA INH SOLN 1 MG/ML 2.5 ML AMP 2.5 MG INHALATION (07:21)
[2023-04-11 08:27] LABS: Glucose Point of Care 140 mg/dl (65-105)
[2023-04-11] MEDS: AZITHROMYCIN 500 MG/NS 250 ML 500 MG/250 ML BAG 250 MG IVPB (10:24)
[2023-04-11] MEDS: MORPHINE SULFATE (*CRX) 15 MG TABCR PO (10:37)
[2023-04-11] MEDS: GABAPENTIN 100 MG CAPSULE 200 MG PO (10:38)
[2023-04-11] MEDS: DULoxetine HCL 60 MG CAPSULE.DR PO (10:38)
[2023-04-11] MEDS: ENOXAPARIN 30 MG/0.3 ML SYRINGE SUB-Q (10:39)
[2023-04-11] MEDS: dilTIAZem HCL CD 240 MG CAP.24HR PO (10:39)
[2023-04-11] MEDS: amLODIPine BESYLATE 5 MG TABLET PO (10:39)
[2023-04-11] MEDS: valACYclovir HCL 500 MG TABLET PO (10:39)
[2023-04-11] MEDS: CHOLECALCIFEROL 1,000 UNITS TABLET 2000 UNITS PO (10:39)
--- NOTE | 2023-04-11 11:34 | PCOTNOTE ---
Pt. not agreeable to participate on this date, with interest in pursuing hospice. Hospitalist and nursing aware with request to hold on therapy services. Following
--- NOTE | 2023-04-11 11:37 | PCPTNOTE ---
PER OT: Pt. not agreeable to participate on this date, with interest in pursuing hospice. Hospitalist and nursing aware with request to hold on therapy services. Following
--- NOTE | 2023-04-11 11:42 | PM.IMPN ---
Progress Note: A&P Assessment and Plan (1) Acute hypercapnic respiratory failure: Code(s): J96.02 - Acute respiratory failure with hypercapnia Status: Acute Assessment and Plan: 04/04: Acute on chronic hypercapnic respiratory failure with confusion. Patient usually wears 3 L oxygen by nasal cannula and is currently saturating well on this. She was noted to be hypercapnic with pCO2 over 60 which improved somewhat on BiPAP overnight. Patient in no respiratory distress this morning. Will continue BiPAP at night continue on oxygen during the day. OK to move patient to Med/Surg now. 04/05: Carbon dioxide still greater than 40 on metabolic panel. Nursing staff instructed to titrate oxygen down due to hypercapnia in the setting of COPD. Goal saturations 90-93% 04/06: Current access still greater than 40 a metabolic panel. Ordered VBG but this was never collected or resulted. Patient drowsy and apparently hypercapnic. Since she was napping we assessed RT to reapply BiPAP. ABG is now ordered. 04/07: ABG yesterday shows compensated respiratory acidosis. BiPap on to nap and to sleep. Today patient more confused, appears more hypercapneic. Ordered repeat ABG. 04/08: Patient was on BiPAP most of the day yesterday and overnight. Had an event of mucus plugging with desaturation overnight. Settings were modified. Attempted to take patient off BiPAP this morning had to be replaced due to respiratory distress. 04/09: Patient on BiPAP throughout the morning in the afternoon patient was placed on nasal cannula to evaluate. Mildly labored breathing but improved over yesterday. 04/10: Patient off BiPap since yesterday afternoon. Patient not excessively dyspneic. She is awake but confused. Patient fights against BiPap due to pain with mask. Family discussing Hospice care but no cohesive decision yet. 04/11: Patient is more dyspneic today. Adamantly refusing BiPAP. She is awake but confused. Suspect she is retaining more CO2 but family is talking with hospice so we will not make any drastic changes. Patient has adamantly refused feeding tube and intubation throughout this hospital stay. (2) Severe sepsis: Code(s): A41.9 - Sepsis, unspecified organism; R65.20 - Severe sepsis without septic shock Status: Acute Assessment and Plan: 04/07: Patient with suspected fever (100 axillary) with evidence return of urinary tract infection and lactic acidosis of 2.4. Patient received IV fluids IV antibiotics and placed on continuous BiPAP. There is possibility of pneumonia versus atelectasis so antibiotic therapy was chosen to treat both pneumonia and UTI. 04/08: No change, febrile today, severe chills 04/09: apparently improving on antibiotics 04/10: Improved, stable. End dates for antibiotics entered. 04/11: White blood cell count is more elevated today no fever noted and no gross chills noted. (3) UTI (urinary tract infection): Code(s): N39.0 - Urinary tract infection, site not specified Status: Acute Assessment and Plan: 04/07: Appearance highly infected urine upon Kirby catheter insertion. Patient a previous urinary tract infection that was later shown to have cleared but now appears to have a new infection. 8.7: Kirby remains in place with improving renal function. 04/10: Kirby with clear drainage and stably improved renal function. 04/11: Urine culture was found to be mixed urogenital martha. Kirby remains in place due to end of life care (4) Acute kidney injury: Code(s): N17.9 - Acute kidney failure, unspecified Status: Acute Assessment and Plan: 04/07: Diuretics held yesterday but serum Cr elevated to 1.7, up from 1.0 two days ago. Consult Nephrology --Cr 1.8 on afternoon labs, no urine output so far this morning or overnight per nursing staff. Kirby ordered for accurate I&O 04/08: Mildly improved with creatinine to 1.5 BUN 28 estimated GFR 34 04/09: Improving status 04/10: Stable and improved 04/11: Stable (5) Hyponat
[2023-04-11 11:49] LABS: Glucose Point of Care 160 mg/dl (65-105)
[2023-04-11] MEDS: TOLNAFTATE 1% POWDER 45 GM BTL 1 APPLIC TOPICAL (13:22)
[2023-04-11] MEDS: FUROSEMIDE INJ 40 MG/4 ML VIAL IV PUSH (14:52)
[2023-04-11] MEDS: cefTRIAXone 2 GM/NS 100 ML 2 GM/100 ML BAG IVPB (14:52)
[2023-04-11 16:48] LABS: Glucose Point of Care 171 mg/dl (65-105)
--- NOTE | 2023-04-11 16:49 | PM.IMHP ---
H&P: HPI History of Present Illness Date/Time: 04/11/23 16:49 Chief Complaint: Uncontrolled dyspnea and agitation Narrative: This 77-year-old female with a history of COPD and chronic hypoxic respiratory failure requiring 3 L of oxygen by nasal cannula was admitted [facility] in late March for paroxysmal atrial fibrillation with uncontrolled rate. She was anticoagulated and cardioverted. However after discharge on April 03 she returned the same day with confusion and dyspnea. She was agitated. She was intubated and then extubated placed on BiPAP. She did not tolerate that well. After a few days she refused any more BiPAP treatments. She was not improving with bronchodilators and ceftriaxone. Because of increasing confusion dyspnea and agitation she and her family opted for comfort care on inpatient hospice service. [facility] Past Medical History Medical History Anxiety Asthma-COPD overlap syndrome Chest pain Chronic anticoagulation Chronic low back pain with sciatica Chronic renal insufficiency, stage III (moderate) Chronic respiratory failure with hypoxia, on home oxygen therapy Depression Fibromyalgia History of pulmonary embolism (2006) Hypothyroidism Migraine Mixed hyperlipidemia Pacemaker Paroxysmal atrial fibrillation Type 2 diabetes mellitus Vitamin D deficiency Surgical History Surgical History History of appendectomy History of benign breast biopsy History of hysterectomy with oophorectomy History of lumbar surgery History of open reduction and internal fixation (ORIF) procedure (02/2021) Left ankle trimalleolar fracture. Family History Family History Father COPD (chronic obstructive pulmonary disease) Family history of alcoholism Mother Acute myocardial infarction COPD (chronic obstructive pulmonary disease) Hypertension Family history of alcoholism Sibling Diabetes mellitus 1 Sister CHF (congestive heart failure) Brother Breast cancer 2 sisters Hypertension COPD (chronic obstructive pulmonary disease) Family history of alcoholism Other Carcinoma of colon Daughter DVT (deep venous thrombosis) Social History Social History (Updated 04/11/23 @ 17:10 by Otf Ruiz MD) Social History: She is and lives with her daughter. She smoked 1-2 packs of cigarettes per day for 60 years, has quit intermittently, resumed smoking approximately 1 year ago but stopped 03/2023 her condition worsened. She denied any alcohol or illicit substance use. Code status DNR Smoking packs per day: 1.5 Smoking cigarettes per day: 30.0 Years smoked: 30 Smoking pack-years: 45.00 Smoking status: Current some day smoker Tobacco type: cigarettes Smokeless tobacco user: chewing tobacco Second hand tobacco smoke exposure: No Smoking end date: 11/01/22 Additional smoking assessment comments: smokes occasionally Alcohol intake: never Substance use: never Substance use type: painkillers Last use: unsure Lack of Transportation: No Lack of Food: Never True Current Housing: I Have Housing Concerned About Future Housing: No Difficulty Paying Gas/Electric Bills: No Difficulty Paying for Meds: No Currently Unemployed: No Education: Don't Know Difficulty w/ Childcare or Family Care: No Living arrangements: with family Occupation/Education: retired Gender identity (if verbalized by the patient): Female Sexual Orientation (if Verbalized by the Patient): Straight or Heterosexual Spiritual care concerns: No Agree to blood products: Yes Meds Home Medications and Allergies Home Medications Medication Instructions Recorded Confirmed Type albuterol sulfate 90 mcg/actuation 2 inh inhalation QID PRN Shortness 01/25/22 04/03/23 Rx aerosol inhaler Of Breath #25.5 gram
--- NOTE | 2023-04-11 16:56 | PM.DS ---
DS: Admitting Diagnosis Discharge Date 04/11/2023 Admitting Diagnosis Acute hypercapnic respiratory failure depression diastolic congestive heart failure type 2 diabetes mellitus with hypoglycemia COPD chronic anticoagulation paroxysmal atrial fibrillation hypothyroidism DS: Discharge Diagnosis Discharge Diagnosis (1) Acute hypercapnic respiratory failure: Code(s): J96.02 - Acute respiratory failure with hypercapnia Status: Acute (2) Severe sepsis: Code(s): A41.9 - Sepsis, unspecified organism; R65.20 - Severe sepsis without septic shock Status: Acute (3) UTI (urinary tract infection): Code(s): N39.0 - Urinary tract infection, site not specified Status: Acute (4) Acute kidney injury: Code(s): N17.9 - Acute kidney failure, unspecified Status: Acute (5) Hyponatremia: Code(s): E87.1 - Hypo-osmolality and hyponatremia Status: Acute (6) Diastolic congestive heart failure: Code(s): I50.30 - Unspecified diastolic (congestive) heart failure Status: Acute (7) Type 2 diabetes mellitus with hypoglycemia: Code(s): E11.649 - Type 2 diabetes mellitus with hypoglycemia without coma Status: Acute (8) Asthma-COPD overlap syndrome: Code(s): J44.9 - Chronic obstructive pulmonary disease, unspecified Status: Acute (9) Chronic anticoagulation: Code(s): Z79.01 - terminal worker (current) use of anticoagulants Status: Acute (10) Paroxysmal atrial fibrillation: Code(s): I48.0 - Paroxysmal atrial fibrillation Status: Chronic (11) Depression: Code(s): F32.9 - Major depressive disorder, single episode, unspecified Status: Acute Plan Discharge to inpatient hospice care DS: Summary Hospital Course Reason for hospitalization: patient was admitted to the hospital from [facility] with rising carbon dioxide levels in the blood. Hospital Course: In the emergency department patient noted to be experiencing acute hypercapnic respiratory failure requiring BiPAP. Patient was admitted to the acute care floor for BiPAP therapy especially at night. Patient had spent more than a month in and out of acute hospitalization and [facility]. On prior admission patient had been intubated urgently. On this admission patient adamantly does not want to be intubated and she does not really want to wear the BiPAP as it is not comfortable for her. Patient had a couple of good days and we were evaluating placement since [facility] stated they would not take her back but before placement could be found patient episode respiratory distress requiring moving to IMU and remaining on BiPAP for approximately 36 hours. At that time we consulted with entire family and were proposing comfort care but before the family came to a consensus the patient was able to come off BiPAP. She had been treated for a urinary tract infection which caused JEFFERSON and hyponatremia. Nephrology was consulted as family still undecided on comfort care verses curative attempts but patient was made DNR DNI. On day of discharge from this service patient was admitted to inpatient hospice care through [facility] as she had began to decompensate again becoming confused and dyspneic but refusing BiPAP. Status at Discharge Cognitive/behavioral status at discharge: confused Functional status at discharge: bed bound Overall status at discharge: patient is not back to baseline Time Spent with Patient Time attestation: Total time spent providing and/or coordinating discharge services: Time spent: Greater than 30 minutes Exam Narrative: GENERAL: Patient responds to verbal appears confused HEENT: Pupils are equally round and briskly reactive to light. Extraocular muscles are intact. Oral mucous membranes are dry. NECK: The patient has no noted JVD. No adenopathy is appreciated. CHEST/LUNGS: Lung sounds diminished with some crackles, m
== END 2023-04-11 17:12 | disposition hospice, inpatient (51) | DRG 189 ==
LOC: ANHED 12:36 → ANHIMU 15:27 → ANH3MEDSUR 04-04 12:39 → ANHIMU 04-07 18:10 → ANH3MEDSUR 04-10 13:54
PROVIDERS: Emergency Medicine; Internal Medicine; Internal Medicine Nephrology; Nurse Practitioner; Admitting Provider Chiropractor; Emergency Provider Emergency Medicine; PCP Family Medicine; Visit Provider Nurse Practitioner
DX: J96.22 Acute and chronic respiratory failure with hypercapnia (principal); A41.9 Sepsis, unspecified organism; R65.20 Severe sepsis without septic shock; N39.0 Urinary tract infection, site not specified; N17.9 Acute kidney failure, unspecified; E87.1 Hypo-osmolality and hyponatremia; I13.0 Hypertensive heart and chronic kidney disease with heart failure and stage 1 through stage 4 chronic kidney disease, or unspecified chronic kidney disease; I50.30 Unspecified diastolic (congestive) heart failure; J96.11 Chronic respiratory failure with hypoxia; Z66 Do not resuscitate; E03.9 Hypothyroidism, unspecified; E11.22 Type 2 diabetes mellitus with diabetic chronic kidney disease; E78.2 Mixed hyperlipidemia; E86.0 Dehydration; E55.9 Vitamin D deficiency, unspecified; E11.649 Type 2 diabetes mellitus with hypoglycemia without coma; F17.210 Nicotine dependence, cigarettes, uncomplicated; F41.9 Anxiety disorder, unspecified; F32.A Depression, unspecified; G89.29 Other chronic pain; I27.20 Pulmonary hypertension, unspecified; I48.0 Paroxysmal atrial fibrillation; J44.9 Chronic obstructive pulmonary disease, unspecified; M54.40 Lumbago with sciatica, unspecified side; N18.31 Chronic kidney disease, stage 3a; R25.1 Tremor, unspecified; Z79.01 Long term (current) use of anticoagulants; Z95.0 Presence of cardiac pacemaker; Z90.49 Acquired absence of other specified parts of digestive tract; Z90.710 Acquired absence of both cervix and uterus; Z99.81 Dependence on supplemental oxygen; Z86.711 Personal history of pulmonary embolism
CPT/HCPCS: 36415; 36600; 71045; 76775; 80048; 80053; 81001; 82375; 82550; 82570; 82805; 82948; 83050; 83605; 84100; 84156; 84300; 84443; 84540; 85025; 85027; 87040; 87086; 87088; 93005; 94003; 94640; 97161; 99285; A9270; J0456; J0696; J1120; J1650; J1940; J2060; J2405; J7030; J7040; J7120

== ENCOUNTER 2023-04-12 09:18 | HOS | payer OTHER, MEDICARE, BC, SELFPAY ==
--- NOTE | 2023-04-11 16:49 | HP_ITS ---
This report was moved to the correct visit, [id number] on 04/12/2023. Original report was signed by Otf Ruiz MD 04/11/2023 1710. H&P: HPI History of Present Illness Date/Time: 04/11/23 16:49 Chief Complaint: Uncontrolled dyspnea and agitation Narrative: This 77-year-old female with a history of COPD and chronic hypoxic respiratory failure requiring 3 L of oxygen by nasal cannula was admitted [facility] in late March for paroxysmal atrial fibrillation with uncontrolled rate. She was anticoagulated and cardioverted. However after discharge on April 03 she returned the same day with confusion and dyspnea. She was agitated. She was intubated and then extubated placed on BiPAP. She did not tolerate that well. After a few days she refused any more BiPAP treatments. She was not improving with bronchodilators and ceftriaxone. Because of increasing confusion dyspnea and agitation she and her family opted for comfort care on inpatient hospice service. [facility] Past Medical History Medical History Anxiety Asthma-COPD overlap syndrome Chest pain Chronic anticoagulation Chronic low back pain with sciatica Chronic renal insufficiency, stage III (moderate) Chronic respiratory failure with hypoxia, on home oxygen therapy Depression Fibromyalgia History of pulmonary embolism (2006) Hypothyroidism Migraine Mixed hyperlipidemia Pacemaker Paroxysmal atrial fibrillation Type 2 diabetes mellitus Vitamin D deficiency Surgical History Surgical History History of appendectomy History of benign breast biopsy History of hysterectomy with oophorectomy History of lumbar surgery History of open reduction and internal fixation (ORIF) procedure (02/2021) Left ankle trimalleolar fracture. Family History Family History Father COPD (chronic obstructive pulmonary disease) Family history of alcoholism Mother Acute myocardial infarction COPD (chronic obstructive pulmonary disease) Hypertension Family history of alcoholism Sibling Diabetes mellitus 1 Sister CHF (congestive heart failure) Brother Breast cancer 2 sisters Hypertension COPD (chronic obstructive pulmonary disease) Family history of alcoholism Other Carcinoma of colon Daughter DVT (deep venous thrombosis) Social History Social History (Updated 04/11/23 @ 17:10 by Otf Ruiz MD) Social History: She is and lives with her daughter. She smoked 1-2 packs of cigarettes per day for 60 years, has quit intermittently, resumed smoking approximately 1 year ago but stopped 03/2023 her condition worsened. She denied any alcohol or illicit substance use. Code status DNR Smoking packs per day: 1.5 Smoking cigarettes per day: 30.0 Years smoked: 30 Smoking pack-years: 45.00 Smoking status: Current some day smoker Tobacco type: cigarettes Smokeless tobacco user: chewing tobacco Second hand tobacco smoke exposure: No Smoking end date: 11/01/22 Additional smoking assessment comments: smokes occasionally Alcohol intake: never Substance use: never Substance use type: painkillers Last use: unsure Lack of Transportation: No Lack of Food: Never True Current Housing: I Have Housing Concerned About Future Housing: No Difficulty Paying Gas/Electric Bills: No Difficulty Paying for Meds: No Currently Unemployed: No Education: Don't Know Difficulty w/ Childcare or Family Care: No Living arrangements: with family Occupation/Education: retired Gender identity (if verbalized by the pa
[2023-04-11] MEDS: MORPHINE SULFATE INJ (*CRX) 50 MG in SODIUM CHLORIDE 0.9% IV 95 ML IV CONT (19:53)
[2023-04-11 20:00] VITALS: BP 128/52; PULSE 62; RESP 18; TEMP 37; O2SAT 93
[2023-04-11 20:07] VITALS: O2SAT 93
[2023-04-12] MEDS: MORPHINE SULFATE (*CRX) 2 MG/ML INJ IV PUSH ×4 (01:17→17:55)
[2023-04-12 08:05] VITALS: O2SAT 93
[2023-04-12] MEDS: GLYCOPYRROLATE INJ (*SP) 0.2 MG/ML VIAL 0.1 MG IV PUSH ×2 (11:09→17:55)
[2023-04-12] MEDS: LORazepam INJ (*CRX) 2 MG/ML VIAL 1 MG IV PUSH ×2 (11:12→17:54)
[2023-04-12 14:00] VITALS: BP 124/47; PULSE 60; RESP 16; TEMP 36.8; O2SAT 94
--- NOTE | 2023-04-12 18:28 | PC.NURSE ---
Pt is hospice pt. Pt has had son at bedside majority of the day. Pt unable to express any needs. Pt has times of restlessness. Pt has been treated with Ativan, Morphine, and Robinul for comfort. Pt had bath today and pt became restless following bath. Pt son states that he will stay with pt tomorrow night, charge nurse notified. Will continue to monitor pt.
[2023-04-12] MEDS: MORPHINE SULFATE INJ (*CRX) 50 MG in SODIUM CHLORIDE 0.9% IV 95 ML IV CONT (18:45)
[2023-04-12 20:00] VITALS: BP 127/47; PULSE 62; RESP 20; TEMP 36.8; O2SAT 94
--- NOTE | 2023-04-12 20:58 | PM.IMPN ---
Progress Note: A&P Assessment and Plan (1) Palliative care encounter: Code(s): Z51.5 - Encounter for palliative care Status: Acute Assessment and Plan: Meet inpatient hospice criteria due to requiring continuous IV morphine for control of dyspnea discomfort and restlessness (2) Acute and chronic respiratory failure, unspecified whether with hypoxia or hypercapnia: Code(s): J96.20 - Acute and chronic respiratory failure, unspecified whether with hypoxia or hypercapnia Status: Acute (3) Paroxysmal atrial fibrillation: Code(s): I48.0 - Paroxysmal atrial fibrillation Status: Chronic (4) COPD exacerbation: Code(s): J44.1 - Chronic obstructive pulmonary disease with (acute) exacerbation Status: Acute Subjective Date/time seen: 04/12/23 20:58 Interval history: Very comfortable. No p.o. intake. Review of Systems Review of Systems: ROS unobtainable: Yes unobtainable due to medical condition Exam Narrative: Elderly female lying in hospital bed with coarse breath sounds and agonal respirations Neck without JVD Chest coarse crackles throughout Heart tachycardic Abdomen bowel sounds hypoactive soft Extremities no edema Musculoskeletal no gross deformity to visual inspection Neurologic cranial nerves symmetric to visual inspection Objective Data Vital Signs Vital Signs: Vital Signs - 24 hr 04/12/23 08:05 04/12/23 14:00 Temperature 98.2 F Pulse Rate 60 Respiratory Rate 16 Blood Pressure 124/47 L Pulse Oximetry 93 94 Oxygen Delivery Nasal Cannula Oxygen Flow Rate 4 Intake/Output Intake/Output: Intake & Output 04/09/23 04/10/23 04/11/23 04/12/23 23:59 23:59 23:59 23:59 Intake Total 60 Balance 60 Meds/Results Medications: Active Medications Generic Name Dose Route Start Last Admin Trade Name Freq PRN Reason Stop Dose Admin Artificial Tears 1 - 2 drop 04/11/23 18:57 Artificial Tears Ophth Soln 15 Ml Bottle EACH EYE Q12H PRN Dry Eye(s) Bisacodyl 10 mg 04/11/23 19:08 Bisacodyl 10 Mg Suppository RECTAL QAM PRN CONSTIPATION Glycopyrrolate 0.1 mg 04/11/23 19:06 04/12/23 17:55 Glycopyrrolate Inj (*Sp) 0.2 Mg/Ml Vial IV PUSH 0.1 mg Q4H PRN Administration SECRETIONS Morphine Sulfate 50 mg/ Sodium 100 mls @ 2 mls/hr 04/11/23 19:00 04/12/23 18:45 Chloride IV CONT 1 mg/hr .Q24H FARRUKH 2 mls/hr Administration 1 MG/HR Lorazepam 1 mg 04/11/23 18:57 04/12/23 17:54 Lorazepam Inj (*Crx) 2 Mg/Ml Vial IV PUSH 1 mg Q4H PRN Administration Anxiety or air hunger Morphine Sulfate 2 mg 04/11/23 18:57 04/12/23 17:55 Morphine Sulfate (*Crx) 2 Mg/Ml Inj IV PUSH 2 mg Q2H PRN Administration Pain/SOB Prochlorperazine Edisylate 10 mg 04/11/23 19:07 Prochlorperazine Edisylate 10 Mg/2 Ml Vial IV PUSH Q6H PRN Nausea And Vomiting Wound Care/Dressing Products 1 each 04/11/23 20:40 04/11/23 21:45 Hydrocolloid Dressing (Duoderm 1 Each Misc TOPICAL 1 each Q72H FARRUKH Administration
[2023-04-12 21:05] VITALS: O2SAT 94
[2023-04-13] MEDS: LORazepam INJ (*CRX) 2 MG/ML VIAL 1 MG IV PUSH ×3 (00:58→14:41)
[2023-04-13] MEDS: GLYCOPYRROLATE INJ (*SP) 0.2 MG/ML VIAL 0.1 MG IV PUSH ×5 (00:59→20:48)
--- NOTE | 2023-04-13 06:55 | PM.IMPN ---
Progress Note: A&P Assessment and Plan (1) Palliative care encounter: Code(s): Z51.5 - Encounter for palliative care Status: Acute Assessment and Plan: Meet inpatient hospice criteria due to requiring continuous IV morphine for control of dyspnea discomfort and restlessness (2) Acute and chronic respiratory failure, unspecified whether with hypoxia or hypercapnia: Code(s): J96.20 - Acute and chronic respiratory failure, unspecified whether with hypoxia or hypercapnia Status: Acute (3) Paroxysmal atrial fibrillation: Code(s): I48.0 - Paroxysmal atrial fibrillation Status: Chronic (4) COPD exacerbation: Code(s): J44.1 - Chronic obstructive pulmonary disease with (acute) exacerbation Status: Acute Subjective Date/time seen: 04/13/23 06:55 Interval history: Very comfortable. No p.o. intake. Review of Systems Review of Systems: ROS unobtainable: Yes unobtainable due to medical condition Exam Narrative: Elderly female lying in hospital bed with coarse breath sounds and agonal respirations Neck without JVD Chest coarse crackles throughout Heart tachycardic Abdomen bowel sounds hypoactive soft Extremities no edema Musculoskeletal no gross deformity to visual inspection Neurologic cranial nerves symmetric to visual inspection Objective Data Vital Signs Vital Signs: Vital Signs - 24 hr 04/12/23 08:05 04/12/23 14:00 04/12/23 20:00 Temperature 98.2 F 98.3 F Pulse Rate 60 62 Respiratory Rate 16 20 Blood Pressure 124/47 L 127/47 L Pulse Oximetry 93 94 94 Oxygen Delivery Nasal Cannula Oxygen Flow Rate 4 04/12/23 21:05 Temperature Pulse Rate Respiratory Rate Blood Pressure Pulse Oximetry 94 Oxygen Delivery Nasal Cannula Oxygen Flow Rate 4 Intake/Output Intake/Output: Intake & Output 04/10/23 04/11/23 04/12/23 04/13/23 23:59 23:59 23:59 23:59 Intake Total 60 Balance 60 Meds/Results Medications: Active Medications Generic Name Dose Route Start Last Admin Trade Name Freq PRN Reason Stop Dose Admin Artificial Tears 1 - 2 drop 04/11/23 18:57 Artificial Tears Ophth Soln 15 Ml Bottle EACH EYE Q12H PRN Dry Eye(s) Bisacodyl 10 mg 04/11/23 19:08 Bisacodyl 10 Mg Suppository RECTAL QAM PRN CONSTIPATION Glycopyrrolate 0.1 mg 04/11/23 19:06 04/13/23 00:59 Glycopyrrolate Inj (*Sp) 0.2 Mg/Ml Vial IV PUSH 0.1 mg Q4H PRN Administration SECRETIONS Morphine Sulfate 50 mg/ Sodium 100 mls @ 2 mls/hr 04/11/23 19:00 04/12/23 18:45 Chloride IV CONT 1 mg/hr .Q24H FARRUKH 2 mls/hr Administration 1 MG/HR Lorazepam 1 mg 04/11/23 18:57 04/13/23 00:58 Lorazepam Inj (*Crx) 2 Mg/Ml Vial IV PUSH 1 mg Q4H PRN Administration Anxiety or air hunger Morphine Sulfate 2 mg 04/11/23 18:57 04/12/23 17:55 Morphine Sulfate (*Crx) 2 Mg/Ml Inj IV PUSH 2 mg Q2H PRN Administration Pain/SOB Prochlorperazine Edisylate 10 mg 04/11/23 19:07 Prochlorperazine Edisylate 10 Mg/2 Ml Vial IV PUSH Q6H PRN Nausea And Vomiting Wound Care/Dressing Products 1 each 04/11/23 20:40 04/11/23 21:45 Hydrocolloid Dressing (Duoderm 1 Each Misc TOPICAL 1 each Q72H FARRUKH Administration
[2023-04-13 08:00] VITALS: O2SAT 94
[2023-04-13 13:55] VITALS: BP 128/52; PULSE 64; RESP 14; TEMP 38.4; O2SAT 96
[2023-04-13 14:40] VITALS: TEMP 38.4
[2023-04-13] MEDS: ACETAMINOPHEN 650 MG SUPPOSITORY RECTAL (14:40)
[2023-04-13 15:40] VITALS: TEMP 37.9
[2023-04-13] MEDS: MORPHINE SULFATE INJ (*CRX) 50 MG in SODIUM CHLORIDE 0.9% IV 95 ML IV CONT (17:31)
[2023-04-13 20:00] VITALS: O2SAT 96
[2023-04-13 21:06] VITALS: BP 120/53; PULSE 65; RESP 24; TEMP 36.8; O2SAT 93
[2023-04-14] MEDS: GLYCOPYRROLATE INJ (*SP) 0.2 MG/ML VIAL 0.1 MG IV PUSH ×5 (00:30→23:47)
[2023-04-14] MEDS: LORazepam INJ (*CRX) 2 MG/ML VIAL 1 MG IV PUSH ×2 (04:12→09:16)
[2023-04-14] MEDS: MORPHINE SULFATE (*CRX) 2 MG/ML INJ IV PUSH (06:00)
[2023-04-14] MEDS: SCOPOLAMINE 1.5 MG PATCH TRANSDERM (10:11)
--- NOTE | 2023-04-14 15:01 | WPDPN ---
Progress Note: A&P Assessment and Plan (1) Palliative care encounter: Code(s): Z51.5 - Encounter for palliative care Status: Acute Assessment and Plan: Continues on morphine drip with some prn ativan and robinal. Added scopalamine patch for secretions. Continues to meet criteria for [facility] hospice. (2) Acute and chronic respiratory failure, unspecified whether with hypoxia or hypercapnia: Code(s): J96.20 - Acute and chronic respiratory failure, unspecified whether with hypoxia or hypercapnia Status: Acute (3) Paroxysmal atrial fibrillation: Code(s): I48.0 - Paroxysmal atrial fibrillation Status: Chronic (4) COPD exacerbation: Code(s): J44.1 - Chronic obstructive pulmonary disease with (acute) exacerbation Status: Acute Subjective Date/time seen: 04/14/23 15:01 Interval history: Continues on a morphine drip, appears comfortable. Some gurgling respirations. Exam Const: General: patient obtunded Resp: Other: mildly tachypneic with coarse respirations. Cardio: Rate: regular rate GI: GI Palp: Yes Soft to palpation Auscultation: Hypoactive bowel sounds present Urinary Catheter: Urinary Catheter: patent and draining and urine dark Extrem: General: no pedal edema Objective Data Vital Signs Vital Signs: Vital Signs - 24 hr 04/13/23 15:40 04/13/23 20:00 04/13/23 21:06 Temperature 37.9 C H 36.8 C Pulse Rate 65 Respiratory Rate 24 H Blood Pressure 120/53 L Pulse Oximetry 96 93 Oxygen Delivery Nasal Cannula Oxygen Flow Rate 4 Intake/Output Intake/Output: Intake & Output 04/11/23 04/12/23 04/13/23 04/14/23 23:59 23:59 23:59 23:59 Intake Total 60 100 Balance 60 100 Meds/Results Medications: Active Medications Generic Name Dose Route Start Last Admin Trade Name Freq PRN Reason Stop Dose Admin Acetaminophen 650 mg 04/13/23 14:21 04/13/23 14:40 Acetaminophen 650 Mg Suppository RECTAL 650 mg Q4H PRN Administration Fever Artificial Tears 1 - 2 drop 04/11/23 18:57 Artificial Tears Ophth Soln 15 Ml Bottle EACH EYE Q12H PRN Dry Eye(s) Bisacodyl 10 mg 04/11/23 19:08 Bisacodyl 10 Mg Suppository RECTAL QAM PRN CONSTIPATION Glycopyrrolate 0.1 mg 04/11/23 19:06 04/14/23 10:08 Glycopyrrolate Inj (*Sp) 0.2 Mg/Ml Vial IV PUSH 0.1 mg Q4H PRN Administration SECRETIONS Morphine Sulfate 50 mg/ Sodium 100 mls @ 2 mls/hr 04/11/23 19:00 04/13/23 17:31 Chloride IV CONT 1 mg/hr .Q24H FARRUKH 2 mls/hr Administration 1 MG/HR Lorazepam 1 mg 04/11/23 18:57 04/14/23 09:16 Lorazepam Inj (*Crx) 2 Mg/Ml Vial IV PUSH 1 mg Q4H PRN Administration Anxiety or air hunger Morphine Sulfate 2 mg 04/11/23 18:57 04/14/23 06:00 Morphine Sulfate (*Crx) 2 Mg/Ml Inj IV PUSH 2 mg Q2H PRN Administration Pain/SOB Prochlorperazine Edisylate 10 mg 04/11/23 19:07 Prochlorperazine Edisylate 10 Mg/2 Ml Vial IV PUSH Q6H PRN Nausea And Vomiting Scopolamine 1.5 mg 04/14/23 10:09 04/14/23 10:11 Scopolamine 1.5 Mg Patch TRANSDERM 1.5 mg Q72HR FARRUKH Administration Wound Care/Dressing Products 1 each 04/11/23 20:40 04/11/23 21:45 Hydrocolloid Dressing (Duoderm 1 Each Misc TOPICAL 1 each Q72H FARRUKH Administration
[2023-04-14] MEDS: MORPHINE SULFATE INJ (*CRX) 50 MG in SODIUM CHLORIDE 0.9% IV 95 ML IV CONT (19:45)
[2023-04-14 20:00] VITALS: O2SAT 97
[2023-04-14 21:00] VITALS: BP 150/75; PULSE 77; RESP 24; TEMP 37.2; O2SAT 97
[2023-04-15] MEDS: GLYCOPYRROLATE INJ (*SP) 0.2 MG/ML VIAL 0.1 MG IV PUSH ×2 (03:52→11:16)
[2023-04-15] MEDS: LORazepam INJ (*CRX) 2 MG/ML VIAL 1 MG IV PUSH ×2 (06:04→11:19)
[2023-04-15 09:00] VITALS: BP 152/78; PULSE 81; RESP 14; TEMP 36.7; O2SAT 93
[2023-04-15] MEDS: MORPHINE SULFATE (*CRX) 2 MG/ML INJ IV PUSH (11:18)
--- NOTE | 2023-04-15 19:44 | PM.IMPN ---
Progress Note: A&P Assessment and Plan (1) Palliative care encounter: Code(s): Z51.5 - Encounter for palliative care Status: Acute Assessment and Plan: Meet inpatient hospice criteria due to requiring continuous IV morphine for control of dyspnea discomfort and restlessness (2) Acute and chronic respiratory failure, unspecified whether with hypoxia or hypercapnia: Code(s): J96.20 - Acute and chronic respiratory failure, unspecified whether with hypoxia or hypercapnia Status: Acute (3) Paroxysmal atrial fibrillation: Code(s): I48.0 - Paroxysmal atrial fibrillation Status: Chronic (4) COPD exacerbation: Code(s): J44.1 - Chronic obstructive pulmonary disease with (acute) exacerbation Status: Acute Subjective Date/time seen: 04/15/23 19:44 Interval history: Restless earlier. Comfortable since lorazepam drip increased. Review of Systems Review of Systems: ROS unobtainable: Yes unobtainable due to medical condition Exam Narrative: Elderly female lying in hospital bed with coarse breath sounds and agonal respirations Neck without JVD Chest coarse crackles throughout Heart tachycardic Abdomen bowel sounds hypoactive soft Extremities no edema Musculoskeletal no gross deformity to visual inspection Neurologic cranial nerves symmetric to visual inspection Objective Data Vital Signs Vital Signs: Vital Signs - 24 hr 04/14/23 21:00 04/14/23 20:00 04/15/23 09:00 Temperature 99.0 F 98.0 F Pulse Rate 77 81 Respiratory Rate 24 H 14 Blood Pressure 150/75 H 152/78 H Pulse Oximetry 97 97 93 Oxygen Delivery Nasal Cannula Oxygen Flow Rate 4 04/15/23 08:00 Temperature Pulse Rate Respiratory Rate Blood Pressure Pulse Oximetry Oxygen Delivery Nasal Cannula Oxygen Flow Rate 4 Intake/Output Intake/Output: Intake & Output 04/12/23 04/13/23 04/14/23 04/15/23 23:59 23:59 23:59 23:59 Intake Total 60 100 100 Balance 60 100 100 Meds/Results Medications: Active Medications Generic Name Dose Route Start Last Admin Trade Name Freq PRN Reason Stop Dose Admin Acetaminophen 650 mg 04/13/23 14:21 04/13/23 14:40 Acetaminophen 650 Mg Suppository RECTAL 650 mg Q4H PRN Administration Fever Artificial Tears 1 - 2 drop 04/11/23 18:57 Artificial Tears Ophth Soln 15 Ml Bottle EACH EYE Q12H PRN Dry Eye(s) Bisacodyl 10 mg 04/11/23 19:08 Bisacodyl 10 Mg Suppository RECTAL QAM PRN CONSTIPATION Glycopyrrolate 0.1 mg 04/11/23 19:06 04/15/23 11:16 Glycopyrrolate Inj (*Sp) 0.2 Mg/Ml Vial IV PUSH 0.1 mg Q4H PRN Administration SECRETIONS Morphine Sulfate 50 mg/ Sodium 100 mls @ 2 mls/hr 04/11/23 19:00 04/14/23 19:45 Chloride IV CONT 1 mg/hr .Q24H FARRUKH 2 mls/hr Administration 1 MG/HR Lorazepam 1 mg 04/11/23 18:57 04/15/23 11:19 Lorazepam Inj (*Crx) 2 Mg/Ml Vial IV PUSH 1 mg Q4H PRN Administration Anxiety or air hunger Morphine Sulfate 2 mg 04/11/23 18:57 04/15/23 11:18 Morphine Sulfate (*Crx) 2 Mg/Ml Inj IV PUSH 2 mg Q2H PRN Administration Pain/SOB Prochlorperazine Edisylate 10 mg 04/11/23 19:07 Prochlorperazine Edisylate 10 Mg/2 Ml Vial IV PUSH Q6H PRN Nausea And Vomiting Scopolamine 1.5 mg 04/14/23 10:09 04/14/23 10:11 Scopolamine 1.5 Mg Patch TRANSDERM 1.5 mg Q72HR FARRUKH Administration Wound Care/Dressing Products 1 each 04/11/23 20:40 04/14/23 22:58 Hydrocolloid Dressing (Duoderm 1 Each Misc TOPICAL 1 each Q72H FARRUKH Administration
[2023-04-15 19:54] VITALS: PULSE 81; RESP 14; O2SAT 93
[2023-04-15] MEDS: MORPHINE SULFATE INJ (*CRX) 50 MG in SODIUM CHLORIDE 0.9% IV 95 ML IV CONT (20:25)
[2023-04-16 09:00] VITALS: BP 142/73; PULSE 86; RESP 14; TEMP 36.9; O2SAT 98
--- NOTE | 2023-04-16 16:32 | PM.IMPN ---
Progress Note: A&P Assessment and Plan (1) Palliative care encounter: Code(s): Z51.5 - Encounter for palliative care Status: Acute Assessment and Plan: Meet inpatient hospice criteria due to requiring continuous IV morphine for control of dyspnea discomfort and restlessness (2) Acute and chronic respiratory failure, unspecified whether with hypoxia or hypercapnia: Code(s): J96.20 - Acute and chronic respiratory failure, unspecified whether with hypoxia or hypercapnia Status: Acute (3) Paroxysmal atrial fibrillation: Code(s): I48.0 - Paroxysmal atrial fibrillation Status: Chronic (4) COPD exacerbation: Code(s): J44.1 - Chronic obstructive pulmonary disease with (acute) exacerbation Status: Acute Subjective Date/time seen: 04/16/23 16:32 Interval history: Remains comfortable on lorazepam and morphine. Exam Narrative: Elderly female lying in hospital bed with coarse breath sounds and agonal respirations Neck without JVD Chest coarse crackles throughout Heart tachycardic Abdomen bowel sounds hypoactive soft Extremities no edema Musculoskeletal no gross deformity to visual inspection Neurologic cranial nerves symmetric to visual inspection Objective Data Vital Signs Vital Signs: Vital Signs - 24 hr 04/15/23 19:54 04/16/23 09:00 Temperature 98.5 F Pulse Rate 81 86 Respiratory Rate 14 14 Blood Pressure 142/73 H Pulse Oximetry 93 98 Oxygen Delivery Nasal Cannula Oxygen Flow Rate 4 Intake/Output Intake/Output: Intake & Output 04/13/23 04/14/23 04/15/23 04/16/23 23:59 23:59 23:59 23:59 Intake Total 100 100 35 Balance 100 100 35 Meds/Results Medications: Active Medications Generic Name Dose Route Start Last Admin Trade Name Freq PRN Reason Stop Dose Admin Acetaminophen 650 mg 04/13/23 14:21 04/13/23 14:40 Acetaminophen 650 Mg Suppository RECTAL 650 mg Q4H PRN Administration Fever Artificial Tears 1 - 2 drop 04/11/23 18:57 Artificial Tears Ophth Soln 15 Ml Bottle EACH EYE Q12H PRN Dry Eye(s) Bisacodyl 10 mg 04/11/23 19:08 Bisacodyl 10 Mg Suppository RECTAL QAM PRN CONSTIPATION Glycopyrrolate 0.1 mg 04/11/23 19:06 04/15/23 11:16 Glycopyrrolate Inj (*Sp) 0.2 Mg/Ml Vial IV PUSH 0.1 mg Q4H PRN Administration SECRETIONS Morphine Sulfate 50 mg/ Sodium 100 mls @ 2 mls/hr 04/11/23 19:00 04/15/23 20:25 Chloride IV CONT 1 mg/hr .Q24H FARRUKH 2 mls/hr Administration 1 MG/HR Lorazepam 1 mg 04/11/23 18:57 04/15/23 11:19 Lorazepam Inj (*Crx) 2 Mg/Ml Vial IV PUSH 1 mg Q4H PRN Administration Anxiety or air hunger Morphine Sulfate 2 mg 04/11/23 18:57 04/15/23 11:18 Morphine Sulfate (*Crx) 2 Mg/Ml Inj IV PUSH 2 mg Q2H PRN Administration Pain/SOB Prochlorperazine Edisylate 10 mg 04/11/23 19:07 Prochlorperazine Edisylate 10 Mg/2 Ml Vial IV PUSH Q6H PRN Nausea And Vomiting Scopolamine 1.5 mg 04/14/23 10:09 04/14/23 10:11 Scopolamine 1.5 Mg Patch TRANSDERM 1.5 mg Q72HR FARRUKH Administration Wound Care/Dressing Products 1 each 04/11/23 20:40 04/14/23 22:58 Hydrocolloid Dressing (Duoderm 1 Each Misc TOPICAL 1 each Q72H FARRUKH Administration
[2023-04-16] MEDS: MORPHINE SULFATE INJ (*CRX) 50 MG in SODIUM CHLORIDE 0.9% IV 95 ML IV CONT (17:45)
[2023-04-16 20:00] VITALS: O2SAT 93
[2023-04-16 21:01] VITALS: TEMP 38.5
[2023-04-16] MEDS: ACETAMINOPHEN 650 MG SUPPOSITORY RECTAL (21:01)
[2023-04-16 21:18] VITALS: BP 151/68; PULSE 99; RESP 20; TEMP 37.9; O2SAT 93
[2023-04-16 22:00] VITALS: TEMP 37.5
[2023-04-17 08:00] VITALS: O2SAT 94
[2023-04-17] MEDS: SCOPOLAMINE 1.5 MG PATCH TRANSDERM (08:41)
[2023-04-17 12:28] VITALS: PULSE 90; RESP 18; O2SAT 94
[2023-04-17] MEDS: GLYCOPYRROLATE INJ (*SP) 0.2 MG/ML VIAL 0.1 MG IV PUSH (16:14)
[2023-04-17] MEDS: MORPHINE SULFATE INJ (*CRX) 50 MG in SODIUM CHLORIDE 0.9% IV 95 ML IV CONT (18:00)
[2023-04-17 20:00] VITALS: O2SAT 88
--- NOTE | 2023-04-17 20:37 | PM.IMPN ---
Progress Note: A&P Assessment and Plan (1) Palliative care encounter: Code(s): Z51.5 - Encounter for palliative care Status: Acute Assessment and Plan: Meet inpatient hospice criteria due to requiring continuous IV morphine for control of dyspnea discomfort and restlessness (2) Acute and chronic respiratory failure, unspecified whether with hypoxia or hypercapnia: Code(s): J96.20 - Acute and chronic respiratory failure, unspecified whether with hypoxia or hypercapnia Status: Acute (3) Paroxysmal atrial fibrillation: Code(s): I48.0 - Paroxysmal atrial fibrillation Status: Chronic (4) COPD exacerbation: Code(s): J44.1 - Chronic obstructive pulmonary disease with (acute) exacerbation Status: Acute Subjective Date/time seen: 04/17/23 20:37 Interval history: Remains comfortable on lorazepam and morphine. 04/17 was awake intermittently during the day. Had oral swabs. No other PO intake. Speech mostly unintelligible. Review of Systems Review of Systems: ROS unobtainable: Yes unobtainable due to medical condition Exam Narrative: Elderly female lying in hospital bed with coarse breath sounds and agonal respirations Neck without JVD Chest coarse crackles throughout Heart tachycardic Abdomen bowel sounds hypoactive soft Extremities no edema Musculoskeletal no gross deformity to visual inspection Neurologic cranial nerves symmetric to visual inspection Objective Data Vital Signs Vital Signs: Vital Signs - 24 hr 04/16/23 21:01 04/16/23 21:18 04/16/23 22:00 Temperature 101.3 F H 100.3 F H 99.5 F Pulse Rate 99 Respiratory Rate 20 Blood Pressure 151/68 H Pulse Oximetry 93 Oxygen Delivery Oxygen Flow Rate Fraction of Inspired Oxygen 04/17/23 08:00 04/17/23 12:28 Temperature Pulse Rate 90 Respiratory Rate 18 Blood Pressure Pulse Oximetry 94 94 Oxygen Delivery Nasal Cannula Nasal Cannula Oxygen Flow Rate 2 2 Fraction of Inspired Oxygen 28 Intake/Output Intake/Output: Intake & Output 04/14/23 04/15/23 04/16/23 04/17/23 23:59 23:59 23:59 23:59 Intake Total 100 35 100 100 Output Total 625 Balance 100 35 100 -525 Meds/Results Medications: Active Medications Generic Name Dose Route Start Last Admin Trade Name Freq PRN Reason Stop Dose Admin Acetaminophen 650 mg 04/13/23 14:21 04/16/23 21:01 Acetaminophen 650 Mg Suppository RECTAL 650 mg Q4H PRN Administration Fever Artificial Tears 1 - 2 drop 04/11/23 18:57 Artificial Tears Ophth Soln 15 Ml Bottle EACH EYE Q12H PRN Dry Eye(s) Bisacodyl 10 mg 04/11/23 19:08 Bisacodyl 10 Mg Suppository RECTAL QAM PRN CONSTIPATION Glycopyrrolate 0.1 mg 04/11/23 19:06 04/17/23 16:14 Glycopyrrolate Inj (*Sp) 0.2 Mg/Ml Vial IV PUSH 0.1 mg Q4H PRN Administration SECRETIONS Morphine Sulfate 50 mg/ Sodium 100 mls @ 2 mls/hr 04/11/23 19:00 04/17/23 18:00 Chloride IV CONT 1 mg/hr .Q24H FARRUKH 2 mls/hr Administration 1 MG/HR Lorazepam 1 mg 04/11/23 18:57 04/15/23 11:19 Lorazepam Inj (*Crx) 2 Mg/Ml Vial IV PUSH 1 mg Q4H PRN Administration Anxiety or air hunger Morphine Sulfate 2 mg 04/11/23 18:57 04/15/23 11:18 Morphine Sulfate (*Crx) 2 Mg/Ml Inj IV PUSH 2 mg Q2H PRN Administration Pain/SOB Prochlorperazine Edisylate 10 mg 04/11/23 19:07 Prochlorperazine Edisylate 10 Mg/2 Ml Vial IV PUSH Q6H PRN Nausea And Vomiting Scopolamine 1.5 mg 04/14/23 10:09 04/17/23 08:41 Scopolamine 1.5 Mg Patch TRANSDERM 1.5 mg Q72HR FARRUKH Administration Wound Care/Dressing Products 1 each 04/11/23 20:40 04/14/23 22:58 Hydrocolloid Dressing (Duoderm 1 Each Misc TOPICAL 1 each Q72H FARRUKH Administration
[2023-04-17 21:55] VITALS: BP 145/70; PULSE 88; RESP 12; TEMP 36.7; O2SAT 99
[2023-04-18 08:00] VITALS: O2SAT 94
[2023-04-18] MEDS: GLYCOPYRROLATE INJ (*SP) 0.2 MG/ML VIAL 0.1 MG IV PUSH ×2 (13:47→19:35)
[2023-04-18] MEDS: MORPHINE SULFATE (*CRX) 2 MG/ML INJ IV PUSH ×2 (14:31→21:06)
[2023-04-18] MEDS: MORPHINE SULFATE INJ (*CRX) 50 MG in SODIUM CHLORIDE 0.9% IV 95 ML IV CONT (19:27)
--- NOTE | 2023-04-18 19:47 | PM.IMPN ---
Progress Note: A&P Assessment and Plan (1) Palliative care encounter: Code(s): Z51.5 - Encounter for palliative care Status: Acute Assessment and Plan: Meet inpatient hospice criteria due to requiring continuous IV morphine for control of dyspnea discomfort and restlessness (2) Acute and chronic respiratory failure, unspecified whether with hypoxia or hypercapnia: Code(s): J96.20 - Acute and chronic respiratory failure, unspecified whether with hypoxia or hypercapnia Status: Acute (3) Paroxysmal atrial fibrillation: Code(s): I48.0 - Paroxysmal atrial fibrillation Status: Chronic (4) COPD exacerbation: Code(s): J44.1 - Chronic obstructive pulmonary disease with (acute) exacerbation Status: Acute Subjective Date/time seen: 04/18/23 19:47 Interval history: Remains comfortable on lorazepam and morphine. 04/18 was awake intermittently during the day. Had oral swabs. No other PO intake. Review of Systems Review of Systems: ROS unobtainable: Yes unobtainable due to medical condition Exam Narrative: Elderly female lying in hospital bed with coarse breath sounds and agonal respirations Neck without JVD Chest coarse crackles throughout Heart tachycardic Abdomen bowel sounds hypoactive soft Extremities no edema Musculoskeletal no gross deformity to visual inspection Neurologic cranial nerves symmetric to visual inspection Objective Data Vital Signs Vital Signs: Vital Signs - 24 hr 04/17/23 21:55 04/17/23 20:00 04/18/23 08:00 Temperature 98.0 F Pulse Rate 88 Respiratory Rate 12 Blood Pressure 145/70 H Pulse Oximetry 99 88 L 94 Oxygen Delivery Nasal Cannula Nasal Cannula Oxygen Flow Rate 2 2 Intake/Output Intake/Output: Intake & Output 04/15/23 04/16/23 04/17/23 04/18/23 23:59 23:59 23:59 23:59 Intake Total 35 100 100 100 Output Total 625 300 Balance 35 100 -525 -200 Meds/Results Medications: Active Medications Generic Name Dose Route Start Last Admin Trade Name Freq PRN Reason Stop Dose Admin Acetaminophen 650 mg 04/13/23 14:21 04/16/23 21:01 Acetaminophen 650 Mg Suppository RECTAL 650 mg Q4H PRN Administration Fever Artificial Tears 1 - 2 drop 04/11/23 18:57 Artificial Tears Ophth Soln 15 Ml Bottle EACH EYE Q12H PRN Dry Eye(s) Bisacodyl 10 mg 04/11/23 19:08 Bisacodyl 10 Mg Suppository RECTAL QAM PRN CONSTIPATION Glycopyrrolate 0.1 mg 04/11/23 19:06 04/18/23 19:35 Glycopyrrolate Inj (*Sp) 0.2 Mg/Ml Vial IV PUSH 0.1 mg Q4H PRN Administration SECRETIONS Morphine Sulfate 50 mg/ Sodium 100 mls @ 2 mls/hr 04/11/23 19:00 04/18/23 19:27 Chloride IV CONT 1 mg/hr .Q24H FARRUKH 2 mls/hr Administration 1 MG/HR Lorazepam 1 mg 04/11/23 18:57 04/15/23 11:19 Lorazepam Inj (*Crx) 2 Mg/Ml Vial IV PUSH 1 mg Q4H PRN Administration Anxiety or air hunger Morphine Sulfate 2 mg 04/11/23 18:57 04/18/23 14:31 Morphine Sulfate (*Crx) 2 Mg/Ml Inj IV PUSH 2 mg Q2H PRN Administration Pain/SOB Prochlorperazine Edisylate 10 mg 04/11/23 19:07 Prochlorperazine Edisylate 10 Mg/2 Ml Vial IV PUSH Q6H PRN Nausea And Vomiting Scopolamine 1.5 mg 04/14/23 10:09 04/17/23 08:41 Scopolamine 1.5 Mg Patch TRANSDERM 1.5 mg Q72HR FARRUKH Administration Wound Care/Dressing Products 1 each 04/11/23 20:40 04/17/23 20:00 Hydrocolloid Dressing (Duoderm 1 Each Misc TOPICAL 1 each Q72H FARRUKH Administration
[2023-04-18 20:00] VITALS: O2SAT 87
[2023-04-18 20:30] VITALS: BP 154/113; PULSE 98; RESP 24; TEMP 37.6; O2SAT 87
[2023-04-19] MEDS: LORazepam INJ (*CRX) 2 MG/ML VIAL 1 MG IV PUSH (03:00)
[2023-04-19] MEDS: MORPHINE SULFATE (*CRX) 2 MG/ML INJ IV PUSH (04:05)
[2023-04-19] MEDS: GLYCOPYRROLATE INJ (*SP) 0.2 MG/ML VIAL 0.1 MG IV PUSH (04:05)
--- NOTE | 2023-04-19 10:15 | PC.NURSE ---
MTS notified of morgue time of 1000. Security notified.
--- NOTE | 2023-04-20 11:38 | P.DN_ITS ---
Discharge Summary Date and Time Date of : 04/19/23 Time of : 05:10 Provider Pronounced By: Fadumo Jones Probable Cause of Probable Cause of : Acute on chronic mixed hypoxic and hypercarbic respiratory failure due to COPD Summary Hospital Course: Admitted to inpatient hospice service for control of dyspnea and restlessness. Medications were titrated to comfort. Mrs. Sanchez peacefully. Additional Data Confirmation of as documented by pronouncing clinician: Pupillary Reflex, Palpable Pulses, Response to Stimuli, Heart Tones and Breath Sounds Name of Provider Notified: Joseph Time Provider Notified: 05:15 Family Requests Autopsy: No Software Project Manager Notified: Yes Date [facility] Notified of : 04/19/23 Time [facility] Notified of : 05:25
== END 2023-04-19 05:10 | disposition expired | DRG 951 ==
PROVIDERS: Admitting Provider Internal Medicine; PCP Family Medicine; Visit Provider Internal Medicine
DX: Z51.5 Encounter for palliative care (principal); J96.21 Acute and chronic respiratory failure with hypoxia; J96.22 Acute and chronic respiratory failure with hypercapnia; I50.32 Chronic diastolic (congestive) heart failure; J44.9 Chronic obstructive pulmonary disease, unspecified; N18.31 Chronic kidney disease, stage 3a; E11.22 Type 2 diabetes mellitus with diabetic chronic kidney disease; I48.0 Paroxysmal atrial fibrillation; Z95.0 Presence of cardiac pacemaker; Z99.81 Dependence on supplemental oxygen
CPT/HCPCS: A9270; J2060; J2270